=== PATIENT | male | born 1970 | race Hispanic/Latino ===

== ENCOUNTER 2018-03-07 04:54 | Emergency (ER) | payer MEDICAID ==
[2018-03-07 08:11] VITALS: BMI 34.5
== END 2018-03-07 05:18 | disposition left against medical advice (07) ==
LOC: ED 04:54
DX: Z02.89 Encounter for other administrative examinations (principal); Z00.00 Encounter for general adult medical examination without abnormal findings

== ENCOUNTER 2018-03-07 07:56 | Emergency (ER) | payer MEDICAID ==
[2018-03-07 08:11] VITALS: BMI 34.5
[2018-03-07 08:19] VITALS: TEMP 98; O2SAT 98
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
[2018-03-07 08:32] LABS: BASO # 0.02 K/mm3 (0.0-2.0); BASO % 0.2 % (0.0-3.0); EOS # 0.2 (0.0-0.7); EOS % 2.2 % (1.5-5.0); GRAN # 4.65 (1.4-6.5); GRAN % 57.8 % (50.0-68.0); HEMOGLOBIN 13.1 g/dL (14.0-18.0); LYMPH # 2.6 (1.2-3.4); LYMPH % 31.9 % (22.0-35.0); MEAN CELL VOLUME 86.8 fl (80.0-105.0); MEAN CORPUSCULAR HEMOGLOBIN 29.7 pg (25.0-35.0); MEAN CORPUSCULAR HGB CONC 34.2 g/dl (31.0-37.0); MEAN PLATELET VOLUME 11.2 fl (7.0-11.0); MONO # 0.6 (0.1-0.6); MONO % 7.9 % (1.0-6.0); RBC 4.41 10^6/uL (3.5-6.1); RED CELL DISTRIBUTION WIDTH 12.7 % (11.5-14.5); WHITE BLOOD COUNT 8.1 10^3/ul (4.5-11.0)
[2018-03-07 08:42] LABS: ALB/GLOB RATIO 1.3 (1.1-1.8); ALBUMIN 3.9 g/dL (3.0-4.8); ALT/SGPT 59 U/L (7-56); AST/SGOT 52 U/L (17-59); BLOOD UREA NITROGEN 17 mg/dL (7-21); CALCIUM 8.9 mg/dL (8.4-10.5); GFR AFRICAN-AMERICAN > 60; GFR NON-AFRICAN AMERICAN > 60
[2018-03-07 08:50] LABS: B-TYPE NATRIURETIC PEPTIDE 23.9 pg/mL (0-450)
[2018-03-07 10:24] LABS: PH,URINE 6.5 (4.7-8.0); URINE BILIRUBIN NEGATIVE (NEGATIVE); URINE BLOOD NEGATIVE (NEGATIVE); URINE GLUCOSE (UA) NEGATIVE (NEGATIVE); URINE LEUKOCYTE ESTERASE NEGATIVE Leu/uL (NEGATIVE); URINE PROTEIN NEGATIVE mg/dL (<30 mg/dL)
[2018-03-07 10:30] LABS: URINE APPEARANCE CLEAR (CLEAR); URINE COLOR YELLOW (YELLOW)
--- NOTE | 2018-03-07 10:30 | RAD ---
HISTORY: general body swelling COMPARISON: Comparison chest 10/31/2018 TECHNIQUE: Chest PA and lateral FINDINGS: LUNGS: Minimal linear atelectasis and or scarring left lateral lower lung zone as well as the right lung base. PLEURA: No significant pleural effusion identified. No pneumothorax apparent. CARDIOVASCULAR: Normal. OSSEOUS STRUCTURES: No significant abnormalities. VISUALIZED UPPER ABDOMEN: Normal. OTHER FINDINGS: None. IMPRESSION: No acute consolidation. Minimal bibasilar atelectasis
[2018-03-07 10:40] VITALS: BP 132/73; PULSE 80; RESP 18
--- NOTE | 2018-03-07 12:50 | CARD ---
APPROVED REPORT EKG Measurement Heart [id number] CO [id number] <Conclusion> Normal sinus rhythm Normal ECG
--- NOTE | 2018-03-07 16:18 | US ---
HISTORY: Arm pain and swelling. Evaluate for deep venous thrombosis. PHYSICIAN(S): Bruce More MD. FINDINGS: The visualized internal jugular veins are sonographically normal and compressible. No evidence of obstruction or thrombus this is seen. The visualized segments of the subclavian veins are patent with normal waveforms. No sonographic evidence of obstruction or thrombosis is seen. The visualized deep venous systems of both upper extremities proximally are sonographically normal and compressible. IMPRESSION: 1. No sonographic evidence for deep venous thrombosis in the visualized segments of both upper strategies.
--- NOTE | 2018-03-07 16:19 | US ---
PROCEDURE: Left lower extremity venous US HISTORY: Leg pain and swelling. Evaluate for DVT. PHYSICIAN(S): Bruce More MD. TECHNIQUE: Duplex sonography and color-flow Doppler with graded compression were used to evaluate the deep venous system of the left lower extremity. FINDINGS: The visualized deep venous system of the left lower extremity is sonographically normal and compressible. Normal wave forms and augmentation are seen. There is no sonographic evidence for deep venous thrombosis in the visualized segments of the left lower extremity. IMPRESSION: 1. No sonographic evidence for deep venous thrombosis in the visualized segments of the left lower extremity.
== END 2018-03-07 10:39 | disposition home or self-care (01) ==
LOC: ED 07:56
DX: Z00.00 Encounter for general adult medical examination without abnormal findings (principal); R60.0 Localized edema; F17.210 Nicotine dependence, cigarettes, uncomplicated

== ENCOUNTER 2018-03-12 21:00 | Emergency (ER) | payer MEDICAID ==
[2018-03-12 21:00] VITALS: BMI 34.5
[2018-03-12] MEDS ORDERED: Lidocaine 1% Inj (20ml) ONE (21:48)
[2018-03-12] MEDS ORDERED: Amoxicillin-Clav 875-125 mg Tab PO STA (22:26)
[2018-03-12] MEDS ORDERED: TDAP Vaccine 0.5 mL Syr IM ONE (22:26)
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
== END 2018-03-13 01:20 | disposition home or self-care (01) ==
LOC: ED 21:00
DX: S61.216A Laceration without foreign body of right little finger without damage to nail, initial encounter (principal); W45.8XXA Other foreign body or object entering through skin, initial encounter; Y92.009 Unspecified place in unspecified non-institutional (private) residence as the place of occurrence of the external cause; F17.210 Nicotine dependence, cigarettes, uncomplicated; Z23 Encounter for immunization

== ENCOUNTER 2018-04-14 12:04 | Inpatient (IN) | payer MEDICAID, OTHER ==
[2018-04-14 12:04] VITALS: BMI 34.5
--- NOTE | 2018-04-14 12:30 | ED PDOC ---
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 Location Pain Location Body Site Generalized Description Description Acute Intensity of Pain at present 8 Pain Behavior Irritability Aggravating Factors ADL's Alleviating Factors/Management Medication Techniques Alleviating Factors Medication Tramadol HCl (Ultram) 50 mg PO BID [facility] Last Admin: 04/18/18 08:43 Dose: 50 mg MAR Pain Assessment Document 04/18/18 08:43 ABO (Rec: 04/18/18 08:43 ABO [id number]) Pain Reassessment Is this a pain reassessment? No Sleep Is patient sleeping during reassessment? No Presence of Pain Presence of Pain Yes Re-Assess: MAR Pain Assessment Document 04/18/18 09:43 ABO (Rec: 04/18/18 10:23 ABO [id number]) Pain Reassessment Is this a pain reassessment? Yes Sleep Is patient sleeping during reassessment? No Presence of Pain Presence of Pain No Tramadol HCl (Ultram) 50 mg PO TID [facility] Last Admin: 04/19/18 08:35 Dose: 50 mg MAR Pain Assessment Document 04/19/18 08:35 ABO (Rec: 04/19/18 08:35 ABO [id number]) Pain Reassessment Is this a pain reassessment? No Sleep Is patient sleeping during reassessment? No Re-Assess: [facility] Pain Assessment Document 04/19/18 09:35 ABO (Rec: 04/19/18 11:02 ABO [id number]) Pain Reassessment Is this a pain reassessment? Yes Sleep Is patient sleeping during reassessment? No Presence of Pain Presence of Pain No Pain Scale Used Pain Scale Used Numeric Tramadol HCl (Ultram) 50 mg PO TID PRN PRN Reason: pain>=7/10 Last Admin: 04/22/18 11:44 Dose: 50 mg [facility] Pain Assessment Document 04/22/18 11:44 CV (Rec: 04/22/18 11:45 CV [id number]) Pain Reassessment Is this a pain reassessment? No Sleep Is patient sleeping during reassessment? No Presence of Pain Presence of Pain Yes Pain Scale Used Pain Scale Used Numeric Location Left, Right or Bilateral Right Pain Location Body Site Leg Description Description Intermittent Intensity of Pain at present 6 Acceptable Level of Pain 2 Pain Behavior Moaning Aggravating Factors Standing Alleviating Factors/Management Medication Techniques Alleviating Factors Medication Re-Assess: [facility] Pain Assessment Document 04/22/18 12:44 CV (Rec: 04/22/18 13:34 CV [id number]) Pain Reassessment Is this a pain reassessment? Yes Sleep Is patient sleeping during reassessment? No Presence of Pain Presence of Pain Yes Pain Scale Used Pain Scale Used Numeric Location Left, Right or Bilateral Right Pain Location Body Site Leg Description Description Intermittent Intensity of Pain at present 2 Aggravating Factors Standing Alleviating Factors/Management Medication Techniques Alleviating Factors Medication Tramadol HCl (Ultram) 50 mg PO BID PRN PRN Reason: pain>=7/10 Last Admin: 04/24/18 09:32 Dose: 50 mg [facility] Pain Assessment Document 04/24/18 09:32 TW (Rec: 04/24/18 09:32 TW [id number]) Pain Reassessment Is this a pain reassessment? Yes Presence of Pain Presence of Pain Yes Pain Scale Used Pain Scale Used Numeric Location Pain Location Body Site Back Description Description Intermittent Intensity of Pain at present 7 Re-Assess: [facility] Pain Assessment Document 04/24/18 10:32 TW (Rec: 04/24/18 11:12 TW [id number]) Pain Reassessment Is this a pain reassessment? Yes Presence of Pain Presence of Pain Yes Pain Scale Used Pain Scale Used Numeric Location Pain Location Body Site Back Description Description Burning Intensity of Pain at present 3 Tramadol HCl (Ultram) 50 mg PO DAILY PRN PRN Reason: pain>=7/10 Last Admin: 04/25/18 09:08 Dose: 50 mg MAR Pain Assessment Document 04/25/18 09:08 [facility] (Rec: 04/25/18 09:08 [facility] [id number]) Pain Reassessment Is this a pain reassessment? Yes Zaleplon (Sonata) 10 mg PO HS PRN PRN Reason: Insomnia Last Admin: 04/22/18 22:33 Dose: 10 mg Zolpidem Tartrate (Ambien) 10 mg PO HS PRN; Protocol PRN Reason: Insomnia Last Admin: 04/24/18 21:15 Dose: 10 mg Behavioural Document 04/24/18 21:15 DC (Rec: 04/24/18 21:15 DC [id number]) Maintenance Maintenance Dose No Nonmedicinal Nonmedicinal Interventions Redirect Behavior Behavior for Medication: Insomnia Re-Assess: Reassess Psych Meds Document 04/24/18 22:15 DC (Rec: 04/25/18 00:29 DC [id number]) Reassess Psych Med Effective - PA / DIRECTOR TELEHEALTH / Resident Statement ARACELI has reviewed & agrees with the documentation as recorded. <Martín Adam - Last Filed: 04/14/18 14:09> - PA / DIRECTOR TELEHEALTH / Resident Statement ARACELI has reviewed & agrees with the documentation as recorded. <Jose Alatorre - Last Filed: 04/26/18 13:37> Disposition/Present on Arrival - Present on Arrival Any Indicators Present on Arrival: No History of DVT/PE: No History of Uncontrolled Diabetes: No Urinary Catheter: No History of Decub. Ulcer: No History Surgical Site Infection Following: Orthopedic Procedures - Disposition Have Diagnosis and Disposition been Completed?: Yes Disposition Time: 12:30 Patient Plan: Admission <Martín Adam - Last Filed: 04/14/18 14:09> <Jose Alatorre - Last Filed: 04/26/18 13:37> - Disposition Diagnosis: Drug abuse, Bipolar disease, manic Disposition: HOSPITALIZED Condition: STABLE
--- NOTE | 2018-04-14 13:06 | RAD ---
HISTORY: Medical clearance COMPARISON: Comparison chest 03/07/2018 FINDINGS: LUNGS: Poor inspiration with low lung volumes, crowded bronchovascular markings and minor bibasilar atelectasis PLEURA: No significant pleural effusion identified, no pneumothorax apparent. CARDIOVASCULAR: Normal. OSSEOUS STRUCTURES: No significant abnormalities. VISUALIZED UPPER ABDOMEN: Normal. OTHER FINDINGS: None. IMPRESSION: Poor inspiration with low lung volumes, crowded bronchovascular markings and minor bibasilar atelectasis
[2018-04-14 13:14] LABS: ACETAMINOPHEN < 10.0 ug/ml (10.0-20.0); ALB/GLOB RATIO 1.5 (1.1-1.8); ALBUMIN 4.7 g/dL (3.0-4.8); ALT/SGPT 63 U/L (7-56); AST/SGOT 39 U/L (17-59); BASO # 0.02 K/mm3 (0.0-2.0); BASO % 0.2 % (0.0-3.0); BLOOD UREA NITROGEN 8 mg/dL (7-21); CALCIUM 9.3 mg/dL (8.4-10.5); EOS # 0.2 (0.0-0.7); EOS % 1.5 % (1.5-5.0); GFR AFRICAN-AMERICAN > 60; GFR NON-AFRICAN AMERICAN > 60; GRAN # 7.69 (1.4-6.5); GRAN % 72.8 % (50.0-68.0); HEMOGLOBIN 16.1 g/dL (14.0-18.0); LYMPH # 2.2 (1.2-3.4); LYMPH % 21.2 % (22.0-35.0); MEAN CELL VOLUME 86.4 fl (80.0-105.0); MEAN CORPUSCULAR HEMOGLOBIN 30.8 pg (25.0-35.0); MEAN CORPUSCULAR HGB CONC 35.7 g/dl (31.0-37.0); MEAN PLATELET VOLUME 11.4 fl (7.0-11.0); MONO # 0.5 (0.1-0.6); MONO % 4.3 % (1.0-6.0); RBC 5.22 10^6/uL (3.5-6.1); RED CELL DISTRIBUTION WIDTH 13.2 % (11.5-14.5); SALICYLATE < 1 mg/dL (2.0-20.0); WHITE BLOOD COUNT 10.6 10^3/ul (4.5-11.0)
[2018-04-14 13:44] LABS: PH,URINE 5.5 (4.7-8.0); URINE BILIRUBIN NEGATIVE (NEGATIVE); URINE BLOOD NEGATIVE (NEGATIVE); URINE GLUCOSE (UA) NEGATIVE (NEGATIVE); URINE LEUKOCYTE ESTERASE NEGATIVE Leu/uL (NEGATIVE); URINE PROTEIN NEGATIVE mg/dL (<30 mg/dL); URINE UROBILINOGEN 0.2 E.U./dL (<1 E.U./dL)
[2018-04-14 13:45] LABS: BARBITURATES, UR NEGATIVE (NEGATIVE)
[2018-04-14 13:48] LABS: BENZODIAZEPINES, UR POSITIVE (NEGATIVE); OPIATES, UR POSITIVE (NEGATIVE); PHENCYCLIDINE, UR NEGATIVE (NEGATIVE)
[2018-04-14 14:07] LABS: URINE APPEARANCE CLEAR (CLEAR); URINE COLOR YELLOW (YELLOW)
[2018-04-14] MEDS ORDERED: Alum-Mag Hydrox-Simethicone Susp (30 mL) PO PRN (14:53)
[2018-04-14] MEDS ORDERED: Magnesium Hydroxide Susp 30 ml UD PO PRN (14:53)
[2018-04-14 14:57] VITALS: O2SAT 100
--- NOTE | 2018-04-14 15:35 | CARD ---
APPROVED REPORT EKG Measurement Heart [id number] <Conclusion> Normal sinus rhythm with sinus arrhythmia Normal ECG
[2018-04-14 15:44] LABS: FREE T4 0.96 ng/dL (0.78-2.19)
--- NOTE | 2018-04-14 16:52 | PCM.BM ---
<Ilene Gillette - Last Filed: 04/15/18 09:15> - Diagnosis (1) Schizoaffective disorder Status: Acute Interventions: 04/15/18 09:15 Psychoeducation/psychotherapy Psychopharmacology/adjustment of medications as needed/ monitoring possible side effects Evaluate pt on daily basis Compliance with medications and follow up appointments Long acting medication if pt is noncompliant with pill form Suicide and homicide risk assessment and prevention, coping strategies, safety plan Relapse prevention Reduction of symptoms Improve functional status Possible assertive community treatment Cognitive behavioral therapy Family involvement Possible social skill training as outpatient (2) Polysubstance abuse Status: Acute Interventions: 04/15/18 09:16 Monitoring withdrawal symptoms Medical detoxification Pharmacotherapy for alcohol/benzos/opioid dependence Maintaining sobriety Relapse prevention Possible rehabilitation Motivational interviewing 12-step programs: AA meetings <Silvano Cedillo - Last Filed: 04/15/18 10:03> Treatment Plan Problems - Problems identified on initial assessmt Agitated Behavior Date Initiated: 04/14/18 Time Initiated: 16:51 Assessment reference: NA Status: Active Priority: 1 Altered Thought Process Date Initiated: 04/14/18 Time Initiated: 16:51 Assessment reference: NA Status: Active Priority: 2 Auditory Hallucinations Date Initiated: 04/14/18 Time Initiated: 16:51 Assessment reference: NA Status: Active Priority: 3 Delusions Date Initiated: 04/14/18 Time Initiated: 16:51 Assessment reference: NA Status: Active Priority: 4 Hopelessness Date Initiated: 04/14/18 Time Initiated: 16:51 Assessment reference: NA Status: Active Priority: 5 Altered Sleep Patterns Date Initiated: 04/14/18 Time Initiated: 16:52 Assessment reference: NA Status: Active Priority: 6 Treatment assets and liabiliti Patient Assests: cooperative, insightful, motivated, self-reliant, ADL independent, physically healthy, good support system, negotiates basic needs, cognitively intact Patient Liabilities: substance abuse - Milieu Protocol Maintain good personal hygiene: every shift Encourage regular showers, every shift Remind patient to perform daily oral care, every shift Assist patient to perform ADL's Conduct patient checks and document Observation sheet: Q15 minutes Maintain personal safety: daily Educate patient to report safety concerns to staff, daily Monitor environment for contraband/sharps Medication safety: Monitor for expected outcome, potential side effects: daily, Assess barriers to learning: daily, Assess readiness for medication education: daily Family Contact Family involvement: Family/SO is involved Family contact: Patient agrees to contact Discharge/Continuing Care - Education Needs Education Needs: Patient Medication, Patient Diagnosis/Disease Process, Patient Coping Skills, Patient Anger Management skills, Patient Aftercare Safety Plan - Discharge Discharge Criteria: Tolerates medication w/o severe side effects, Free of paranoid thoughts, Free of agitation, Normal sleep pattern, Ability to care for self, No longer exhibiting s/s of withdrawal, Reduction of target symptoms Discharge to:: Home <Keturah Moraes - Last Filed: 04/15/18 11:41>
[2018-04-15 08:14] LABS: GLUCOSE,FASTING 108 mg/dL (65-110); HDL CHOLESTEROL 31 mg/dL (29-60)
[2018-04-15 08:25] LABS: LDL CHOLESTEROL 76 mg/dL (0-129)
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
[2018-04-16] MEDS ORDERED: OLANZapine 5 mg Disintegrating Tab PO PRN (09:16)
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
--- NOTE | 2018-04-18 16:25 | PCM.PYCHPN ---
Psychiatric Progress Note - Psychiatric Progress Note Patient seen today, length of contact: 30min Patient Chief Complaint: "this is a BS...." Problems Identified/Issues Discussed: attempted to discuss: Suicide/ homicide prevention, past psychiatric h/o, current psychiatric symptoms , medical problems, risk/benefits and alternatives of medications, medications compliance, coping strategies, substance abuse h/o, relapse prevention, importance of follow up with psychiatrist and therapist, discharge plan. Medical Problems: medical team was called for atelectasis in the CXR Diagnostic Results: 04/14/18 11:34 04/14/18 11:34 Lab Results 04/15/18 07:00: RPR Nonreactive 04/15/18 07:00: Fasting Glucose 108, Triglycerides 335 H, Cholesterol 152, LDL Cholesterol Direct 76, HDL Cholesterol 31 04/14/18 14:53: Free T4 0.96, TSH 3rd Generation 0.33 L 04/14/18 13:15: Urine Opiates Screen Positive H, Urine Methadone Screen Negative , Ur Barbiturates Screen Negative, Ur Phencyclidine Scrn Negative, Ur Amphetamines Screen Negative, U Benzodiazepines Scrn Positive H, U Oth Cocaine Metabols Positive H, U Cannabinoids Screen Negative 04/14/18 13:15: Urine Color Yellow, Urine Appearance Clear, Urine pH 5.5, Ur Specific [place] >= 1.030, Urine Protein Negative, Urine Glucose (UA) Negative, Urine Ketones Negative, Urine Blood Negative, Urine Nitrate Negative, Urine Bilirubin Negative, Urine Urobilinogen 0.2, Ur Leukocyte Esterase Negative 04/14/18 11:34: Alcohol, Quantitative < 10 04/14/18 11:34: WBC 10.6 D, RBC 5.22, Hgb 16.1 D, Hct 45.1, MCV 86.4, MCH 30.8 , MCHC 35.7, RDW 13.2, Plt Count 205, MPV 11.4 H, Gran % 72.8 H, Lymph % (Auto) 21.2 L, [place] % (Auto) 4.3, Eos % (Auto) 1.5, Baso % (Auto) 0.2, Gran # 7.69 H, Lymph # (Auto) 2.2, [place] # (Auto) 0.5, Eos # (Auto) 0.2, Baso # (Auto) 0.02 04/14/18 11:34: Salicylates < 1 L, Acetaminophen < 10.0 L 04/14/18 11:34: Sodium 145, Potassium 4.2, Chloride 109 H, Carbon Dioxide 23, Anion Gap 18, BUN 8, Creatinine 0.8, Est GFR ( Amer) > 60, Est GFR (Non- Af Amer) > 60, Random Glucose 99, Calcium 9.3, Total Bilirubin 0.4, AST 39, ALT 63 H, Alkaline Phosphatase 103, Total Protein 8.0, Albumin 4.7, Globulin 3.2, Albumin/Globulin Ratio 1.5 Vital Signs Temp Pulse Resp BP Pulse Ox 04/16/18 06:37 97.6 F 102 H 19 117/87 04/16/18 03:35 91 H 125/74 04/15/18 16:00 91 H 125/74 04/15/18 07:34 97.8 F 90 20 126/94 H 04/14/18 17:50 96 H 148/91 H 04/14/18 16:09 16 04/14/18 14:56 98.1 F 96 H 16 148/91 H 100 04/14/18 14:30 98.2 F 80 18 127/76 99 04/14/18 12:38 98.4 F 87 18 152/85 H 98 Temp Pulse Resp BP Pulse Ox 97.2 F L 93 H 20 108/84 100 04/17/18 07:13 04/17/18 07:13 04/17/18 07:13 04/17/18 07:13 04/14/18 14:56 DSM 5 Symptoms Update: shortly pt is 47yo male with h/o mental illness, most likely bipolar vs shizoaffective disorder, h/o noncompliance with the medications and follow up appointments, history of polysubstance abuse and dependence, history of involuntary commitment to [facility], patient was brought to the hospital by his friend for disorganized thoughts, patient also using some drugs, possible suicidal ideation, possible s/p suicidal attempt pt tried to hang himself in the bathroom in the hotel. patient is very familiar to this keno writer/runner from the previous admission to the psychiatric inpatient unit, patient requires further hospitalization and stabilization to cause impulses are unpredictable, patient also verbalized thoughts of harming himself and others in the community. Patient was seen and examined today in his room, pt c/o anxiety at the same time pt said that he feels overmedicated, patient's hygiene is improving, pt reported that he hears his ex- voice through the pillow. pt is guarded and paranoid, there is no recollection of his actions prior this admission, pt said "it is a BS, I did not try to kill myself..." (see previous note, as per family pt tried to hang self in the hotel). pt tolerates meds well, no side effects observed or reported, AIMS 0, no EPS, pt asked to d/c klonopin and give him ativan, will do so. as per staff pt was able to tolerate food, ate breakfast and lunch. Impression: r/o schizoaffective disorder r/o substance induced psychosis polysubstance abuse and dependence Medication Change: Yes (seroquel 300mg po daily and 300mg po hs) Medical Record Reviewed: Yes (pharmacy, consults) Consults ordered or reviewed: medical team recommended spirometer for atelectasis Mental Status Examination - Cognitive Function Orientation: Person, Place Memory: Impaired Attention: Poor Concentration: Poor Association: Loose Fund of Knowledge: Poor - Mood Mood: Depressed, Anxious - Affect Affect: Flat - Formal Thought Process Formal Thought Process: Hallucinations, Delusions, Paranoia, Loosening of associations, Circumstantial - Suicidal Ideation Suicidal Ideation: No - Homicidal Ideation Homicidal Ideation: No Goal/Treatment Plan - Goal/Treatment Plan Need for Continued Stay: Remain at risks for inpatient hospitalization, Severe depression anxiety, Discharge may exacerbated symptoms, Severe functional impairment Progress Toward Problem(s) and Goals/Treatment Plan: Milieu/structure/supportive therapy Medical consult called, pt has atelectasis, HTN, chronic pain seroquel 300mg po daily 300mg po hs for psychosis and mood stabilization PRN meds klonopin d/c ativan 3mg po qid for alcohol withdrawals Sonata 10mg po hs prn for insomnia prozac 10mg po daily for depression and anxiety neurontin 600mg po qid for anxiety and mood stabilization SW consultation for discharge plan and social issues Family involvement, pt gave written consent for collaterals from mother Follow up on labs Will monitor closely Pt was educated about risk/benefits and alternatives of medications, coping strategies (safety plan, suicide prevention), relapse prevention, importance of follow up with psychiatrist and therapist, stay away from drugs/alcohol/smoking Estimated Date of D/C: 04/23/18 (will monitor closely)
[2018-04-19] MEDS ORDERED: DiphenhydrAMINE 50 mg/ml Inj IM PRN (15:00)
--- NOTE | 2018-04-19 15:46 | PCM.PYCHPN ---
Psychiatric Progress Note - Psychiatric Progress Note Patient seen today, length of contact: 30min Patient Chief Complaint: "I am overmedicated and I am anxious" Problems Identified/Issues Discussed: attempted to discuss: Suicide/ homicide prevention, past psychiatric h/o, current psychiatric symptoms , medical problems, risk/benefits and alternatives of medications, medications compliance, coping strategies, substance abuse h/o, relapse prevention, importance of follow up with psychiatrist and therapist, discharge plan. Medical Problems: medical team was called for atelectasis in the CXR Diagnostic Results: 04/14/18 11:34 04/14/18 11:34 Lab Results 04/15/18 07:00: RPR Nonreactive 04/15/18 07:00: Fasting Glucose 108, Triglycerides 335 H, Cholesterol 152, LDL Cholesterol Direct 76, HDL Cholesterol 31 04/14/18 14:53: Free T4 0.96, TSH 3rd Generation 0.33 L 04/14/18 13:15: Urine Opiates Screen Positive H, Urine Methadone Screen Negative , Ur Barbiturates Screen Negative, Ur Phencyclidine Scrn Negative, Ur Amphetamines Screen Negative, U Benzodiazepines Scrn Positive H, U Oth Cocaine Metabols Positive H, U Cannabinoids Screen Negative 04/14/18 13:15: Urine Color Yellow, Urine Appearance Clear, Urine pH 5.5, Ur Specific [place] >= 1.030, Urine Protein Negative, Urine Glucose (UA) Negative, Urine Ketones Negative, Urine Blood Negative, Urine Nitrate Negative, Urine Bilirubin Negative, Urine Urobilinogen 0.2, Ur Leukocyte Esterase Negative 04/14/18 11:34: Alcohol, Quantitative < 10 04/14/18 11:34: WBC 10.6 D, RBC 5.22, Hgb 16.1 D, Hct 45.1, MCV 86.4, MCH 30.8 , MCHC 35.7, RDW 13.2, Plt Count 205, MPV 11.4 H, Gran % 72.8 H, Lymph % (Auto) 21.2 L, [place] % (Auto) 4.3, Eos % (Auto) 1.5, Baso % (Auto) 0.2, Gran # 7.69 H, Lymph # (Auto) 2.2, [place] # (Auto) 0.5, Eos # (Auto) 0.2, Baso # (Auto) 0.02 04/14/18 11:34: Salicylates < 1 L, Acetaminophen < 10.0 L 04/14/18 11:34: Sodium 145, Potassium 4.2, Chloride 109 H, Carbon Dioxide 23, Anion Gap 18, BUN 8, Creatinine 0.8, Est GFR ( Amer) > 60, Est GFR (Non- Af Amer) > 60, Random Glucose 99, Calcium 9.3, Total Bilirubin 0.4, AST 39, ALT 63 H, Alkaline Phosphatase 103, Total Protein 8.0, Albumin 4.7, Globulin 3.2, Albumin/Globulin Ratio 1.5 Vital Signs Temp Pulse Resp BP Pulse Ox 04/16/18 06:37 97.6 F 102 H 19 117/87 04/16/18 03:35 91 H 125/74 04/15/18 16:00 91 H 125/74 04/15/18 07:34 97.8 F 90 20 126/94 H 04/14/18 17:50 96 H 148/91 H 04/14/18 16:09 16 04/14/18 14:56 98.1 F 96 H 16 148/91 H 100 04/14/18 14:30 98.2 F 80 18 127/76 99 04/14/18 12:38 98.4 F 87 18 152/85 H 98 Temp Pulse Resp BP Pulse Ox 97.2 F L 93 H 20 108/84 100 04/17/18 07:13 04/17/18 07:13 04/17/18 07:13 04/17/18 07:13 04/14/18 14:56 DSM 5 Symptoms Update: shortly pt is 47yo male with h/o mental illness, most likely bipolar vs shizoaffective disorder, h/o noncompliance with the medications and follow up appointments, history of polysubstance abuse and dependence, history of involuntary commitment to [facility], patient was brought to the hospital by his friend for disorganized thoughts, patient also using some drugs, possible suicidal ideation, possible s/p suicidal attempt pt tried to hang himself in the bathroom in the hotel. patient is very familiar to this field underwriter from the previous admission to the psychiatric inpatient unit, patient requires further hospitalization and stabilization to cause impulses are unpredictable, patient also verbalized thoughts of harming himself and others in the community. Patient was seen and examined today at the treatment team room, pt is medication seeking, said that "I feel drowsy on medications you prescribed", at the same time pt was asking for medication for anxiety, it is not possible to feel drowsy and anxious at the same time. pt was keep asking ro PRN medications constantly, treatment plan was d/w pt and pt agreed for the following meds: thorazine PO/IM prn ativan will be d/c, xanax the equivalent dose with the plan to wean it off vistaril as needed NO pain killers, pt is on tramadol pt is on seroquel, prozac, neurontin, sonata patient's hygiene is improving, pt reported that he hears his ex- voice through the pillow. pt is guarded and paranoid, there is no recollection of his actions prior this admission, pt said "it is a BS, I did not try to kill myself..." (see previous note, as per family pt tried to hang self in the hotel) . pt tolerates meds well, no side effects observed or reported, AIMS 0, no EPS. as per staff pt was able to tolerate food, ate breakfast and lunch, pt is intrusive. Impression: r/o schizoaffective disorder r/o substance induced psychosis polysubstance abuse and dependence Medication Change: Yes (neurontin increased, cogentin, thorazine xanax) Medical Record Reviewed: Yes (pharmacy, consults) Consults ordered or reviewed: medical team recommended spirometer for atelectasis, respiratory was called Mental Status Examination - Cognitive Function Orientation: Person, Place Memory: Impaired Attention: Poor Concentration: Poor Association: Loose Fund of Knowledge: Poor - Mood Mood: Depressed, Anxious - Affect Affect: Flat - Formal Thought Process Formal Thought Process: Hallucinations, Delusions, Paranoia, Loosening of associations, Circumstantial - Suicidal Ideation Suicidal Ideation: No - Homicidal Ideation Homicidal Ideation: No Goal/Treatment Plan - Goal/Treatment Plan Need for Continued Stay: Remain at risks for inpatient hospitalization, Severe depression anxiety, Discharge may exacerbated symptoms, Severe functional impairment Progress Toward Problem(s) and Goals/Treatment Plan: Milieu/structure/supportive therapy Medical consult called, pt has atelectasis, HTN, chronic pain seroquel 300mg po daily 300mg po hs for psychosis and mood stabilization PRN meds (thorazine, benadryl, tramadol, clonidine) xanax 1mg po qid, with the plan to taper it down, klonopin d/c ativan d/c Sonata 10mg po hs prn for insomnia prozac 20mg po daily for depression and anxiety neurontin 600mg po qid for anxiety and mood stabilization SW consultation for discharge plan and social issues Family involvement, pt gave written consent for collaterals from mother Follow up on labs Will monitor closely Pt was educated about risk/benefits and alternatives of medications, coping strategies (safety plan, suicide prevention), relapse prevention, importance of follow up with psychiatrist and therapist, stay away from drugs/alcohol/smoking Estimated Date of D/C: 04/23/18 (will monitor closely)
--- NOTE | 2018-04-20 11:03 | PCM.PYCHPN ---
Psychiatric Progress Note - Psychiatric Progress Note Patient seen today, length of contact: 25 min Problems Identified/Issues Discussed: I reviewed assessment. Patient is a 47yo male with h/o mental illness, most likely bipolar vs shizoaffective disorder, h/o noncompliance with the medications and follow up appointments, history of polysubstance abuse and dependence, history of involuntary commitment to [facility] who was admitted to the psychiatric unit for disorganization, possible suicidal ideation, possible s/p suicidal attempt by trying to hang himself in the bathroom in the hotel. Patient also verbalized thoughts of harming himself and others in the community. I reviewed recent notes. Patient has been labile, restless and medication seeking. Ativan was changed to Xanax yesterday per patient request however patient required Ativan last night due to anxiety again. Vitals have also been elevated. I meet with him at bedside and in the hallway again. He is fairly groomed and coherent. Indicates that he is very anxious and that he isnt sleeping well. Doesnt feel like anything helps with his insomnia. Denies any hallucinations and doesnt appear to be responding to internal stimuli. He does appear anxious and restless, staff have noted him to be intrusive sometimes. Patient is tolerating his current medications and denies any new side effects or new pain. Still complains of aches all over. He doesn't appear to be in any physical discomfort during my interviews this morning. I discuss patients current symptoms of anxiety, his unstable vitals and switching BACK to Ativan from Xanax and patient is in agreement. Diagnostic Results: r/o schizoaffective disorder r/o substance induced psychosis polysubstance abuse and dependence Medication Change: Yes (d/c xanax, restart ativan) Medical Record Reviewed: Yes (pharmacy, consults) Mental Status Examination - Cognitive Function Orientation: Person, Place Memory: Impaired Attention: Poor Concentration: Poor Association: Loose Fund of Knowledge: Poor - Mood Mood: Depressed, Anxious - Affect Affect: Flat - Formal Thought Process Formal Thought Process: Hallucinations, Delusions, Paranoia, Loosening of associations, Circumstantial - Suicidal Ideation Suicidal Ideation: No - Homicidal Ideation Homicidal Ideation: No Goal/Treatment Plan - Goal/Treatment Plan Need for Continued Stay: Remain at risks for inpatient hospitalization, Severe depression anxiety, Discharge may exacerbated symptoms, Severe functional impairment Progress Toward Problem(s) and Goals/Treatment Plan: * c/w current tx and plan * xanax 1mg po qid switched to ativan 2 mg q6 with plan to taper as tolerated * Seroquel increased from 300/300 to 300/350 to help with lability and impulse control * No new weekend labs thus far * Vitals reviewed and noted below: Selected Entries 04/20/18 06:35 Temperature 97.4 F L Pulse Rate 103 H Respiratory 20 Rate Blood Pressure 113/70 04/19/18 04/19/18 04/19/18 07:04 15:46 22:21 Temperature 97.6 F Pulse Rate 116 H 112 H 120 H Respiratory 20 Rate Blood Pressure 120/73 132/83 137/92 H Estimated Date of D/C: 04/23/18 (will monitor closely)
--- NOTE | 2018-04-21 15:13 | PCM.PYCHPN ---
Psychiatric Progress Note - Psychiatric Progress Note Patient seen today, length of contact: 25 min Problems Identified/Issues Discussed: I have reviewed assessment. Patient is a 47yo male with h/o mental illness, most likely bipolar vs shizoaffective disorder, h/o noncompliance with the medications and follow up appointments, history of polysubstance abuse and dependence, history of involuntary commitment to [facility] who was admitted to the psychiatric unit for disorganization, possible suicidal ideation, possible s/p suicidal attempt by trying to hang himself in the bathroom in the hotel. Patient also verbalized thoughts of harming himself and others in the community. I reviewed recent notes. Patient has been labile, restless and medication seeking. Ativan was changed to Xanax on Sunday per patient request however patient required stat Ativan 2 mg Sunday night due to recurrent anxiety. Multiple sets of vitals were elevated right after the switch to Xanax so Xanax was switched back to Ativan on Sunday (with patient knowledge and consent) Patient remains medication seeking and has been given multiple medications for various symptoms over the weekend. Patient has complained about anxiety, auditory hallucinations, insomnia agitation/restless legs and pain. He has been given Ativan & vistaril po, Thorazine 50 mg po, Sonata, Benadryl po and Ultram prn respectively for these complaints in addition to his standing medications. Not surprisingly, patient has been confused and at times delusional over the weekend. This is likely due to withdrawal and possibly secondary to the changes in benzo regimen, not to mention the accumulative effects of longer acting Ativan. He was finally able to sleep last night but this was at 2:30 am. He remains unpredictable and requires continued close observation. I appreciate staff updates in this regard. . Diagnostic Results: r/o schizoaffective disorder r/o substance induced psychosis polysubstance abuse and dependence Medication Change: Yes (ativan 2 mg q6 decreased to 2 mg q8) Medical Record Reviewed: Yes (pharmacy, consults) Mental Status Examination - Cognitive Function Orientation: Person, Place Memory: Impaired Attention: Poor Concentration: Poor Association: Loose Fund of Knowledge: Poor - Mood Mood: Depressed, Anxious - Affect Affect: Flat - Formal Thought Process Formal Thought Process: Hallucinations, Delusions, Paranoia, Loosening of associations, Circumstantial - Suicidal Ideation Suicidal Ideation: No - Homicidal Ideation Homicidal Ideation: No Goal/Treatment Plan - Goal/Treatment Plan Need for Continued Stay: Remain at risks for inpatient hospitalization, Severe depression anxiety, Discharge may exacerbated symptoms, Severe functional impairment Progress Toward Problem(s) and Goals/Treatment Plan: * c/w current tx and plan * xanax 1mg po qid switched to ativan 2 mg q6 on 04/20/18. Ativan 2 mg q6 decreased to 2 mg q8 on 04/21/18 with plan to taper as tolerated * Seroquel increased from 300/300 to 300/350 on 04/20/18 to help with lability and impulse control * No new weekend labs * Vitals reviewed and noted below: Vital Signs (72 hours) 04/18/18 04/19/18 04/19/18 19:37 07:04 15:46 Temperature 97.6 F Pulse Rate 75 116 H 112 H Respiratory 20 Rate Blood Pressure 134/91 H 120/73 132/83 04/19/18 04/20/18 04/20/18 22:21 06:35 16:00 Temperature 97.4 F L Pulse Rate 120 H 103 H 102 H Respiratory 20 Rate Blood Pressure 137/92 H 113/70 132/87 04/20/18 19:29 Temperature Pulse Rate 120 H Respiratory Rate Blood Pressure 133/90 Estimated Date of D/C: 04/23/18 (will monitor closely)
--- NOTE | 2018-04-21 19:55 | CP.PCM.PN ---
<Johnny Holland - Last Filed: 04/21/18 19:58> Subjective - Date & Time of Evaluation Date of Evaluation: 04/21/18 Time of Evaluation: 19:52 - Subjective Subjective: Patient seen and examined at bedside. Per nursing the patient's heart rate was elevated at 130 and Medicine was consulted. Patient denies any chest pain, shortness of breath, fevers, chills, nausea, vomiting, changes in vision, or any other complaints. Objective - Vital Signs/Intake and Output Vital Signs (last 24 hours): Temp Pulse Resp BP Pulse Ox 97.4 F L 128 H 20 135/83 100 04/20/18 06:35 04/21/18 16:45 04/20/18 06:35 04/21/18 16:45 04/14/18 14:56 - Medications Medications: Current Medications Acetaminophen (Tylenol 325mg Tab) 650 mg PO Q4 PRN PRN Reason: Pain, Mild (1-3) Al Hydrox/Mg Hydrox/Simethicone (Maalox Plus 30 Ml) 30 ml PO DAILY PRN PRN Reason: Upset Stomach Benztropine Mesylate (Cogentin) 2 mg PO [facility] Last Admin: 04/21/18 09:00 Dose: 2 mg Chlorpromazine (Thorazine) 50 mg PO QID PRN; Protocol PRN Reason: agitation/psychosis Last Admin: 04/20/18 20:24 Dose: 50 mg Chlorpromazine (Thorazine) 50 mg IM QID PRN; Protocol PRN Reason: Agitation Clonidine HCl (Catapres) 0.1 mg PO Q12H PRN PRN Reason: Other Last Admin: 04/20/18 19:29 Dose: 0.1 mg Diphenhydramine HCl (Benadryl) 50 mg IM Q6H PRN PRN Reason: Agitation Last Admin: 04/20/18 23:27 Dose: 50 mg Fluoxetine HCl (Prozac) 20 mg PO DAILY [facility] Last Admin: 04/21/18 08:15 Dose: 20 mg Gabapentin (Neurontin) 600 mg PO QID MATI PRN Reason: Protocol Last Admin: 04/21/18 17:27 Dose: 600 mg Hydroxyzine Pamoate (Vistaril) 50 mg PO Q8 PRN; Protocol PRN Reason: Anxiety Last Admin: 04/20/18 16:00 Dose: 50 mg Lorazepam (Ativan) 2 mg PO Q8 MATI PRN Reason: Protocol Magnesium Hydroxide (Milk Of Magnesia) 30 ml PO DAILY PRN PRN Reason: Constipation Quetiapine Fumarate (Seroquel) 300 mg PO DAILY MATI PRN Reason: Protocol Last Admin: 04/21/18 08:14 Dose: 300 mg Quetiapine Fumarate (Seroquel) 350 mg PO HS MATI PRN Reason: Protocol Last Admin: 04/20/18 21:03 Dose: 350 mg Tamsulosin HCl (Flomax) 0.4 mg PO DAILY [facility]I Last Admin: 04/21/18 08:15 Dose: 0.4 mg Tramadol HCl (Ultram) 50 mg PO TID PRN PRN Reason: pain>=7/10 Last Admin: 04/20/18 07:52 Dose: 50 mg Zaleplon (Sonata) 10 mg PO HS PRN PRN Reason: Insomnia Last Admin: 04/20/18 21:36 Dose: 10 mg - Head Exam Head Exam: ATRAUMATIC, NORMAL INSPECTION, NORMOCEPHALIC - Eye Exam Eye Exam: EOMI, Normal appearance, PERRL Pupil Exam: NORMAL ACCOMODATION - ENT Exam ENT Exam: Mucous Membranes Moist - Respiratory Exam Respiratory Exam: Clear to Ausculation Bilateral, NORMAL BREATHING PATTERN. absent: Prolonged Expiratory Phase, Respiratory Distress - Cardiovascular Exam Cardiovascular Exam: Tachycardia, +S1, +S2 - GI/Abdominal Exam GI & Abdominal Exam: Soft, Normal Bowel Sounds - Extremities Exam Extremities Exam: Full ROM, Normal Inspection. absent: Pedal Edema - Back Exam Back Exam: NORMAL INSPECTION. absent: CVA tenderness (L), CVA tenderness (R), paraspinal tenderness - Neurological Exam Neurological Exam: Alert, Awake, CN II-XII Intact, Normal Gait, Oriented x3 - Psychiatric Exam Psychiatric exam: Normal Affect, Normal Mood - Skin Skin Exam: Dry, Intact, Normal Color Assessment and Plan - Assessment and Plan (Free Text) Assessment: 47 year old male with PMH bipolar disorder, schizoaffective d/o, prior suicide attempts, presents for paranoid thoughts, depression. Currently being treated in the [facility] for above issues. Patient Tachycardic on vitals. Plan: 1. Tachycardia -Patient has history of cocaine use. -Repeat EKG was sinus tachycardia at 115 bpm. -Patient asymptomatic at the time of examination. -D-dimer ordered .Will f/u with results. -Will monitor closely. Drug abuse: - Monitor for withdrawal - Ativan prn - Psych on board. Psych conditions: - as per psych management Will continue to follow. Plan discussed with Dr. Carter. Johnny Holland, PGY-1 <Abimbola Carter - Last Filed: 04/22/18 15:31> Objective - Vital Signs/Intake and Output Vital Signs (last 24 hours): Temp Pulse Resp BP Pulse Ox 97.8 F 80 17 127/86 100 04/22/18 09:00 04/22/18 09:00 04/22/18 09:00 04/22/18 09:00 04/14/18 14:56 - Medications Medications: Current Medications Acetaminophen (Tylenol 325mg Tab) 650 mg PO Q4 PRN PRN Reason: Pain, Mild (1-3) Al Hydrox/Mg Hydrox/Simethicone (Maalox Plus 30 Ml) 30 ml PO DAILY PRN PRN Reason: Upset Stomach Benztropine Mesylate (Cogentin) 2 mg PO [facility] Last Admin: 04/22/18 10:55 Dose: 2 mg Chlorpromazine (Thorazine) 50 mg PO QID PRN; Protocol PRN Reason: agitation/psychosis Last Admin: 04/22/18 10:11 Dose: 50 mg Chlorpromazine (Thorazine) 50 mg IM QID PRN; Protocol PRN Reason: Agitation Clonidine HCl (Catapres) 0.1 mg PO Q12H PRN PRN Reason: Other Last Admin: 04/22/18 00:37 Dose: 0.1 mg Diphenhydramine HCl (Benadryl) 50 mg IM Q6H PRN PRN Reason: Agitation Last Admin: 04/20/18 23:27 Dose: 50 mg Fluoxetine HCl (Prozac) 20 mg PO DAILY [facility] Last Admin: 04/22/18 10:56 Dose: 20 mg Gabapentin (Neurontin) 600 mg PO QID MATI PRN Reason: Protocol Last Admin: 04/22/18 10:55 Dose: 600 mg Hydroxyzine Pamoate (Vistaril) 50 mg PO Q8 PRN; Protocol PRN Reason: Anxiety Last Admin: 04/20/18 16:00 Dose: 50 mg Lorazepam (Ativan) 2 mg PO Q8 MATI PRN Reason: Protocol Last Admin: 04/22/18 11:01 Dose: Not Given Magnesium Hydroxide (Milk Of Magnesia) 30 ml PO DAILY PRN PRN Reason: Constipation Quetiapine Fumarate (Seroquel) 300 mg PO DAILY [facility]I PRN Reason: Protocol Last Admin: 04/22/18 11:46 Dose: 300 mg Quetiapine Fumarate (Seroquel) 350 mg PO HS MATI PRN Reason: Protocol Last Admin: 04/21/18 21:42 Dose: 350 mg Tamsulosin HCl (Flomax) 0.4 mg PO DAILY [facility] Last Admin: 04/22/18 10:56 Dose: 0.4 mg Tramadol HCl (Ultram) 50 mg PO TID PRN PRN Reason: pain>=7/10 Last Admin: 04/22/18 11:44 Dose: 50 mg Zaleplon (Sonata) 10 mg PO HS PRN PRN Reason: Insomnia Last Admin: 04/20/18 21:36 Dose: 10 mg - Labs Labs: 04/22/18 09:15 04/22/18 09:15 Attending/Attestation - Attestation I have personally seen and examined this patient.: Yes I have fully participated in the care of the patient.: Yes I have reviewed all pertinent clinical information, including history, physical exam and plan: Yes Notes (Text): 04/22/18 15:31 Medical record note made by the resident after discussion with my direction and input after the patient was personally seen and examined by me. I have reviewed the chart and agree that the record accurately reflects by personal performance of the history, physical exam, data review, and medical decision-making, in the course for the patient. I have also personally directed the plan of care.
[2018-04-22 09:19] LABS: BASO # 0.01 K/mm3 (0.0-2.0); BASO % 0.1 % (0.0-3.0); EOS # 0.2 (0.0-0.7); EOS % 1.9 % (1.5-5.0); GRAN # 6.38 (1.4-6.5); GRAN % 66.5 % (50.0-68.0); HEMOGLOBIN 14.2 g/dL (14.0-18.0); LYMPH # 2.3 (1.2-3.4); LYMPH % 23.6 % (22.0-35.0); MEAN CORPUSCULAR HEMOGLOBIN 30.4 pg (25.0-35.0); MEAN CORPUSCULAR HGB CONC 34.5 g/dl (31.0-37.0); MONO # 0.8 (0.1-0.6); MONO % 7.9 % (1.0-6.0); RBC 4.67 10^6/uL (3.5-6.1); RED CELL DISTRIBUTION WIDTH 13.4 % (11.5-14.5); WHITE BLOOD COUNT 9.6 10^3/ul (4.5-11.0)
[2018-04-22 10:05] LABS: ALB/GLOB RATIO 1.5 (1.1-1.8); ALBUMIN 4.3 g/dL (3.0-4.8); ALT/SGPT 52 U/L (7-56); AST/SGOT 28 U/L (17-59); BLOOD UREA NITROGEN 12 mg/dL (7-21); CALCIUM 9.3 mg/dL (8.4-10.5); GFR AFRICAN-AMERICAN > 60; GFR NON-AFRICAN AMERICAN > 60
--- NOTE | 2018-04-22 11:24 | CARD ---
APPROVED REPORT EKG Measurement Heart [id number] <Conclusion> Normal sinus rhythm Normal ECG
--- NOTE | 2018-04-22 16:05 | CP.PCM.PN ---
<Flavia oSto - Last Filed: 04/22/18 16:00> Subjective - Date & Time of Evaluation Date of Evaluation: 04/22/18 Time of Evaluation: 16:00 - Subjective Subjective: Flavia Soto, PGY1, Progress Note for Dr Lott: Patient seen and examined at bedside. No acute events overnight. Reports mild palpitations. Denies cp, sob, leg swelling, diaphoresis, cough, headache, nausea , vomiting, abdominal pain. Objective - Vital Signs/Intake and Output Vital Signs (last 24 hours): Temp Pulse Resp BP Pulse Ox 97.8 F 80 17 127/86 100 04/22/18 09:00 04/22/18 09:00 04/22/18 09:00 04/22/18 09:00 04/14/18 14:56 - Medications Medications: Current Medications Acetaminophen (Tylenol 325mg Tab) 650 mg PO Q4 PRN PRN Reason: Pain, Mild (1-3) Al Hydrox/Mg Hydrox/Simethicone (Maalox Plus 30 Ml) 30 ml PO DAILY PRN PRN Reason: Upset Stomach Benztropine Mesylate (Cogentin) 2 mg PO [facility] Last Admin: 04/22/18 10:55 Dose: 2 mg Chlorpromazine (Thorazine) 50 mg PO QID PRN; Protocol PRN Reason: agitation/psychosis Last Admin: 04/22/18 10:11 Dose: 50 mg Chlorpromazine (Thorazine) 50 mg IM QID PRN; Protocol PRN Reason: Agitation Clonidine HCl (Catapres) 0.1 mg PO Q12H PRN PRN Reason: Other Last Admin: 04/22/18 00:37 Dose: 0.1 mg Diphenhydramine HCl (Benadryl) 50 mg IM Q6H PRN PRN Reason: Agitation Last Admin: 04/20/18 23:27 Dose: 50 mg Fluoxetine HCl (Prozac) 20 mg PO DAILY [facility] Last Admin: 04/22/18 10:56 Dose: 20 mg Gabapentin (Neurontin) 600 mg PO QID [facility] PRN Reason: Protocol Last Admin: 04/22/18 13:25 Dose: 600 mg Hydroxyzine Pamoate (Vistaril) 50 mg PO Q8 PRN; Protocol PRN Reason: Anxiety Last Admin: 04/20/18 16:00 Dose: 50 mg Lorazepam (Ativan) 2 mg PO Q8 [facility] PRN Reason: Protocol Last Admin: 04/22/18 15:46 Dose: 2 mg Magnesium Hydroxide (Milk Of Magnesia) 30 ml PO DAILY PRN PRN Reason: Constipation Propranolol HCl (Inderal) 10 mg PO BID [facility] Quetiapine Fumarate (Seroquel) 300 mg PO DAILY [facility] PRN Reason: Protocol Last Admin: 04/22/18 11:46 Dose: 300 mg Quetiapine Fumarate (Seroquel) 350 mg PO HS [facility] PRN Reason: Protocol Last Admin: 04/21/18 21:42 Dose: 350 mg Tamsulosin HCl (Flomax) 0.4 mg PO DAILY [facility] Last Admin: 04/22/18 10:56 Dose: 0.4 mg Tramadol HCl (Ultram) 50 mg PO TID PRN PRN Reason: pain>=7/10 Last Admin: 04/22/18 11:44 Dose: 50 mg Zaleplon (Sonata) 10 mg PO HS PRN PRN Reason: Insomnia Last Admin: 04/20/18 21:36 Dose: 10 mg - Labs Labs: 04/22/18 09:15 04/22/18 09:15 - Constitutional Appears: Non-toxic, No Acute Distress - Head Exam Head Exam: ATRAUMATIC, NORMOCEPHALIC - Eye Exam Eye Exam: EOMI, PERRL. absent: Conjunctival injection, Nystagmus, Scleral icterus Pupil Exam: NORMAL ACCOMODATION, PERRL. absent: Irregular, Miosis, Unequal - ENT Exam ENT Exam: Mucous Membranes Moist - Neck Exam Neck Exam: Full ROM - Respiratory Exam Respiratory Exam: Clear to Ausculation Bilateral, NORMAL BREATHING PATTERN. absent: Accessory Muscle Use, Rales, Rhonchi, Wheezes, Respiratory Distress, Stridor - Cardiovascular Exam Cardiovascular Exam: Tachycardia, +S1, +S2. absent: Murmur - GI/Abdominal Exam GI & Abdominal Exam: Soft, Normal Bowel Sounds. absent: Distended, Firm, Guarding, Rigid, Tenderness, Mass, Pulsatile Mass, Rebound - Extremities Exam Extremities Exam: Normal Inspection. absent: Calf Tenderness, Pedal Edema - Back Exam Back Exam: NORMAL INSPECTION - Neurological Exam Neurological Exam: Alert, Awake, Oriented x3 - Psychiatric Exam Psychiatric exam: Depressed, Normal Affect - Skin Skin Exam: Dry, Normal Color, Warm Assessment and Plan - Assessment and Plan (Free Text) Assessment: 47 year old male with PMH bipolar disorder, schizoaffective d/o, prior suicide attempts, presents for paranoid thoughts, depression. Currently being treated in the [facility] for the above issues. Recently, pt found to be in sinus tachycardia likely 2/2 drug withdrawal: Sinus Tachycardia: - Patient has history of cocaine use. - Repeat EKG was sinus tachycardia at 115 bpm. - Patient asymptomatic: denies cp, sob, diaphoresis, n/v/abdominal pain, pleuritic cp. - D-dimer negative. - Propranolol 10 mg bid mayela, please DO NOT discharge patient on this medication as he has a history of cocaine abuse. Discussed with patient the harmful effects of the medication with cocaine, agrees to be abstinent. Drug abuse: - Monitor for withdrawal - Ativan prn - Psych on board. Psych conditions: - as per psych management Case seen and discussed with Dr Lott. Will sign off. Please reconsult as necessary. Flavia Soto, PGY1 <Aravind Lott - Last Filed: 04/22/18 18:49> Objective - Vital Signs/Intake and Output Vital Signs (last 24 hours): Temp Pulse Resp BP Pulse Ox 97.8 F 116 H 17 126/87 100 04/22/18 09:00 04/22/18 17:32 04/22/18 09:00 04/22/18 17:32 04/14/18 14:56 - Medications Medications: Current Medications Acetaminophen (Tylenol 325mg Tab) 650 mg PO Q4 PRN PRN Reason: Pain, Mild (1-3) Al Hydrox/Mg Hydrox/Simethicone (Maalox Plus 30 Ml) 30 ml PO DAILY PRN PRN Reason: Upset Stomach Benztropine Mesylate (Cogentin) 2 mg PO [facility] Last Admin: 04/22/18 10:55 Dose: 2 mg Chlorpromazine (Thorazine) 50 mg PO QID PRN; Protocol PRN Reason: agitation/psychosis Last Admin: 04/22/18 10:11 Dose: 50 mg Chlorpromazine (Thorazine) 50 mg IM QID PRN; Protocol PRN Reason: Agitation Clonidine HCl (Catapres) 0.1 mg PO Q12H PRN PRN Reason: Other Last Admin: 04/22/18 00:37 Dose: 0.1 mg Fluoxetine HCl (Prozac) 20 mg PO DAILY [facility] Last Admin: 04/22/18 10:56 Dose: 20 mg Gabapentin (Neurontin) 600 mg PO QID [facility] PRN Reason: Protocol Last Admin: 04/22/18 13:25 Dose: 600 mg Lorazepam (Ativan) 1 mg PO QID [facility] PRN Reason: Protocol Magnesium Hydroxide (Milk Of Magnesia) 30 ml PO DAILY PRN PRN Reason: Constipation Propranolol HCl (Inderal) 10 mg PO BID [facility] Last Admin: 04/22/18 17:32 Dose: 10 mg Quetiapine Fumarate (Seroquel) 300 mg PO DAILY [facility] PRN Reason: Protocol Last Admin: 04/22/18 11:46 Dose: 300 mg Quetiapine Fumarate (Seroquel) 350 mg PO HS [facility] PRN Reason: Protocol Last Admin: 04/21/18 21:42 Dose: 350 mg Tamsulosin HCl (Flomax) 0.4 mg PO DAILY [facility] Last Admin: 04/22/18 10:56 Dose: 0.4 mg Tramadol HCl (Ultram) 50 mg PO BID PRN PRN Reason: pain>=7/10 Zaleplon (Sonata) 10 mg PO HS PRN PRN Reason: Insomnia Last Admin: 04/20/18 21:36 Dose: 10 mg - Labs Labs: 04/22/18 09:15 04/22/18 09:15 Attending/Attestation - Attestation I have personally seen and examined this patient.: Yes I have fully participated in the care of the patient.: Yes I have reviewed all pertinent clinical information, including history, physical exam and plan: Yes Notes (Text): 04/22/18 18:46 Attending note; Patient seen and examined with resident in psychiatric floor. Patient is a 47-year-old male with a history of alcohol abuse,opiate abuse, benzodiazepine abuse, cocaine abuse is admitted to psychiatric floor for treatment. Patient with anxiety symptoms. Continue Ativan. Episodes of tachycardia. WBC count is normal. D-dimer is normal. No signs of infectious process. Mostly secondary to drug withdrawal. T3-T4 normal. EKG showed normal sinus rhythm/sinus tachycardia at times. Patient is currently asymptomatic. Started on propranolol. Needs drug and alcohol cessation. Case discussed with patient in detail. Monitor closely. Follow-up with PMD upon discharge.
--- NOTE | 2018-04-22 17:14 | PCM.BM ---
<TroySherine Y - Last Filed: 04/22/18 17:14> Treatment Plan Problems - Problems identified on initial assessmt Agitated Behavior Date Initiated: 04/14/18 Time Initiated: 16:51 Assessment reference: NA Status: Active Priority: 1 Altered Thought Process Date Initiated: 04/14/18 Time Initiated: 16:51 Assessment reference: NA Status: Active Priority: 2 Auditory Hallucinations Date Initiated: 04/14/18 Time Initiated: 16:51 Assessment reference: NA Status: Active Priority: 3 Delusions Date Initiated: 04/14/18 Time Initiated: 16:51 Assessment reference: NA Status: Active Priority: 4 Hopelessness Date Initiated: 04/14/18 Time Initiated: 16:51 Assessment reference: NA Status: Active Priority: 5 Altered Sleep Patterns Date Initiated: 04/14/18 Time Initiated: 16:52 Assessment reference: NA Status: Active Priority: 6 Treatment assets and liabiliti Patient Assests: cooperative, insightful, motivated, self-reliant, ADL independent, physically healthy, good support system, negotiates basic needs, cognitively intact Patient Liabilities: substance abuse - Milieu Protocol Maintain good personal hygiene: every shift Encourage regular showers, every shift Remind patient to perform daily oral care, every shift Assist patient to perform ADL's Conduct patient checks and document Observation sheet: Q15 minutes Maintain personal safety: daily Educate patient to report safety concerns to staff, daily Monitor environment for contraband/sharps Medication safety: Monitor for expected outcome, potential side effects: daily, Assess barriers to learning: daily, Assess readiness for medication education: daily Milieu Narrative: * c/w current tx and plan * xanax 1mg po qid switched to ativan 2 mg q6 on 04/20/18. Ativan 2 mg q6 decreased to 2 mg q8 on 04/21/18 with plan to taper as tolerated * Seroquel increased from 300/300 to 300/350 on 04/20/18 to help with lability and impulse control * No new weekend labs * Vitals reviewed and noted below: Vital Signs (72 hours) 04/18/18 04/19/18 04/19/18 19:37 07:04 15:46 Temperature 97.6 F Pulse Rate 75 116 H 112 H Respiratory 20 Rate Blood Pressure 134/91 H 120/73 132/83 04/19/18 04/20/18 04/20/18 22:21 06:35 16:00 Temperature 97.4 F L Pulse Rate 120 H 103 H 102 H Respiratory 20 Rate Blood Pressure 137/92 H 113/70 132/87 04/20/18 19:29 Temperature Pulse Rate 120 H Respiratory Rate Blood Pressure 133/90 Family Contact Family involvement: Family/SO is involved Family contact: Patient agrees to contact Family contact name: Tiesha(sister) Family contacted how many times per week?: 2 Discharge/Continuing Care - Education Needs Education Needs: Patient Medication, Patient Diagnosis/Disease Process, Patient Coping Skills, Patient Anger Management skills, Patient Aftercare Safety Plan - Discharge Discharge Criteria: Tolerates medication w/o severe side effects, Free of paranoid thoughts, Free of agitation, Normal sleep pattern, Ability to care for self, No longer exhibiting s/s of withdrawal, Reduction of target symptoms Discharge to:: Home - Treatment Team Participation Patient/Family/SO Statement: * c/w current tx and plan * xanax 1mg po qid switched to ativan 2 mg q6 on 04/20/18. Ativan 2 mg q6 decreased to 2 mg q8 on 04/21/18 with plan to taper as tolerated * Seroquel increased from 300/300 to 300/350 on 04/20/18 to help with lability and impulse control * No new weekend labs * Vitals reviewed and noted below: Vital Signs (72 hours) 04/18/18 04/19/18 04/19/18 19:37 07:04 15:46 Temperature 97.6 F Pulse Rate 75 116 H 112 H Respiratory 20 Rate Blood Pressure 134/91 H 120/73 132/83 04/19/18 04/20/18 04/20/18 22:21 06:35 16:00 Temperature 97.4 F L Pulse Rate 120 H 103 H 102 H Respiratory 20 Rate Blood Pressure 137/92 H 113/70 132/87 04/20/18 19:29 Temperature Pulse Rate 120 H Respiratory Rate Blood Pressure 133/90 Treatment Plan Review - Problem Agitated Behavior Time Initiated: 16:51 Altered Thought Process Time Initiated: 16:51 Auditory Hallucinations Time Initiated: 16:51 Delusions Time Initiated: 16:51 Hopelessness Time Initiated: 16:51 Altered Sleep Patterns Time Initiated: 16:52 <Silvano Cedillo - Last Filed: 04/22/18 17:17> Treatment Plan Problems - Problems identified on initial assessmt Agitated Behavior Date resolved: 04/22/18 <Ilene Gillette - Last Filed: 04/22/18 17:45> - Diagnosis (1) Schizoaffective disorder Status: Acute Interventions: 04/22/18 17:45 patient is with minimal improvement with his psychotic symptoms, today was agitated, threw paper towards this machine sign writer, was cursing, needed to have IM of Thorazine and at Patient still psychotic, disrespectful (2) Polysubstance abuse Status: Acute Interventions: 04/22/18 17:45 patient has poor insight into addiction problems Does not want to go to inpatient rehabilitation
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
[2018-04-22 21:36] LABS: URINE BILIRUBIN NEGATIVE (NEGATIVE); URINE BLOOD NEGATIVE (NEGATIVE); URINE GLUCOSE (UA) NEGATIVE (NEGATIVE); URINE LEUKOCYTE ESTERASE NEGATIVE Leu/uL (NEGATIVE); URINE PROTEIN NEGATIVE mg/dL (<30 mg/dL); URINE UROBILINOGEN 0.2 E.U./dL (<1 E.U./dL)
[2018-04-22 21:55] LABS: URINE APPEARANCE CLEAR (CLEAR); URINE COLOR YELLOW (YELLOW)
[2018-04-23 06:57] VITALS: RESP 20
--- NOTE | 2018-04-23 15:40 | PCM.PYCHPN ---
Psychiatric Progress Note - Psychiatric Progress Note Patient seen today, length of contact: 25 min Patient Chief Complaint: "you have connection and power that is why you want to keep me here" Problems Identified/Issues Discussed: attempted to discuss: Suicide/ homicide prevention, past psychiatric h/o, current psychiatric symptoms , medical problems, risk/benefits and alternatives of medications, medications compliance, coping strategies, substance abuse h/o, relapse prevention, importance of follow up with psychiatrist and therapist, discharge plan. Medical Problems: medical team was called for atelectasis in the CXR Diagnostic Results: 04/14/18 11:34 04/14/18 11:34 Lab Results 04/15/18 07:00: RPR Nonreactive 04/15/18 07:00: Fasting Glucose 108, Triglycerides 335 H, Cholesterol 152, LDL Cholesterol Direct 76, HDL Cholesterol 31 04/14/18 14:53: Free T4 0.96, TSH 3rd Generation 0.33 L 04/14/18 13:15: Urine Opiates Screen Positive H, Urine Methadone Screen Negative , Ur Barbiturates Screen Negative, Ur Phencyclidine Scrn Negative, Ur Amphetamines Screen Negative, U Benzodiazepines Scrn Positive H, U Oth Cocaine Metabols Positive H, U Cannabinoids Screen Negative 04/14/18 13:15: Urine Color Yellow, Urine Appearance Clear, Urine pH 5.5, Ur Specific [place] >= 1.030, Urine Protein Negative, Urine Glucose (UA) Negative, Urine Ketones Negative, Urine Blood Negative, Urine Nitrate Negative, Urine Bilirubin Negative, Urine Urobilinogen 0.2, Ur Leukocyte Esterase Negative 04/14/18 11:34: Alcohol, Quantitative < 10 04/14/18 11:34: WBC 10.6 D, RBC 5.22, Hgb 16.1 D, Hct 45.1, MCV 86.4, MCH 30.8 , MCHC 35.7, RDW 13.2, Plt Count 205, MPV 11.4 H, Gran % 72.8 H, Lymph % (Auto) 21.2 L, [place] % (Auto) 4.3, Eos % (Auto) 1.5, Baso % (Auto) 0.2, Gran # 7.69 H, Lymph # (Auto) 2.2, [place] # (Auto) 0.5, Eos # (Auto) 0.2, Baso # (Auto) 0.02 04/14/18 11:34: Salicylates < 1 L, Acetaminophen < 10.0 L 04/14/18 11:34: Sodium 145, Potassium 4.2, Chloride 109 H, Carbon Dioxide 23, Anion Gap 18, BUN 8, Creatinine 0.8, Est GFR ( Amer) > 60, Est GFR (Non- Af Amer) > 60, Random Glucose 99, Calcium 9.3, Total Bilirubin 0.4, AST 39, ALT 63 H, Alkaline Phosphatase 103, Total Protein 8.0, Albumin 4.7, Globulin 3.2, Albumin/Globulin Ratio 1.5 Vital Signs Temp Pulse Resp BP Pulse Ox 04/16/18 06:37 97.6 F 102 H 19 117/87 04/16/18 03:35 91 H 125/74 04/15/18 16:00 91 H 125/74 04/15/18 07:34 97.8 F 90 20 126/94 H 04/14/18 17:50 96 H 148/91 H 04/14/18 16:09 16 04/14/18 14:56 98.1 F 96 H 16 148/91 H 100 04/14/18 14:30 98.2 F 80 18 127/76 99 04/14/18 12:38 98.4 F 87 18 152/85 H 98 Temp Pulse Resp BP Pulse Ox 97.2 F L 93 H 20 108/84 100 04/17/18 07:13 04/17/18 07:13 04/17/18 07:13 04/17/18 07:13 04/14/18 14:56 Temp Pulse Resp BP Pulse Ox 97.9 F 73 20 117/78 100 04/23/18 06:57 04/23/18 11:12 04/23/18 06:57 04/23/18 11:12 04/14/18 14:56 DSM 5 Symptoms Update: shortly pt is 47yo male with h/o mental illness, most likely bipolar vs shizoaffective disorder, h/o noncompliance with the medications and follow up appointments, history of polysubstance abuse and dependence, history of involuntary commitment to [facility], patient was brought to the hospital by his friend for disorganized thoughts, patient also using some drugs, possible suicidal ideation, possible s/p suicidal attempt pt tried to hang himself in the bathroom in the hotel. patient is very familiar to this health underwriter from the previous admission to the psychiatric inpatient unit, patient requires further hospitalization and stabilization to cause impulses are unpredictable, patient also verbalized thoughts of harming himself and others in the community. Patient was seen and examined today at the treatment team room, pt is was trying his best to hold himself and not to be agitated, it was successful. pt still paranoid, was feeling that this health underwriter has some connection and her goal to hold pt to the hospital forever, at times pt was sarcastic, but no disrespectful or agitated behavior, last time pt was agitated was yesterday. as per report pt still confused, psychotic, paranoid, was feeling that there are some cameras and wires implanted in computer to monitor him, impulses unpredictable. pt tolerates meds well, no side effects observed or reported, AIMS 0, no EPS. as per staff pt was able to tolerate food, ate breakfast and lunch, pt is intrusive. pt asked about mm relaxant, medical team notified. Impression: r/o schizoaffective disorder r/o substance induced psychosis polysubstance abuse and dependence Medication Change: Yes (ativan decreased 1mg qid, tramadol decreased) Medical Record Reviewed: Yes (pharmacy, consults) Mental Status Examination - Cognitive Function Orientation: Person, Place Memory: Impaired Attention: Poor Concentration: Poor Association: Loose Fund of Knowledge: Poor - Mood Mood: Depressed, Anxious - Affect Affect: Flat - Formal Thought Process Formal Thought Process: Hallucinations, Delusions, Paranoia, Loosening of associations, Circumstantial - Suicidal Ideation Suicidal Ideation: No - Homicidal Ideation Homicidal Ideation: No Goal/Treatment Plan - Goal/Treatment Plan Need for Continued Stay: Remain at risks for inpatient hospitalization, Severe depression anxiety, Discharge may exacerbated symptoms, Severe functional impairment Progress Toward Problem(s) and Goals/Treatment Plan: Milieu/structure/supportive therapy Medical consult called, pt has atelectasis, HTN, chronic pain seroquel 400mg po daily 400mg po hs for psychosis and mood stabilization PRN meds (thorazine, benadryl, tramadol, clonidine) ativan was decreased to 1mg po tid for anxiety propranolol was started by medical team shazia d/weston ativan d/c Sonata d/c ambien 10mg hs prozac 30mg po daily for depression and anxiety neurontin 600mg po qid for anxiety and mood stabilization SW consultation for discharge plan and social issues Family involvement, pt gave written consent for collaterals from mother Follow up on labs Will monitor closely Pt was educated about risk/benefits and alternatives of medications, coping strategies (safety plan, suicide prevention), relapse prevention, importance of follow up with psychiatrist and therapist, stay away from drugs/alcohol/smoking Estimated Date of D/C: 04/29/18 (will monitor closely)
[2018-04-23] MEDS: Divalproex 250 mg DR (BID formulation) PO SCH (21:06)
[2018-04-24] MEDS: Divalproex 250 mg DR (BID formulation) PO SCH (09:10)
[2018-04-24] MEDS: Meloxicam 7.5 MG TAB PO SCH (13:25)
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
[2018-04-24] MEDS: Divalproex 500 mg DR(BID formulation) PO SCH (21:15)
[2018-04-25 07:12] VITALS: BP 117/78; PULSE 78; TEMP 97.3
[2018-04-25] MEDS: Meloxicam 7.5 MG TAB PO SCH (08:08)
[2018-04-25] MEDS: Divalproex 500 mg DR(BID formulation) PO SCH (09:03)
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
== END 2018-04-25 14:15 | disposition left against medical advice (07) | DRG 430 ==
LOC: ED 12:04 → ERH 14:20 → PSYC 14:52
PROVIDERS: ADMIT Psychiatry & Neurology Psychiatry; ATTEND Psychiatry & Neurology Psychiatry
DX: F25.9 Schizoaffective disorder, unspecified (principal); F10.239 Alcohol dependence with withdrawal, unspecified; F11.20 Opioid dependence, uncomplicated; J98.11 Atelectasis; F14.10 Cocaine abuse, uncomplicated; F17.210 Nicotine dependence, cigarettes, uncomplicated; F41.9 Anxiety disorder, unspecified; F31.9 Bipolar disorder, unspecified; G25.81 Restless legs syndrome; G47.00 Insomnia, unspecified; I10 Essential (primary) hypertension; G89.29 Other chronic pain; N40.1 Benign prostatic hyperplasia with lower urinary tract symptoms; R39.11 Hesitancy of micturition; Z59.0 Homelessness; Z79.82 Long term (current) use of aspirin; Z91.14 Patient's other noncompliance with medication regimen

== ENCOUNTER 2018-04-27 15:54 | Inpatient (IN) | payer MEDICAID ==
[2018-04-27 16:04] VITALS: BMI 30.7
[2018-04-27] MEDS ORDERED: Sodium Chloride 0.9% 1,000 ML IV STA ×2 (16:33→19:10)
--- NOTE | 2018-04-27 16:54 | ED PDOC ---
Arrival/HPI - General Historian: Patient, Family - History of Present Illness Time/Duration: Other (1 day) Symptom Onset: Sudden Symptom Course: Worsening Severity Level: 3 (only on palpation) <Saurav Elmore - Last Filed: 04/27/18 17:36> <Jose Alatorre - Last Filed: 04/28/18 13:00> - General Chief Complaint: Lower Extremity Problem/Injury Time Seen by Provider: 04/27/18 15:56 - History of Present Illness Narrative History of Present Illness (Text): 04/27/18 17:17 This is a 47 yo M with PMH bipolar disorder, schizoaffective disorder, polysubstance abuse, and hx right leg compartment syndrome s/p fasciotomy who presents with complaint of right 5th toe swelling and pain. Was discharged against medical advice from Psych unit on 04/25/18. As per family and patient at bedside, patient was acutely twitching and shaking yesterday, but this AM, noted pain in the right 5th toe. Family examined and noted it to be swollen and erythematous, concerning for infection. Patient reports pain at site only, unable to use foot after fasciotomy (walks with use of brace on R leg), otherwise no sensation in foot. Denies any hx of injection drug use, states last used 2 weeks ago. Denies any hx of cellulitis in legs, denies any hx diabetes or immunocompromised conditions (i.e. HIV). Denies recent trauma to site. Denies systemic sx, including fevers, chills, nausea, generalized weakness/malaise, or fatigue. Of note, on exam in ED, site acutely swollen with erythema extending into distal 1/3rd of foot, 2 other discrete areas of erythema and warmth appreciated on other aspects of the leg, and patient tachycardic to 130's. All other ROS in 12-system review negative. Patient reports compliance with all home medications. PMH: as above PSH: denies FH: denies SH: Smokes cigarettes 1 PPD for >20 years. Denies any alcohol or illicits since discharge 04/25/18, last used cocaine (snort) 2 weeks prior, previously reported drinking 8 beers daily as per prior charting PMD: Dr. Ruiz (Saurav Elmore) Past Medical History - Provider Review Nursing Documentation Reviewed: Yes - Past History Past History: No Previous - Infectious Disease Hx of Infectious Diseases: None - Tetanus Immunization Tetanus Immunization: Unknown - Past Medical History Past Medical History: No Previous - Cardiac Hx Hypertension: No - Pulmonary Hx Respiratory Disorders: No Hx Tuberculosis: No - Neurological Hx Seizures: No - HEENT Hx HEENT Disorder: No - Renal Hx Renal Disorder: No - Endocrine/Metabolic Hx Endocrine Disorders: No - Hematological/Oncological Hx Blood Disorders: No - Integumentary Hx Dermatological Disorder: No (INCISION AND DRAINAGE TO BACK OF NECK AREA. CELLULITIS-) - Musculoskeletal/Rheumatological Hx Falls: No Other/Comment: Brace to right leg, Hx. fasciectomy. - Gastrointestinal Hx Gastrointestinal Disorders: No - Genitourinary/Gynecological Hx Sexually Transmitted Diseases: No - Psychiatric Hx Bipolar Disorder: Yes Hx Depression: Yes Hx Substance Use: Yes - Past Surgical History Past Surgical History: Non-Contributing - Surgical History Hx Orthopedic Surgery: Yes (Fasciotomy (R Leg)) - Anesthesia Hx Anesthesia: Yes Hx Anesthesia Reactions: No Hx Malignant Hyperthermia: No - Suicidal Assessment Feels Threatened In Home Enviroment: No <Saurav Elmore - Last Filed: 04/27/18 17:36> Family/Social History - Physician Review Nursing Documentation Reviewed: Yes Family/Social History: No Known Family HX Smoking Status: Heavy Smoker > 10 Cigarettes Daily Hx Alcohol Use: Yes Hx Substance Use: Yes Substance used: HEROIN, COCAINE, OXY Hx Substance Use Treatment: No <Saurav Elmore - Last Filed: 04/27/18 17:36> Allergies/Home Meds <Saurav Elmore - Last Filed: 04/27/18 17:36> <Jose Alatorre - Last Filed: 04/28/18 13:00> Allergies/Adverse Reactions: Allergies ct dye Allergy (Uncoded 04/15/18 10:22) ITCHING PER PATIENT Review of Systems - Physician Review All systems were reviewed & negative as marked: Yes (as per HPI) - Review of Systems Constitutional: Normal. absent: Fatigue Eyes: Normal. absent: Vision Changes ENT: Normal. absent: Sore Throat, Rhinorrhea Respiratory: Normal. absent: SOB, Cough Cardiovascular: Normal. absent: Chest Pain, DAVIDSON, Syncope Gastrointestinal: Normal. absent: Abdominal Pain, Nausea, Vomiting Genitourinary Male: Normal. absent: Dysuria <Saurav Elmore - Last Filed: 04/27/18 17:36> Physical Exam Vital Signs Reviewed: Yes Temperature: Afebrile Blood Pressure: Normal Pulse: Tachycardic Respiratory Rate: Normal Appearance: Positive for: Non-Toxic, Comfortable, Unkept Pain Distress: Mild Mental Status: Positive for: Alert and Oriented X 3 - Systems Exam Head: Present: Atraumatic, Normocephalic Pupils: Present: Other (Mildly dilated pupils but equally reactive to light bilaterally). No: Sluggish, Non-Reactive, Pinpoint Extroacular Muscles: Present: EOMI. No: Gaze Palsy, Entrapment Conjunctiva: Present: Normal. No: Injected, Icteric Mouth: Present: Moist Mucous Membranes, Normal Lips, Normal Tounge, Normal Teeth. No: Dry, Drooling Nose (External): Present: Atraumatic. No: Abrasion, Laceration Nose (Internal): Present: No Active Bleeding. No: Epistaxis Neck: Present: Normal Range of Motion, Trachea Midline. No: MIDLINE TENDERNESS , JVD Respiratory/Chest: Present: Clear to Auscultation, Good Air Exchange. No: Respiratory Distress, Accessory Muscle Use, Wheezes, Rales Cardiovascular: Present: Normal S1, S2, Peripheal Pulses Present (+2 radials and dorsalis pedis bilaterally), Tachycardic. No: Regular Rate and Rhythm, Murmurs, Irregular Rhythm Abdomen: Present: Normal Bowel Sounds. No: Tenderness, Distention, Mass/ Organomegaly Upper Extremity: Present: Normal Inspection, Normal ROM, NORMAL PULSES. No: Cyanosis, Edema, Tenderness, Swelling, Erythema, Deformity Lower Extremity: Present: NORMAL PULSES, Tenderness (tenderness at all 3 erythematous spots), Erythema (3 discrete spots of tender erythema, at and around R 5th digit, 2x5cm erythema along lower lateral aspect of RLE, 2x3cm erythema along upper medial aspect of RLE below knee, only 5th digit area swollen), Deformity (wasting of RLE as compared to LLE below the knee). No: CALF TENDERNESS, Cyanosis, Normal ROM (unable to move RLE below knee), Swelling Neurological: Present: GCS=15, Speech Normal, Normal Sensory Function. No: Motor Func Grossly Intact (loss of RLE below knee motor, otherwise grossly intact) Skin: Present: Warm, Dry, Normal Color (except as documented in Lower Extremity exam). No: Rashes Psychiatric: Present: Alert, Oriented x 3, Normal Mood, Other (intermittently hearing voices (reports this as baseline)). No: Normal Insight, Normal Concentration <Saurav Elmore - Last Filed: 04/27/18 17:36> <Jose Alatorre - Last Filed: 04/28/18 13:00> Vital Signs Temp Pulse Resp BP Pulse Ox 04/27/18 21:07 96 H 18 148/79 98 04/27/18 20:22 108 H 18 146/77 100 04/27/18 16:09 98.6 F 127 H 18 130/83 95 Medical Decision Making Reassessment Condition: Re-examined, Unchanged <Saurav Elmore - Last Filed: 04/27/18 17:36> <Jose Alatorre - Last Filed: 04/28/18 13:00> ED Course and Treatment: 04/27/18 17:51 Ddx: LE cellulitis, r/o sepsis; tachycardia 2/2 medications vs sepsis EKG ordered due to tachycardic to 130's on intake, notable for Sinus Tachy at 122, intervals normal CBC, CMP, Mg, Phos, VBG with lactate ordered to assess for infectious process, metabolic derangements 1L NS bolus ordered for tachycardia X-ray R foot to assess for subcutaneous gas, possible early osteomyolitis Toradol 60mg IM x1 for pain control F/u and reassess for dispo 04/27/18 19:59 X-ray obtained, no apparent bony involvement or subcutaneous gas but still pending official read Starting Vancomycin for MRSA cellulitis involvement given recent prior hospitalization Labs not notable for sepsis picture, WBCs 10.8, Lactate 1.8, remains afebrile Tachycardia not resolved with 1L NS, ordering another 1L bolus and giving Librium 25mg x1 for possible withdrawal Case discussed with Hospitalist on car supervisor, Dr. Lott, for admission. Agrees with admission, will endorse to oncoming night team. To be admitted to Remote- telemetry due to ongoing tachycardia. Patient seen, reviewed, and discussed with attending, Dr. Alatorre (Saurav Elmore) 04/27/18 20:37 Art Pina is a 47 year old male, who presents to the emergency department for a complaint of pain and swelling to the right, lowe exremity 5th digit. In agreement with resident note, which includes further HPI details. Patient was seen and evaluated with resident, came up with plan and treatment together. (Jose Alatorre) - Lab Interpretations Lab Results: 04/27/18 16:30 04/27/18 16:30 Lab Results 04/27/18 18:00: ESR 35 H 04/27/18 18:00: C-React Prot High Sens > 15.00 H, Alcohol, Quantitative < 10 04/27/18 17:05: Urine Opiates Screen Negative, Urine Methadone Screen Negative, Ur Barbiturates Screen Negative, Ur Phencyclidine Scrn Negative, Ur Amphetamines Screen Negative, U Benzodiazepines Scrn Negative, U Oth Cocaine Metabols Negative, U Cannabinoids Screen Negative 04/27/18 17:05: Urine Color Yellow, Urine Appearance Clear, Urine pH 7.0, Ur Specific [place] <= 1.005, Urine Protein Negative, Urine Glucose (UA) Negative, Urine Ketones Negative, Urine Blood Negative, Urine Nitrate Negative, Urine Bilirubin Negative, Urine Urobilinogen 0.2, Ur Leukocyte Esterase Negative 04/27/18 16:30: Sodium 142, Chloride 106, Potassium 3.6, Carbon Dioxide 24, Anion Gap 15, BUN 6 L, Creatinine 0.6 L, Est GFR ( Amer) > 60, Est GFR ( Non-Af Amer) > 60, Random Glucose 138 H, Calcium 8.7, Phosphorus 2.4 L, Magnesium 1.9, Total Bilirubin 0.2, AST 23, ALT 33, Alkaline Phosphatase 86, Total Protein 6.8, Albumin 3.9, Globulin 2.9, Albumin/Globulin Ratio 1.3 04/27/18 16:30: WBC 10.8, RBC 4.43, Hgb 13.3 L, Hct 38.3 L, MCV 86.5, MCH 30.0, MCHC 34.7, RDW 13.2, Plt Count 154, MPV 11.0, Gran % 79.8 H, Lymph % (Auto) 14.1 L, [place] % (Auto) 5.2, Eos % (Auto) 0.7 L, Baso % (Auto) 0.2, Gran # 8.63 H , Lymph # (Auto) 1.5, [place] # (Auto) 0.6, Eos # (Auto) 0.1, Baso # (Auto) 0.02 04/27/18 16:30: pO2 168 H, VBG pH 7.47 H, VBG pCO2 35.0 L, VBG HCO3 25.5, VBG Total CO2 26.6, VBG O2 Sat (Calc) 100.0 H, VBG Base Excess 2.1 H, VBG Potassium 3.6, Sodium 140.0, Chloride 109.0 H, Glucose 141 H, Lactate 1.8, FiO2 21.0, Venous Blood Potassium 3.6 - RAD Interpretation Radiology Orders: 04/27/18 16:32 FOOT RIGHT 3 VIEWS ROUTINE [RAD] Stat - Medication Orders Current Medication Orders: Acetaminophen (Tylenol 325mg Tab) 650 mg PO Q6H PRN PRN Reason: Pain, moderate (4-7) Benztropine Mesylate (Cogentin) 2 mg PO [facility] Last Admin: 04/28/18 09:45 Dose: 2 mg Clotrimazole (Lotrimin 1%) 0 gm TOP BID [facility] Last Admin: 04/28/18 09:50 Dose: 1 appl Divalproex Sodium (Depakote Dr(*Bid*)) 500 mg PO [facility] Last Admin: 04/28/18 09:48 Dose: 500 mg Behavioural Document 04/28/18 09:48 PHANT (Rec: 04/28/18 09:48 PHANT [id number]) Maintenance Maintenance Dose Yes Nonmedicinal Nonmedicinal Interventions Redirect Therapeutic Communication Activity Give food/fluids Behavior Behavior for Medication: Anxiety Docusate Sodium (Colace) 100 mg PO TID [facility] Last Admin: 04/28/18 09:45 Dose: 100 mg Last Bowel Movement Document 04/28/18 09:45 PHANT (Rec: 04/28/18 09:46 PHANT [id number]) Last Bowel Movement Last Bowel Movement 04/27/18 Fluoxetine HCl (Prozac) 40 mg PO DAILY [facility] Last Admin: 04/28/18 09:45 Dose: 40 mg Gabapentin (Neurontin) 600 mg PO QID [facility] PRN Reason: Protocol Last Admin: 04/28/18 09:46 Dose: 600 mg Behavioural Document 04/28/18 09:46 PHANT (Rec: 04/28/18 09:46 PHANT [id number]) Maintenance Maintenance Dose Yes Nonmedicinal Nonmedicinal Interventions Therapeutic Communication Activity Give food/fluids Behavior Behavior for Medication: Anxiety Heparin Sodium (Porcine) (Heparin) 5,000 units SC Q12 MATI PRN Reason: Protocol Last Admin: 04/28/18 09:45 Dose: 5,000 units Subcutaneous Administrations Document 04/28/18 09:45 PHANT (Rec: 04/28/18 09:45 PHANT [id number]) Injection Site MAR Injection Site Right Arm Charges for Administration # of Subcutaneous Administrations 1 Vancomycin HCl (Vancomycin 1gm) 1 gm in 250 mls @ 167 mls/hr IVPB DAILY MATI PRN Reason: Protocol Last Admin: 04/28/18 09:49 Dose: 167 mls/hr eMAR Start Stop Document 04/28/18 09:49 PHANT (Rec: 04/28/18 09:49 PHANT [id number]) Intravenous Solution Start Date 04/28/18 Start Time 09:49 End Date 04/28/18 End time 11:19 Total Infusion Time 90 Ketorolac Tromethamine (Toradol) 15 mg IVP Q6 PRN PRN Reason: Pain, severe (8-10) Meloxicam (Mobic) 7.5 mg PO DAILY [facility] Last Admin: 04/28/18 09:47 Dose: 7.5 mg ALEJANDRO Pain Assessment Document 04/28/18 09:47 PHANT (Rec: 04/28/18 09:47 PHANT [facility] [id number]) Pain Reassessment Is this a pain reassessment? Yes Sleep Is patient sleeping during reassessment? No Presence of Pain Presence of Pain Yes Pain Scale Used Pain Scale Used Numeric Location Left, Right or Bilateral Right Pain Location Body Site Foot Description Description Sharp Intensity of Pain at present 8 Acceptable Level of Pain 3 Radiation Location no Site Observation swelling Pain Behavior Facial Grimacing Alleviating Factors/Management Position Change Techniques Alleviating Factors Medication Morphine Sulfate (Morphine) 2 mg IVP Q6 PRN PRN Reason: Pain, moderate (4-7) Last Admin: 04/28/18 08:29 Dose: 2 mg MAR Pain Assessment Document 04/28/18 08:29 PHANT (Rec: 04/28/18 08:33 PHANT [id number]) Pain Reassessment Is this a pain reassessment? No Sleep Is patient sleeping during reassessment? No Presence of Pain Presence of Pain Yes Pain Scale Used Pain Scale Used Numeric Location Left, Right or Bilateral Right Pain Location Body Site Foot Description Description Acute Intensity of Pain at present 10 Acceptable Level of Pain 3 Radiation Location no Site Observation swelling Pain Behavior Restlessness Facial Grimacing Aggravating Factors Changing Position Standing Walking Alleviating Factors/Management Medication Techniques Alleviating Factors Medication Effects of Pain cooperate with care IVP Administration Document 04/28/18 08:29 PHANT (Rec: 04/28/18 08:33 PHANT [id number]) Charges for Administration # of IVP Administrations 1 Pantoprazole Sodium (Protonix Inj) 40 mg IVP DAILY [facility] Last Admin: 04/28/18 09:48 Dose: 40 mg IVP Administration Document 04/28/18 09:48 PHANT (Rec: 04/28/18 09:48 PHANT [id number]) Charges for Administration # of IVP Administrations 1 Polyethylene Glycol (Miralax) 17 gm PO DAILY [facility] Last Admin: 04/28/18 09:45 Dose: 17 gm Quetiapine Fumarate (Seroquel Xr) 400 mg PO [facility] MATI PRN Reason: Protocol Last Admin: 04/28/18 09:46 Dose: 400 mg Behavioural Document 04/28/18 09:46 PHANT (Rec: 04/28/18 09:46 PHANT [id number]) Maintenance Maintenance Dose Yes Nonmedicinal Nonmedicinal Interventions Therapeutic Communication Activity Give food/fluids Behavior Behavior for Medication: Anxiety Tamsulosin HCl (Flomax) 0.4 mg PO DAILY [facility] Last Admin: 04/28/18 09:48 Dose: 0.4 mg Zolpidem Tartrate (Ambien) 5 mg PO HS PRN; Protocol PRN Reason: Insomnia Last Admin: 04/27/18 23:48 Dose: 5 mg Behavioural Document 04/27/18 23:48 CDL (Rec: 04/27/18 23:48 CDL [id number]) Maintenance Maintenance Dose Yes Behavior Behavior for Medication: Insomnia Re-Assess: Reassess Psych Meds Document 04/28/18 00:48 CDL (Rec: 04/28/18 04:40 CDL [id number]) Reassess Psych Med Effective Discontinued Medications Chlordiazepoxide (Librium) 25 mg PO STAT STA PRN Reason: Protocol Stop: 04/27/18 19:11 Last Admin: 04/27/18 19:41 Dose: 25 mg Gabapentin (Neurontin) 300 mg PO ONCE ONE PRN Reason: Protocol Stop: 04/28/18 01:22 Last Admin: 04/28/18 01:42 Dose: 300 mg Behavioural Document 04/28/18 01:42 CDL (Rec: 04/28/18 01:42 CDL [id number]) Maintenance Maintenance Dose Yes Behavior Behavior for Medication: Anxiety Hydromorphone HCl (Dilaudid) 0.5 mg IVP STAT STA Stop: 04/27/18 18:31 Last Admin: 04/27/18 19:09 Dose: 0.5 mg MAR Pain Assessment Document 04/27/18 19:09 GMD (Rec: 04/27/18 19:09 D [id number]) Pain Reassessment Is this a pain reassessment? No IVP Administration Document 04/27/18 19:09 GMD (Rec: 04/27/18 19:09 D [id number]) Charges for Administration # of IVP Administrations 1 Hydromorphone HCl (Dilaudid) 0.5 mg IVP STAT STA Stop: 04/27/18 23:43 Last Admin: 04/27/18 23:48 Dose: 0.5 mg MAR Pain Assessment Document 04/27/18 23:48 CDL (Rec: 04/27/18 23:49 CDL [id number]) Pain Reassessment Is this a pain reassessment? No Sleep Is patient sleeping during reassessment? No Presence of Pain Presence of Pain Yes Pain Scale Used Pain Scale Used Numeric Location Left, Right or Bilateral Right Pain Location Body Site Leg Ankle Foot Description Description Constant Intensity of Pain at present 9 Pain Behavior Restlessness Alleviating Factors/Management Medication Techniques Alleviating Factors Medication IVP Administration Document 04/27/18 23:48 CDL (Rec: 04/27/18 23:49 CDL [id number]) Charges for Administration # of IVP Administrations 1 Re-Assess: MAR Pain Assessment Document 04/28/18 00:48 CDL (Rec: 04/28/18 06:48 CDL [id number]) Pain Reassessment Is this a pain reassessment? Yes Sleep Is patient sleeping during reassessment? Yes Sodium Chloride (Sodium Chloride 0.9%) 1,000 mls @ 999 mls/hr IV .Q1H1M STA Stop: 04/27/18 17:33 Last Admin: 04/27/18 17:03 Dose: 999 mls/hr eMAR Start Stop Document 04/27/18 17:03 GMD (Rec: 04/27/18 17:03 GMD [id number]) Intravenous Solution Start Date 04/27/18 Start Time 17:03 End Date 04/27/18 End time 18:04 Total Infusion Time 61 Vancomycin HCl 2 gm/ Sodium (Chloride) 500 mls @ 170 mls/hr IVPB ONCE ONE PRN Reason: Protocol Stop: 04/27/18 21:01 Last Admin: 04/27/18 19:06 Dose: 170 mls/hr eMAR Start Stop Document 04/27/18 19:06 GMD (Rec: 04/27/18 19:06 D [id number]) Intravenous Solution Start Date 04/27/18 Start Time 19:06 End Date 04/27/18 End time 22:03 Total Infusion Time 177 Sodium Chloride (Sodium Chloride 0.9%) 1,000 mls @ 999 mls/hr IV .Q1H1M STA Stop: 04/27/18 20:10 Last Admin: 04/27/18 19:41 Dose: 999 mls/hr eMAR Start Stop Document 04/27/18 19:41 GMD (Rec: 04/27/18 19:42 GMD [id number]) Intravenous Solution Start Date 04/27/18 Start Time 19:41 End Date 04/27/18 End time 20:42 Total Infusion Time 61 Ketorolac Tromethamine (Toradol) 60 mg IM STAT STA Stop: 04/27/18 16:43 Last Admin: 04/27/18 17:02 Dose: 60 mg MAR Pain Assessment Document 04/27/18 17:02 GMD (Rec: 04/27/18 17:03 D [id number]) Pain Reassessment Is this a pain reassessment? No IM Administration Charges Document 04/27/18 17:02 GMD (Rec: 04/27/18 17:03 GMD [id number]) Charges for Administration # of IM Administrations 1 Ketorolac Tromethamine (Toradol) 30 mg IVP ONCE ONE Stop: 04/28/18 03:45 Last Admin: 04/28/18 04:57 Dose: 30 mg MAR Pain Assessment Document 04/28/18 04:57 CDL (Rec: 04/28/18 04:57 CD [id number]) Pain Reassessment Is this a pain reassessment? No Sleep Is patient sleeping during reassessment? No Presence of Pain Presence of Pain Yes Pain Scale Used Pain Scale Used Numeric Location Left, Right or Bilateral Right Pain Location Body Site Leg Description Intensity of Pain at present 7 Pain Behavior Restlessness Alleviating Factors/Management Medication Techniques Alleviating Factors Inactivity IVP Administration Document 04/28/18 04:57 CDL (Rec: 04/28/18 04:57 CD [id number]) Charges for Administration # of IVP Administrations 1 - PA / [employer] / Resident Statement / has reviewed & agrees with the documentation as recorded. <Jose Alatorre - Last Filed: 04/28/18 13:00> Disposition/Present on Arrival - Present on Arrival Any Indicators Present on Arrival: No History of DVT/PE: No History of Uncontrolled Diabetes: No Urinary Catheter: No History of Decub. Ulcer: No History Surgical Site Infection Following: Orthopedic Procedures - Disposition Have Diagnosis and Disposition been Completed?: Yes Disposition Time: 19:09 Patient Plan: Admission <Saurav Elmore - Last Filed: 04/27/18 17:36> <Jose Alatorre - Last Filed: 04/28/18 13:00> - Disposition Diagnosis: Cellulitis of right foot, Schizoaffective disorder, Withdrawal symptoms, drug or narcotic Disposition: HOSPITALIZED Patient Problems: Current Active Problems Problem Status Onset Cellulitis of right foot Acute Withdrawal symptoms, drug or narcotic Acute Schizoaffective disorder Chronic Condition: FAIR
[2018-04-27 17:09] LABS: VENOUS BLOOD GAS BASE EXCESS 2.1 mmol/L (0.0-2.0); VENOUS BLOOD GAS PO2 168 mm/Hg (30-55); VENOUS BLOOD PH 7.47 (7.32-7.43)
[2018-04-27 17:14] LABS: BASO # 0.02 K/mm3 (0.0-2.0); BASO % 0.2 % (0.0-3.0); EOS # 0.1 (0.0-0.7); EOS % 0.7 % (1.5-5.0); GRAN # 8.63 (1.4-6.5); GRAN % 79.8 % (50.0-68.0); HEMOGLOBIN 13.3 g/dL (14.0-18.0); LYMPH # 1.5 (1.2-3.4); LYMPH % 14.1 % (22.0-35.0); MEAN CELL VOLUME 86.5 fl (80.0-105.0); MEAN CORPUSCULAR HGB CONC 34.7 g/dl (31.0-37.0); MONO # 0.6 (0.1-0.6); MONO % 5.2 % (1.0-6.0); RBC 4.43 10^6/uL (3.5-6.1); RED CELL DISTRIBUTION WIDTH 13.2 % (11.5-14.5); WHITE BLOOD COUNT 10.8 10^3/ul (4.5-11.0)
[2018-04-27 17:15] LABS: URINE BILIRUBIN NEGATIVE (NEGATIVE); URINE BLOOD NEGATIVE (NEGATIVE); URINE GLUCOSE (UA) NEGATIVE (NEGATIVE); URINE LEUKOCYTE ESTERASE NEGATIVE Leu/uL (NEGATIVE); URINE PROTEIN NEGATIVE mg/dL (<30 mg/dL); URINE UROBILINOGEN 0.2 E.U./dL (<1 E.U./dL)
[2018-04-27 17:21] LABS: URINE APPEARANCE CLEAR (CLEAR); URINE COLOR YELLOW (YELLOW)
[2018-04-27 17:38] LABS: ALB/GLOB RATIO 1.3 (1.1-1.8); ALBUMIN 3.9 g/dL (3.0-4.8); ALT/SGPT 33 U/L (7-56); AST/SGOT 23 U/L (17-59); BLOOD UREA NITROGEN 6 mg/dL (7-21); CALCIUM 8.7 mg/dL (8.4-10.5); GFR NON-AFRICAN AMERICAN > 60
[2018-04-27 17:42] LABS: BARBITURATES, UR NEGATIVE (NEGATIVE); BENZODIAZEPINES, UR NEGATIVE (NEGATIVE); OPIATES, UR NEGATIVE (NEGATIVE); PHENCYCLIDINE, UR NEGATIVE (NEGATIVE)
[2018-04-27] MEDS ORDERED: Vancomycin 2 GM in Sodium Chloride 0.9% 500 ML IVPB ONE (18:05)
[2018-04-27] MEDS ORDERED: HYDROmorphone 0.5 mg/0.5 ml ISec IVP STA ×2 (18:30→23:42)
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
--- NOTE | 2018-04-28 07:19 | RAD ---
PROCEDURE: Right Foot Radiographs. HISTORY: right foot poss cellulitis 5th digit COMPARISON: None. FINDINGS: BONES: Normal. No fracture. JOINTS: Normal. SOFT TISSUES: Soft tissue swelling 5th digit without evidence of foreign body, air within the soft tissues. OTHER FINDINGS: None. IMPRESSION: Soft tissue swelling without acute articular or osseous abnormality. Specifically no evidence of osteomyelitis radiographically.
[2018-04-28 07:48] LABS: BASO # 0.02 K/mm3 (0.0-2.0); BASO % 0.2 % (0.0-3.0); EOS # 0.2 (0.0-0.7); EOS % 1.9 % (1.5-5.0); GRAN # 6.95 (1.4-6.5); GRAN % 70.4 % (50.0-68.0); HEMOGLOBIN 12.9 g/dL (14.0-18.0); MEAN CELL VOLUME 87.4 fl (80.0-105.0); MEAN CORPUSCULAR HEMOGLOBIN 29.5 pg (25.0-35.0); MEAN CORPUSCULAR HGB CONC 33.7 g/dl (31.0-37.0); MEAN PLATELET VOLUME 11.1 fl (7.0-11.0); MONO # 0.7 (0.1-0.6); MONO % 7.5 % (1.0-6.0); RBC 4.38 10^6/uL (3.5-6.1); RED CELL DISTRIBUTION WIDTH 13.1 % (11.5-14.5); WHITE BLOOD COUNT 9.9 10^3/ul (4.5-11.0)
[2018-04-28 08:05] LABS: BLOOD UREA NITROGEN 9 mg/dL (7-21); GFR NON-AFRICAN AMERICAN > 60
[2018-04-28] MEDS: Morphine 2 mg/ml ISec IVP PRN ×3 (08:29→23:17)
[2018-04-28] MEDS: POLYETHYLENE GLYCOL 3350 17 GM/Dose PACKET PO SCH (09:45)
[2018-04-28] MEDS: QUEtiapine 200 mg XR Tab PO SCH ×2 (09:46→22:42)
[2018-04-28] MEDS: Meloxicam 7.5 MG TAB PO SCH (09:47)
[2018-04-28] MEDS: Divalproex 500 mg DR(BID formulation) PO SCH ×2 (09:48→22:43)
[2018-04-28] MEDS: Vancomycin 1gm in NS 250ml 1 GM/250 ML BAG IVPB SCH (09:49)
[2018-04-28] MEDS: Clotrimazole 1% Cream(30 gm) TOP SCH ×2 (09:50→17:45)
--- NOTE | 2018-04-28 12:21 | CP.PCM.PN ---
<Flavia Soto - Last Filed: 04/28/18 12:18> Subjective - Date & Time of Evaluation Date of Evaluation: 04/28/18 Time of Evaluation: 12:18 - Subjective Subjective: Flavia Soto, PGY1, Medicine Progress Note for Dr Lott: Patient seen and examined at bedside. No acute events overnight. Pt reports pain in right leg at cellulitis site, requesting dilaudid. Denies worsening of erythema, drainage, fever, chills, nausea, vomiting, cp, sob, abdominal pain. Objective - Vital Signs/Intake and Output Vital Signs (last 24 hours): Temp Pulse Resp BP Pulse Ox 98.1 F 100 H 18 137/85 98 04/28/18 06:00 04/28/18 10:00 04/28/18 06:00 04/28/18 06:00 04/28/18 06:00 Intake and Output: 04/28/18 04/28/18 06:59 18:59 Intake Total 480 Output Total 475 Balance 5 - Medications Medications: Current Medications Acetaminophen (Tylenol 325mg Tab) 650 mg PO Q6H PRN PRN Reason: Pain, moderate (4-7) Benztropine Mesylate (Cogentin) 2 mg PO [facility] Last Admin: 04/28/18 09:45 Dose: 2 mg Clotrimazole (Lotrimin 1%) 0 gm TOP BID [facility] Last Admin: 04/28/18 09:50 Dose: 1 appl Divalproex Sodium (Depakote Dr(*Bid*)) 500 mg PO [facility]HS [facility] Last Admin: 04/28/18 09:48 Dose: 500 mg Docusate Sodium (Colace) 100 mg PO TID [facility] Last Admin: 04/28/18 09:45 Dose: 100 mg Fluoxetine HCl (Prozac) 40 mg PO DAILY [facility] Last Admin: 04/28/18 09:45 Dose: 40 mg Gabapentin (Neurontin) 600 mg PO QID [facility] PRN Reason: Protocol Last Admin: 04/28/18 09:46 Dose: 600 mg Heparin Sodium (Porcine) (Heparin) 5,000 units SC Q12 [facility] PRN Reason: Protocol Last Admin: 04/28/18 09:45 Dose: 5,000 units Vancomycin HCl (Vancomycin 1gm) 1 gm in 250 mls @ 167 mls/hr IVPB DAILY [facility] PRN Reason: Protocol Last Admin: 04/28/18 09:49 Dose: 167 mls/hr Ketorolac Tromethamine (Toradol) 15 mg IVP Q6 PRN PRN Reason: Pain, severe (8-10) Meloxicam (Mobic) 7.5 mg PO DAILY [facility] Last Admin: 04/28/18 09:47 Dose: 7.5 mg Morphine Sulfate (Morphine) 2 mg IVP Q6 PRN PRN Reason: Pain, moderate (4-7) Last Admin: 04/28/18 08:29 Dose: 2 mg Pantoprazole Sodium (Protonix Inj) 40 mg IVP DAILY [facility] Last Admin: 04/28/18 09:48 Dose: 40 mg Polyethylene Glycol (Miralax) 17 gm PO DAILY [facility] Last Admin: 04/28/18 09:45 Dose: 17 gm Quetiapine Fumarate (Seroquel Xr) 400 mg PO [facility] PRN Reason: Protocol Last Admin: 04/28/18 09:46 Dose: 400 mg Tamsulosin HCl (Flomax) 0.4 mg PO DAILY [facility] Last Admin: 04/28/18 09:48 Dose: 0.4 mg Zolpidem Tartrate (Ambien) 5 mg PO HS PRN; Protocol PRN Reason: Insomnia Last Admin: 04/27/18 23:48 Dose: 5 mg - Labs Labs: 04/28/18 07:00 04/28/18 07:00 APTT 30.5 Seconds (25.1-36.5) 04/28/18 07:00 - Constitutional Appears: Non-toxic, No Acute Distress - Head Exam Head Exam: ATRAUMATIC, NORMOCEPHALIC - Eye Exam Eye Exam: EOMI, PERRL. absent: Conjunctival injection, Nystagmus, Scleral icterus Pupil Exam: NORMAL ACCOMODATION, PERRL. absent: Fixed, Irregular, Miosis, Unequal - ENT Exam ENT Exam: Mucous Membranes Moist - Neck Exam Neck Exam: Full ROM - Respiratory Exam Respiratory Exam: Clear to Ausculation Bilateral, NORMAL BREATHING PATTERN. absent: Accessory Muscle Use, Rales, Rhonchi, Wheezes, Stridor - Cardiovascular Exam Cardiovascular Exam: RRR, +S1, +S2. absent: Murmur - GI/Abdominal Exam GI & Abdominal Exam: Soft, Normal Bowel Sounds. absent: Distended, Firm, Guarding, Rigid, Tenderness, Mass, Organomegaly, Rebound - Extremities Exam Extremities Exam: Pedal Edema (right lower leg). absent: Calf Tenderness Additional comments: right lower leg has decreased muscle tone s/p fasciotomy, right lower leg mild erythematous streaking, mildly improved since yesterday - Back Exam Back Exam: NORMAL INSPECTION - Neurological Exam Neurological Exam: Alert, Awake, Oriented x3 - Psychiatric Exam Psychiatric exam: Normal Affect, Normal Mood - Skin Skin Exam: Dry, Normal Color, Warm Assessment and Plan - Assessment and Plan (Free Text) Assessment: 47 yo M with PMH bipolar disorder, schizoaffective disorder, polysubstance abuse , and right leg compartment syndrome s/p fasciotomy, presents for right leg cellulitis 2/2 trauma, also found to have tachycardia: Right leg cellulitis: 2/2 trauma - afebrile, no leukocytosis - CRP elevated - X ray foot: soft tissue swelling. No osteomyelitis - Vancomycin - morphine 2 mg IV q6 prn Hx of BPH: - home flomax Hx of Mood disorder: - home Seroquel and fluoxetine hx of neuropathy: - Continue with neurontin Insomnia -Ambien PRN DVT/GI prophylaxis: Heparin/Protonix Case seen and discussed with Dr Lott. Flavia Soto, PGY1 <Aravind Lott - Last Filed: 04/28/18 13:12> Objective - Vital Signs/Intake and Output Vital Signs (last 24 hours): Temp Pulse Resp BP Pulse Ox 97.1 F L 81 21 129/73 98 04/28/18 12:00 04/28/18 12:00 04/28/18 12:00 04/28/18 12:00 04/28/18 06:00 Intake and Output: 04/28/18 04/28/18 06:59 18:59 Intake Total 480 Output Total 475 Balance 5 - Medications Medications: Current Medications Acetaminophen (Tylenol 325mg Tab) 650 mg PO Q6H PRN PRN Reason: Pain, moderate (4-7) Benztropine Mesylate (Cogentin) 2 mg PO [facility] Last Admin: 04/28/18 09:45 Dose: 2 mg Clotrimazole (Lotrimin 1%) 0 gm TOP BID [facility] Last Admin: 04/28/18 09:50 Dose: 1 appl Divalproex Sodium (Depakote Dr(*Bid*)) 500 mg PO [facility] Last Admin: 04/28/18 09:48 Dose: 500 mg Docusate Sodium (Colace) 100 mg PO TID [facility] Last Admin: 04/28/18 09:45 Dose: 100 mg Fluoxetine HCl (Prozac) 40 mg PO DAILY [facility] Last Admin: 04/28/18 09:45 Dose: 40 mg Gabapentin (Neurontin) 600 mg PO QID [facility] PRN Reason: Protocol Last Admin: 04/28/18 09:46 Dose: 600 mg Heparin Sodium (Porcine) (Heparin) 5,000 units SC Q12 [facility] PRN Reason: Protocol Last Admin: 04/28/18 09:45 Dose: 5,000 units Vancomycin HCl (Vancomycin 1gm) 1 gm in 250 mls @ 167 mls/hr IVPB DAILY [facility] PRN Reason: Protocol Last Admin: 04/28/18 09:49 Dose: 167 mls/hr Ketorolac Tromethamine (Toradol) 15 mg IVP Q6 PRN PRN Reason: Pain, severe (8-10) Meloxicam (Mobic) 7.5 mg PO DAILY [facility] Last Admin: 04/28/18 09:47 Dose: 7.5 mg Morphine Sulfate (Morphine) 2 mg IVP Q6 PRN PRN Reason: Pain, moderate (4-7) Last Admin: 04/28/18 08:29 Dose: 2 mg Pantoprazole Sodium (Protonix Inj) 40 mg IVP DAILY [facility] Last Admin: 04/28/18 09:48 Dose: 40 mg Polyethylene Glycol (Miralax) 17 gm PO DAILY [facility] Last Admin: 04/28/18 09:45 Dose: 17 gm Quetiapine Fumarate (Seroquel Xr) 400 mg PO [facility]HS [facility] PRN Reason: Protocol Last Admin: 04/28/18 09:46 Dose: 400 mg Tamsulosin HCl (Flomax) 0.4 mg PO DAILY [facility] Last Admin: 04/28/18 09:48 Dose: 0.4 mg Zolpidem Tartrate (Ambien) 5 mg PO HS PRN; Protocol PRN Reason: Insomnia Last Admin: 04/27/18 23:48 Dose: 5 mg - Labs Labs: 04/28/18 07:00 04/28/18 07:00 APTT 30.5 Seconds (25.1-36.5) 04/28/18 07:00 Attending/Attestation - Attestation I have personally seen and examined this patient.: Yes I have fully participated in the care of the patient.: Yes I have reviewed all pertinent clinical information, including history, physical exam and plan: Yes Notes (Text): 04/28/18 13:04 Attending note; Patient seen and examined with resident. Patient is admitted for right lower extremity cellulitis. Patient is also signing of anxiety. Constantly requesting pain medication. Patient is a 47-year-old male with a history of alcohol abuse,opiate abuse, benzodiazepine abuse, cocaine abuse is with right lower extremity cellulitis. Continue IV vancomycin and Zosyn. ID evaluation requested. Patient was recently discharged from psychiatric floor. Psychiatric evaluation requested. Continue home meds. Adjust medications per psychiatrist. Currently patient is afebrile and nontoxic. Tachycardia resolved. Patient is agitated at times. Requesting provider medication. Started on IV morphine. Urine drug screen is negative. Complete drug and alcohol cessation is strongly advised. Follow-up with PMD upon discharge. 04/28/18 13:12
--- NOTE | 2018-04-28 13:07 | CARD ---
APPROVED REPORT EKG Measurement Heart [id number] [place] [id number] <Conclusion> Sinus tachycardia Otherwise normal ECG
[2018-04-28] MEDS: Piperacillin/Tazobact 3.375 gm 100 ML IVPB SCH ×2 (17:30→23:16)
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
[2018-04-29] MEDS: Morphine 2 mg/ml ISec IVP PRN ×3 (05:23→20:45)
[2018-04-29] MEDS: Pantoprazole 40 mg EC Tab PO SCH (05:23)
[2018-04-29 06:21] LABS: BASO # 0.02 K/mm3 (0.0-2.0); BASO % 0.2 % (0.0-3.0); EOS # 0.2 (0.0-0.7); EOS % 1.9 % (1.5-5.0); GRAN # 6.78 (1.4-6.5); GRAN % 67.6 % (50.0-68.0); HEMOGLOBIN 13.5 g/dL (14.0-18.0); LYMPH # 2.4 (1.2-3.4); MEAN CELL VOLUME 87.6 fl (80.0-105.0); MEAN CORPUSCULAR HEMOGLOBIN 29.9 pg (25.0-35.0); MEAN CORPUSCULAR HGB CONC 34.2 g/dl (31.0-37.0); MEAN PLATELET VOLUME 10.9 fl (7.0-11.0); MONO # 0.6 (0.1-0.6); MONO % 6.3 % (1.0-6.0); RBC 4.51 10^6/uL (3.5-6.1); RED CELL DISTRIBUTION WIDTH 13.3 % (11.5-14.5)
[2018-04-29 07:10] LABS: BLOOD UREA NITROGEN 11 mg/dL (7-21); GFR NON-AFRICAN AMERICAN > 60
[2018-04-29] MEDS ORDERED: Morphine 2 mg/ml ISec IVP ONE (09:31)
[2018-04-29] MEDS: Vancomycin 1gm in NS 250ml 1 GM/250 ML BAG IVPB SCH ×2 (10:49→22:00)
[2018-04-29] MEDS: QUEtiapine 200 mg XR Tab PO SCH ×2 (10:53→21:58)
[2018-04-29] MEDS: Divalproex 500 mg DR(BID formulation) PO SCH ×2 (10:54→21:59)
[2018-04-29] MEDS: Meloxicam 7.5 MG TAB PO SCH (10:54)
[2018-04-29] MEDS: Clotrimazole 1% Cream(30 gm) TOP SCH ×2 (10:55→18:10)
[2018-04-29] MEDS: POLYETHYLENE GLYCOL 3350 17 GM/Dose PACKET PO SCH (10:55)
--- NOTE | 2018-04-29 11:19 | CP.PCM.PN ---
<Laura Mitchell - Last Filed: 04/29/18 14:37> Subjective - Date & Time of Evaluation Date of Evaluation: 04/29/18 Time of Evaluation: 11:18 - Subjective Subjective: Internal Medicine Progress Note - Hospitalist Service Patient seen and examined at bedside. Per nursing no acute events overnight. Patient is requesting Dilaudid. States that he is having 9/10 foot pain. Denies fevers/chills, N/V, headaches, dizziness, cp, palpitations, sob, abdominal pain , urinary symptoms. Objective - Vital Signs/Intake and Output Vital Signs (last 24 hours): Temp Pulse Resp BP Pulse Ox 98.4 F 61 20 119/78 98 04/29/18 06:00 04/29/18 06:00 04/29/18 06:00 04/29/18 06:00 04/29/18 06:00 - Medications Medications: Current Medications Acetaminophen (Tylenol 325mg Tab) 650 mg PO Q6H PRN PRN Reason: Pain, moderate (4-7) Benztropine Mesylate (Cogentin) 2 mg PO AMHS [facility] Last Admin: 04/28/18 22:43 Dose: 2 mg Clotrimazole (Lotrimin 1%) 0 gm TOP BID [facility] Last Admin: 04/28/18 17:45 Dose: 1 appl Divalproex Sodium (Depakote Dr(*Bid*)) 500 mg PO AMHS [facility] Last Admin: 04/29/18 10:54 Dose: 500 mg Docusate Sodium (Colace) 100 mg PO TID [facility] Last Admin: 04/29/18 10:54 Dose: 100 mg Fluoxetine HCl (Prozac) 40 mg PO DAILY [facility] Last Admin: 04/29/18 10:52 Dose: 40 mg Gabapentin (Neurontin) 600 mg PO QID [facility] PRN Reason: Protocol Last Admin: 04/29/18 10:54 Dose: 600 mg Heparin Sodium (Porcine) (Heparin) 5,000 units SC Q12 [facility] PRN Reason: Protocol Last Admin: 04/29/18 10:53 Dose: 5,000 units Vancomycin HCl (Vancomycin 1gm) 1 gm in 250 mls @ 167 mls/hr IVPB DAILY [facility] PRN Reason: Protocol Last Admin: 04/29/18 10:49 Dose: 167 mls/hr Ketorolac Tromethamine (Toradol) 15 mg IVP Q6 PRN PRN Reason: Pain, severe (8-10) Last Admin: 04/28/18 22:44 Dose: 15 mg Meloxicam (Mobic) 7.5 mg PO DAILY [facility] Last Admin: 04/29/18 10:54 Dose: 7.5 mg Morphine Sulfate (Morphine) 2 mg IVP Q6 PRN PRN Reason: Pain, moderate (4-7) Last Admin: 04/29/18 05:23 Dose: 2 mg Pantoprazole Sodium (Protonix Ec Tab) 40 mg PO 0600 [facility] Last Admin: 04/29/18 05:23 Dose: 40 mg Polyethylene Glycol (Miralax) 17 gm PO DAILY [facility] Last Admin: 04/29/18 10:55 Dose: 17 gm Quetiapine Fumarate (Seroquel Xr) 400 mg PO AMHS [facility] PRN Reason: Protocol Last Admin: 04/29/18 10:53 Dose: 400 mg Tamsulosin HCl (Flomax) 0.4 mg PO DAILY [facility] Last Admin: 04/29/18 10:54 Dose: 0.4 mg Zolpidem Tartrate (Ambien) 5 mg PO HS PRN; Protocol PRN Reason: Insomnia Last Admin: 04/28/18 22:44 Dose: 5 mg - Labs Labs: 04/29/18 05:30 04/29/18 05:30 APTT 30.5 Seconds (25.1-36.5) 04/28/18 07:00 - Constitutional Appears: No Acute Distress - Head Exam Head Exam: ATRAUMATIC, NORMAL INSPECTION, NORMOCEPHALIC - Eye Exam Eye Exam: EOMI, Normal appearance Pupil Exam: NORMAL ACCOMODATION - ENT Exam ENT Exam: Mucous Membranes Moist - Neck Exam Neck Exam: Full ROM - Respiratory Exam Respiratory Exam: Clear to Ausculation Bilateral, NORMAL BREATHING PATTERN. absent: Rales, Rhonchi, Wheezes - Cardiovascular Exam Cardiovascular Exam: REGULAR RHYTHM, +S1, +S2 - GI/Abdominal Exam GI & Abdominal Exam: Soft, Normal Bowel Sounds. absent: Guarding, Rigid, Tenderness - Extremities Exam Additional comments: Right lower extremity: No palpable pulses, Erythema and swelling extending from 5th digit to dorsal aspect of right foot, area marked with pen, small area of cellulitic skin changes on lower leg - Back Exam Back Exam: NORMAL INSPECTION - Neurological Exam Neurological Exam: Alert, Awake, Oriented x3 - Psychiatric Exam Psychiatric exam: Normal Affect, Normal Mood - Skin Skin Exam: Dry, Normal Color, Warm Assessment and Plan - Assessment and Plan (Free Text) Assessment: A/P: Patient is a 47 yo M with PMH bipolar disorder, schizoaffective disorder, polysubstance abuse, and right leg compartment syndrome s/p fasciotomy, presents for right leg cellulitis 2/2 trauma, also found to have tachycardia: Right Lower Extremity Cellulitis -Stable, afebrile, no leukocytosis -CRP elevated, ESR elevated -X ray foot: soft tissue swelling without acute articular or osseous abnormality. No osteomyelitis -Right foot MRI ordered to rule out osteomyelitis -CT orbit pending; patient concerned he might have metal fragments in his eye from previous occupation -Antibiotics: Vancomycin 1gm Q12H -F/U wound culture -F/U lower extremity US to evaluate for PAD -Pain control: Morphine 2 mg IV q6 prn, Toradol 15mg Q6H prn -ID on consult, help appreciated -Podiatry on consult, help appreciated -Physical Therapy ordered -Patient is requesting dilaudid for pain control, exhibiting pain seeking behavior; Patient with history of UDS +cocaine, benzo, opioids; instructed patient we will continue to Morphine at this time Tachycardia -Currently asymptomatic -HR 60s-80s now -Echocardiogram ordered -Will discontinue telemetry Hx of BPH: -Continue flomax Hx of Mood disorder, schizoaffective disorder -Continue Seroquel and fluoxetine -Continue Depakote and Cogentin -Depakote level ordered -Psych on consult, help appreciated Hx of Neuropathy: -Continue with Neurontin 600mg QID Insomnia -Ambien PRN DVT/GI prophylaxis: -Heparin 5000 Q12 SC -Protonix 40mg PO daily Plan discussed with Dr Bridgett Mitchell DO PGY-1 <Elisabet Urias - Last Filed: 04/29/18 14:55> Objective - Vital Signs/Intake and Output Vital Signs (last 24 hours): Temp Pulse Resp BP Pulse Ox 98.1 F 78 20 134/93 H 98 04/29/18 12:00 04/29/18 12:00 04/29/18 12:00 04/29/18 12:00 04/29/18 06:00 - Medications Medications: Current Medications Acetaminophen (Tylenol 325mg Tab) 650 mg PO Q6H PRN PRN Reason: Pain, moderate (4-7) Benztropine Mesylate (Cogentin) 2 mg PO AMHS [facility] Last Admin: 04/29/18 11:18 Dose: 2 mg Clotrimazole (Lotrimin 1%) 0 gm TOP BID [facility] Last Admin: 04/29/18 10:55 Dose: 1 appl Divalproex Sodium (Depakote Dr(*Bid*)) 500 mg PO [facility] Last Admin: 04/29/18 10:54 Dose: 500 mg Docusate Sodium (Colace) 100 mg PO TID [facility] Last Admin: 04/29/18 14:33 Dose: 100 mg Fluoxetine HCl (Prozac) 40 mg PO DAILY [facility] Last Admin: 04/29/18 10:52 Dose: 40 mg Gabapentin (Neurontin) 600 mg PO QID [facility] PRN Reason: Protocol Last Admin: 04/29/18 14:33 Dose: 600 mg Heparin Sodium (Porcine) (Heparin) 5,000 units SC Q12 [facility] PRN Reason: Protocol Last Admin: 04/29/18 10:53 Dose: 5,000 units Vancomycin HCl (Vancomycin 1gm) 1 gm in 250 mls @ 167 mls/hr IVPB Q12 [facility] PRN Reason: Protocol Ketorolac Tromethamine (Toradol) 15 mg IVP Q6 PRN PRN Reason: Pain, severe (8-10) Last Admin: 04/28/18 22:44 Dose: 15 mg Meloxicam (Mobic) 7.5 mg PO DAILY [facility] Last Admin: 04/29/18 10:54 Dose: 7.5 mg Morphine Sulfate (Morphine) 2 mg IVP Q6 PRN PRN Reason: Pain, moderate (4-7) Last Admin: 04/29/18 14:34 Dose: 2 mg Pantoprazole Sodium (Protonix Ec Tab) 40 mg PO 0600 [facility] Last Admin: 04/29/18 05:23 Dose: 40 mg Polyethylene Glycol (Miralax) 17 gm PO DAILY [facility] Last Admin: 04/29/18 10:55 Dose: 17 gm Quetiapine Fumarate (Seroquel Xr) 400 mg PO [facility] PRN Reason: Protocol Last Admin: 04/29/18 10:53 Dose: 400 mg Tamsulosin HCl (Flomax) 0.4 mg PO DAILY [facility] Last Admin: 04/29/18 10:54 Dose: 0.4 mg Zolpidem Tartrate (Ambien) 5 mg PO HS PRN; Protocol PRN Reason: Insomnia Last Admin: 04/28/18 22:44 Dose: 5 mg - Labs Labs: 04/29/18 05:30 04/29/18 05:30 APTT 30.5 Seconds (25.1-36.5) 04/28/18 07:00 Attending/Attestation - Attestation I have personally seen and examined this patient.: Yes I have fully participated in the care of the patient.: Yes I have reviewed all pertinent clinical information, including history, physical exam and plan: Yes Notes (Text): 04/29/18 14:46 47 year old male with past medical history of bipolar, schizoaffective disorder , polysubstance abuse, and right leg compartment syndrome s/p fasciotomy presented with right leg cellulitis. Continue with iv antibiotics as per ID. MRI is pending to rule out osteomyelitis. Lower extremity ultrasound read is pending as well. He is asking of dilaudid but is already on morphine prn, toradol prn and gabapentin for pain. He was counselled on risks of continued substance abuse. Elisabet Urias MD Hospitalist.
--- NOTE | 2018-04-29 14:58 | CT ---
PROCEDURE: CT ORBITS WITHOUT CONTRAST. 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 TECHNIQUE: Axial CT images of the orbits were obtained. Coronal and sagittal reformats were generated. Radiation dose: Total exam DLP = 745 mGy-cm. This CT exam was performed using one or more of the following dose reduction techniques: Automated exposure control, adjustment of the mA and/or kV according to patient size, and/or use of iterative reconstruction technique. FINDINGS: RIGHT ORBIT: RIGHT BONY ORBIT: There is a chronic appearing orbital floor fracture on the right side with some herniation of orbital fat. There is no evidence of hemorrhage or fluid in the right maxillary sinus. There is no history of recent trauma. RIGHT INTRAORBITAL STRUCTURES: Globe: Normal. Extraocular muscles: Normal. Post septal space: Normal. Optic Nerve: Normal. Lacrimal Apparatus: Normal. RIGHT PRESEPTAL SOFT TISSUES: Normal. LEFT ORBIT: LEFT BONY ORBIT: There are some orthopedic fixation devices and wires in the left maxilla and left orbit. There are no metallic fragments within the orbit itself. This should be safe for MRI scanning. LEFT INTRAORBITAL STRUCTURES: Globe: Normal. Extraocular muscles: Normal. Post septal space: Normal Optic Nerve: Normal. . Lacrimal Apparatus: Normal. LEFT PRESEPTAL SOFT TISSUES: Normal. OTHER: None. IMPRESSION: There are some orthopedic fixation devices and wires in the left maxilla and left orbit. There are no metallic fragments within the orbit itself. This should be safe for MRI scanning.
--- NOTE | 2018-04-29 15:35 | US ---
PROCEDURE: Lower extremity ELPIDIO exam HISTORY: Peripheral vascular disease with pain and ulceration. Smoker. PHYSICIAN(S): Bruce More MD. FINDINGS: The resting ELPIDIO's are normal: right, 1.33and left, 1.23. The brachial systolic pressures are symmetric. The high thigh pressures and waveforms are relatively normal. The calf PVR waveforms augment normally. No significant gradients are noted across the thighs. The ankle and metatarsal waveforms are relatively normal and symmetric. No significant pressure gradients are noted across the lower legs. IMPRESSION: 1. Normal ELPIDIO and PVR examination at rest.
--- NOTE | 2018-04-29 15:36 | CP.PCM.PN ---
Subjective - Date & Time of Evaluation Date of Evaluation: 04/29/18 Time of Evaluation: 13:25 - Subjective Subjective: Still having right foot pain, no fevers. Objective - Vital Signs/Intake and Output Vital Signs (last 24 hours): Temp Pulse Resp BP Pulse Ox 98.4 F 61 20 119/78 98 04/29/18 06:00 04/29/18 06:00 04/29/18 06:00 04/29/18 06:00 04/29/18 06:00 - Medications Medications: Current Medications Acetaminophen (Tylenol 325mg Tab) 650 mg PO Q6H PRN PRN Reason: Pain, moderate (4-7) Benztropine Mesylate (Cogentin) 2 mg PO AMHS [facility] Last Admin: 04/28/18 22:43 Dose: 2 mg Clotrimazole (Lotrimin 1%) 0 gm TOP BID [facility] Last Admin: 04/28/18 17:45 Dose: 1 appl Divalproex Sodium (Depakote Dr(*Bid*)) 500 mg PO [facility] Last Admin: 04/28/18 22:43 Dose: 500 mg Docusate Sodium (Colace) 100 mg PO TID [facility] Last Admin: 04/28/18 17:28 Dose: 100 mg Fluoxetine HCl (Prozac) 40 mg PO DAILY [facility] Last Admin: 04/28/18 09:45 Dose: 40 mg Gabapentin (Neurontin) 600 mg PO QID [facility] PRN Reason: Protocol Last Admin: 04/28/18 22:43 Dose: 600 mg Heparin Sodium (Porcine) (Heparin) 5,000 units SC Q12 [facility] PRN Reason: Protocol Last Admin: 04/28/18 22:46 Dose: 5,000 units Vancomycin HCl (Vancomycin 1gm) 1 gm in 250 mls @ 167 mls/hr IVPB DAILY [facility] PRN Reason: Protocol Last Admin: 04/28/18 09:49 Dose: 167 mls/hr Ketorolac Tromethamine (Toradol) 15 mg IVP Q6 PRN PRN Reason: Pain, severe (8-10) Last Admin: 04/28/18 22:44 Dose: 15 mg Meloxicam (Mobic) 7.5 mg PO DAILY [facility] Last Admin: 04/28/18 09:47 Dose: 7.5 mg Morphine Sulfate (Morphine) 2 mg IVP Q6 PRN PRN Reason: Pain, moderate (4-7) Last Admin: 04/29/18 05:23 Dose: 2 mg Pantoprazole Sodium (Protonix Ec Tab) 40 mg PO 0600 [facility] Last Admin: 04/29/18 05:23 Dose: 40 mg Polyethylene Glycol (Miralax) 17 gm PO DAILY [facility] Last Admin: 04/28/18 09:45 Dose: 17 gm Quetiapine Fumarate (Seroquel Xr) 400 mg PO AMHS [facility] PRN Reason: Protocol Last Admin: 04/28/18 22:42 Dose: 400 mg Tamsulosin HCl (Flomax) 0.4 mg PO DAILY [facility] Last Admin: 04/28/18 09:48 Dose: 0.4 mg Zolpidem Tartrate (Ambien) 5 mg PO HS PRN; Protocol PRN Reason: Insomnia Last Admin: 04/28/18 22:44 Dose: 5 mg - Labs Labs: 04/29/18 05:30 04/29/18 05:30 APTT 30.5 Seconds (25.1-36.5) 04/28/18 07:00 - Constitutional Appears: Chronically Ill - Extremities Exam Additional comments: right foot with dressings in place Assessment and Plan - Assessment and Plan (Free Text) Plan: Assessment Right foot cellulitis with cyanosis of the right 5th toe, R/O peripheral arterial disease, R/O osteomyelitis schizoaffective disorder bipolar disorder anxiety and depression history of right leg fasciotomy Plan Continue Vancomycin pending final culture results, MRI of the right foot and ELPIDIO 's follow up Podiatry evaluation will monitor clinically
--- NOTE | 2018-04-29 16:41 | CP.PCM.CON ---
<Mary Bennett - Last Filed: 04/29/18 17:00> History of Present Illness - History of Present Illness History of Present Illness: Podiatry Consult note: Dr. Hill 47 year old male patient with PMHx of bipolar disorder, schizoaffective disorder , polysubstance abuse, and hx right leg compartment syndrome s/p fasciotomy was seen and evaluated for right 5th digit wound. Patient reports that he has a callus there and he tends to pick at it. Reports that he may have picked at it too much which may have led to this infection. Patient denies of any trauma or injury to the foot. Denies of having any prior treatment until coming to the hospital. Reports that this started about 3-4 days ago. Denies of having any recent F/N/V/C/SOB/CP/D. Reports that he feels little pain every now and then but does not bother him if no one touches it. Denies of any other pedal complains at this time. PMHx: bipolar disorder, schizoaffective disorder, polysubstance abuse, and hx right leg compartment syndrome PSHx: Fasciotomy Allergies: Contrast dye SHx: smokes 1 ppd for >20 years, reports of cocaine use approx a week ago, agrees to EtOH consumption Review of Systems - Constitutional Constitutional: As Per HPI Past Patient History - Infectious Disease Hx of Infectious Diseases: None - Tetanus Immunizations Tetanus Immunization: Unknown - Past Medical History & Family History Past Medical History?: Yes - Past Social History Smoking Status: Heavy Smoker > 10 Cigarettes Daily - CARDIAC Hx Cardiac Disorders: Yes Hx Angina: Yes Hx Peripheral Edema: Yes - PULMONARY Hx Respiratory Disorders: No - NEUROLOGICAL Hx Neurological Disorder: No - HEENT Hx HEENT Problems: No - RENAL Hx Chronic Kidney Disease: No - ENDOCRINE/METABOLIC Hx Endocrine Disorders: No - HEMATOLOGICAL/ONCOLOGICAL Hx Blood Disorders: No - INTEGUMENTARY Hx Dermatological Problems: Yes (right leg swelling/ cellulitis) - MUSCULOSKELETAL/RHEUMATOLOGICAL Hx Musculoskeletal Disorders: Yes Hx Falls: Yes Hx Fractures: Yes Other/Comment: Brace to right leg, Hx. fasciectomy. - GASTROINTESTINAL Hx Gastrointestinal Disorders: No - GENITOURINARY/GYNECOLOGICAL Hx Genitourinary Disorders: No - PSYCHIATRIC Hx Psychophysiologic Disorder: Yes Hx Anxiety: Yes Hx Bipolar Disorder: Yes Hx Depression: Yes Hx Substance Use: Yes (extasis used 04/19/18) Other/Comment: alcohol user, substance abuse user (quit 2wks ago) - SURGICAL HISTORY Hx Surgeries: Yes Hx Orthopedic Surgery: Yes (Fasciotomy (R Leg)) - ANESTHESIA Hx Anesthesia: Yes Hx Anesthesia Reactions: No Hx Malignant Hyperthermia: No Meds Allergies/Adverse Reactions: Allergies Allergy/AdvReac Type Severity Reaction Status Date / Time ct dye Allergy ITCHING Uncoded 04/15/18 10:22 - Medications Medications: Current Medications Acetaminophen (Tylenol 325mg Tab) 650 mg PO Q6H PRN PRN Reason: Pain, moderate (4-7) Benztropine Mesylate (Cogentin) 2 mg PO [facility] Last Admin: 04/29/18 11:18 Dose: 2 mg Clotrimazole (Lotrimin 1%) 0 gm TOP BID [facility] Last Admin: 04/29/18 10:55 Dose: 1 appl Divalproex Sodium (Depakote Dr(*Bid*)) 500 mg PO [facility] Last Admin: 04/29/18 10:54 Dose: 500 mg Docusate Sodium (Colace) 100 mg PO TID [facility] Last Admin: 04/29/18 14:33 Dose: 100 mg Fluoxetine HCl (Prozac) 40 mg PO DAILY [facility] Last Admin: 04/29/18 10:52 Dose: 40 mg Gabapentin (Neurontin) 600 mg PO QID [facility] PRN Reason: Protocol Last Admin: 04/29/18 14:33 Dose: 600 mg Heparin Sodium (Porcine) (Heparin) 5,000 units SC Q12 [facility] PRN Reason: Protocol Last Admin: 04/29/18 10:53 Dose: 5,000 units Vancomycin HCl (Vancomycin 1gm) 1 gm in 250 mls @ 167 mls/hr IVPB Q12 [facility] PRN Reason: Protocol Ketorolac Tromethamine (Toradol) 15 mg IVP Q6 PRN PRN Reason: Pain, severe (8-10) Last Admin: 04/28/18 22:44 Dose: 15 mg Meloxicam (Mobic) 7.5 mg PO DAILY [facility] Last Admin: 04/29/18 10:54 Dose: 7.5 mg Morphine Sulfate (Morphine) 2 mg IVP Q6 PRN PRN Reason: Pain, moderate (4-7) Last Admin: 04/29/18 14:34 Dose: 2 mg Pantoprazole Sodium (Protonix Ec Tab) 40 mg PO 0600 [facility] Last Admin: 04/29/18 05:23 Dose: 40 mg Polyethylene Glycol (Miralax) 17 gm PO DAILY [facility] Last Admin: 04/29/18 10:55 Dose: 17 gm Quetiapine Fumarate (Seroquel Xr) 400 mg PO [facility] PRN Reason: Protocol Last Admin: 04/29/18 10:53 Dose: 400 mg Tamsulosin HCl (Flomax) 0.4 mg PO DAILY [facility] Last Admin: 04/29/18 10:54 Dose: 0.4 mg Zolpidem Tartrate (Ambien) 5 mg PO HS PRN; Protocol PRN Reason: Insomnia Last Admin: 04/28/18 22:44 Dose: 5 mg Physical Exam - Constitutional Appears: Well, Non-toxic, No Acute Distress - Extremities Exam Additional comments: Bilateral LE focused exam: VASC: DP/PT pulses are palpable 2.4, Cap refill time: < 3 sec to all digits, Temp gradient: warm to cool from proximal to distal on the left and warm to warm on the right, non-pitting edema noted on the dorsum of the foot on the right DERM: superficial epidermal layer lysis with dermal layer exposed on the dorsal aspect of the right 5th digit, elmer wound maceration with 4th interspace maceration, erythema extending from the 5th digit proximally towards the ankle joint, mild mal odor, no active drainage, no purulence, no probe to bone NEURO: Protective sensation grossly intact ORTHO: pain on palpation of the wound on the right 5th digit, Prett test negative - Neurological Exam Neurological exam: Alert, Oriented x3 - Psychiatric Exam Psychiatric exam: Normal Affect, Normal Mood Results - Vital Signs Recent Vital Signs: Last Vital Signs Temp 98.1 F 04/29/18 12:00 Pulse 78 04/29/18 12:00 Resp 20 04/29/18 12:00 BP 134/93 H 04/29/18 12:00 Pulse Ox 98 04/29/18 06:00 - Labs Result Diagrams: 04/29/18 05:30 04/29/18 05:30 Labs: Laboratory Results - last 24 hr 04/29/18 04/29/18 05:30 05:30 WBC 10.0 RBC 4.51 Hgb 13.5 L Hct 39.5 L MCV 87.6 MCH 29.9 MCHC 34.2 RDW 13.3 Plt Count 157 MPV 10.9 Gran % 67.6 Lymph % (Auto) 24.0 [place] % (Auto) 6.3 H Eos % (Auto) 1.9 Baso % (Auto) 0.2 Gran # 6.78 H Lymph # (Auto) 2.4 [place] # (Auto) 0.6 Eos # (Auto) 0.2 Baso # (Auto) 0.02 Sodium 143 Potassium 4.3 Chloride 106 Carbon Dioxide 25 Anion Gap 17 BUN 11 Creatinine 0.8 Est GFR ( Amer) > 60 Est GFR (Non-Af Amer) > 60 Random Glucose 81 Calcium 9.0 Assessment & Plan - Assessment and Plan (Free Text) Assessment: 47 year old male with extensive PMHx was evaluated for 1). right 5th digit ulcer 2). cellulitis Plan: Patient seen and evaluated Plan discussed with attending Dr. Hill Labs, vials and charts reviewed Afebrile, WBC @ 10.0 Wound cleaned with saline and dressing applied using betadine, DSD Bactroban ordered MRI of the right foot - pending Wound cultures: Staph aureus Continue IV abx as per ID - Vancomycin Local wound care Will continue to monitor patient while in-house Thank you for the podiatry consult and allowing to take part in patient care - Date & Time Date: 04/29/18 Time: 16:50 <Brenda Hill - Last Filed: 05/01/18 07:54> Meds - Medications Medications: Current Medications Acetaminophen (Tylenol 325mg Tab) 650 mg PO Q6H PRN PRN Reason: Pain, moderate (4-7) Benztropine Mesylate (Cogentin) 1 mg PO [facility] Last Admin: 04/30/18 21:13 Dose: 1 mg Clotrimazole (Lotrimin 1%) 0 gm TOP BID [facility] Last Admin: 04/30/18 18:25 Dose: Not Given Divalproex Sodium (Depakote Dr(*Bid*)) 500 mg PO [facility] Last Admin: 04/30/18 21:14 Dose: 500 mg Docusate Sodium (Colace) 100 mg PO TID [facility] Last Admin: 04/30/18 18:45 Dose: 100 mg Fluoxetine HCl (Prozac) 40 mg PO DAILY [facility] Last Admin: 04/30/18 10:05 Dose: 40 mg Gabapentin (Neurontin) 600 mg PO QID [facility] PRN Reason: Protocol Last Admin: 04/30/18 21:14 Dose: 600 mg Heparin Sodium (Porcine) (Heparin) 5,000 units SC Q12 [facility] PRN Reason: Protocol Last Admin: 04/30/18 21:15 Dose: 5,000 units Vancomycin HCl (Vancomycin 1gm) 1 gm in 250 mls @ 167 mls/hr IVPB Q12 [facility] PRN Reason: Protocol Last Admin: 04/30/18 21:17 Dose: 167 mls/hr Ketorolac Tromethamine (Toradol) 15 mg IVP Q6H PRN PRN Reason: Pain, moderate (4-7) Last Admin: 05/01/18 00:35 Dose: 15 mg Meloxicam (Mobic) 15 mg PO DAILY [facility] Last Admin: 04/30/18 10:06 Dose: 15 mg Morphine Sulfate (Morphine) 2 mg IVP Q6H PRN PRN Reason: Pain, severe (8-10) Last Admin: 05/01/18 05:39 Dose: 2 mg Pantoprazole Sodium (Protonix Ec Tab) 40 mg PO 0600 [facility] Last Admin: 05/01/18 05:39 Dose: 40 mg Polyethylene Glycol (Miralax) 17 gm PO DAILY [facility] Last Admin: 04/30/18 10:06 Dose: 17 gm Quetiapine Fumarate (Seroquel Xr) 800 mg PO HS [facility] PRN Reason: Protocol Last Admin: 04/30/18 21:14 Dose: 800 mg Tamsulosin HCl (Flomax) 0.4 mg PO DAILY [facility] Last Admin: 04/30/18 10:05 Dose: 0.4 mg Zolpidem Tartrate (Ambien) 5 mg PO HS PRN; Protocol PRN Reason: Insomnia Last Admin: 04/30/18 22:45 Dose: 5 mg Results - Vital Signs Recent Vital Signs: Last Vital Signs Temp 97.6 F 04/30/18 18:00 Pulse 90 04/30/18 18:00 Resp 19 04/30/18 18:00 BP 120/73 04/30/18 18:00 Pulse Ox 98 04/30/18 18:00 - Labs Result Diagrams: 05/01/18 06:00 05/01/18 06:00 Labs: Laboratory Results - last 24 hr 05/01/18 05/01/18 06:00 06:00 WBC 7.7 RBC 4.40 Hgb 13.1 L Hct 38.2 L MCV 86.8 MCH 29.8 MCHC 34.3 RDW 12.9 Plt Count 161 MPV 11.3 H Gran % 57.8 Lymph % (Auto) 33.2 [place] % (Auto) 5.6 Eos % (Auto) 3.1 Baso % (Auto) 0.3 Gran # 4.45 Lymph # (Auto) 2.6 [place] # (Auto) 0.4 Eos # (Auto) 0.2 Baso # (Auto) 0.02 Sodium 143 Potassium 4.0 Chloride 105 Carbon Dioxide 27 Anion Gap 15 BUN 13 Creatinine 0.7 L Est GFR ( Amer) > 60 Est GFR (Non-Af Amer) > 60 Random Glucose 99 Calcium 8.8 Attending/Attestation - Attestation I have personally seen and examined this patient.: No I have fully participated in the care of the patient.: No I have reviewed all pertinent clinical information: No
--- NOTE | 2018-04-29 19:04 | MRI ---
EXAM: MR Right Lower Extremity Without Intravenous Contrast, Foot EXAM DATE/TIME: 04/29/2018 7:47 AM CLINICAL HISTORY: The patient age is 47 years old and is male; Signs and symptoms; Cellulitis; Foot and toes; Right; Additional info: R/O 4-5th toes osteomyolitis. Incomplete exam, claustrophobic patient, refused to continue Facility exam id and description: Mri footwoconr foot w/o contrast right TECHNIQUE: Multiplanar magnetic resonance images of the right foot without intravenous contrast. COMPARISON: DX - FOOT RIGHT 3 VIEWS ROUTINE 2018-04-27 17:43 FINDINGS: LIGAMENTS: Evaluation of the ligaments is suboptimal due the absence of coronal sequences. TENDONS: Flexor: No visualized acute tear. Extensor: No visualized acute tear. Muscles: Mild muscle edema is visualized, suggestive of muscle strain, myositis, or denervation edema. Muscle atrophy is visualized. Fluid: No joint effusion. Bones/joints: STIR hyperintense edema is identified within the fused mid and distal fifth phalanges, suspicious for osteomyelitis. There is no dislocation involving the forefoot. Soft tissues: There is soft tissue swelling of the dorsum of the foot and fifth digit, suggestive of cellulitis. There is mild soft tissue swelling of the first and second digits, with edema within the distal phalanges, also suspicious for osteomyelitis. Minimal equivocal edema is seen within the distal third and fourth phalanges. Other findings: The study demonstrates on the forefoot. This study is incomplete. Sagittal STIR, sagittal T1, and axial T2 sequences were available for review. IMPRESSION: 1. There is soft tissue swelling of the dorsum of the foot and fifth digit, suggestive of cellulitis. 2. Edema is identified within the fused mid and distal fifth phalanges, suspicious for osteomyelitis. 3. There is mild soft tissue swelling of the first and second digits, with edema within the distal phalanges, also suspicious for osteomyelitis. Minimal equivocal edema is seen within the distal third and fourth phalanges. 4. Mild muscle edema is visualized, suggestive of muscle strain, myositis, or denervation edema. 5. Additional findings described above. 6. Clinical correlation of the above-mentioned findings and completion of the study are recommended.
[2018-04-30] MEDS: Morphine 2 mg/ml ISec IVP PRN ×3 (06:14→21:18)
[2018-04-30] MEDS: Pantoprazole 40 mg EC Tab PO SCH (06:20)
[2018-04-30 06:35] LABS: BASO # 0.02 K/mm3 (0.0-2.0); BASO % 0.3 % (0.0-3.0); EOS # 0.2 (0.0-0.7); EOS % 2.7 % (1.5-5.0); GRAN # 4.52 (1.4-6.5); HEMOGLOBIN 13.1 g/dL (14.0-18.0); LYMPH # 2.7 (1.2-3.4); LYMPH % 33.8 % (22.0-35.0); MEAN CELL VOLUME 87.7 fl (80.0-105.0); MEAN CORPUSCULAR HEMOGLOBIN 29.8 pg (25.0-35.0); MEAN CORPUSCULAR HGB CONC 33.9 g/dl (31.0-37.0); MEAN PLATELET VOLUME 10.7 fl (7.0-11.0); MONO # 0.5 (0.1-0.6); MONO % 6.2 % (1.0-6.0); RBC 4.4 10^6/uL (3.5-6.1); WHITE BLOOD COUNT 7.9 10^3/ul (4.5-11.0)
[2018-04-30 07:01] LABS: BLOOD UREA NITROGEN 12 mg/dL (7-21); CALCIUM 8.7 mg/dL (8.4-10.5); GFR NON-AFRICAN AMERICAN > 60
--- NOTE | 2018-04-30 09:44 | CARD ---
APPROVED REPORT EXAM: Two-dimensional and M-mode echocardiogram with Doppler and color Doppler. INDICATION LVFX,TACHYCARDIA 2D DIMENSIONS Left Atrium (2D)4.1 (1.6-4.0cm)IVSd1.2 (0.7-1.1cm) LVDd4.9 (3.9-5.9cm)PWd1.3 (0.7-1.1cm) LVDs3.6 (2.5-4.0cm)FS (%) 26.1 % LVEF (%)45.0 (>50%) M-Mode DIMENSIONS Aortic Root3.60 (2.2-3.7cm)Aortic Cusp Exc.2.00 (1.5-2.0cm) Aortic Valve AoV Peak Qtqiesoy748.0cm/Paramjit Peak GR.7mmHg Mitral Valve MV E Urslzvfu31.7cm/sMV A Sjszfnde17.3cm/sE/A ratio1.1 TDI Lateral E' Peak V12.60cm/sMedial E' Peak V9.65cm/sE/Lateral E'5.5 E/Medial E'7.2 Pulmonary Valve PV Peak Kxftrtki03.5cm/sPV Peak Grad.3mmHg Tricuspid Valve TR Peak Ylzyqgbw836hm/sRAP AVRUAYZW91exFkHZ Peak Gr.9mmHg [id number] LEFT VENTRICLE The left ventricle is normal size. There is mild concentric left ventricular hypertrophy. Left ventricle systolic function is low normal.EF-50% There is normal LV segmental wall motion. Transmitral Doppler flow pattern is Grade II-pseudonormal filling dynamics. No left ventricle thrombus noted on this study. There is no ventricular septal defect visualized. There is no left ventricular aneurysm. There is no mass noted in the left ventricle. RIGHT VENTRICLE The right ventricle is normal size. There is normal right ventricular wall thickness. The right ventricular systolic function is normal. ATRIA The left atrium is mildly dilated. The right atrium size is normal. The interatrial septum is intact with no evidence for an atrial septal defect. AORTIC VALVE The aortic valve is thickened but opens well. No aortic regurgitation is present. There is no aortic valvular stenosis. There is no aortic valvular vegetation. MITRAL VALVE The mitral valve is thickened but opens well. Mitral regurgitation is trace. There is no mitral valve stenosis. There is no evidence of mitral valve prolapse. TRICUSPID VALVE The tricuspid valve leaflets are thickened , but open well. There is trace tricuspid regurgitation.RVSP-19 mmof Hg. There is no tricuspid valve stenosis. There is no tricuspid valve prolapse or vegetation. PULMONIC VALVE The pulmonary valve is normal in structure. There is no pulmonic valvular regurgitation. There is no pulmonic valvular stenosis. GREAT VESSELS The aortic root is normal in size. The ascending aorta is normal in size. The pulmonary artery is normal. The IVC is normal in size and collapses >50% with inspiration. PERICARDIAL EFFUSION There is no pleural effusion. There is no pericardial effusion. <Conclusion> The left ventricle is normal size. There is mild concentric left ventricular hypertrophy. Left ventricle systolic function is low normal.EF-50% Mitral regurgitation is trace. There is trace tricuspid regurgitation.RVSP-19 mmof Hg. The IVC is normal in size and collapses >50% with inspiration. There is no pericardial effusion. No Vegetation or thrombus noted.
[2018-04-30] MEDS: Divalproex 500 mg DR(BID formulation) PO SCH ×2 (10:04→21:14)
[2018-04-30] MEDS: POLYETHYLENE GLYCOL 3350 17 GM/Dose PACKET PO SCH (10:06)
[2018-04-30] MEDS ORDERED: oxyCODONE 5 mg Immediate Release Tab PO PRN (11:46)
[2018-04-30] MEDS ORDERED: oxyCODONE 10 mg ER Tab (oxyCONTIN) PO PRN (11:46)
[2018-04-30] MEDS: Vancomycin 1gm in NS 250ml 1 GM/250 ML BAG IVPB SCH ×2 (11:53→21:17)
--- NOTE | 2018-04-30 11:53 | CP.PCM.PN ---
<Laura Mitchell - Last Filed: 04/30/18 12:49> Subjective - Date & Time of Evaluation Date of Evaluation: 04/30/18 Time of Evaluation: 11:50 - Subjective Subjective: Internal Medicine Progress Note - Hospitalist Service Patient seen and examined at bedside. Per nursing no acute events overnight. Patient still requesting dilaudid, states that dilaudid works for him and morphine only gives him relief for 30 minutes. Denies headaches, dizziness, cp, palpitations, sob, abdominal pain, urinary symptoms. Objective - Vital Signs/Intake and Output Vital Signs (last 24 hours): Temp Pulse Resp BP Pulse Ox 98.5 F 91 H 20 138/84 98 04/30/18 06:00 04/30/18 06:00 04/30/18 06:00 04/30/18 06:00 04/30/18 06:00 - Medications Medications: Current Medications Acetaminophen (Tylenol 325mg Tab) 650 mg PO Q6H PRN PRN Reason: Pain, moderate (4-7) Benztropine Mesylate (Cogentin) 1 mg PO [facility] Last Admin: 04/30/18 10:06 Dose: 1 mg Clotrimazole (Lotrimin 1%) 0 gm TOP BID [facility] Last Admin: 04/29/18 18:10 Dose: Not Given Divalproex Sodium (Depakote Dr(*Bid*)) 500 mg PO [facility] Last Admin: 04/30/18 10:04 Dose: 500 mg Docusate Sodium (Colace) 100 mg PO TID [facility] Last Admin: 04/30/18 10:06 Dose: 100 mg Fluoxetine HCl (Prozac) 40 mg PO DAILY [facility] Last Admin: 04/30/18 10:05 Dose: 40 mg Gabapentin (Neurontin) 600 mg PO QID [facility] PRN Reason: Protocol Last Admin: 04/30/18 10:05 Dose: 600 mg Heparin Sodium (Porcine) (Heparin) 5,000 units SC Q12 [facility] PRN Reason: Protocol Last Admin: 04/30/18 10:05 Dose: 5,000 units Vancomycin HCl (Vancomycin 1gm) 1 gm in 250 mls @ 167 mls/hr IVPB Q12 [facility] PRN Reason: Protocol Last Admin: 04/29/18 22:00 Dose: 167 mls/hr Meloxicam (Mobic) 15 mg PO DAILY [facility] Last Admin: 04/30/18 10:06 Dose: 15 mg Oxycodone HCl (Oxycontin Extended Release Tab) 10 mg PO Q12 PRN PRN Reason: Pain, moderate (4-7) Stop: 05/03/18 12:01 Oxycodone HCl (Oxycodone Immediate Release Tab) 15 mg PO Q4H PRN PRN Reason: Pain, severe (8-10) Pantoprazole Sodium (Protonix Ec Tab) 40 mg PO 0600 [facility] Last Admin: 04/30/18 06:20 Dose: 40 mg Polyethylene Glycol (Miralax) 17 gm PO DAILY [facility] Last Admin: 04/30/18 10:06 Dose: 17 gm Quetiapine Fumarate (Seroquel Xr) 800 mg PO HS [facility] PRN Reason: Protocol Tamsulosin HCl (Flomax) 0.4 mg PO DAILY [facility] Last Admin: 04/30/18 10:05 Dose: 0.4 mg Zolpidem Tartrate (Ambien) 5 mg PO HS PRN; Protocol PRN Reason: Insomnia Last Admin: 04/29/18 18:02 Dose: 5 mg - Labs Labs: 04/30/18 05:45 04/30/18 05:45 APTT 30.5 Seconds (25.1-36.5) 04/28/18 07:00 - Additional Findings Additional findings: - Constitutional Appears: No Acute Distress - Head Exam Head Exam: ATRAUMATIC, NORMAL INSPECTION, NORMOCEPHALIC - Eye Exam Eye Exam: EOMI, Normal appearance Pupil Exam: NORMAL ACCOMODATION - ENT Exam ENT Exam: Mucous Membranes Moist - Neck Exam Neck Exam: Full ROM - Respiratory Exam Respiratory Exam: Clear to Ausculation Bilateral, NORMAL BREATHING PATTERN. absent: Rales, Rhonchi, Wheezes - Cardiovascular Exam Cardiovascular Exam: REGULAR RHYTHM, +S1, +S2 - GI/Abdominal Exam GI & Abdominal Exam: Soft, Normal Bowel Sounds. absent: Guarding, Rigid, Tenderness - Extremities Exam Additional comments: Right lower extremity: dressing intact - Back Exam Back Exam: NORMAL INSPECTION - Neurological Exam Neurological Exam: Alert, Awake, Oriented x3 - Psychiatric Exam Psychiatric exam: Normal Affect, Normal Mood - Skin Skin Exam: Dry, Normal Color, Warm Assessment and Plan - Assessment and Plan (Free Text) Assessment: A/P: Patient is a 47 yo M with PMH bipolar disorder, schizoaffective disorder, polysubstance abuse, and right leg compartment syndrome s/p fasciotomy, presents for right leg cellulitis 2/2 trauma, also found to have tachycardia: Right 5th phalangeal Osteomyelitis/Right Lower extremity Cellulitis -Stable, afebrile, no leukocytosis -CRP elevated, ESR elevated -X ray foot: soft tissue swelling without acute articular or osseous abnormality. No osteomyelitis -MRI foot: soft tissue swelling of dorsum and 5th digit, edema is identified within the fused mid and distal 5th phalanges suspcious of osteomyelitis, mild soft tissue swelling of the 1st and 2nd digits also suspicious of osteomyelitis -Antibiotics: Vancomycin 1gm Q12H -F/U wound culture -Lower extremity US: normal ELPIDIO/PVR -Pain control: Oxycontin ER 10mg PO Q12H prn, Oxycodone 15mg Q4H prn ( [facility] patient is being prescribed this medication by Dr Ruiz) -Colace 100mg PO TID and Miralax 17gm daily for constipation -ID on consult, help appreciated -Podiatry on consult, help appreciated -Physical Therapy ordered Tachycardia -Currently asymptomatic -HR 70-90s now -Echocardiogram showed mild concentric left ventricular hypertrophy, EF 50%, trace MR and TR Hx of BPH: -Continue flomax Hx of Mood disorder, schizoaffective disorder -Continue Seroquel and fluoxetine -Continue Depakote and Cogentin -Depakote level 50 -Psych on consult, help appreciated Hx of Neuropathy: -Continue with Neurontin 600mg QID -Continue Mobic 15mg PO daily Insomnia -Ambien PRN DVT/GI prophylaxis: -Heparin 5000 Q12 [facility] -Protonix 40mg PO daily Plan discussed with Dr Bridgett Mitchell DO PGY-1 <Elisabet Urias - Last Filed: 04/30/18 13:43> Objective - Vital Signs/Intake and Output Vital Signs (last 24 hours): Temp Pulse Resp BP Pulse Ox 98.5 F 91 H 20 138/84 98 04/30/18 06:00 04/30/18 06:00 04/30/18 06:00 04/30/18 06:00 04/30/18 06:00 - Medications Medications: Current Medications Acetaminophen (Tylenol 325mg Tab) 650 mg PO Q6H PRN PRN Reason: Pain, moderate (4-7) Benztropine Mesylate (Cogentin) 1 mg PO [facility] Last Admin: 04/30/18 10:06 Dose: 1 mg Clotrimazole (Lotrimin 1%) 0 gm TOP BID [facility] Last Admin: 04/29/18 18:10 Dose: Not Given Divalproex Sodium (Depakote Dr(*Bid*)) 500 mg PO [facility] Last Admin: 04/30/18 10:04 Dose: 500 mg Docusate Sodium (Colace) 100 mg PO TID [facility] Last Admin: 04/30/18 10:06 Dose: 100 mg Fluoxetine HCl (Prozac) 40 mg PO DAILY [facility] Last Admin: 04/30/18 10:05 Dose: 40 mg Gabapentin (Neurontin) 600 mg PO QID [facility] PRN Reason: Protocol Last Admin: 04/30/18 10:05 Dose: 600 mg Heparin Sodium (Porcine) (Heparin) 5,000 units SC Q12 [facility] PRN Reason: Protocol Last Admin: 04/30/18 10:05 Dose: 5,000 units Vancomycin HCl (Vancomycin 1gm) 1 gm in 250 mls @ 167 mls/hr IVPB Q12 [facility] PRN Reason: Protocol Last Admin: 04/30/18 11:53 Dose: 167 mls/hr Meloxicam (Mobic) 15 mg PO DAILY [facility] Last Admin: 04/30/18 10:06 Dose: 15 mg Oxycodone HCl (Oxycontin Extended Release Tab) 10 mg PO Q12 PRN PRN Reason: Pain, moderate (4-7) Stop: 05/03/18 12:01 Oxycodone HCl (Oxycodone Immediate Release Tab) 15 mg PO Q4H PRN PRN Reason: Pain, severe (8-10) Last Admin: 04/30/18 11:58 Dose: 15 mg Pantoprazole Sodium (Protonix Ec Tab) 40 mg PO 0600 [facility] Last Admin: 04/30/18 06:20 Dose: 40 mg Polyethylene Glycol (Miralax) 17 gm PO DAILY [facility] Last Admin: 04/30/18 10:06 Dose: 17 gm Quetiapine Fumarate (Seroquel Xr) 800 mg PO HS [facility] PRN Reason: Protocol Tamsulosin HCl (Flomax) 0.4 mg PO DAILY [facility] Last Admin: 04/30/18 10:05 Dose: 0.4 mg Zolpidem Tartrate (Ambien) 5 mg PO HS PRN; Protocol PRN Reason: Insomnia Last Admin: 04/29/18 18:02 Dose: 5 mg - Labs Labs: 04/30/18 05:45 04/30/18 05:45 APTT 30.5 Seconds (25.1-36.5) 04/28/18 07:00 Attending/Attestation - Attestation I have personally seen and examined this patient.: Yes I have fully participated in the care of the patient.: Yes I have reviewed all pertinent clinical information, including history, physical exam and plan: Yes Notes (Text): 04/30/18 13:39 47 year old male with past medical history of bipolar, schizoaffective disorder , polysubstance abuse, and right leg compartment syndrome s/p fasciotomy presented with right leg cellulitis. MRI was reviewed as above suggestive of osteomyelitis. Continue with iv antibiotics as per ID. Will follow up with ID and podiatry recommendations. He is on morphine prn, mobic and gabapentin for pain and wants to try oxycodone/oxycontin as he was prescribed by his pmd. He was counselled on risks of continued substance abuse. Elisabet Urias MD Hospitalist.
--- NOTE | 2018-04-30 13:42 | CP.PCM.PN ---
<Mary Bennett - Last Filed: 04/30/18 13:37> Subjective - Date & Time of Evaluation Date of Evaluation: 04/30/18 Time of Evaluation: 13:37 - Subjective Subjective: Podiatry Consult note: Dr. Hill/Dr. Schuler 47 year old male patient was seen and evaluated for right 5th digit wound. Patient is AAOx3 and appears in NAD. Denies of any acute overnight events. No recent F/N/V/C/SOB/CP/headache. No other pedal complains. Objective - Vital Signs/Intake and Output Vital Signs (last 24 hours): Temp Pulse Resp BP Pulse Ox 98.5 F 91 H 20 138/84 98 04/30/18 06:00 04/30/18 06:00 04/30/18 06:00 04/30/18 06:00 04/30/18 06:00 - Medications Medications: Current Medications Acetaminophen (Tylenol 325mg Tab) 650 mg PO Q6H PRN PRN Reason: Pain, moderate (4-7) Benztropine Mesylate (Cogentin) 1 mg PO [facility] Last Admin: 04/30/18 10:06 Dose: 1 mg Clotrimazole (Lotrimin 1%) 0 gm TOP BID [facility] Last Admin: 04/29/18 18:10 Dose: Not Given Divalproex Sodium (Depakote Dr(*Bid*)) 500 mg PO [facility] Last Admin: 04/30/18 10:04 Dose: 500 mg Docusate Sodium (Colace) 100 mg PO TID [facility] Last Admin: 04/30/18 10:06 Dose: 100 mg Fluoxetine HCl (Prozac) 40 mg PO DAILY [facility] Last Admin: 04/30/18 10:05 Dose: 40 mg Gabapentin (Neurontin) 600 mg PO QID [facility] PRN Reason: Protocol Last Admin: 04/30/18 10:05 Dose: 600 mg Heparin Sodium (Porcine) (Heparin) 5,000 units SC Q12 [facility] PRN Reason: Protocol Last Admin: 04/30/18 10:05 Dose: 5,000 units Vancomycin HCl (Vancomycin 1gm) 1 gm in 250 mls @ 167 mls/hr IVPB Q12 [facility] PRN Reason: Protocol Last Admin: 04/30/18 11:53 Dose: 167 mls/hr Meloxicam (Mobic) 15 mg PO DAILY [facility] Last Admin: 04/30/18 10:06 Dose: 15 mg Oxycodone HCl (Oxycontin Extended Release Tab) 10 mg PO Q12 PRN PRN Reason: Pain, moderate (4-7) Stop: 05/03/18 12:01 Oxycodone HCl (Oxycodone Immediate Release Tab) 15 mg PO Q4H PRN PRN Reason: Pain, severe (8-10) Last Admin: 04/30/18 11:58 Dose: 15 mg Pantoprazole Sodium (Protonix Ec Tab) 40 mg PO 0600 [facility] Last Admin: 04/30/18 06:20 Dose: 40 mg Polyethylene Glycol (Miralax) 17 gm PO DAILY [facility] Last Admin: 04/30/18 10:06 Dose: 17 gm Quetiapine Fumarate (Seroquel Xr) 800 mg PO HS [facility] PRN Reason: Protocol Tamsulosin HCl (Flomax) 0.4 mg PO DAILY [facility] Last Admin: 04/30/18 10:05 Dose: 0.4 mg Zolpidem Tartrate (Ambien) 5 mg PO HS PRN; Protocol PRN Reason: Insomnia Last Admin: 04/29/18 18:02 Dose: 5 mg - Labs Labs: 04/30/18 05:45 04/30/18 05:45 APTT 30.5 Seconds (25.1-36.5) 04/28/18 07:00 - Constitutional Appears: Well, Non-toxic, No Acute Distress - Extremities Exam Additional comments: Bilateral LE focused exam: VASC: DP/PT pulses are palpable 2.4, Cap refill time: < 3 sec to all digits, Temp gradient: warm to cool from proximal to distal on the left and warm to warm on the right, non-pitting edema noted on the dorsum of the foot on the right DERM: superficial epidermal layer lysis with dermal layer exposed on the dorsal aspect of the right 5th digit, elmer wound maceration with 4th interspace maceration, erythema extending from the 5th digit proximally towards the ankle joint, mild mal odor, no active drainage, no purulence, no probe to bone NEURO: Protective sensation grossly intact ORTHO: pain on palpation of the wound on the right 5th digit, Prett test negative - Neurological Exam Neurological Exam: Alert, Awake, Oriented x3 - Psychiatric Exam Psychiatric exam: Normal Affect, Normal Mood Assessment and Plan - Assessment and Plan (Free Text) Assessment: 47 year old male with extensive PMHx was evaluated for 1). right 5th digit ulcer 2). cellulitis Plan: Patient seen and evaluated with attending Dr. Schuler Labs, vials and charts reviewed Afebrile, WBC @ 7.9 Wound cleaned with saline and dressing applied using betadine, DSD Bactroban ordered MRI of the right foot - suspicious for OM, clinically less likely Wound cultures: Staph aureus Continue IV abx as per ID - Vancomycin Local wound care Will continue to monitor patient while in-house <Jonathan Schuler - Last Filed: 05/01/18 07:35> Objective - Vital Signs/Intake and Output Vital Signs (last 24 hours): Temp Pulse Resp BP Pulse Ox 97.6 F 90 19 120/73 98 04/30/18 18:00 04/30/18 18:00 04/30/18 18:00 04/30/18 18:00 04/30/18 18:00 Intake and Output: 05/01/18 05/01/18 06:59 18:59 Intake Total 1580 Balance 1580 - Medications Medications: Current Medications Acetaminophen (Tylenol 325mg Tab) 650 mg PO Q6H PRN PRN Reason: Pain, moderate (4-7) Benztropine Mesylate (Cogentin) 1 mg PO [facility] Last Admin: 04/30/18 21:13 Dose: 1 mg Clotrimazole (Lotrimin 1%) 0 gm TOP BID [facility] Last Admin: 04/30/18 18:25 Dose: Not Given Divalproex Sodium (Depakoreji Dr(*Bid*)) 500 mg PO [facility] Last Admin: 04/30/18 21:14 Dose: 500 mg Docusate Sodium (Colace) 100 mg PO TID [facility] Last Admin: 04/30/18 18:45 Dose: 100 mg Fluoxetine HCl (Prozac) 40 mg PO DAILY [facility] Last Admin: 04/30/18 10:05 Dose: 40 mg Gabapentin (Neurontin) 600 mg PO QID [facility] PRN Reason: Protocol Last Admin: 04/30/18 21:14 Dose: 600 mg Heparin Sodium (Porcine) (Heparin) 5,000 units SC Q12 [facility] PRN Reason: Protocol Last Admin: 04/30/18 21:15 Dose: 5,000 units Vancomycin HCl (Vancomycin 1gm) 1 gm in 250 mls @ 167 mls/hr IVPB Q12 [facility] PRN Reason: Protocol Last Admin: 04/30/18 21:17 Dose: 167 mls/hr Ketorolac Tromethamine (Toradol) 15 mg IVP Q6H PRN PRN Reason: Pain, moderate (4-7) Last Admin: 05/01/18 00:35 Dose: 15 mg Meloxicam (Mobic) 15 mg PO DAILY [facility] Last Admin: 04/30/18 10:06 Dose: 15 mg Morphine Sulfate (Morphine) 2 mg IVP Q6H PRN PRN Reason: Pain, severe (8-10) Last Admin: 05/01/18 05:39 Dose: 2 mg Pantoprazole Sodium (Protonix Ec Tab) 40 mg PO 0600 [facility] Last Admin: 05/01/18 05:39 Dose: 40 mg Polyethylene Glycol (Miralax) 17 gm PO DAILY [facility] Last Admin: 04/30/18 10:06 Dose: 17 gm Quetiapine Fumarate (Seroquel Xr) 800 mg PO HS [facility] PRN Reason: Protocol Last Admin: 04/30/18 21:14 Dose: 800 mg Tamsulosin HCl (Flomax) 0.4 mg PO DAILY [facility] Last Admin: 04/30/18 10:05 Dose: 0.4 mg Zolpidem Tartrate (Ambien) 5 mg PO HS PRN; Protocol PRN Reason: Insomnia Last Admin: 04/30/18 22:45 Dose: 5 mg - Labs Labs: 05/01/18 06:00 05/01/18 06:00 APTT 30.5 Seconds (25.1-36.5) 04/28/18 07:00 Attending/Attestation - Attestation I have personally seen and examined this patient.: Yes I have fully participated in the care of the patient.: Yes I have reviewed all pertinent clinical information, including history, physical exam and plan: Yes
[2018-04-30] MEDS: Clotrimazole 1% Cream(30 gm) TOP SCH ×2 (14:50→18:25)
--- NOTE | 2018-04-30 20:27 | CON ---
HISTORY OF PRESENT ILLNESS: In short, the patient is 47-year-old male with long debilitating history of polysubstance abuse and dependence, most likely patient has schizoaffective disorder bipolar type. Patient has multiple psychiatric admissions. Patient was discharged against medical advice on 04/25/2018, from [facility]. Patient was admitted on the medical side on 04/27/2018, for possible osteomyelitis and infection on his right foot. Psych consult was called for medication management. Patient has long history of mental illness as well as polysubstance abuse and dependence. Patient was seen and examined today. Patient presented to be alert and oriented, presented very well to compare with the previous admission. Patient said that he did not relapse on any drugs and he feels great. Patient reported that he feels good on the medication what this health underwriter prescribed to this patient. Patient reported that the only problem right now is his slurred speech. This health underwriter suggested to change Seroquel extended release to the nighttime and also Cogentin was decreased in doses. Patient also complained of the right foot pain and patient was asking what not addictive medication could be given to him. This health underwriter will increase the dose of Mobic. Patient was discharged from the psychiatric inpatient unit on 7.5 mg daily, right now it will be 15 mg. Patient denied being depressed. Patient has future-oriented plans. Patient wants to get better before his kids, the patient has 3 kids. Patient reported that family is supportive right now. Patient's mother and patient's sister involved into the patient care. Please see previous admission to the psychiatric inpatient unit note for more detailed information. OBJECTIVE: VITAL SIGNS: Seem to be stable. Patient's temperature 98.5, pulse is 91, blood pressure 138/84, respirations 26, oxygen saturation is 98%. MEDICATIONS: Reviewed. The patient is on Cogentin 1 mg twice a day at the morning time and at the nighttime, Lotrimin, Depakote 500 mg twice a day at the morning time and at the nighttime, Colace, Prozac 40 mg daily, Neurontin 600 mg 4 times a day, heparin. Patient is on Toradol. Mobic was increased to 15 mg daily. Patient is on morphine 10 mg IV push every 6 hours as needed. Protonix, MiraLax, Seroquel 800 mg at the nighttime scheduled, vancomycin, and Ambien as needed for insomnia. LABORATORY DATA: Reviewed. Hemoglobin and hematocrit 13.1 and 38.6. Coagulation reviewed. Blood gas reviewed. Chemistry reviewed. Urinalysis reviewed. Toxicology was negative for any substances. This health underwriter would like to emphasize the fact that patient is off benzodiazepines and pain killers, morphine only if needed for the patient because patient has long history of addiction to pain killers as well as opioids as well as cocaine as well as marijuana as well as benzodiazepines. MENTAL STATUS EXAMINATION: Patient presented to be calm, cooperative, good personal hygiene. Affect is brighter. Patient is more coherent and thought process was goal-directed. Good eye contact. Mood described "I feel better. Thank you very much for your help." Thought content: The patient denied visual, auditory, and tactile hallucinations. Denied paranoid ideation. Patient presented more coherent and not psychotic to compare with the previous admission when patient would be very disorganized as well as feeling that his is cheating on him and stalking him on the Internet and Facebook. There are no such symptoms observed today. Insight and judgment seem to be improving. Impulses are well controlled. As per collateral information, patient is compliant with the medication. No disrespectful or agitated behavior. Patient is polite and cooperative. IMPRESSION: As per history, most likely patient has schizoaffective disorder versus bipolar disorder with psychosis versus substance-induced mood disorder, history of polysubstance abuse and dependence. PLAN: Continue current medication. Continue current management. Patient adamantly denied thoughts of harming himself or others. Denied intents or plan. The patient will be continued on Seroquel 800 mg extended release at the nighttime. The patient also will be continued on Ambien at the nighttime. Mobic was increased to 15 mg daily, Prozac should be continued. Please try to avoid benzodiazepines as well as pain killers. Should you have any questions, give me a call back. Patient presented very well. No imminent danger to self or others, but this health underwriter will follow up on this patient tomorrow to make sure that the patient tolerates medications well and adjustment of the meds. Ilene Gillette MD
[2018-04-30] MEDS: QUEtiapine 200 mg XR Tab PO SCH (21:14)
--- NOTE | 2018-05-01 03:13 | PN ---
DATE: 04/30/2018 SUBJECTIVE: Patient was seen earlier today, in no acute distress, nontoxic. No fevers. PHYSICAL EXAMINATION: VITAL SIGNS: Temperature is 98, blood pressure is 120/70, respiratory rate of 16. HEENT: Unremarkable. NECK: Supple. LUNGS: Decreased breath sounds. HEART: Normal S1, S2. ABDOMEN: Soft, nontender. LABORATORY DATA: Reveals the patient to have white count of 7.9, hemoglobin of 13 and sed rate is 35. Chemistry reveals a BUN of 12, creatinine of 0.8, C-reactive protein is greater than 15. Urinalysis is noted. Microbiology reveals MRSA is not detected. Patient ____ CAT scan. Review of orders reveals patient is on vancomycin. Review of medications noted. Microbiology is reviewed. ASSESSMENT AND PLAN: This is a 47-year-old male who has right foot cellulitis, cyanosis of the right fifth toe, with history of schizoaffective disorder, bipolar, anxiety, on vancomycin. Patient had an MRI of the foot with edema within the fused mid and distal fifth phalanges suspicious for osteomyelitis and an elevated sedimentation rate of 35 and elevated C-reactive protein of greater than 15. We will continue with present course of vancomycin . Maynor Lopez MD
[2018-05-01] MEDS: Morphine 2 mg/ml ISec IVP PRN ×4 (05:39→23:34)
[2018-05-01] MEDS: Pantoprazole 40 mg EC Tab PO SCH (05:39)
[2018-05-01 06:51] LABS: BASO # 0.02 K/mm3 (0.0-2.0); BASO % 0.3 % (0.0-3.0); EOS # 0.2 (0.0-0.7); EOS % 3.1 % (1.5-5.0); GRAN # 4.45 (1.4-6.5); GRAN % 57.8 % (50.0-68.0); HEMOGLOBIN 13.1 g/dL (14.0-18.0); LYMPH # 2.6 (1.2-3.4); LYMPH % 33.2 % (22.0-35.0); MEAN CELL VOLUME 86.8 fl (80.0-105.0); MEAN CORPUSCULAR HEMOGLOBIN 29.8 pg (25.0-35.0); MEAN CORPUSCULAR HGB CONC 34.3 g/dl (31.0-37.0); MEAN PLATELET VOLUME 11.3 fl (7.0-11.0); MONO # 0.4 (0.1-0.6); MONO % 5.6 % (1.0-6.0); RBC 4.4 10^6/uL (3.5-6.1); RED CELL DISTRIBUTION WIDTH 12.9 % (11.5-14.5); WHITE BLOOD COUNT 7.7 10^3/ul (4.5-11.0)
[2018-05-01 06:52] LABS: BLOOD UREA NITROGEN 13 mg/dL (7-21); CALCIUM 8.8 mg/dL (8.4-10.5); GFR NON-AFRICAN AMERICAN > 60
[2018-05-01] MEDS: Vancomycin 1gm in NS 250ml 1 GM/250 ML BAG IVPB SCH ×2 (09:41→22:22)
[2018-05-01] MEDS: Divalproex 500 mg DR(BID formulation) PO SCH ×2 (09:43→22:19)
[2018-05-01] MEDS: POLYETHYLENE GLYCOL 3350 17 GM/Dose PACKET PO SCH (09:46)
--- NOTE | 2018-05-01 11:26 | CP.PCM.PN ---
<Laura Mitchell - Last Filed: 05/01/18 15:29> Subjective - Date & Time of Evaluation Date of Evaluation: 05/01/18 Time of Evaluation: 11:24 - Subjective Subjective: Internal Medicine Progress Note - Hospitalist Service Patient seen and examined at bedside. Per nursing no acute events overnight. Patient is doing well, offering no acute complaints at this time. Patient recieving IV Vancomycin for cellulitis/osteomyelitis. Denies headaches, dizziness, cp, palpitations, sob, abdominal pain, urinary symptoms, changes in bowel habits. Objective - Vital Signs/Intake and Output Vital Signs (last 24 hours): Temp Pulse Resp BP Pulse Ox 97.7 F 80 18 142/81 96 05/01/18 08:57 05/01/18 08:57 05/01/18 08:57 05/01/18 08:57 05/01/18 08:57 Intake and Output: 05/01/18 05/01/18 06:59 18:59 Intake Total 1580 Balance 1580 - Medications Medications: Current Medications Acetaminophen (Tylenol 325mg Tab) 650 mg PO Q6H PRN PRN Reason: Pain, moderate (4-7) Benztropine Mesylate (Cogentin) 1 mg PO [facility] Last Admin: 05/01/18 09:43 Dose: 1 mg Clotrimazole (Lotrimin 1%) 0 gm TOP BID [facility] Last Admin: 04/30/18 18:25 Dose: Not Given Divalproex Sodium (Depakote Dr(*Bid*)) 500 mg PO [facility] Last Admin: 05/01/18 09:43 Dose: 500 mg Docusate Sodium (Colace) 100 mg PO TID [facility] Last Admin: 05/01/18 09:45 Dose: 100 mg Fluoxetine HCl (Prozac) 40 mg PO DAILY [facility] Last Admin: 05/01/18 09:43 Dose: 40 mg Gabapentin (Neurontin) 600 mg PO QID [facility] PRN Reason: Protocol Last Admin: 05/01/18 09:45 Dose: 600 mg Heparin Sodium (Porcine) (Heparin) 5,000 units SC Q12 [facility] PRN Reason: Protocol Last Admin: 05/01/18 09:45 Dose: 5,000 units Vancomycin HCl (Vancomycin 1gm) 1 gm in 250 mls @ 167 mls/hr IVPB Q12 [facility] PRN Reason: Protocol Last Admin: 05/01/18 09:41 Dose: 167 mls/hr Ketorolac Tromethamine (Toradol) 15 mg IVP Q6H PRN PRN Reason: Pain, moderate (4-7) Last Admin: 05/01/18 09:43 Dose: 15 mg Meloxicam (Mobic) 15 mg PO DAILY [facility] Last Admin: 05/01/18 09:43 Dose: 15 mg Morphine Sulfate (Morphine) 2 mg IVP Q6H PRN PRN Reason: Pain, severe (8-10) Last Admin: 05/01/18 05:39 Dose: 2 mg Pantoprazole Sodium (Protonix Ec Tab) 40 mg PO 0600 [facility] Last Admin: 05/01/18 05:39 Dose: 40 mg Polyethylene Glycol (Miralax) 17 gm PO DAILY [facility] Last Admin: 05/01/18 09:46 Dose: Not Given Quetiapine Fumarate (Seroquel Xr) 800 mg PO HS [facility] PRN Reason: Protocol Last Admin: 04/30/18 21:14 Dose: 800 mg Tamsulosin HCl (Flomax) 0.4 mg PO DAILY [facility] Last Admin: 05/01/18 09:45 Dose: 0.4 mg Zolpidem Tartrate (Ambien) 5 mg PO HS PRN; Protocol PRN Reason: Insomnia Last Admin: 04/30/18 22:45 Dose: 5 mg - Labs Labs: 05/01/18 06:00 05/01/18 06:00 APTT 30.5 Seconds (25.1-36.5) 04/28/18 07:00 - Additional Findings Additional findings: - Constitutional Appears: No Acute Distress - Head Exam Head Exam: ATRAUMATIC, NORMAL INSPECTION, NORMOCEPHALIC - Eye Exam Eye Exam: EOMI, Normal appearance Pupil Exam: NORMAL ACCOMODATION - ENT Exam ENT Exam: Mucous Membranes Moist - Neck Exam Neck Exam: Full ROM - Respiratory Exam Respiratory Exam: Clear to Ausculation Bilateral, NORMAL BREATHING PATTERN. absent: Rales, Rhonchi, Wheezes - Cardiovascular Exam Cardiovascular Exam: REGULAR RHYTHM, +S1, +S2 - GI/Abdominal Exam GI & Abdominal Exam: Soft, Normal Bowel Sounds. absent: Guarding, Rigid, Tenderness - Extremities Exam Additional comments: Right lower extremity: dressing intact - Back Exam Back Exam: NORMAL INSPECTION - Neurological Exam Neurological Exam: Alert, Awake, Oriented x3 - Psychiatric Exam Psychiatric exam: Normal Affect, Normal Mood - Skin Skin Exam: Dry, Normal Color, Warm Assessment and Plan - Assessment and Plan (Free Text) Assessment: A/P: Patient is a 47 yo M with PMH bipolar disorder, schizoaffective disorder, polysubstance abuse, and right leg compartment syndrome s/p fasciotomy, presents for right leg cellulitis 2/2 trauma, also found to have tachycardia: Right 5th phalangeal Osteomyelitis/Right Lower extremity Cellulitis -Stable, afebrile, no leukocytosis -CRP elevated, ESR elevated -X ray foot: soft tissue swelling without acute articular or osseous abnormality. No osteomyelitis -MRI foot: soft tissue swelling of dorsum and 5th digit, edema is identified within the fused mid and distal 5th phalanges suspcious of osteomyelitis, mild soft tissue swelling of the 1st and 2nd digits also suspicious of osteomyelitis -Antibiotics: Vancomycin 1gm Q12H, Rocephin 1gm daily (when clear for discharge , can D/C with IV Daptomycin) -F/U Vanco trough -F/U wound culture -Lower extremity US: normal ELPIDIO/PVR -Pain control: Morphine 2mg Q6H prn pain -Colace 100mg PO TID and Miralax 17gm daily for constipation -ID on consult, help appreciated -Podiatry on consult, help appreciated -Physical Therapy ordered Tachycardia -Currently asymptomatic -HR 70-90s now -Echocardiogram showed mild concentric left ventricular hypertrophy, EF 50%, trace MR and TR Hx of BPH: -Continue flomax Hx of Mood disorder, schizoaffective disorder -Continue Seroquel and fluoxetine -Continue Depakote and Cogentin -Depakote level 50 -Psych on consult, help appreciated Hx of Neuropathy: -Continue with Neurontin 600mg QID -Continue Mobic 15mg PO daily Insomnia -Ambien PRN DVT/GI prophylaxis: -Heparin 5000 Q12 SC -Protonix 40mg PO daily DISPO: Patient will follow up with PMD, Dr Ruiz upon discharge. Discussed case with Podiatry, surgery unlikely at this time. Patient requires intermediate IV antibiotics. Per case management, patient does not have JAM benefits w/[employer]. Per sister, Medicaid has been reinstated and she will contact admitting department. We will follow up. Plan discussed with Dr Bridgett Mitchell DO PGY-1 <Elisabet Urias - Last Filed: 05/01/18 16:16> Objective - Vital Signs/Intake and Output Vital Signs (last 24 hours): Temp Pulse Resp BP Pulse Ox 97.7 F 80 18 142/81 96 05/01/18 08:57 05/01/18 08:57 05/01/18 08:57 05/01/18 08:57 05/01/18 08:57 Intake and Output: 05/01/18 05/01/18 06:59 18:59 Intake Total 1580 720 Balance 1580 720 - Medications Medications: Current Medications Acetaminophen (Tylenol 325mg Tab) 650 mg PO Q6H PRN PRN Reason: Pain, moderate (4-7) Benztropine Mesylate (Cogentin) 1 mg PO [facility] Last Admin: 05/01/18 09:43 Dose: 1 mg Clotrimazole (Lotrimin 1%) 0 gm TOP BID [facility] Last Admin: 05/01/18 12:00 Dose: 1 appl Divalproex Sodium (Depakote Dr(*Bid*)) 500 mg PO [facility] Last Admin: 05/01/18 09:43 Dose: 500 mg Docusate Sodium (Colace) 100 mg PO TID [facility] Last Admin: 05/01/18 14:59 Dose: 100 mg Fluoxetine HCl (Prozac) 40 mg PO DAILY [facility] Last Admin: 05/01/18 09:43 Dose: 40 mg Gabapentin (Neurontin) 600 mg PO QID [facility] PRN Reason: Protocol Last Admin: 05/01/18 15:03 Dose: 600 mg Heparin Sodium (Porcine) (Heparin) 5,000 units SC Q12 [facility] PRN Reason: Protocol Last Admin: 05/01/18 09:45 Dose: 5,000 units Vancomycin HCl (Vancomycin 1gm) 1 gm in 250 mls @ 167 mls/hr IVPB Q12 [facility] PRN Reason: Protocol Last Admin: 05/01/18 09:41 Dose: 167 mls/hr Ceftriaxone Sodium (Rocephin 2 Gm Ivpb) 2 gm in 100 mls @ 100 mls/hr IVPB DAILY [facility] PRN Reason: Protocol Stop: 05/29/18 14:57 Last Admin: 05/01/18 15:08 Dose: 100 mls/hr Meloxicam (Mobic) 15 mg PO DAILY [facility] Last Admin: 05/01/18 09:43 Dose: 15 mg Morphine Sulfate (Morphine) 2 mg IVP Q6H PRN PRN Reason: Pain, severe (8-10) Last Admin: 05/01/18 11:46 Dose: 2 mg Pantoprazole Sodium (Protonix Ec Tab) 40 mg PO 0600 [facility] Last Admin: 05/01/18 05:39 Dose: 40 mg Polyethylene Glycol (Miralax) 17 gm PO DAILY [facility] Last Admin: 05/01/18 09:46 Dose: Not Given Quetiapine Fumarate (Seroquel Xr) 800 mg PO HS [facility] PRN Reason: Protocol Last Admin: 04/30/18 21:14 Dose: 800 mg Tamsulosin HCl (Flomax) 0.4 mg PO DAILY [facility] Last Admin: 05/01/18 09:45 Dose: 0.4 mg Zolpidem Tartrate (Ambien) 5 mg PO HS PRN; Protocol PRN Reason: Insomnia Last Admin: 04/30/18 22:45 Dose: 5 mg - Labs Labs: 05/01/18 06:00 05/01/18 06:00 APTT 30.5 Seconds (25.1-36.5) 04/28/18 07:00 Attending/Attestation - Attestation I have personally seen and examined this patient.: Yes I have fully participated in the care of the patient.: Yes I have reviewed all pertinent clinical information, including history, physical exam and plan: Yes Notes (Text): 05/01/18 16:15 47 year old male with past medical history of bipolar, schizoaffective disorder , polysubstance abuse, and right leg compartment syndrome s/p fasciotomy presented with right leg cellulitis. MRI was reviewed as above suggestive of osteomyelitis. Continue with iv antibiotics as per ID. May need 4-6 weeks of antibiotics; will discuss with ID and podiatry. He is on morphine prn, mobic and gabapentin for pain. He was counselled on risks of continued substance abuse. Elisabet Urias MD Hospitalist.
[2018-05-01] MEDS: Clotrimazole 1% Cream(30 gm) TOP SCH ×2 (12:00→18:28)
--- NOTE | 2018-05-01 14:08 | CP.PCM.PN ---
<DonaldLiladonnie - Last Filed: 05/01/18 14:09> Subjective - Date & Time of Evaluation Date of Evaluation: 05/01/18 Time of Evaluation: 14:05 - Subjective Subjective: Podiatry Consult note: Dr. Hill/Dr. Schuler 47 year old male patient was seen and evaluated for right 5th digit wound. Patient is AAOx3 and appears in NAD. Denies of any acute overnight events. No recent F/N/V/C/SOB/CP/headache. No other pedal complains. Objective - Vital Signs/Intake and Output Vital Signs (last 24 hours): Temp Pulse Resp BP Pulse Ox 97.7 F 80 18 142/81 96 05/01/18 08:57 05/01/18 08:57 05/01/18 08:57 05/01/18 08:57 05/01/18 08:57 Intake and Output: 05/01/18 05/01/18 06:59 18:59 Intake Total 1580 Balance 1580 - Medications Medications: Current Medications Acetaminophen (Tylenol 325mg Tab) 650 mg PO Q6H PRN PRN Reason: Pain, moderate (4-7) Benztropine Mesylate (Cogentin) 1 mg PO [facility] Last Admin: 05/01/18 09:43 Dose: 1 mg Clotrimazole (Lotrimin 1%) 0 gm TOP BID [facility] Last Admin: 04/30/18 18:25 Dose: Not Given Divalproex Sodium (Depakote Dr(*Bid*)) 500 mg PO AMHS [facility] Last Admin: 05/01/18 09:43 Dose: 500 mg Docusate Sodium (Colace) 100 mg PO TID [facility] Last Admin: 05/01/18 09:45 Dose: 100 mg Fluoxetine HCl (Prozac) 40 mg PO DAILY [facility] Last Admin: 05/01/18 09:43 Dose: 40 mg Gabapentin (Neurontin) 600 mg PO QID [facility] PRN Reason: Protocol Last Admin: 05/01/18 09:45 Dose: 600 mg Heparin Sodium (Porcine) (Heparin) 5,000 units SC Q12 [facility] PRN Reason: Protocol Last Admin: 05/01/18 09:45 Dose: 5,000 units Vancomycin HCl (Vancomycin 1gm) 1 gm in 250 mls @ 167 mls/hr IVPB Q12 [facility] PRN Reason: Protocol Last Admin: 05/01/18 09:41 Dose: 167 mls/hr Meloxicam (Mobic) 15 mg PO DAILY [facility] Last Admin: 05/01/18 09:43 Dose: 15 mg Morphine Sulfate (Morphine) 2 mg IVP Q6H PRN PRN Reason: Pain, severe (8-10) Last Admin: 05/01/18 11:46 Dose: 2 mg Pantoprazole Sodium (Protonix Ec Tab) 40 mg PO 0600 [facility] Last Admin: 05/01/18 05:39 Dose: 40 mg Polyethylene Glycol (Miralax) 17 gm PO DAILY [facility] Last Admin: 05/01/18 09:46 Dose: Not Given Quetiapine Fumarate (Seroquel Xr) 800 mg PO HS [facility] PRN Reason: Protocol Last Admin: 04/30/18 21:14 Dose: 800 mg Tamsulosin HCl (Flomax) 0.4 mg PO DAILY [facility] Last Admin: 05/01/18 09:45 Dose: 0.4 mg Zolpidem Tartrate (Ambien) 5 mg PO HS PRN; Protocol PRN Reason: Insomnia Last Admin: 04/30/18 22:45 Dose: 5 mg - Labs Labs: 05/01/18 06:00 05/01/18 06:00 APTT 30.5 Seconds (25.1-36.5) 04/28/18 07:00 - Constitutional Appears: Well, Non-toxic, No Acute Distress - Extremities Exam Additional comments: Bilateral LE focused exam: VASC: DP/PT pulses are palpable 2/4, Cap refill time: < 3 sec to all digits, Temp gradient: warm to cool from proximal to distal on the left and warm to warm on the right, non-pitting edema noted on the dorsum of the foot on the right DERM: superficial epidermal layer lysis with dermal layer exposed on the dorsal aspect of the right 5th digit, elmer wound maceration with 4th interspace maceration, erythema extending from the 5th digit proximally towards the ankle joint - improving, mild mal odor, no active drainage, no purulence, no probe to bone NEURO: Protective sensation grossly intact ORTHO: pain on palpation of the wound on the right 5th digit, Prett test negative - Neurological Exam Neurological Exam: Alert, Awake, Oriented x3 - Psychiatric Exam Psychiatric exam: Normal Affect, Normal Mood Assessment and Plan - Assessment and Plan (Free Text) Assessment: 47 year old male with extensive PMHx was evaluated for 1). right 5th digit ulcer 2). cellulitis Plan: Patient seen and evaluated with attending Dr. Hill Labs, vitals and charts reviewed Afebrile, WBC @ 7.7 Wound cleaned with saline and dressing applied using maxorb and DSD Bactroban ordered MRI of the right foot - suspicious for OM, clinically less likely Continue IV abx as per ID - Vancomycin Patient may require halfway antibiotics Local wound care Will continue to monitor patient while in-house Upon discharge[facility] <Brenda Hill - Last Filed: 05/12/18 13:24> Objective - Vital Signs/Intake and Output Vital Signs (last 24 hours): Temp Pulse Resp BP Pulse Ox 98.0 F 90 20 139/98 H 97 05/08/18 06:00 05/08/18 06:00 05/08/18 06:00 05/08/18 06:00 05/08/18 06:00 - Labs Labs: 05/07/18 06:20 05/07/18 06:20 APTT 30.5 Seconds (25.1-36.5) 04/28/18 07:00 Attending/Attestation - Attestation I have personally seen and examined this patient.: Yes I have fully participated in the care of the patient.: Yes I have reviewed all pertinent clinical information, including history, physical exam and plan: Yes Notes (Text): 05/12/18 13:23 Spoke at length with patients sister who is POA - sister stated she feels it best for pt to go to a subacute rehab for IV antibiotics because of the drug problem and issues -
[2018-05-01] MEDS: cefTRIAXone 2 GM IN NS 2 GM/100 ML BAG IVPB SCH (15:08)
--- NOTE | 2018-05-01 19:55 | PN ---
DATE: 05/01/2018 SUBJECTIVE: Patient is in bed, in no acute distress, nontoxic. No fevers, no chills. PHYSICAL EXAMINATAION: VITAL SIGNS: Temperature is 98, blood pressure is 120/70, respiratory rate of 16. HEENT: Unremarkable. NECK: Supple. LUNGS: Have decreased breath sounds. HEART: Normal S1, S2. ABDOMEN: Soft, nontender. LABORATORY EXAMINATION: Reveals the patient's white count is 7.7, sed rate is 35, BUN of 13, creatinine of 0.7, and C-reactive protein is greater than 15. Microbiology reveals the nasal MRSA is negative. The wound cultures are not collected. A vanco trough is pending. Patient is currently on vancomycin and ceftriaxone and Dr. Bennett's progress note is reviewed from today. ASSESSMENT AND PLAN: This is a 47-year-old male who has right foot cellulitis and osteomyelitis by MRI in a patient with schizoaffective disorder, bipolar and anxiety, with MRI consistent with osteomyelitis and elevated sed rate and a C-reactive protein at greater than 15. We will continue on vancomycin and ceftriaxone. The ceftriaxone is 2 g IV every 24 hours. Recommend CBC, SMA-18, sed rate, C-reactive protein. Recommend 4 to 6 weeks of antibiotics with vancomycin trough level once weekly in addition to the inflammatory, CBC, and chemistry markers to be followed. Case discussed with resident. Maynor Lopez MD
--- NOTE | 2018-05-01 21:42 | PN ---
DATE: 05/01/2018 SUBJECTIVE: The patient was followed up today. The patient has a long history of either bipolar disorder or schizoaffective disorder. The patient was recently discharged against medical advice from [facility]. The patient was admitted on the medical site for right leg possible osteomyelitis. Patient is currently on IV antibiotics. The patient was followed up by this aligner typewriter yesterday, adjusted his medication, Mobic was increased for pain, also Seroquel was given as extended-release and only once a day dose. The patient is tolerating that change well. The patient presented to be less confused, more organized, pleasant, smiling back to this aligner typewriter, very appreciative. The patient reported that his mood is improving. He sleeps fine. His speech is improving as well. So as per nursing report, patient is compliant with the medication, does not have any aggressive or angry outburst. Patient is compliant with the treatment, but at times asking for pain medication and fixated on pain killers. PHYSICAL EXAMINATION: VITAL SIGNS: Seems to be stable. Temperature 97.7, pulse is 80, respirations 18, blood pressure 142/81, oxygen saturation is 96. MEDICATIONS: Reviewed. The patient is on Tylenol, Cogentin 1 mg twice a day, Rocephin IV, Lotrimin, Depakote 500 mg twice a day, Colace, Prozac 40 mg daily, Neurontin 600 mg four times a day, heparin, Mobic 15 mg daily and is maximum dose, morphine 2 mg IV push every 6 hours as needed. Also MiraLax, Seroquel 800 mg at the nighttime extended-release, Flomax, vancomycin as well as Ambien 5 mg at the nighttime as needed for insomnia. LABORATORY DATA: Labs were reviewed from today. Hemoglobin is 13, hematocrit 38.2. Coagulation reviewed. Chemistry reviewed. Toxicology reviewed. MENTAL STATUS EXAMINATION: The patient presented to be alert and oriented, pleasant, cooperative. Good eye contact. Speech was normal rate, tone, quality and quantity. Mood described "I feel much better." Affect was constricted but reactive. Mood congruent. Thought process was coherent and goal directed. Thought content, the patient is less paranoid, less psychotic. Thought processes were organized. Insight and judgment improving. Impulses are well controlled. IMPRESSION: As per history, bipolar disorder versus schizoaffective disorder, history of polysubstance abuse and dependence, rule out substance-induced psychosis. At present moment, the patient is diagnosed with osteomyelitis required to be on antibiotics. PLAN: Continue current management. Continue current medications. This aligner typewriter will follow up on this patient. The patient allowed this aligner typewriter to give a call to his sister. From the psychiatric standpoint, the patient is doing very much better, does not have aggression, psychosis is much better, and the patient is pleasant and cooperative, participated in treatment plan. We will follow up every other day. Should you have any questions, give me a call back. Thank you very much. Ilene Gillette MD
[2018-05-01] MEDS: QUEtiapine 200 mg XR Tab PO SCH (22:21)
[2018-05-02] MEDS: Pantoprazole 40 mg EC Tab PO SCH (06:09)
[2018-05-02 06:28] LABS: BASO # 0.03 K/mm3 (0.0-2.0); BASO % 0.3 % (0.0-3.0); EOS # 0.2 (0.0-0.7); EOS % 2.3 % (1.5-5.0); GRAN # 5.51 (1.4-6.5); GRAN % 63.1 % (50.0-68.0); LYMPH # 2.5 (1.2-3.4); MEAN CELL VOLUME 87.4 fl (80.0-105.0); MEAN CORPUSCULAR HEMOGLOBIN 29.7 pg (25.0-35.0); MEAN CORPUSCULAR HGB CONC 33.9 g/dl (31.0-37.0); MONO # 0.6 (0.1-0.6); MONO % 6.3 % (1.0-6.0); RBC 4.38 10^6/uL (3.5-6.1); WHITE BLOOD COUNT 8.7 10^3/ul (4.5-11.0)
[2018-05-02 07:02] LABS: BLOOD UREA NITROGEN 12 mg/dL (7-21); CALCIUM 8.9 mg/dL (8.4-10.5); GFR NON-AFRICAN AMERICAN > 60
[2018-05-02] MEDS: Divalproex 500 mg DR(BID formulation) PO SCH ×2 (09:37→22:40)
[2018-05-02] MEDS: POLYETHYLENE GLYCOL 3350 17 GM/Dose PACKET PO SCH (09:38)
[2018-05-02] MEDS: Clotrimazole 1% Cream(30 gm) TOP SCH ×2 (09:39→17:55)
[2018-05-02] MEDS: cefTRIAXone 2 GM IN NS 2 GM/100 ML BAG IVPB SCH (09:39)
[2018-05-02] MEDS: Morphine 2 mg/ml ISec IVP PRN ×3 (09:40→22:40)
--- NOTE | 2018-05-02 10:02 | CP.PCM.PN ---
<Mary Bennett - Last Filed: 05/02/18 09:57> Subjective - Date & Time of Evaluation Date of Evaluation: 05/02/18 Time of Evaluation: 09:57 - Subjective Subjective: Podiatry Consult note: Dr. Hill/Dr. Schuler 47 year old male patient was seen and evaluated for right 5th digit wound. Patient is AAOx3 and appears in NAD. Denies of any acute overnight events. No recent F/N/V/C/SOB/CP/headache. No other pedal complains. Objective - Vital Signs/Intake and Output Vital Signs (last 24 hours): Temp Pulse Resp BP Pulse Ox 97.2 F L 72 18 123/70 96 05/02/18 08:30 05/02/18 08:30 05/02/18 08:30 05/02/18 08:30 05/02/18 08:30 Intake and Output: 05/02/18 05/02/18 06:59 18:59 Intake Total 1640 360 Output Total 350 Balance 1640 10 - Medications Medications: Current Medications Acetaminophen (Tylenol 325mg Tab) 650 mg PO Q6H PRN PRN Reason: Pain, moderate (4-7) Benztropine Mesylate (Cogentin) 1 mg PO [facility] Last Admin: 05/02/18 09:37 Dose: 1 mg Clotrimazole (Lotrimin 1%) 0 gm TOP BID [facility] Last Admin: 05/02/18 09:39 Dose: 1 appl Divalproex Sodium (Depakote Dr(*Bid*)) 500 mg PO [facility] Last Admin: 05/02/18 09:37 Dose: 500 mg Docusate Sodium (Colace) 100 mg PO TID [facility] Last Admin: 05/02/18 09:37 Dose: 100 mg Fluoxetine HCl (Prozac) 40 mg PO DAILY [facility] Last Admin: 05/02/18 09:37 Dose: 40 mg Gabapentin (Neurontin) 600 mg PO QID [facility] PRN Reason: Protocol Last Admin: 05/02/18 09:38 Dose: 600 mg Heparin Sodium (Porcine) (Heparin) 5,000 units SC Q12 [facility] PRN Reason: Protocol Last Admin: 05/02/18 09:38 Dose: 5,000 units Vancomycin HCl (Vancomycin 1gm) 1 gm in 250 mls @ 167 mls/hr IVPB Q12 [facility] PRN Reason: Protocol Last Admin: 05/01/18 22:22 Dose: 167 mls/hr Ceftriaxone Sodium (Rocephin 2 Gm Ivpb) 2 gm in 100 mls @ 100 mls/hr IVPB DAILY [facility] PRN Reason: Protocol Stop: 05/29/18 14:57 Last Admin: 05/02/18 09:39 Dose: 100 mls/hr Meloxicam (Mobic) 15 mg PO DAILY [facility] Last Admin: 05/02/18 09:37 Dose: 15 mg Morphine Sulfate (Morphine) 2 mg IVP Q6H PRN PRN Reason: Pain, severe (8-10) Last Admin: 05/02/18 09:40 Dose: 2 mg Pantoprazole Sodium (Protonix Ec Tab) 40 mg PO 0600 [facility] Last Admin: 05/02/18 06:09 Dose: 40 mg Polyethylene Glycol (Miralax) 17 gm PO DAILY [facility] Last Admin: 05/02/18 09:38 Dose: 17 gm Quetiapine Fumarate (Seroquel Xr) 800 mg PO HS [facility] PRN Reason: Protocol Last Admin: 05/01/18 22:21 Dose: 800 mg Tamsulosin HCl (Flomax) 0.4 mg PO DAILY [facility] Last Admin: 05/02/18 09:38 Dose: 0.4 mg Zolpidem Tartrate (Ambien) 5 mg PO HS PRN; Protocol PRN Reason: Insomnia Last Admin: 05/02/18 02:13 Dose: 5 mg - Labs Labs: 05/02/18 06:00 05/02/18 06:00 APTT 30.5 Seconds (25.1-36.5) 04/28/18 07:00 - Constitutional Appears: Well, Non-toxic, No Acute Distress - Extremities Exam Additional comments: Bilateral LE focused exam: VASC: DP/PT pulses are palpable 2/4, Cap refill time: < 3 sec to all digits, Temp gradient: warm to cool from proximal to distal on the left and warm to warm on the right, non-pitting edema noted on the dorsum of the foot on the right DERM: superficial epidermal layer lysis with dermal layer exposed on the dorsal aspect of the right 5th digit, erythema extending from the 5th digit proximally towards the ankle joint - improving, no mal odor, no active drainage, no purulence, no probe to bone NEURO: Protective sensation grossly intact ORTHO: pain on palpation of the wound on the right 5th digit, Prett test negative - Neurological Exam Neurological Exam: Alert, Awake, Oriented x3 - Psychiatric Exam Psychiatric exam: Normal Affect, Normal Mood Assessment and Plan - Assessment and Plan (Free Text) Assessment: 47 year old male with extensive PMHx was evaluated for 1). right 5th digit ulcer 2). cellulitis Plan: Patient seen and evaluated with attending Dr. Hill Labs, vitals and charts reviewed Afebrile, WBC @ 8.7 Wound cleaned with saline and dressing applied using DSD Bactroban ordered MRI of the right foot - suspicious for OM, clinically less likely Cultures taken - pending Continue IV abx as per ID - Vancomycin Local wound care Will continue to monitor patient while in-house Upon discharge[facility] <Brenda Hill - Last Filed: 05/12/18 13:25> Objective - Vital Signs/Intake and Output Vital Signs (last 24 hours): Temp Pulse Resp BP Pulse Ox 98.0 F 90 20 139/98 H 97 05/08/18 06:00 05/08/18 06:00 05/08/18 06:00 05/08/18 06:00 05/08/18 06:00 - Labs Labs: 05/07/18 06:20 05/07/18 06:20 APTT 30.5 Seconds (25.1-36.5) 04/28/18 07:00 Attending/Attestation - Attestation I have personally seen and examined this patient.: Yes I have fully participated in the care of the patient.: Yes I have reviewed all pertinent clinical information, including history, physical exam and plan: Yes
[2018-05-02] MEDS: Vancomycin 1gm in NS 250ml 1 GM/250 ML BAG IVPB SCH (11:19)
--- NOTE | 2018-05-02 12:26 | CP.PCM.PN ---
<Lauar Mitchell - Last Filed: 05/02/18 16:40> Subjective - Date & Time of Evaluation Date of Evaluation: 05/02/18 Time of Evaluation: 12:26 - Subjective Subjective: Internal Medicine Progress Note - Hospitalist Service Patient seen and examined at bedside. Per nursing no acute events overnight. Patient is doing well, requesting medication for breakthrough pain. Podiatry is following. Patient is on IV vancomycin and IV rocephin. Denies headaches, dizziness, chest pain, palpitations, sob, abdominal pain, urinary symptoms, changes in bowel habits. Objective - Vital Signs/Intake and Output Vital Signs (last 24 hours): Temp Pulse Resp BP Pulse Ox 97.2 F L 72 18 123/70 96 05/02/18 08:30 05/02/18 08:30 05/02/18 08:30 05/02/18 08:30 05/02/18 08:30 Intake and Output: 05/02/18 05/02/18 06:59 18:59 Intake Total 1640 360 Output Total 350 Balance 1640 10 - Medications Medications: Current Medications Acetaminophen (Tylenol 325mg Tab) 650 mg PO Q6H PRN PRN Reason: Pain, moderate (4-7) Benztropine Mesylate (Cogentin) 1 mg PO [facility] Last Admin: 05/02/18 09:37 Dose: 1 mg Clotrimazole (Lotrimin 1%) 0 gm TOP BID [facility] Last Admin: 05/02/18 09:39 Dose: 1 appl Divalproex Sodium (Depakote Dr(*Bid*)) 500 mg PO AMHS [facility] Last Admin: 05/02/18 09:37 Dose: 500 mg Docusate Sodium (Colace) 100 mg PO TID [facility] Last Admin: 05/02/18 09:37 Dose: 100 mg Fluoxetine HCl (Prozac) 40 mg PO DAILY [facility] Last Admin: 05/02/18 09:37 Dose: 40 mg Gabapentin (Neurontin) 600 mg PO QID [facility] PRN Reason: Protocol Last Admin: 05/02/18 09:38 Dose: 600 mg Heparin Sodium (Porcine) (Heparin) 5,000 units SC Q12 [facility] PRN Reason: Protocol Last Admin: 05/02/18 09:38 Dose: 5,000 units Vancomycin HCl (Vancomycin 1gm) 1 gm in 250 mls @ 167 mls/hr IVPB Q12 [facility] PRN Reason: Protocol Last Admin: 05/02/18 11:19 Dose: 167 mls/hr Ceftriaxone Sodium (Rocephin 2 Gm Ivpb) 2 gm in 100 mls @ 100 mls/hr IVPB DAILY [facility] PRN Reason: Protocol Stop: 05/29/18 14:57 Last Admin: 05/02/18 09:39 Dose: 100 mls/hr Morphine Sulfate (Morphine) 2 mg IVP Q6H PRN PRN Reason: Pain, severe (8-10) Last Admin: 05/02/18 09:40 Dose: 2 mg Mupirocin (Bactroban Ointment) 10 gm TOP DAILY [facility] Naproxen (Anaprox Ds) 550 mg PO BID [facility] Pantoprazole Sodium (Protonix Ec Tab) 40 mg PO 0600 [facility] Last Admin: 05/02/18 06:09 Dose: 40 mg Polyethylene Glycol (Miralax) 17 gm PO DAILY [facility] Last Admin: 05/02/18 09:38 Dose: 17 gm Quetiapine Fumarate (Seroquel Xr) 800 mg PO HS [facility] PRN Reason: Protocol Last Admin: 05/01/18 22:21 Dose: 800 mg Tamsulosin HCl (Flomax) 0.4 mg PO DAILY [facility] Last Admin: 05/02/18 09:38 Dose: 0.4 mg Zolpidem Tartrate (Ambien) 5 mg PO HS PRN; Protocol PRN Reason: Insomnia Last Admin: 05/02/18 02:13 Dose: 5 mg - Labs Labs: 05/02/18 06:00 05/02/18 06:00 APTT 30.5 Seconds (25.1-36.5) 04/28/18 07:00 - Additional Findings Additional findings: - Constitutional Appears: No Acute Distress - Head Exam Head Exam: ATRAUMATIC, NORMAL INSPECTION, NORMOCEPHALIC - Eye Exam Eye Exam: EOMI, Normal appearance Pupil Exam: NORMAL ACCOMODATION - ENT Exam ENT Exam: Mucous Membranes Moist; erythematous, flaky, non-pustular rash surrounding nasal bridge, cheeks, and chin - Neck Exam Neck Exam: Full ROM - Respiratory Exam Respiratory Exam: Clear to Ausculation Bilateral, NORMAL BREATHING PATTERN. absent: Rales, Rhonchi, Wheezes - Cardiovascular Exam Cardiovascular Exam: REGULAR RHYTHM, +S1, +S2 - GI/Abdominal Exam GI & Abdominal Exam: Soft, Normal Bowel Sounds. absent: Guarding, Rigid, Tenderness - Extremities Exam Additional comments: Right lower extremity: dressing intact - Back Exam Back Exam: NORMAL INSPECTION - Neurological Exam Neurological Exam: Alert, Awake, Oriented x3 - Psychiatric Exam Psychiatric exam: Normal Affect, Normal Mood - Skin Skin Exam: Dry, Normal Color, Warm Assessment and Plan - Assessment and Plan (Free Text) Assessment: A/P: Patient is a 47 yo M with PMH bipolar disorder, schizoaffective disorder, polysubstance abuse, and right leg compartment syndrome s/p fasciotomy, presents for right leg cellulitis 2/2 trauma, also found to have tachycardia: Right 5th phalangeal Osteomyelitis/Right Lower extremity Cellulitis -Stable, afebrile, no leukocytosis -CRP elevated, ESR elevated -X ray foot: soft tissue swelling without acute articular or osseous abnormality. No osteomyelitis -MRI foot: soft tissue swelling of dorsum and 5th digit, edema is identified within the fused mid and distal 5th phalanges suspcious of osteomyelitis, mild soft tissue swelling of the 1st and 2nd digits also suspicious of osteomyelitis -Antibiotics: Vancomycin 1.5gm Q12H, Rocephin 2gm daily (when clear for discharge, can D/C with IV Daptomycin) -Vanco trough 7.5 -F/U wound culture -Lower extremity US: normal ELPIDIO/PVR -Pain control: Morphine 2mg Q6H prn pain (patient also receiving Mobic 15mg daily which is max dose; will switch to Naproxen 550mg BID tomorrow) -Colace 100mg PO TID and Miralax 17gm daily for constipation -ID on consult, help appreciated -Podiatry on consult, help appreciated -Physical Therapy ordered -PICC line ordered for filler leaf cutter long IV antibiotics use Tachycardia -Currently asymptomatic -HR 70-90s now -Echocardiogram showed mild concentric left ventricular hypertrophy, EF 50%, trace MR and TR Hx of BPH: -Continue flomax Hx of Mood disorder, schizoaffective disorder -Continue Seroquel and Fluoxetine -Continue Depakote and Cogentin -Depakote level 50 -Psych on consult, help appreciated -Patient complaining about slurred speech, no focal/neurological deficits; will see if psych meds can be adjusted Hx of Neuropathy: -Continue with Neurontin 600mg QID -Continue Mobic 15mg PO daily Insomnia -Ambien PRN History of substance abuse -UTOX on admission negative -Cessation advised DVT/GI prophylaxis: -Heparin 5000 Q12 SC -Protonix 40mg PO daily DISPO: Patient will follow up with PMD, Dr Ruiz upon discharge. Discussed case with Podiatry, surgery unlikely at this time. Patient requires filler leaf cutter long IV antibiotics. Case management following. Plan discussed with Dr Bridgett Mitchell DO PGY-1 <Elisabet Urias - Last Filed: 05/02/18 17:40> Objective - Vital Signs/Intake and Output Vital Signs (last 24 hours): Temp Pulse Resp BP Pulse Ox 97.2 F L 72 18 123/70 96 05/02/18 08:30 05/02/18 08:30 05/02/18 08:30 05/02/18 08:30 05/02/18 08:30 Intake and Output: 05/02/18 05/02/18 06:59 18:59 Intake Total 1640 360 Output Total 350 Balance 1640 10 - Medications Medications: Current Medications Acetaminophen (Tylenol 325mg Tab) 650 mg PO Q6H PRN PRN Reason: Pain, moderate (4-7) Benztropine Mesylate (Cogentin) 1 mg PO [facility] Last Admin: 05/02/18 09:37 Dose: 1 mg Clotrimazole (Lotrimin 1%) 0 gm TOP BID [facility] Last Admin: 05/02/18 09:39 Dose: 1 appl Divalproex Sodium (Depakote Dr(*Bid*)) 500 mg PO [facility] Last Admin: 05/02/18 09:37 Dose: 500 mg Docusate Sodium (Colace) 100 mg PO TID [facility] Last Admin: 05/02/18 16:00 Dose: 100 mg Fluoxetine HCl (Prozac) 40 mg PO DAILY [facility] Last Admin: 05/02/18 09:37 Dose: 40 mg Gabapentin (Neurontin) 600 mg PO QID [facility] PRN Reason: Protocol Last Admin: 05/02/18 16:00 Dose: 600 mg Heparin Sodium (Porcine) (Heparin) 5,000 units SC Q12 [facility] PRN Reason: Protocol Last Admin: 05/02/18 09:38 Dose: 5,000 units Ceftriaxone Sodium (Rocephin 2 Gm Ivpb) 2 gm in 100 mls @ 100 mls/hr IVPB DAILY [facility] PRN Reason: Protocol Stop: 05/29/18 14:57 Last Admin: 05/02/18 09:39 Dose: 100 mls/hr Vancomycin HCl 1.5 gm/ Sodium (Chloride) 500 mls @ 167 mls/hr IVPB Q12H [facility] PRN Reason: Protocol Morphine Sulfate (Morphine) 2 mg IVP Q6H PRN PRN Reason: Pain, severe (8-10) Last Admin: 05/02/18 16:00 Dose: 2 mg Mupirocin (Bactroban Ointment) 10 gm TOP DAILY [facility] Naproxen (Anaprox Ds) 550 mg PO BID [facility] Pantoprazole Sodium (Protonix Ec Tab) 40 mg PO 0600 [facility] Last Admin: 05/02/18 06:09 Dose: 40 mg Polyethylene Glycol (Miralax) 17 gm PO DAILY [facility] Last Admin: 05/02/18 09:38 Dose: 17 gm Quetiapine Fumarate (Seroquel Xr) 800 mg PO HS [facility] PRN Reason: Protocol Last Admin: 05/01/18 22:21 Dose: 800 mg Tamsulosin HCl (Flomax) 0.4 mg PO DAILY [facility] Last Admin: 05/02/18 09:38 Dose: 0.4 mg Zolpidem Tartrate (Ambien) 5 mg PO HS PRN; Protocol PRN Reason: Insomnia Last Admin: 05/02/18 02:13 Dose: 5 mg - Labs Labs: 05/02/18 06:00 05/02/18 06:00 APTT 30.5 Seconds (25.1-36.5) 04/28/18 07:00 Attending/Attestation - Attestation I have personally seen and examined this patient.: Yes I have fully participated in the care of the patient.: Yes I have reviewed all pertinent clinical information, including history, physical exam and plan: Yes Notes (Text): 05/02/18 17:39 47 year old male with past medical history of bipolar, schizoaffective disorder , polysubstance abuse, and right leg compartment syndrome s/p fasciotomy presented with right leg cellulitis. MRI was reviewed as above suggestive of osteomyelitis. Continue with iv antibiotics as per ID. May need 4-6 weeks of iv antibiotics. He is on morphine prn, mobic and gabapentin for pain. He was counselled on risks of continued substance abuse. Elisabet Urias MD Hospitalist.
[2018-05-02] MEDS: Vancomycin 1.5 GM in Sodium Chloride 0.9% 500 ML IVPB SCH (22:38)
[2018-05-02] MEDS: QUEtiapine 200 mg XR Tab PO SCH (22:41)
--- NOTE | 2018-05-03 03:23 | PN ---
DATE: 05/02/2018 SUBJECTIVE: Patient is in no acute distress. PHYSICAL EXAMINATION: VITAL SIGNS: Temperature is 97, blood pressure is 120/70, respiratory rate 18, heart rate 72. HEENT: Unremarkable. NECK: Supple. LUNGS: Decreased breath sounds. HEART: Normal S1 and S2. ABDOMEN: Soft. LABORATORY EXAMINATION: Reveals a white count of 8.7, hemoglobin of 13, platelets of 158. BUN of 12, creatinine of 0.7. Urinalysis is noted. Microbiology reveals the stool cultures are pending and nasal MRSA is negative. ASSESSMENT AND PLAN: This is a 47-year-old male, who was seen earlier today in [facility], bed 1, who has a right foot cellulitis and osteomyelitis by MRI in a patient with schizoaffective disorder, bipolar, anxiety. MRI consistent with osteomyelitis and elevated sedimentation rate and C-reactive protein, currently on vancomycin and ceftriaxone. He will need 4 to 6 weeks of antibiotics with weekly CBC, SMA-18, sedimentation rate, C-reactive protein. Patient's vancomycin trough level was 7.4 today and vancomycin is increased 1.5 g. Should repeat the vancomycin trough level in 24 to 48 hours. We will follow with you. Maynor Lopez MD
[2018-05-03] MEDS: Pantoprazole 40 mg EC Tab PO SCH (06:10)
[2018-05-03] MEDS: Morphine 2 mg/ml ISec IVP PRN ×2 (06:17→12:10)
[2018-05-03 06:54] LABS: BASO # 0.03 K/mm3 (0.0-2.0); BASO % 0.4 % (0.0-3.0); EOS # 0.3 (0.0-0.7); EOS % 3.3 % (1.5-5.0); GRAN # 5.13 (1.4-6.5); GRAN % 64.4 % (50.0-68.0); HEMOGLOBIN 13.8 g/dL (14.0-18.0); LYMPH # 2.1 (1.2-3.4); LYMPH % 26.6 % (22.0-35.0); MEAN CELL VOLUME 87.7 fl (80.0-105.0); MEAN CORPUSCULAR HEMOGLOBIN 30.3 pg (25.0-35.0); MEAN CORPUSCULAR HGB CONC 34.6 g/dl (31.0-37.0); MEAN PLATELET VOLUME 10.9 fl (7.0-11.0); MONO # 0.4 (0.1-0.6); MONO % 5.3 % (1.0-6.0); RBC 4.55 10^6/uL (3.5-6.1); RED CELL DISTRIBUTION WIDTH 13.1 % (11.5-14.5)
[2018-05-03 07:28] LABS: BLOOD UREA NITROGEN 9 mg/dL (7-21); GFR NON-AFRICAN AMERICAN > 60
[2018-05-03] MEDS: Naproxen 550 mg Tab PO SCH ×2 (10:41→18:06)
[2018-05-03] MEDS: Divalproex 500 mg DR(BID formulation) PO SCH ×2 (10:42→22:10)
[2018-05-03] MEDS: POLYETHYLENE GLYCOL 3350 17 GM/Dose PACKET PO SCH ×2 (10:44→11:07)
[2018-05-03] MEDS: cefTRIAXone 2 GM IN NS 2 GM/100 ML BAG IVPB SCH (10:49)
[2018-05-03] MEDS: Mupirocin 2% Ointment 15 GM TUBE TOP SCH (11:04)
[2018-05-03] MEDS: Clotrimazole 1% Cream(30 gm) TOP SCH ×2 (11:05→18:16)
--- NOTE | 2018-05-03 11:50 | CP.PCM.PN ---
<Mary Bennett - Last Filed: 05/03/18 11:47> Subjective - Date & Time of Evaluation Date of Evaluation: 05/03/18 Time of Evaluation: 11:47 - Subjective Subjective: Podiatry Consult note: Dr. Hill/Dr. Schuler 47 year old male patient was seen and evaluated for right 5th digit wound. Patient is AAOx3 and appears in NAD. Denies of any acute overnight events. No recent F/N/V/C/SOB/CP/headache. No other pedal complains. Objective - Vital Signs/Intake and Output Vital Signs (last 24 hours): Temp Pulse Resp BP Pulse Ox 97.8 F 108 H 20 123/90 98 05/02/18 18:00 05/02/18 18:00 05/02/18 18:00 05/02/18 18:00 05/02/18 18:00 Intake and Output: 05/03/18 05/03/18 06:59 18:59 Intake Total 1620 Output Total 800 Balance 820 - Medications Medications: Current Medications Acetaminophen (Tylenol 325mg Tab) 650 mg PO Q6H PRN PRN Reason: Pain, moderate (4-7) Benztropine Mesylate (Cogentin) 1 mg PO [facility] Last Admin: 05/03/18 10:42 Dose: 1 mg Clotrimazole (Lotrimin 1%) 0 gm TOP BID [facility] Last Admin: 05/03/18 11:05 Dose: 1 appl Divalproex Sodium (Depakote Dr(*Bid*)) 500 mg PO [facility] Last Admin: 05/03/18 10:42 Dose: 500 mg Docusate Sodium (Colace) 100 mg PO TID [facility] Last Admin: 05/03/18 10:42 Dose: 100 mg Fluoxetine HCl (Prozac) 40 mg PO DAILY [facility] Last Admin: 05/03/18 10:41 Dose: 40 mg Gabapentin (Neurontin) 600 mg PO QID [facility] PRN Reason: Protocol Last Admin: 05/03/18 10:41 Dose: 600 mg Heparin Sodium (Porcine) (Heparin) 5,000 units SC Q12 [facility] PRN Reason: Protocol Last Admin: 05/03/18 10:43 Dose: 5,000 units Ceftriaxone Sodium (Rocephin 2 Gm Ivpb) 2 gm in 100 mls @ 100 mls/hr IVPB DAILY [facility] PRN Reason: Protocol Stop: 05/29/18 14:57 Last Admin: 05/03/18 10:49 Dose: 100 mls/hr Vancomycin HCl 1.5 gm/ Sodium (Chloride) 500 mls @ 167 mls/hr IVPB Q12H [facility] PRN Reason: Protocol Last Admin: 05/02/18 22:38 Dose: 167 mls/hr Morphine Sulfate (Morphine) 2 mg IVP Q6H PRN PRN Reason: Pain, severe (8-10) Last Admin: 05/03/18 06:17 Dose: 2 mg Mupirocin (Bactroban Ointment) 10 gm TOP DAILY [facility] Last Admin: 05/03/18 11:04 Dose: 10 gm Naproxen (Anaprox Ds) 550 mg PO BID [facility] Last Admin: 05/03/18 10:41 Dose: 550 mg Pantoprazole Sodium (Protonix Ec Tab) 40 mg PO 0600 [facility] Last Admin: 05/03/18 06:10 Dose: 40 mg Polyethylene Glycol (Miralax) 17 gm PO DAILY [facility] Last Admin: 05/03/18 11:07 Dose: Not Given Quetiapine Fumarate 600 mg/ (Quetiapine Fumarate 100 mg) 700 mg PO 1700 [facility] Tamsulosin HCl (Flomax) 0.4 mg PO DAILY [facility] Last Admin: 05/03/18 10:41 Dose: 0.4 mg - Labs Labs: 05/03/18 06:30 05/03/18 06:30 APTT 30.5 Seconds (25.1-36.5) 04/28/18 07:00 - Constitutional Appears: Well, Non-toxic, No Acute Distress - Extremities Exam Additional comments: Bilateral LE focused exam: VASC: DP/PT pulses are palpable 2/4, Cap refill time: < 3 sec to all digits, Temp gradient: warm to cool from proximal to distal on the left and warm to warm on the right, non-pitting edema noted on the dorsum of the foot on the right DERM: superficial epidermal layer lysis with dermal layer exposed on the dorsal aspect of the right 5th digit, erythema extending from the 5th digit proximally towards the ankle joint - improving since yesterday, no mal odor, no active drainage, no purulence, no probe to bone NEURO: Protective sensation grossly intact ORTHO: pain on palpation of the wound on the right 5th digit, Prett test negative - Neurological Exam Neurological Exam: Alert, Awake, Oriented x3 - Psychiatric Exam Psychiatric exam: Normal Affect, Normal Mood Assessment and Plan - Assessment and Plan (Free Text) Assessment: 47 year old male with extensive PMHx was evaluated for 1). right 5th digit ulcer 2). cellulitis Plan: Patient seen and evaluated Discussed plan with attending Dr. Schuler Labs, vitals and charts reviewed Afebrile, WBC @ 8.0 Wound cleaned with saline and dressing applied using bactroban, DSD MRI of the right foot - suspicious for OM, clinically less likely Cultures taken - Coag negative staph Continue IV abx as per ID - Vancomycin Local wound care Will continue to monitor patient while in-house Upon discharge, follow up with Dr. Hill at wound care center <Jonathan Schuler - Last Filed: 05/03/18 17:57> Objective - Vital Signs/Intake and Output Vital Signs (last 24 hours): Temp Pulse Resp BP Pulse Ox 97.8 F 108 H 20 123/90 98 05/02/18 18:00 05/02/18 18:00 05/02/18 18:00 05/02/18 18:00 05/02/18 18:00 Intake and Output: 05/03/18 05/03/18 06:59 18:59 Intake Total 1620 Output Total 800 Balance 820 - Medications Medications: Current Medications Acetaminophen (Tylenol 325mg Tab) 650 mg PO Q6H PRN PRN Reason: Pain, Mild (1-3) Benztropine Mesylate (Cogentin) 1 mg PO [facility] Last Admin: 05/03/18 10:42 Dose: 1 mg Clotrimazole (Lotrimin 1%) 0 gm TOP BID [facility] Last Admin: 05/03/18 11:05 Dose: 1 appl Divalproex Sodium (Depakote Dr(*Bid*)) 500 mg PO [facility] Last Admin: 05/03/18 10:42 Dose: 500 mg Docusate Sodium (Colace) 100 mg PO TID [facility] Last Admin: 05/03/18 14:30 Dose: 100 mg Fluoxetine HCl (Prozac) 40 mg PO DAILY [facility] Last Admin: 05/03/18 10:41 Dose: 40 mg Gabapentin (Neurontin) 600 mg PO QID [facility] PRN Reason: Protocol Last Admin: 05/03/18 14:30 Dose: 600 mg Heparin Sodium (Porcine) (Heparin) 5,000 units SC Q12 [facility] PRN Reason: Protocol Last Admin: 05/03/18 10:43 Dose: 5,000 units Ceftriaxone Sodium (Rocephin 2 Gm Ivpb) 2 gm in 100 mls @ 100 mls/hr IVPB DAILY [facility] PRN Reason: Protocol Stop: 05/29/18 14:57 Last Admin: 05/03/18 10:49 Dose: 100 mls/hr Vancomycin HCl 1.5 gm/ Sodium (Chloride) 500 mls @ 167 mls/hr IVPB Q12H [facility] PRN Reason: Protocol Last Admin: 05/03/18 12:09 Dose: 167 mls/hr Mupirocin (Bactroban Ointment) 10 gm TOP DAILY [facility] Last Admin: 05/03/18 11:04 Dose: 10 gm Naproxen (Anaprox Ds) 550 mg PO BID [facility] Last Admin: 05/03/18 10:41 Dose: 550 mg Pantoprazole Sodium (Protonix Ec Tab) 40 mg PO 0600 [facility] Last Admin: 05/03/18 06:10 Dose: 40 mg Polyethylene Glycol (Miralax) 17 gm PO DAILY [facility] Last Admin: 05/03/18 11:07 Dose: Not Given Quetiapine Fumarate 600 mg/ (Quetiapine Fumarate 100 mg) 700 mg PO 1700 [facility] Tamsulosin HCl (Flomax) 0.4 mg PO DAILY [facility] Last Admin: 05/03/18 10:41 Dose: 0.4 mg Tramadol HCl (Ultram) 50 mg PO Q8 PRN PRN Reason: Pain, moderate (4-7) Last Admin: 05/03/18 16:08 Dose: 50 mg - Labs Labs: 05/03/18 06:30 05/03/18 06:30 APTT 30.5 Seconds (25.1-36.5) 04/28/18 07:00 Attending/Attestation - Attestation I have personally seen and examined this patient.: Yes I have fully participated in the care of the patient.: Yes I have reviewed all pertinent clinical information, including history, physical exam and plan: Yes
[2018-05-03] MEDS: Vancomycin 1.5 GM in Sodium Chloride 0.9% 500 ML IVPB SCH ×2 (12:09→22:11)
--- NOTE | 2018-05-03 15:35 | CP.PCM.PN ---
<Flavia Soto - Last Filed: 05/03/18 15:31> Subjective - Date & Time of Evaluation Date of Evaluation: 05/03/18 Time of Evaluation: 15:31 - Subjective Subjective: Flavia Soto, PGY1, Medicine Progress Note for Dr Urias: Patient seen and examined at bedside. No acute events overnight. States that his pain is better controlled. Denies fever, chills, nausea, vomiting, cp, sob, abdominal pain. Objective - Vital Signs/Intake and Output Vital Signs (last 24 hours): Temp Pulse Resp BP Pulse Ox 97.8 F 108 H 20 123/90 98 05/02/18 18:00 05/02/18 18:00 05/02/18 18:00 05/02/18 18:00 05/02/18 18:00 Intake and Output: 05/03/18 05/03/18 06:59 18:59 Intake Total 1620 Output Total 800 Balance 820 - Medications Medications: Current Medications Acetaminophen (Tylenol 325mg Tab) 650 mg PO Q6H PRN PRN Reason: Pain, moderate (4-7) Benztropine Mesylate (Cogentin) 1 mg PO [facility] Last Admin: 05/03/18 10:42 Dose: 1 mg Clotrimazole (Lotrimin 1%) 0 gm TOP BID [facility] Last Admin: 05/03/18 11:05 Dose: 1 appl Divalproex Sodium (Depakote Dr(*Bid*)) 500 mg PO [facility] Last Admin: 05/03/18 10:42 Dose: 500 mg Docusate Sodium (Colace) 100 mg PO TID [facility] Last Admin: 05/03/18 14:30 Dose: 100 mg Fluoxetine HCl (Prozac) 40 mg PO DAILY [facility] Last Admin: 05/03/18 10:41 Dose: 40 mg Gabapentin (Neurontin) 600 mg PO QID [facility] PRN Reason: Protocol Last Admin: 05/03/18 14:30 Dose: 600 mg Heparin Sodium (Porcine) (Heparin) 5,000 units SC Q12 [facility] PRN Reason: Protocol Last Admin: 05/03/18 10:43 Dose: 5,000 units Ceftriaxone Sodium (Rocephin 2 Gm Ivpb) 2 gm in 100 mls @ 100 mls/hr IVPB DAILY [facility] PRN Reason: Protocol Stop: 05/29/18 14:57 Last Admin: 05/03/18 10:49 Dose: 100 mls/hr Vancomycin HCl 1.5 gm/ Sodium (Chloride) 500 mls @ 167 mls/hr IVPB Q12H [facility] PRN Reason: Protocol Last Admin: 05/03/18 12:09 Dose: 167 mls/hr Morphine Sulfate (Morphine) 2 mg IVP Q6H PRN PRN Reason: Pain, severe (8-10) Last Admin: 05/03/18 12:10 Dose: 2 mg Mupirocin (Bactroban Ointment) 10 gm TOP DAILY [facility] Last Admin: 05/03/18 11:04 Dose: 10 gm Naproxen (Anaprox Ds) 550 mg PO BID [facility] Last Admin: 05/03/18 10:41 Dose: 550 mg Pantoprazole Sodium (Protonix Ec Tab) 40 mg PO 0600 [facility] Last Admin: 05/03/18 06:10 Dose: 40 mg Polyethylene Glycol (Miralax) 17 gm PO DAILY [facility] Last Admin: 05/03/18 11:07 Dose: Not Given Quetiapine Fumarate 600 mg/ (Quetiapine Fumarate 100 mg) 700 mg PO 1700 [facility] Tamsulosin HCl (Flomax) 0.4 mg PO DAILY [facility] Last Admin: 05/03/18 10:41 Dose: 0.4 mg - Labs Labs: 05/03/18 06:30 05/03/18 06:30 APTT 30.5 Seconds (25.1-36.5) 04/28/18 07:00 - Additional Findings Additional findings: - Constitutional Appears: No Acute Distress - Head Exam Head Exam: ATRAUMATIC, NORMAL INSPECTION, NORMOCEPHALIC - Eye Exam Eye Exam: EOMI, Normal appearance Pupil Exam: NORMAL ACCOMODATION - ENT Exam ENT Exam: Mucous Membranes Moist; erythematous, flaky, non-pustular rash surrounding nasal bridge, cheeks, and chin - Neck Exam Neck Exam: Full ROM - Respiratory Exam Respiratory Exam: Clear to Ausculation Bilateral, NORMAL BREATHING PATTERN. absent: Rales, Rhonchi, Wheezes - Cardiovascular Exam Cardiovascular Exam: REGULAR RHYTHM, +S1, +S2 - GI/Abdominal Exam GI & Abdominal Exam: Soft, Normal Bowel Sounds. absent: Guarding, Rigid, Tenderness - Extremities Exam Additional comments: Right lower extremity: dressing intact - Back Exam Back Exam: NORMAL INSPECTION - Neurological Exam Neurological Exam: Alert, Awake, Oriented x3 - Psychiatric Exam Psychiatric exam: Normal Affect, Normal Mood - Skin Skin Exam: Dry, Normal Color, Warm Assessment and Plan - Assessment and Plan (Free Text) Assessment: 47 yo M with PMH bipolar disorder, schizoaffective disorder, polysubstance abuse , and right leg compartment syndrome s/p fasciotomy, presents for right leg cellulitis 2/2 trauma, also found to have tachycardia: Right 5th phalangeal Osteomyelitis/Right Lower extremity Cellulitis: -Stable, afebrile, no leukocytosis -CRP elevated, ESR elevated -X ray foot: soft tissue swelling without acute articular or osseous abnormality. No osteomyelitis -MRI foot: soft tissue swelling of dorsum and 5th digit, edema is identified within the fused mid and distal 5th phalanges suspcious of osteomyelitis, mild soft tissue swelling of the 1st and 2nd digits also suspicious of osteomyelitis -Antibiotics: Vancomycin 1.5gm Q12H, Rocephin 2gm daily (when clear for discharge, can D/C with IV Daptomycin) -Vanco trough 7.5, readjusted Vanco as per ID -wound culture shows light growth of coag neg staph -Lower extremity US: normal ELPIDIO/PVR -Pain control: tramadol, naproxen -Colace 100mg PO TID and Miralax 17gm daily for constipation -ID on consult, help appreciated -Podiatry on consult, help appreciated -Physical Therapy: recommends home -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 IV antibiotics use Tachycardia -Currently asymptomatic -HR 70s-108 now -Echocardiogram showed mild concentric left ventricular hypertrophy, EF 45%, trace MR and TR Hx of BPH: -Continue flomax Hx of Mood disorder, schizoaffective disorder -Continue Seroquel and Fluoxetine -Continue Depakote and Cogentin -Depakote level 50 -Psych on consult, help appreciated -Patient complaining about slurred speech, no focal/neurological deficits; will see if psych meds can be adjusted Hx of Neuropathy: -Continue with Neurontin 600mg QID -Continue Mobic 15mg PO daily Insomnia -Ambien PRN History of substance abuse -UTOX on admission negative -Cessation advised DVT/GI prophylaxis: -Heparin 5000 Q12 [facility] -Protonix 40mg PO daily DISPO: Patient will follow up with PMD, Dr Ruiz upon discharge. Discussed case with Podiatry, surgery unlikely at this time. Patient requires nursing home IV antibiotics. Case management following, awaiting to hear back from [facility]. Plan discussed with Dr Urias. Flavia Soto, PGY1 <Elisabet Urias - Last Filed: 05/03/18 17:30> Objective - Vital Signs/Intake and Output Vital Signs (last 24 hours): Temp Pulse Resp BP Pulse Ox 97.8 F 108 H 20 123/90 98 05/02/18 18:00 05/02/18 18:00 05/02/18 18:00 05/02/18 18:00 05/02/18 18:00 Intake and Output: 05/03/18 05/03/18 06:59 18:59 Intake Total 1620 Output Total 800 Balance 820 - Medications Medications: Current Medications Acetaminophen (Tylenol 325mg Tab) 650 mg PO Q6H PRN PRN Reason: Pain, Mild (1-3) Benztropine Mesylate (Cogentin) 1 mg PO [facility] Last Admin: 05/03/18 10:42 Dose: 1 mg Clotrimazole (Lotrimin 1%) 0 gm TOP BID [facility] Last Admin: 05/03/18 11:05 Dose: 1 appl Divalproex Sodium (Depakote Dr(*Bid*)) 500 mg PO [facility] Last Admin: 05/03/18 10:42 Dose: 500 mg Docusate Sodium (Colace) 100 mg PO TID [facility] Last Admin: 05/03/18 14:30 Dose: 100 mg Fluoxetine HCl (Prozac) 40 mg PO DAILY [facility] Last Admin: 05/03/18 10:41 Dose: 40 mg Gabapentin (Neurontin) 600 mg PO QID [facility] PRN Reason: Protocol Last Admin: 05/03/18 14:30 Dose: 600 mg Heparin Sodium (Porcine) (Heparin) 5,000 units SC Q12 [facility] PRN Reason: Protocol Last Admin: 05/03/18 10:43 Dose: 5,000 units Ceftriaxone Sodium (Rocephin 2 Gm Ivpb) 2 gm in 100 mls @ 100 mls/hr IVPB DAILY [facility] PRN Reason: Protocol Stop: 05/29/18 14:57 Last Admin: 05/03/18 10:49 Dose: 100 mls/hr Vancomycin HCl 1.5 gm/ Sodium (Chloride) 500 mls @ 167 mls/hr IVPB Q12H [facility] PRN Reason: Protocol Last Admin: 05/03/18 12:09 Dose: 167 mls/hr Mupirocin (Bactroban Ointment) 10 gm TOP DAILY [facility] Last Admin: 05/03/18 11:04 Dose: 10 gm Naproxen (Anaprox Ds) 550 mg PO BID [facility] Last Admin: 05/03/18 10:41 Dose: 550 mg Pantoprazole Sodium (Protonix Ec Tab) 40 mg PO 0600 [facility] Last Admin: 05/03/18 06:10 Dose: 40 mg Polyethylene Glycol (Miralax) 17 gm PO DAILY [facility] Last Admin: 05/03/18 11:07 Dose: Not Given Quetiapine Fumarate 600 mg/ (Quetiapine Fumarate 100 mg) 700 mg PO 1700 [facility] Tamsulosin HCl (Flomax) 0.4 mg PO DAILY [facility] Last Admin: 05/03/18 10:41 Dose: 0.4 mg Tramadol HCl (Ultram) 50 mg PO Q8 PRN PRN Reason: Pain, moderate (4-7) Last Admin: 05/03/18 16:08 Dose: 50 mg - Labs Labs: 05/03/18 06:30 05/03/18 06:30 APTT 30.5 Seconds (25.1-36.5) 04/28/18 07:00 Attending/Attestation - Attestation I have personally seen and examined this patient.: Yes I have fully participated in the care of the patient.: Yes I have reviewed all pertinent clinical information, including history, physical exam and plan: Yes Notes (Text): 05/03/18 17:29 47 year old male with past medical history of bipolar, schizoaffective disorder , polysubstance abuse, and right leg compartment syndrome s/p fasciotomy presented with right leg cellulitis. MRI was reviewed as above suggestive of osteomyelitis. Continue with iv antibiotics as per ID. May need 4-6 weeks of iv antibiotics. He is s/p picc line. He is on tramadol prn, naproxen and gabapentin for pain. He was counselled on risks of continued substance abuse. Psychiatry follow up was appreciated for medication adjustment. Elisabet Urias MD Hospitalist.
--- NOTE | 2018-05-03 15:37 | CON ---
DATE: 05/03/2018 HISTORY OF PRESENT ILLNESS: Patient is a 47-year-old male with long and debilitating history of polysubstance abuse and dependence, reported diagnosis of schizoaffective disorder, bipolar type and multiple psychiatric admissions. He is actually being followed by Psychiatry on the medical floor, to adjust his medications as he is being treated with IV antibiotics. Patient generally has been in good control and has been organized, pleasant, cooperative, and coherent throughout the course, though with complaints of some slurring, which was possibly secondary to psychiatric medication. I reviewed Dr. Gillette's notes and apparently, she changed the Seroquel to extended release to address the patient's slurring; however, patient still complains of the side effect when I meet him at bedside. In general, she does report that he is doing well, mood is pretty hopeful and he denies having any hallucinations and he does not appear to be responding to internal stimuli. Responses are goal directed, relevant, and consistent. Slurring is notable and the patient indicates that he feels sedated and . Generally, feels that his mood is stable and his anxiety is under control and non-distressful. He denies any new discomfort or pain at this time and does not appear to be in any acute distress. Insight and judgment are fair. Vital signs are reviewed and lab work results are reviewed by this provider. RELEVANT PSYCHIATRIC MEDICATIONS: Include Cogentin 1 mg a.m. and at bedtime, Depakote 500 mg a.m. and at bedtime, Prozac 40 mg daily, Seroquel XR 800 mg p.o. at bedtime, Ambien 5 mg p.o. at bedtime p.r.n. IMPRESSION: As per history, bipolar disorder with schizoaffective bipolar disorder, history of polysubstance abuse and dependence, rule out substance-induced psychosis, appeared to be contributory to the patient's presentation at this time. Directly, it is contributing only to the patient's presentation at this time. Patient remains relatively stable. RECOMMENDATIONS: I discussed the patient's medication with him at bedside and their purpose, and indicated that Seroquel will be changed to 700 mg at 05:00 p.m. and Ambien will also be discontinued. Psychiatry will follow up with him in the a.m. to assess his tolerance to medications and to transfer if there are indications for further medication adjustment. Specifically, Dr. Theodore will follow up with the patient on 05/04/2018. Jyotsna Theodore MD [facility] # [id number]
[2018-05-03] MEDS ORDERED: QUEtiapine 200 mg XR Tab PO SCH (17:00)
[2018-05-03] MEDS ORDERED: Oxycodone/Acetaminophen 5/325 mg Tab PO STA ×2 (17:46→20:22)
[2018-05-03] MEDS ORDERED: QUEtiapine 50 mg XR Tab PO ONE (18:05)
[2018-05-03] MEDS: QUETIAPINE PO SCH (18:06)
--- NOTE | 2018-05-03 19:40 | CP.PCM.PN ---
Subjective - Date & Time of Evaluation Date of Evaluation: 05/03/18 Time of Evaluation: 10:05 - Subjective Subjective: No fevers, not in distress. Objective - Vital Signs/Intake and Output Vital Signs (last 24 hours): Temp Pulse Resp BP Pulse Ox 97.8 F 108 H 20 123/90 98 05/02/18 18:00 05/02/18 18:00 05/02/18 18:00 05/02/18 18:00 05/02/18 18:00 Intake and Output: 05/03/18 05/03/18 06:59 18:59 Intake Total 1620 Output Total 800 Balance 820 - Medications Medications: Current Medications Acetaminophen (Tylenol 325mg Tab) 650 mg PO Q6H PRN PRN Reason: Pain, moderate (4-7) Benztropine Mesylate (Cogentin) 1 mg PO [facility] Last Admin: 05/02/18 22:42 Dose: 1 mg Clotrimazole (Lotrimin 1%) 0 gm TOP BID [facility] Last Admin: 05/02/18 17:55 Dose: 1 appl Divalproex Sodium (Depakote Dr(*Bid*)) 500 mg PO [facility] Last Admin: 05/02/18 22:40 Dose: 500 mg Docusate Sodium (Colace) 100 mg PO TID [facility] Last Admin: 05/02/18 17:54 Dose: 100 mg Fluoxetine HCl (Prozac) 40 mg PO DAILY [facility] Last Admin: 05/02/18 09:37 Dose: 40 mg Gabapentin (Neurontin) 600 mg PO QID [facility] PRN Reason: Protocol Last Admin: 05/02/18 22:40 Dose: 600 mg Heparin Sodium (Porcine) (Heparin) 5,000 units SC Q12 [facility] PRN Reason: Protocol Last Admin: 05/02/18 22:43 Dose: 5,000 units Ceftriaxone Sodium (Rocephin 2 Gm Ivpb) 2 gm in 100 mls @ 100 mls/hr IVPB DAILY [facility] PRN Reason: Protocol Stop: 05/29/18 14:57 Last Admin: 05/02/18 09:39 Dose: 100 mls/hr Vancomycin HCl 1.5 gm/ Sodium (Chloride) 500 mls @ 167 mls/hr IVPB Q12H [facility] PRN Reason: Protocol Last Admin: 05/02/18 22:38 Dose: 167 mls/hr Morphine Sulfate (Morphine) 2 mg IVP Q6H PRN PRN Reason: Pain, severe (8-10) Last Admin: 05/03/18 06:17 Dose: 2 mg Mupirocin (Bactroban Ointment) 10 gm TOP DAILY [facility] Naproxen (Anaprox Ds) 550 mg PO BID [facility] Pantoprazole Sodium (Protonix Ec Tab) 40 mg PO 0600 [facility] Last Admin: 05/03/18 06:10 Dose: 40 mg Polyethylene Glycol (Miralax) 17 gm PO DAILY [facility] Last Admin: 05/02/18 09:38 Dose: 17 gm Quetiapine Fumarate 600 mg/ (Quetiapine Fumarate 100 mg) 700 mg PO 1700 [facility] Tamsulosin HCl (Flomax) 0.4 mg PO DAILY [facility] Last Admin: 05/02/18 09:38 Dose: 0.4 mg - Labs Labs: 05/03/18 06:30 05/03/18 06:30 APTT 30.5 Seconds (25.1-36.5) 04/28/18 07:00 - Constitutional Appears: Chronically Ill - Head Exam Head Exam: NORMAL INSPECTION - Neck Exam Neck Exam: absent: Meningismus - Respiratory Exam Respiratory Exam: Decreased Breath Sounds - Cardiovascular Exam Cardiovascular Exam: +S1, +S2 - GI/Abdominal Exam GI & Abdominal Exam: Soft. absent: Tenderness Assessment and Plan - Assessment and Plan (Free Text) Plan: Assessment Right foot cellulitis with right 5th toe osteomyelitis schizoaffective disorder bipolar disorder anxiety and depression history of right leg fasciotomy Plan Continue Vancomycin and Rocephin to complete 4-6 weeks of antibiotics with weekly Vanco trough level, CBC, CMP, ESR, CRP
[2018-05-04] MEDS: Pantoprazole 40 mg EC Tab PO SCH (05:33)
--- NOTE | 2018-05-04 07:55 | CP.PCM.PN ---
<Diane Montanez - Last Filed: 05/04/18 07:52> Subjective - Date & Time of Evaluation Date of Evaluation: 05/04/18 Time of Evaluation: 07:52 - Subjective Subjective: Podiatry Consult note: Dr. Hill/Dr. Schuler 47 year old male patient was seen and evaluated for right 5th digit wound. Patient is AAOx3 and appears in NAD. Patient resting in bed. No recent F/N/V/C/ SOB/CP/headache. No other pedal complains. Objective - Vital Signs/Intake and Output Vital Signs (last 24 hours): Temp Pulse Resp BP Pulse Ox 97.2 F L 101 H 20 143/82 96 05/03/18 18:00 05/03/18 18:00 05/03/18 18:00 05/03/18 18:00 05/03/18 18:00 Intake and Output: 05/04/18 05/04/18 06:59 18:59 Intake Total 790 240 Balance 790 240 - Medications Medications: Current Medications Acetaminophen (Tylenol 325mg Tab) 650 mg PO Q6H PRN PRN Reason: Pain, Mild (1-3) Benztropine Mesylate (Cogentin) 1 mg PO [facility] Last Admin: 05/03/18 22:10 Dose: 1 mg Clotrimazole (Lotrimin 1%) 0 gm TOP BID [facility] Last Admin: 05/03/18 18:16 Dose: 1 appl Divalproex Sodium (Depakote Dr(*Bid*)) 500 mg PO [facility] Last Admin: 05/03/18 22:10 Dose: 500 mg Docusate Sodium (Colace) 100 mg PO TID [facility] Last Admin: 05/03/18 17:58 Dose: 100 mg Fluoxetine HCl (Prozac) 40 mg PO DAILY [facility] Last Admin: 05/03/18 10:41 Dose: 40 mg Gabapentin (Neurontin) 600 mg PO QID [facility] PRN Reason: Protocol Last Admin: 05/03/18 22:10 Dose: 600 mg Heparin Sodium (Porcine) (Heparin) 5,000 units SC Q12 [facility] PRN Reason: Protocol Last Admin: 05/03/18 22:10 Dose: 5,000 units Ceftriaxone Sodium (Rocephin 2 Gm Ivpb) 2 gm in 100 mls @ 100 mls/hr IVPB DAILY [facility] PRN Reason: Protocol Stop: 05/29/18 14:57 Last Admin: 05/03/18 10:49 Dose: 100 mls/hr Vancomycin HCl 1.5 gm/ Sodium (Chloride) 500 mls @ 167 mls/hr IVPB Q12H [facility] PRN Reason: Protocol Last Admin: 05/03/18 22:11 Dose: 167 mls/hr Mupirocin (Bactroban Ointment) 10 gm TOP DAILY [facility] Last Admin: 05/03/18 11:04 Dose: 10 gm Naproxen (Anaprox Ds) 550 mg PO BID [facility] Last Admin: 05/03/18 18:06 Dose: 550 mg Pantoprazole Sodium (Protonix Ec Tab) 40 mg PO 0600 [facility] Last Admin: 05/04/18 05:33 Dose: 40 mg Polyethylene Glycol (Miralax) 17 gm PO DAILY [facility] Last Admin: 05/03/18 11:07 Dose: Not Given Quetiapine Fumarate 600 mg/ (Quetiapine Fumarate 100 mg) 700 mg PO 1700 [facility] Last Admin: 05/03/18 18:06 Dose: 700 mg Tamsulosin HCl (Flomax) 0.4 mg PO DAILY [facility] Last Admin: 05/03/18 10:41 Dose: 0.4 mg Tramadol HCl (Ultram) 50 mg PO Q8 PRN PRN Reason: Pain, moderate (4-7) Last Admin: 05/03/18 16:08 Dose: 50 mg - Labs Labs: 05/03/18 06:30 05/03/18 06:30 APTT 30.5 Seconds (25.1-36.5) 04/28/18 07:00 - Constitutional Appears: Well, No Acute Distress - Extremities Exam Additional comments: Bilateral LE focused exam: Cellulitis to dorum of right foot appears to be resolving with decrease in size. VASC: DP/PT pulses are palpable 2/4, Cap refill time: < 3 sec to all digits, Temp gradient: warm to cool from proximal to distal on the left and warm to warm on the right, non-pitting edema noted on the dorsum of the foot on the right DERM: superficial epidermal layer lysis with dermal layer exposed on the dorsal aspect of the right 5th digit, erythema extending from the 5th digit proximally towards the ankle joint, no mal odor, no active drainage, no purulence, no probe to bone NEURO: Protective sensation grossly intact ORTHO: pain on palpation of the wound on the right 5th digit, Prett test negative - Neurological Exam Neurological Exam: Alert, Awake - Psychiatric Exam Psychiatric exam: Normal Affect, Normal Mood Assessment and Plan - Assessment and Plan (Free Text) Assessment: 47 year old male with extensive PMHx was evaluated for 1). right 5th digit ulcer 2). cellulitis Plan: Patient seen and evaluated Discussed plan with attending Dr. Schuler Labs, vitals and charts reviewed Afebrile, WBC @ 8.0 Wound cleaned with saline and dressing applied using bactroban, DSD MRI of the right foot - suspicious for OM, clinically less likely Cultures taken - Coag negative staph Continue IV abx as per ID - Vancomycin Local wound care Will continue to monitor patient while in-house Upon discharge, follow up with Dr. Hill at wound care center <Jonathan Schuler - Last Filed: 05/04/18 08:18> Objective - Vital Signs/Intake and Output Vital Signs (last 24 hours): Temp Pulse Resp BP Pulse Ox 97.4 F L 85 19 139/88 97 05/04/18 06:00 05/04/18 06:00 05/04/18 06:00 05/04/18 06:00 05/04/18 06:00 Intake and Output: 05/04/18 05/04/18 06:59 18:59 Intake Total 790 240 Balance 790 240 - Medications Medications: Current Medications Acetaminophen (Tylenol 325mg Tab) 650 mg PO Q6H PRN PRN Reason: Pain, Mild (1-3) Benztropine Mesylate (Cogentin) 1 mg PO [facility] Last Admin: 05/03/18 22:10 Dose: 1 mg Clotrimazole (Lotrimin 1%) 0 gm TOP BID [facility] Last Admin: 05/03/18 18:16 Dose: 1 appl Divalproex Sodium (Depakote Dr(*Bid*)) 500 mg PO [facility] Last Admin: 05/03/18 22:10 Dose: 500 mg Docusate Sodium (Colace) 100 mg PO TID [facility] Last Admin: 05/03/18 17:58 Dose: 100 mg Fluoxetine HCl (Prozac) 40 mg PO DAILY [facility] Last Admin: 05/03/18 10:41 Dose: 40 mg Gabapentin (Neurontin) 600 mg PO QID [facility] PRN Reason: Protocol Last Admin: 05/03/18 22:10 Dose: 600 mg Heparin Sodium (Porcine) (Heparin) 5,000 units SC Q12 [facility] PRN Reason: Protocol Last Admin: 05/03/18 22:10 Dose: 5,000 units Ceftriaxone Sodium (Rocephin 2 Gm Ivpb) 2 gm in 100 mls @ 100 mls/hr IVPB DAILY [facility] PRN Reason: Protocol Stop: 05/29/18 14:57 Last Admin: 05/03/18 10:49 Dose: 100 mls/hr Vancomycin HCl 1.5 gm/ Sodium (Chloride) 500 mls @ 167 mls/hr IVPB Q12H [facility] PRN Reason: Protocol Last Admin: 05/03/18 22:11 Dose: 167 mls/hr Mupirocin (Bactroban Ointment) 10 gm TOP DAILY [facility] Last Admin: 05/03/18 11:04 Dose: 10 gm Naproxen (Anaprox Ds) 550 mg PO BID [facility] Last Admin: 05/03/18 18:06 Dose: 550 mg Pantoprazole Sodium (Protonix Ec Tab) 40 mg PO 0600 [facility] Last Admin: 05/04/18 05:33 Dose: 40 mg Polyethylene Glycol (Miralax) 17 gm PO DAILY [facility] Last Admin: 05/03/18 11:07 Dose: Not Given Quetiapine Fumarate 600 mg/ (Quetiapine Fumarate 100 mg) 700 mg PO 1700 [facility] Last Admin: 05/03/18 18:06 Dose: 700 mg Tamsulosin HCl (Flomax) 0.4 mg PO DAILY [facility] Last Admin: 05/03/18 10:41 Dose: 0.4 mg Tramadol HCl (Ultram) 50 mg PO Q8 PRN PRN Reason: Pain, moderate (4-7) Last Admin: 05/03/18 16:08 Dose: 50 mg - Labs Labs: 05/04/18 07:30 05/04/18 07:30 APTT 30.5 Seconds (25.1-36.5) 04/28/18 07:00 Attending/Attestation - Attestation I have personally seen and examined this patient.: Yes I have fully participated in the care of the patient.: Yes I have reviewed all pertinent clinical information, including history, physical exam and plan: Yes
[2018-05-04 07:59] LABS: BASO # 0.04 K/mm3 (0.0-2.0); BASO % 0.4 % (0.0-3.0); EOS # 0.2 (0.0-0.7); EOS % 2.4 % (1.5-5.0); GRAN # 6.25 (1.4-6.5); GRAN % 64.6 % (50.0-68.0); HEMOGLOBIN 12.6 g/dL (14.0-18.0); LYMPH # 2.5 (1.2-3.4); LYMPH % 26.2 % (22.0-35.0); MEAN CORPUSCULAR HGB CONC 33.3 g/dl (31.0-37.0); MEAN PLATELET VOLUME 11.9 fl (7.0-11.0); MONO # 0.6 (0.1-0.6); MONO % 6.4 % (1.0-6.0); RBC 4.2 10^6/uL (3.5-6.1); RED CELL DISTRIBUTION WIDTH 13.4 % (11.5-14.5); WHITE BLOOD COUNT 9.7 10^3/ul (4.5-11.0)
[2018-05-04 08:13] LABS: BLOOD UREA NITROGEN 10 mg/dL (7-21); CALCIUM 8.2 mg/dL (8.4-10.5); GFR NON-AFRICAN AMERICAN > 60
[2018-05-04] MEDS: Naproxen 550 mg Tab PO SCH ×2 (09:14→17:44)
[2018-05-04] MEDS: Mupirocin 2% Ointment 15 GM TUBE TOP SCH (09:14)
[2018-05-04] MEDS: Divalproex 500 mg DR(BID formulation) PO SCH ×2 (09:15→21:06)
[2018-05-04] MEDS: cefTRIAXone 2 GM IN NS 2 GM/100 ML BAG IVPB SCH (09:15)
--- NOTE | 2018-05-04 09:16 | CP.PCM.PN ---
<Candice Isaac - Last Filed: 05/04/18 19:48> Subjective - Date & Time of Evaluation Date of Evaluation: 05/04/18 Time of Evaluation: 09:16 - Subjective Subjective: Candice Isaac DO PGY-1: Hospitalist Service Patient complained of foot pain. analgesic regiment switched. Upgraded to Percocet. Patient denies any other complaints. Objective - Vital Signs/Intake and Output Vital Signs (last 24 hours): Temp Pulse Resp BP Pulse Ox 97.4 F L 85 19 139/88 97 05/04/18 06:00 05/04/18 06:00 05/04/18 06:00 05/04/18 06:00 05/04/18 06:00 Intake and Output: 05/04/18 05/04/18 06:59 18:59 Intake Total 790 240 Balance 790 240 - Medications Medications: Current Medications Acetaminophen (Tylenol 325mg Tab) 650 mg PO Q6H PRN PRN Reason: Pain, Mild (1-3) Benztropine Mesylate (Cogentin) 1 mg PO [facility] Last Admin: 05/03/18 22:10 Dose: 1 mg Clotrimazole (Lotrimin 1%) 0 gm TOP BID [facility] Last Admin: 05/03/18 18:16 Dose: 1 appl Divalproex Sodium (Depakote Dr(*Bid*)) 500 mg PO [facility] Last Admin: 05/03/18 22:10 Dose: 500 mg Docusate Sodium (Colace) 100 mg PO TID [facility] Last Admin: 05/03/18 17:58 Dose: 100 mg Fluoxetine HCl (Prozac) 40 mg PO DAILY [facility] Last Admin: 05/03/18 10:41 Dose: 40 mg Gabapentin (Neurontin) 600 mg PO QID [facility] PRN Reason: Protocol Last Admin: 05/03/18 22:10 Dose: 600 mg Heparin Sodium (Porcine) (Heparin) 5,000 units SC Q12 [facility] PRN Reason: Protocol Last Admin: 05/03/18 22:10 Dose: 5,000 units Ceftriaxone Sodium (Rocephin 2 Gm Ivpb) 2 gm in 100 mls @ 100 mls/hr IVPB DAILY [facility] PRN Reason: Protocol Stop: 05/29/18 14:57 Last Admin: 06/22/18 10:49 Dose: 100 mls/hr Vancomycin HCl 1.5 gm/ Sodium (Chloride) 500 mls @ 167 mls/hr IVPB Q12H [facility] PRN Reason: Protocol Last Admin: 05/03/18 22:11 Dose: 167 mls/hr Mupirocin (Bactroban Ointment) 10 gm TOP DAILY [facility] Last Admin: 05/03/18 11:04 Dose: 10 gm Naproxen (Anaprox Ds) 550 mg PO BID [facility] Last Admin: 05/03/18 18:06 Dose: 550 mg Oxycodone/Acetaminophen (Percocet 5/325 Mg Tab) 1 tab PO Q6H PRN PRN Reason: pain Stop: 05/07/18 09:16 Pantoprazole Sodium (Protonix Ec Tab) 40 mg PO 0600 [facility] Last Admin: 05/04/18 05:33 Dose: 40 mg Polyethylene Glycol (Miralax) 17 gm PO DAILY [facility] Last Admin: 05/03/18 11:07 Dose: Not Given Quetiapine Fumarate 600 mg/ (Quetiapine Fumarate 100 mg) 700 mg PO 1700 [facility] Last Admin: 05/03/18 18:06 Dose: 700 mg Tamsulosin HCl (Flomax) 0.4 mg PO DAILY [facility] Last Admin: 05/03/18 10:41 Dose: 0.4 mg - Labs Labs: 05/04/18 07:30 05/04/18 07:30 APTT 30.5 Seconds (25.1-36.5) 04/28/18 07:00 Assessment and Plan - Assessment and Plan (Free Text) Assessment: 47 yo M with PMH bipolar disorder, schizoaffective disorder, polysubstance abuse , and right leg compartment syndrome s/p fasciotomy, presents for right leg cellulitis 2/2 trauma, also found to have tachycardia: Right 5th phalangeal Osteomyelitis/Right Lower extremity Cellulitis: -Stable, afebrile, no leukocytosis -CRP elevated, ESR elevated -X ray foot: soft tissue swelling without acute articular or osseous abnormality. No osteomyelitis -MRI foot: soft tissue swelling of dorsum and 5th digit, edema is identified within the fused mid and distal 5th phalanges suspcious of osteomyelitis, mild soft tissue swelling of the 1st and 2nd digits also suspicious of osteomyelitis -Antibiotics: Vancomycin 1.5gm Q12H, Rocephin 2gm daily (when clear for discharge, can D/C with IV Daptomycin) -Vanco trough 7.5, readjusted Vanco as per ID -wound culture shows light growth of coag neg staph -Lower extremity US: normal ELPIDIO/PVR -Pain control: Percocet 5 mg q6h PRN -Colace 100mg PO TID and Miralax 17gm daily for constipation -ID on consult, help appreciated -Podiatry on consult, help appreciated -Physical Therapy: recommends home -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 antibiotics use Tachycardia -Currently asymptomatic -HR 70s-108 now -Echocardiogram showed mild concentric left ventricular hypertrophy, EF 45%, trace MR and TR Hx of BPH: -Continue flomax Hx of Mood disorder, schizoaffective disorder -Continue Seroquel and Fluoxetine -Continue Depakote and Cogentin -Depakote level 50 -Psych on consult, help appreciated -Patient complaining about slurred speech, no focal/neurological deficits; will see if psych meds can be adjusted Hx of Neuropathy: -Continue with Neurontin 600mg QID -Continue Mobic 15mg PO daily Insomnia -Ambien PRN History of substance abuse -UTOX on admission negative -Cessation advised DVT/GI prophylaxis: -Heparin 5000 Q12 SC -Protonix 40mg PO daily DISPO: Patient will follow up with PMD, Dr Ruiz upon discharge. Discussed case with Podiatry, surgery unlikely at this time. Patient requires half-way IV antibiotics. Case management following, awaiting [facility] hear [facility]. Plan discussed with Dr Urias. <Elisabet Urias - Last Filed: 05/05/18 07:35> Objective - Vital Signs/Intake and Output Vital Signs (last 24 hours): Temp Pulse Resp BP Pulse Ox 97.9 F 81 18 158/92 H 96 05/04/18 17:24 05/04/18 17:24 05/04/18 17:24 05/04/18 17:24 05/04/18 17:24 Intake and Output: 05/05/18 05/05/18 06:59 18:59 Intake Total 600 Output Total 0 Balance 600 - Medications Medications: Current Medications Acetaminophen (Tylenol 325mg Tab) 650 mg PO Q6H PRN PRN Reason: Pain, Mild (1-3) Benztropine Mesylate (Cogentin) 1 mg PO [facility] Last Admin: 05/04/18 21:05 Dose: 1 mg Clotrimazole (Lotrimin 1%) 0 gm TOP BID [facility] Last Admin: 05/04/18 17:45 Dose: 1 appl Divalproex Sodium (Depakote Dr(*Bid*)) 500 mg PO [facility] Last Admin: 05/04/18 21:06 Dose: 500 mg Docusate Sodium (Colace) 100 mg PO TID [facility] Last Admin: 05/04/18 17:44 Dose: 100 mg Fluoxetine HCl (Prozac) 40 mg PO DAILY [facility] Last Admin: 05/04/18 09:15 Dose: 40 mg Gabapentin (Neurontin) 600 mg PO QID [facility] PRN Reason: Protocol Last Admin: 05/04/18 21:06 Dose: 600 mg Heparin Sodium (Porcine) (Heparin) 5,000 units SC Q12 [facility] PRN Reason: Protocol Last Admin: 05/04/18 21:06 Dose: 5,000 units Ceftriaxone Sodium (Rocephin 2 Gm Ivpb) 2 gm in 100 mls @ 100 mls/hr IVPB DAILY [facility] PRN Reason: Protocol Stop: 05/29/18 14:57 Last Admin: 05/04/18 09:15 Dose: 100 mls/hr Vancomycin HCl 1.5 gm/ Sodium (Chloride) 500 mls @ 167 mls/hr IVPB Q12H [facility] PRN Reason: Protocol Last Admin: 05/04/18 21:03 Dose: 167 mls/hr Mupirocin (Bactroban Ointment) 10 gm TOP DAILY [facility] Last Admin: 05/04/18 09:14 Dose: 1 gm Naproxen (Anaprox Ds) 550 mg PO BID [facility] Last Admin: 05/04/18 17:44 Dose: 550 mg Oxycodone/Acetaminophen (Percocet 5/325 Mg Tab) 1 tab PO Q6H PRN PRN Reason: pain Stop: 05/07/18 09:16 Last Admin: 05/05/18 05:27 Dose: 1 tab Pantoprazole Sodium (Protonix Ec Tab) 40 mg PO 0600 [facility] Last Admin: 05/05/18 05:27 Dose: 40 mg Polyethylene Glycol (Miralax) 17 gm PO DAILY [facility] Last Admin: 05/04/18 09:19 Dose: 17 gm Quetiapine Fumarate 600 mg/ (Quetiapine Fumarate 100 mg) 700 mg PO 1700 [facility] Last Admin: 05/04/18 17:46 Dose: 700 mg Tamsulosin HCl (Flomax) 0.4 mg PO DAILY [facility] Last Admin: 05/04/18 09:19 Dose: 0.4 mg - Labs Labs: 05/05/18 06:00 05/05/18 06:00 APTT 30.5 Seconds (25.1-36.5) 04/28/18 07:00 Attending/Attestation - Attestation I have personally seen and examined this patient.: Yes I have fully participated in the care of the patient.: Yes I have reviewed all pertinent clinical information, including history, physical exam and plan: Yes Notes (Text): 05/04/18 47 year old male with past medical history of bipolar, schizoaffective disorder , polysubstance abuse, and right leg compartment syndrome s/p fasciotomy presented with right leg cellulitis. MRI was reviewed as above suggestive of osteomyelitis. Continue with iv antibiotics as per ID. May need 4-6 weeks of iv antibiotics. He is s/p picc line. He is on tramadol prn, naproxen and gabapentin for pain. He is requested to switch tramadol to percocet prn. He was counselled on risks of continued substance abuse. Psychiatry follow up was appreciated for medication adjustment. Elisabet Urias MD Hospitalist.
[2018-05-04] MEDS: POLYETHYLENE GLYCOL 3350 17 GM/Dose PACKET PO SCH (09:19)
[2018-05-04] MEDS: Oxycodone/Acetaminophen 5/325 mg Tab PO PRN ×3 (10:06→21:06)
[2018-05-04] MEDS: Vancomycin 1.5 GM in Sodium Chloride 0.9% 500 ML IVPB SCH ×2 (10:08→21:03)
[2018-05-04] MEDS: Clotrimazole 1% Cream(30 gm) TOP SCH ×2 (10:09→17:45)
--- NOTE | 2018-05-04 11:55 | CP.PCM.PN ---
Subjective - Date & Time of Evaluation Date of Evaluation: 05/04/18 Time of Evaluation: 10:25 - Subjective Subjective: Comfortable in bed, no fevers, no lower extremity pain currently. Objective - Vital Signs/Intake and Output Vital Signs (last 24 hours): Temp Pulse Resp BP Pulse Ox 97.4 F L 85 19 139/88 97 05/04/18 06:00 05/04/18 06:00 05/04/18 06:00 05/04/18 06:00 05/04/18 06:00 Intake and Output: 05/04/18 05/04/18 06:59 18:59 Intake Total 790 240 Balance 790 240 - Medications Medications: Current Medications Acetaminophen (Tylenol 325mg Tab) 650 mg PO Q6H PRN PRN Reason: Pain, Mild (1-3) Benztropine Mesylate (Cogentin) 1 mg PO [facility] Last Admin: 05/04/18 09:14 Dose: 1 mg Clotrimazole (Lotrimin 1%) 0 gm TOP BID [facility] Last Admin: 05/03/18 18:16 Dose: 1 appl Divalproex Sodium (Depakote Dr(*Bid*)) 500 mg PO [facility] Last Admin: 05/04/18 09:15 Dose: 500 mg Docusate Sodium (Colace) 100 mg PO TID [facility] Last Admin: 05/04/18 09:14 Dose: 100 mg Fluoxetine HCl (Prozac) 40 mg PO DAILY [facility] Last Admin: 05/04/18 09:15 Dose: 40 mg Gabapentin (Neurontin) 600 mg PO QID [facility] PRN Reason: Protocol Last Admin: 05/04/18 09:17 Dose: 600 mg Heparin Sodium (Porcine) (Heparin) 5,000 units SC Q12 [facility] PRN Reason: Protocol Last Admin: 05/04/18 09:20 Dose: 5,000 units Ceftriaxone Sodium (Rocephin 2 Gm Ivpb) 2 gm in 100 mls @ 100 mls/hr IVPB DAILY [facility] PRN Reason: Protocol Stop: 05/29/18 14:57 Last Admin: 05/04/18 09:15 Dose: 100 mls/hr Vancomycin HCl 1.5 gm/ Sodium (Chloride) 500 mls @ 167 mls/hr IVPB Q12H [facility] PRN Reason: Protocol Last Admin: 05/03/18 22:11 Dose: 167 mls/hr Mupirocin (Bactroban Ointment) 10 gm TOP DAILY [facility] Last Admin: 05/04/18 09:14 Dose: 1 gm Naproxen (Anaprox Ds) 550 mg PO BID [facility] Last Admin: 05/04/18 09:14 Dose: 550 mg Oxycodone/Acetaminophen (Percocet 5/325 Mg Tab) 1 tab PO Q6H [facility] PRN Reason: pain Stop: 05/07/18 09:16 Pantoprazole Sodium (Protonix Ec Tab) 40 mg PO 0600 [facility] Last Admin: 05/04/18 05:33 Dose: 40 mg Polyethylene Glycol (Miralax) 17 gm PO DAILY [facility] Last Admin: 05/04/18 09:19 Dose: 17 gm Quetiapine Fumarate 600 mg/ (Quetiapine Fumarate 100 mg) 700 mg PO 1700 [facility] Last Admin: 05/03/18 18:06 Dose: 700 mg Tamsulosin HCl (Flomax) 0.4 mg PO DAILY [facility] Last Admin: 05/04/18 09:19 Dose: 0.4 mg - Labs Labs: 05/04/18 07:30 05/04/18 07:30 APTT 30.5 Seconds (25.1-36.5) 04/28/18 07:00 - Constitutional Appears: Non-toxic, Chronically Ill - Head Exam Head Exam: NORMAL INSPECTION - ENT Exam ENT Exam: Mucous Membranes Moist - Neck Exam Neck Exam: absent: Meningismus - Respiratory Exam Respiratory Exam: Decreased Breath Sounds - Cardiovascular Exam Cardiovascular Exam: +S1, +S2 - GI/Abdominal Exam GI & Abdominal Exam: Soft. absent: Tenderness Assessment and Plan - Assessment and Plan (Free Text) Plan: Assessment Right foot cellulitis with right 5th toe osteomyelitis schizoaffective disorder bipolar disorder anxiety and depression history of right leg fasciotomy Plan Continue Vancomycin and Rocephin to complete 4-6 weeks of antibiotics with weekly Vanco trough level, CBC, CMP, ESR, CRP (day 7 today); Vanco trough today is still below target - will repeat Vanco trough tomorrow evening
[2018-05-04] MEDS ORDERED: QUEtiapine 50 mg XR Tab PO ONE (17:34)
[2018-05-04] MEDS: QUETIAPINE PO SCH (17:46)
[2018-05-05] MEDS: Oxycodone/Acetaminophen 5/325 mg Tab PO PRN ×4 (05:27→22:13)
[2018-05-05] MEDS: Pantoprazole 40 mg EC Tab PO SCH (05:27)
--- NOTE | 2018-05-05 06:05 | CON ---
HISTORY OF PRESENT ILLNESS: The patient is a 47-year-old male with a long and debilitating history of polysubstance abuse and dependence, reported diagnoses of schizoaffective disorder, bipolar type and multiple psychiatric admissions. He is being followed by Psychiatry on the medical floor to adjust his psychiatric medications as he is being treated with IV antibiotics. I have met with the patient on multiple occasions in this admission and I have reviewed Dr. Gillette's notes. The patient has generally been in good control, organized, pleasant, cooperative, and coherent throughout the course, though with some complaints of slurring, which is possibly secondary to psychiatric medications. I adjusted his medications, so that Seroquel extended release would be given in the evening instead at night so the sedating effects would occur earlier than later as it can take 5 hours for sedation to go. I also decreased the dose to 700 mg. I met with the patient at bedside and patient indicates that he is feeling much more alert today. Sleep stallworth, wholly unaffected with the changes to his medication regimen, specifically, I also discontinued Ambien and the patient does not demonstrate any sign or warning during the course of my interview. He is coherent and his responses are goal directed and relevant to questioning and they are consistent. He tells that his mood is stable and his anxiety is under control and the patient does not appear to be in any distress and he is comfortable. Denies perceptual disturbance and he does not appears to be responding to internal stimuli. His insight and judgment continued to be fair. Vital signs are reviewed and lab work results are also reviewed by this provider. RELEVANT PSYCHIATRIC MEDICATIONS: Include Cogentin 1 mg a.m. and at bedtime, Depakote mg a.m. and at bedtime, Prozac 40 mg daily, and Seroquel XR 700 mg p.o. in the evening. IMPRESSION: As per history, bipolar disorder versus schizoaffective bipolar disorder, history of polysubstance abuse and dependence, rule out substance-induced psychosis. These appeared to be noncontributory to the patient's presentation at this time and he is stable. RECOMMENDATIONS: At this time, the patient appears to be improved, constantly stable during multiple psychiatric followups on medical floor. There was no indication to change his medications at this time. This provider will sign off, please reconsult if there are any acute changes in the patient's psychiatric presentation. Jyotsna Theodore MD
[2018-05-05 06:30] LABS: BASO # 0.04 K/mm3 (0.0-2.0); BASO % 0.5 % (0.0-3.0); EOS # 0.2 (0.0-0.7); EOS % 2.4 % (1.5-5.0); GRAN # 4.61 (1.4-6.5); GRAN % 59.4 % (50.0-68.0); LYMPH # 2.5 (1.2-3.4); LYMPH % 31.9 % (22.0-35.0); MEAN CELL VOLUME 88.7 fl (80.0-105.0); MEAN CORPUSCULAR HEMOGLOBIN 29.9 pg (25.0-35.0); MEAN CORPUSCULAR HGB CONC 33.7 g/dl (31.0-37.0); MEAN PLATELET VOLUME 11.6 fl (7.0-11.0); MONO # 0.5 (0.1-0.6); MONO % 5.8 % (1.0-6.0); RBC 4.35 10^6/uL (3.5-6.1); RED CELL DISTRIBUTION WIDTH 13.2 % (11.5-14.5); WHITE BLOOD COUNT 7.8 10^3/ul (4.5-11.0)
[2018-05-05 06:34] LABS: BLOOD UREA NITROGEN 9 mg/dL (7-21); CALCIUM 8.6 mg/dL (8.4-10.5); GFR NON-AFRICAN AMERICAN > 60
[2018-05-05] MEDS: Divalproex 500 mg DR(BID formulation) PO SCH ×2 (10:06→22:11)
[2018-05-05] MEDS: POLYETHYLENE GLYCOL 3350 17 GM/Dose PACKET PO SCH (10:06)
[2018-05-05] MEDS: Naproxen 550 mg Tab PO SCH ×2 (10:06→17:09)
[2018-05-05] MEDS: Mupirocin 2% Ointment 15 GM TUBE TOP SCH (10:06)
[2018-05-05] MEDS: cefTRIAXone 2 GM IN NS 2 GM/100 ML BAG IVPB SCH (10:07)
[2018-05-05] MEDS: Clotrimazole 1% Cream(30 gm) TOP SCH (10:08)
--- NOTE | 2018-05-05 10:15 | CP.PCM.PN ---
<Diane Montanez - Last Filed: 05/05/18 10:08> Subjective - Date & Time of Evaluation Date of Evaluation: 05/05/18 Time of Evaluation: 10:08 - Subjective Subjective: Podiatry progress note for Dr Schuler, 47 YO male patient was nelson dne valuated for right fifth digit ulcer. Patient is seen resting comfortably in bed. AAO x3. Patient denies any pain at this time. Patient denies any overnight acute events. Patient denies N/V/F/C/SOB. Patient has no other pedal complains at this time Objective - Vital Signs/Intake and Output Vital Signs (last 24 hours): Temp Pulse Resp BP Pulse Ox 96.7 F L 77 20 131/76 97 05/05/18 06:00 05/05/18 06:00 05/05/18 06:00 05/05/18 06:00 05/05/18 06:00 Intake and Output: 05/05/18 05/05/18 06:59 18:59 Intake Total 600 Output Total 0 Balance 600 - Medications Medications: Current Medications Acetaminophen (Tylenol 325mg Tab) 650 mg PO Q6H PRN PRN Reason: Pain, Mild (1-3) Benztropine Mesylate (Cogentin) 1 mg PO [facility] Last Admin: 05/04/18 21:05 Dose: 1 mg Clotrimazole (Lotrimin 1%) 0 gm TOP BID [facility] Last Admin: 05/04/18 17:45 Dose: 1 appl Divalproex Sodium (Depakote Dr(*Bid*)) 500 mg PO [facility] Last Admin: 05/04/18 21:06 Dose: 500 mg Docusate Sodium (Colace) 100 mg PO TID [facility] Last Admin: 05/04/18 17:44 Dose: 100 mg Fluoxetine HCl (Prozac) 40 mg PO DAILY [facility] Last Admin: 05/04/18 09:15 Dose: 40 mg Gabapentin (Neurontin) 600 mg PO QID [facility] PRN Reason: Protocol Last Admin: 05/04/18 21:06 Dose: 600 mg Heparin Sodium (Porcine) (Heparin) 5,000 units SC Q12 [facility] PRN Reason: Protocol Last Admin: 05/04/18 21:06 Dose: 5,000 units Ceftriaxone Sodium (Rocephin 2 Gm Ivpb) 2 gm in 100 mls @ 100 mls/hr IVPB DAILY [facility] PRN Reason: Protocol Stop: 05/29/18 14:57 Last Admin: 05/04/18 09:15 Dose: 100 mls/hr Vancomycin HCl 1.5 gm/ Sodium (Chloride) 500 mls @ 167 mls/hr IVPB Q12H [facility] PRN Reason: Protocol Last Admin: 05/04/18 21:03 Dose: 167 mls/hr Mupirocin (Bactroban Ointment) 10 gm TOP DAILY [facility] Last Admin: 05/04/18 09:14 Dose: 1 gm Naproxen (Anaprox Ds) 550 mg PO BID [facility] Last Admin: 05/04/18 17:44 Dose: 550 mg Oxycodone/Acetaminophen (Percocet 5/325 Mg Tab) 1 tab PO Q6H PRN PRN Reason: pain Stop: 05/07/18 09:16 Last Admin: 05/05/18 05:27 Dose: 1 tab Pantoprazole Sodium (Protonix Ec Tab) 40 mg PO 0600 [facility] Last Admin: 05/05/18 05:27 Dose: 40 mg Polyethylene Glycol (Miralax) 17 gm PO DAILY [facility] Last Admin: 05/04/18 09:19 Dose: 17 gm Quetiapine Fumarate 600 mg/ (Quetiapine Fumarate 100 mg) 700 mg PO 1700 [facility] Last Admin: 05/04/18 17:46 Dose: 700 mg Tamsulosin HCl (Flomax) 0.4 mg PO DAILY [facility] Last Admin: 05/04/18 09:19 Dose: 0.4 mg - Labs Labs: 05/05/18 06:00 05/05/18 06:00 APTT 30.5 Seconds (25.1-36.5) 04/28/18 07:00 - Constitutional Appears: Well, Non-toxic - Head Exam Head Exam: ATRAUMATIC, NORMOCEPHALIC - Extremities Exam Additional comments: Right foot focused lower extremity exam Derm: Superficial Ulcer noted on the dorsal aspect of the right 5th digit, 100% granular base, erythema on the dorsal aspect of the foot is noted from dorsal fifth digit to the distal aspect of the metatarsals (decreased from yesterday; entire dorsal aspect of the foot extending proximally to the ankle joint), no malodor, no active drainage, no purulence noted, no probe to bone Vascular: DP/PT pulses are palpable 2/4, CFT <3 secs x5, TG warm to cool proximal to distal, non pitting edema noted on the dorsum of the foot on the right Neuro: Protective sensation grossly intact Ortho:minimal pain on palpation noted to the right fifth digit - Neurological Exam Neurological Exam: Alert, Awake, Oriented x3 Assessment and Plan - Assessment and Plan (Free Text) Assessment: 47 year old male with right 5th digit ulcer and cellulitis Plan: Patient seen and evaluated Discussed plan in detail with attending Dr. Schuler Labs, vitals and charts reviewed; Afebrile, WBC @ 7.8 Dressing applied using bactroban, DSD MRI of the right foot - suspicious for OM, clinically less likely Cultures taken - Coag negative staph Continue IV abx as per ID - Vancomycin Will continue to monitor patient while in-house; continue local wound care <Jonathan Schuler - Last Filed: 05/06/18 08:39> Objective - Vital Signs/Intake and Output Vital Signs (last 24 hours): Temp Pulse Resp BP Pulse Ox 98 F 79 20 137/87 98 05/06/18 08:38 05/06/18 08:38 05/06/18 08:38 05/06/18 08:38 05/06/18 08:38 Intake and Output: 05/06/18 05/06/18 06:59 18:59 Intake Total 1120 Balance 1120 - Medications Medications: Current Medications Acetaminophen (Tylenol 325mg Tab) 650 mg PO Q6H PRN PRN Reason: Pain, Mild (1-3) Benztropine Mesylate (Cogentin) 1 mg PO [facility] Last Admin: 05/05/18 22:12 Dose: 1 mg Clotrimazole (Lotrimin 1%) 0 gm TOP BID [facility] Last Admin: 05/05/18 10:08 Dose: 1 appl Divalproex Sodium (Depakote Dr(*Bid*)) 500 mg PO [facility] Last Admin: 05/05/18 22:11 Dose: 500 mg Docusate Sodium (Colace) 100 mg PO TID [facility] Last Admin: 05/05/18 17:09 Dose: 100 mg Fluoxetine HCl (Prozac) 40 mg PO DAILY [facility] Last Admin: 05/05/18 10:06 Dose: 40 mg Gabapentin (Neurontin) 600 mg PO QID [facility] PRN Reason: Protocol Last Admin: 05/05/18 22:10 Dose: 600 mg Heparin Sodium (Porcine) (Heparin) 5,000 units SC Q12 [facility] PRN Reason: Protocol Last Admin: 05/05/18 22:08 Dose: 5,000 units Ceftriaxone Sodium (Rocephin 2 Gm Ivpb) 2 gm in 100 mls @ 100 mls/hr IVPB DAILY [facility] PRN Reason: Protocol Stop: 05/29/18 14:57 Last Admin: 05/05/18 10:07 Dose: 100 mls/hr Vancomycin HCl 1.5 gm/ Sodium (Chloride) 500 mls @ 167 mls/hr IVPB Q12H [facility] PRN Reason: Protocol Last Admin: 05/05/18 22:12 Dose: 167 mls/hr Mupirocin (Bactroban Ointment) 10 gm TOP DAILY [facility] Last Admin: 05/05/18 10:06 Dose: 1 gm Naproxen (Anaprox Ds) 550 mg PO BID [facility] Last Admin: 05/05/18 17:09 Dose: 550 mg Oxycodone/Acetaminophen (Percocet 5/325 Mg Tab) 1 tab PO Q6H PRN PRN Reason: pain Stop: 05/07/18 09:16 Last Admin: 05/06/18 05:55 Dose: 1 tab Pantoprazole Sodium (Protonix Ec Tab) 40 mg PO 0600 [facility] Last Admin: 05/06/18 05:46 Dose: 40 mg Polyethylene Glycol (Miralax) 17 gm PO DAILY [facility] Last Admin: 05/05/18 10:06 Dose: 17 gm Quetiapine Fumarate 600 mg/ (Quetiapine Fumarate 100 mg) 700 mg PO 1700 [facility] Last Admin: 05/05/18 17:08 Dose: 700 mg Tamsulosin HCl (Flomax) 0.4 mg PO DAILY [facility] Last Admin: 05/05/18 10:06 Dose: 0.4 mg - Labs Labs: 05/05/18 06:00 05/06/18 06:45 APTT 30.5 Seconds (25.1-36.5) 04/28/18 07:00 Attending/Attestation - Attestation I have personally seen and examined this patient.: Yes I have fully participated in the care of the patient.: Yes I have reviewed all pertinent clinical information, including history, physical exam and plan: Yes
[2018-05-05] MEDS: Vancomycin 1.5 GM in Sodium Chloride 0.9% 500 ML IVPB SCH ×2 (11:02→22:12)
--- NOTE | 2018-05-05 16:23 | CP.PCM.PN ---
Subjective - Date & Time of Evaluation Date of Evaluation: 05/05/18 Time of Evaluation: 10:40 - Subjective Subjective: Comfortable, no fevers, not in distress. Objective - Vital Signs/Intake and Output Vital Signs (last 24 hours): Temp Pulse Resp BP Pulse Ox 96.7 F L 77 20 131/76 97 05/05/18 06:00 05/05/18 06:00 05/05/18 06:00 05/05/18 06:00 05/05/18 06:00 Intake and Output: 05/05/18 05/05/18 06:59 18:59 Intake Total 600 Output Total 0 Balance 600 - Medications Medications: Current Medications Acetaminophen (Tylenol 325mg Tab) 650 mg PO Q6H PRN PRN Reason: Pain, Mild (1-3) Benztropine Mesylate (Cogentin) 1 mg PO [facility] Last Admin: 05/04/18 21:05 Dose: 1 mg Clotrimazole (Lotrimin 1%) 0 gm TOP BID [facility] Last Admin: 05/04/18 17:45 Dose: 1 appl Divalproex Sodium (Depakote Dr(*Bid*)) 500 mg PO [facility] Last Admin: 05/04/18 21:06 Dose: 500 mg Docusate Sodium (Colace) 100 mg PO TID [facility] Last Admin: 05/04/18 17:44 Dose: 100 mg Fluoxetine HCl (Prozac) 40 mg PO DAILY [facility] Last Admin: 05/04/18 09:15 Dose: 40 mg Gabapentin (Neurontin) 600 mg PO QID [facility] PRN Reason: Protocol Last Admin: 05/04/18 21:06 Dose: 600 mg Heparin Sodium (Porcine) (Heparin) 5,000 units SC Q12 [facility] PRN Reason: Protocol Last Admin: 05/04/18 21:06 Dose: 5,000 units Ceftriaxone Sodium (Rocephin 2 Gm Ivpb) 2 gm in 100 mls @ 100 mls/hr IVPB DAILY [facility] PRN Reason: Protocol Stop: 05/29/18 14:57 Last Admin: 05/04/18 09:15 Dose: 100 mls/hr Vancomycin HCl 1.5 gm/ Sodium (Chloride) 500 mls @ 167 mls/hr IVPB Q12H [facility] PRN Reason: Protocol Last Admin: 05/04/18 21:03 Dose: 167 mls/hr Mupirocin (Bactroban Ointment) 10 gm TOP DAILY [facility] Last Admin: 05/04/18 09:14 Dose: 1 gm Naproxen (Anaprox Ds) 550 mg PO BID [facility] Last Admin: 05/04/18 17:44 Dose: 550 mg Oxycodone/Acetaminophen (Percocet 5/325 Mg Tab) 1 tab PO Q6H PRN PRN Reason: pain Stop: 05/07/18 09:16 Last Admin: 05/05/18 05:27 Dose: 1 tab Pantoprazole Sodium (Protonix Ec Tab) 40 mg PO 0600 [facility] Last Admin: 05/05/18 05:27 Dose: 40 mg Polyethylene Glycol (Miralax) 17 gm PO DAILY [facility] Last Admin: 05/04/18 09:19 Dose: 17 gm Quetiapine Fumarate 600 mg/ (Quetiapine Fumarate 100 mg) 700 mg PO 1700 [facility] Last Admin: 05/04/18 17:46 Dose: 700 mg Tamsulosin HCl (Flomax) 0.4 mg PO DAILY [facility] Last Admin: 05/04/18 09:19 Dose: 0.4 mg - Labs Labs: 05/05/18 06:00 05/05/18 06:00 APTT 30.5 Seconds (25.1-36.5) 04/28/18 07:00 - Constitutional Appears: Non-toxic, Chronically Ill - Head Exam Head Exam: NORMAL INSPECTION - ENT Exam ENT Exam: Mucous Membranes Moist - Neck Exam Neck Exam: absent: Meningismus - Respiratory Exam Respiratory Exam: Decreased Breath Sounds - Cardiovascular Exam Cardiovascular Exam: +S1, +S2 - GI/Abdominal Exam GI & Abdominal Exam: Soft. absent: Tenderness Assessment and Plan - Assessment and Plan (Free Text) Plan: Assessment Right foot cellulitis with right 5th toe osteomyelitis schizoaffective disorder bipolar disorder anxiety and depression history of right leg fasciotomy Plan Continue Vancomycin and Rocephin to complete 4-6 weeks of antibiotics with weekly Vanco trough level, CBC, CMP, ESR, CRP (day 8 today); Vanco trough is still below target - will repeat Vanco trough this evening
[2018-05-05] MEDS ORDERED: QUEtiapine 50 mg XR Tab PO ONE (17:05)
--- NOTE | 2018-05-05 17:07 | CP.PCM.PN ---
<Candice Isaac - Last Filed: 05/05/18 17:07> Subjective - Date & Time of Evaluation Date of Evaluation: 05/05/18 Time of Evaluation: 08:00 - Subjective Subjective: Patient reports good pain control with Percocet. NRNAEO. Afebrile, in no acute distress. He reports less twitching of the mouth. Psychiatry came and saw the patient as well. Objective - Vital Signs/Intake and Output Vital Signs (last 24 hours): Temp Pulse Resp BP Pulse Ox 97.9 F 94 H 19 135/81 96 05/05/18 16:28 05/05/18 16:28 05/05/18 16:28 05/05/18 16:28 05/05/18 16:28 Intake and Output: 05/05/18 05/05/18 06:59 18:59 Intake Total 600 Output Total 0 Balance 600 - Medications Medications: Current Medications Acetaminophen (Tylenol 325mg Tab) 650 mg PO Q6H PRN PRN Reason: Pain, Mild (1-3) Benztropine Mesylate (Cogentin) 1 mg PO [facility] Last Admin: 05/05/18 10:06 Dose: 1 mg Clotrimazole (Lotrimin 1%) 0 gm TOP BID [facility] Last Admin: 05/05/18 10:08 Dose: 1 appl Divalproex Sodium (Depakote Dr(*Bid*)) 500 mg PO [facility] Last Admin: 05/05/18 10:06 Dose: 500 mg Docusate Sodium (Colace) 100 mg PO TID [facility] Last Admin: 05/05/18 13:21 Dose: 100 mg Fluoxetine HCl (Prozac) 40 mg PO DAILY [facility] Last Admin: 05/05/18 10:06 Dose: 40 mg Gabapentin (Neurontin) 600 mg PO QID [facility] PRN Reason: Protocol Last Admin: 05/05/18 13:21 Dose: 600 mg Heparin Sodium (Porcine) (Heparin) 5,000 units SC Q12 [facility] PRN Reason: Protocol Last Admin: 05/05/18 10:06 Dose: 5,000 units Ceftriaxone Sodium (Rocephin 2 Gm Ivpb) 2 gm in 100 mls @ 100 mls/hr IVPB DAILY [facility] PRN Reason: Protocol Stop: 05/29/18 14:57 Last Admin: 05/05/18 10:07 Dose: 100 mls/hr Vancomycin HCl 1.5 gm/ Sodium (Chloride) 500 mls @ 167 mls/hr IVPB Q12H [facility] PRN Reason: Protocol Last Admin: 05/05/18 11:02 Dose: 167 mls/hr Mupirocin (Bactroban Ointment) 10 gm TOP DAILY [facility] Last Admin: 05/05/18 10:06 Dose: 1 gm Naproxen (Anaprox Ds) 550 mg PO BID [facility] Last Admin: 05/05/18 10:06 Dose: 550 mg Oxycodone/Acetaminophen (Percocet 5/325 Mg Tab) 1 tab PO Q6H PRN PRN Reason: pain Stop: 05/07/18 09:16 Last Admin: 05/05/18 11:03 Dose: 1 tab Pantoprazole Sodium (Protonix Ec Tab) 40 mg PO 0600 [facility] Last Admin: 05/05/18 05:27 Dose: 40 mg Polyethylene Glycol (Miralax) 17 gm PO DAILY [facility] Last Admin: 05/05/18 10:06 Dose: 17 gm Quetiapine Fumarate 600 mg/ (Quetiapine Fumarate 100 mg) 700 mg PO 1700 [facility] Last Admin: 05/04/18 17:46 Dose: 700 mg Tamsulosin HCl (Flomax) 0.4 mg PO DAILY [facility] Last Admin: 05/05/18 10:06 Dose: 0.4 mg - Labs Labs: 05/05/18 06:00 05/05/18 06:00 APTT 30.5 Seconds (25.1-36.5) 04/28/18 07:00 - Constitutional Appears: Well, Non-toxic - Head Exam Head Exam: ATRAUMATIC, NORMOCEPHALIC - Eye Exam Eye Exam: EOMI, Normal appearance - ENT Exam ENT Exam: Mucous Membranes Moist - Neck Exam Neck Exam: Normal Inspection - Respiratory Exam Respiratory Exam: Clear to Ausculation Bilateral, NORMAL BREATHING PATTERN. absent: Accessory Muscle Use - Cardiovascular Exam Cardiovascular Exam: RRR, +S1, +S2 - GI/Abdominal Exam GI & Abdominal Exam: Soft, Normal Bowel Sounds - Extremities Exam Additional comments: right leg is thin and frail compared to left. right foot wrapped, dressing dry, clean, and intact. - Neurological Exam Neurological Exam: Alert, Awake, Oriented x3 - Psychiatric Exam Psychiatric exam: Normal Affect, Normal Mood - Skin Skin Exam: Dry, Intact, Normal Color, Warm Assessment and Plan - Assessment and Plan (Free Text) Assessment: 47 yo M with PMH bipolar disorder, schizoaffective disorder, polysubstance abuse , and right leg compartment syndrome s/p fasciotomy, presents for right leg cellulitis 2/2 trauma, also found to have tachycardia: Right 5th phalangeal Osteomyelitis/Right Lower extremity Cellulitis: -Stable, afebrile, no leukocytosis -CRP elevated, ESR elevated -X ray foot: soft tissue swelling without acute articular or osseous abnormality. No osteomyelitis -MRI foot: soft tissue swelling of dorsum and 5th digit, edema is identified within the fused mid and distal 5th phalanges suspcious of osteomyelitis, mild soft tissue swelling of the 1st and 2nd digits also suspicious of osteomyelitis -Antibiotics: Vancomycin 1.5gm Q12H, Rocephin 2gm daily (when clear for discharge, can D/C with IV Daptomycin) -Vanco trough 7.5, readjusted Vanco as per ID -wound culture shows light growth of coag neg staph -Lower extremity US: normal ELPIDIO/PVR -Pain control: Percocet 5 mg q6h PRN -Colace 100mg PO TID and Miralax 17gm daily for constipation -ID on consult, help appreciated -Podiatry on consult, help appreciated -Physical Therapy: recommends home -PICC line inserted in right arm for chcf IV antibiotics use Tachycardia -Currently asymptomatic -HR 70s-108 now -Echocardiogram showed mild concentric left ventricular hypertrophy, EF 45%, trace MR and TR Face rash - Clotrimazole to be applied daily Hx of BPH: -Continue flomax Hx of Mood disorder, schizoaffective disorder -Continue Seroquel and Fluoxetine -Continue Depakote and Cogentin -Depakote level 50 -Psych on consult, help appreciated -Patient complaining about slurred speech, no focal/neurological deficits; will see if psych meds can be adjusted Hx of Neuropathy: -Continue with Neurontin 600mg QID -Continue Mobic 15mg PO daily Insomnia -Ambien PRN History of substance abuse -UTOX on admission negative -Cessation advised DVT/GI prophylaxis: -Heparin 5000 Q12 [facility] -Protonix 40mg PO daily DISPO: Patient will follow up with PMD, Dr Ruiz upon discharge. Discussed case with Podiatry, surgery unlikely at this time. Patient requires band nailer IV antibiotics. Case management following, awaiting to hear back from [facility]. Plan discussed with Dr Urias <Elisabet Urias - Last Filed: 05/05/18 18:17> Objective - Vital Signs/Intake and Output Vital Signs (last 24 hours): Temp Pulse Resp BP Pulse Ox 97.9 F 94 H 19 135/81 96 05/05/18 16:28 05/05/18 16:28 05/05/18 16:28 05/05/18 16:28 05/05/18 16:28 Intake and Output: 05/05/18 05/05/18 06:59 18:59 Intake Total 600 Output Total 0 Balance 600 - Medications Medications: Current Medications Acetaminophen (Tylenol 325mg Tab) 650 mg PO Q6H PRN PRN Reason: Pain, Mild (1-3) Benztropine Mesylate (Cogentin) 1 mg PO [facility] Last Admin: 05/05/18 10:06 Dose: 1 mg Clotrimazole (Lotrimin 1%) 0 gm TOP BID [facility] Last Admin: 05/05/18 10:08 Dose: 1 appl Divalproex Sodium (Depakote Dr(*Bid*)) 500 mg PO [facility] Last Admin: 05/05/18 10:06 Dose: 500 mg Docusate Sodium (Colace) 100 mg PO TID [facility] Last Admin: 05/05/18 17:09 Dose: 100 mg Fluoxetine HCl (Prozac) 40 mg PO DAILY [facility] Last Admin: 05/05/18 10:06 Dose: 40 mg Gabapentin (Neurontin) 600 mg PO QID [facility] PRN Reason: Protocol Last Admin: 05/05/18 17:08 Dose: 600 mg Heparin Sodium (Porcine) (Heparin) 5,000 units SC Q12 [facility] PRN Reason: Protocol Last Admin: 05/05/18 10:06 Dose: 5,000 units Ceftriaxone Sodium (Rocephin 2 Gm Ivpb) 2 gm in 100 mls @ 100 mls/hr IVPB DAILY [facility] PRN Reason: Protocol Stop: 05/29/18 14:57 Last Admin: 05/05/18 10:07 Dose: 100 mls/hr Vancomycin HCl 1.5 gm/ Sodium (Chloride) 500 mls @ 167 mls/hr IVPB Q12H [facility] PRN Reason: Protocol Last Admin: 05/05/18 11:02 Dose: 167 mls/hr Mupirocin (Bactroban Ointment) 10 gm TOP DAILY [facility] Last Admin: 05/05/18 10:06 Dose: 1 gm Naproxen (Anaprox Ds) 550 mg PO BID [facility] Last Admin: 05/05/18 17:09 Dose: 550 mg Oxycodone/Acetaminophen (Percocet 5/325 Mg Tab) 1 tab PO Q6H [facility]N PRN Reason: pain Stop: 05/07/18 09:16 Last Admin: 05/05/18 17:09 Dose: 1 tab Pantoprazole Sodium (Protonix Ec Tab) 40 mg PO 0600 [facility] Last Admin: 05/05/18 05:27 Dose: 40 mg Polyethylene Glycol (Miralax) 17 gm PO DAILY [facility] Last Admin: 05/05/18 10:06 Dose: 17 gm Quetiapine Fumarate 600 mg/ (Quetiapine Fumarate 100 mg) 700 mg PO 1700 [facility] Last Admin: 05/05/18 17:08 Dose: 700 mg Tamsulosin HCl (Flomax) 0.4 mg PO DAILY [facility] Last Admin: 05/05/18 10:06 Dose: 0.4 mg - Labs Labs: 05/05/18 06:00 05/05/18 06:00 APTT 30.5 Seconds (25.1-36.5) 04/28/18 07:00 Attending/Attestation - Attestation I have personally seen and examined this patient.: Yes I have fully participated in the care of the patient.: Yes I have reviewed all pertinent clinical information, including history, physical exam and plan: Yes Notes (Text): 05/05/18 18:14 47 year old male with past medical history of bipolar, schizoaffective disorder , polysubstance abuse, and right leg compartment syndrome s/p fasciotomy presented with right leg cellulitis. MRI was suggestive of osteomyelitis. Continue with iv antibiotics as per ID. May need 4-6 weeks of iv antibiotics. He is s/p picc line. Will follow up with pillowcase sewer regarding outpatient iv antibiotic options. He is on percocet prn, naproxen and gabapentin for pain. He was counselled on risks of continued substance abuse. Continue with wound care as per podiatry. Psychiatry follow up was appreciated for medication adjustment. Elisabet Urias MD Hospitalist.
[2018-05-05] MEDS: QUETIAPINE PO SCH (17:08)
[2018-05-06] MEDS: Pantoprazole 40 mg EC Tab PO SCH (05:46)
[2018-05-06] MEDS: Oxycodone/Acetaminophen 5/325 mg Tab PO PRN ×3 (05:55→17:45)
[2018-05-06 07:44] LABS: BLOOD UREA NITROGEN 9 mg/dL (7-21); CALCIUM 8.5 mg/dL (8.4-10.5); GFR NON-AFRICAN AMERICAN > 60
[2018-05-06] MEDS: Naproxen 550 mg Tab PO SCH ×2 (10:01→17:44)
[2018-05-06] MEDS: Divalproex 500 mg DR(BID formulation) PO SCH ×2 (10:01→21:48)
[2018-05-06] MEDS: POLYETHYLENE GLYCOL 3350 17 GM/Dose PACKET PO SCH (10:01)
[2018-05-06] MEDS: cefTRIAXone 2 GM IN NS 2 GM/100 ML BAG IVPB SCH (10:02)
[2018-05-06] MEDS: Mupirocin 2% Ointment 15 GM TUBE TOP SCH (10:06)
[2018-05-06] MEDS: Clotrimazole 1% Cream(30 gm) TOP SCH ×2 (10:07→17:47)
--- NOTE | 2018-05-06 10:45 | CP.PCM.PN ---
<Lila Bennettkyungrick - Last Filed: 05/06/18 10:41> Subjective - Date & Time of Evaluation Date of Evaluation: 05/06/18 Time of Evaluation: 10:42 - Subjective Subjective: Podiatry progress note for Dr Schuler/Dr. Hill 47 YO male patient was seen and evaluated for right fifth digit ulcer. Patient is seen resting comfortably in bed. AAO x3. Patient denies any pain at this time. Patient denies any overnight acute events. Patient denies N/V/F/C/SOB. Patient has no other pedal complains at this time Objective - Vital Signs/Intake and Output Vital Signs (last 24 hours): Temp Pulse Resp BP Pulse Ox 98 F 79 20 137/87 98 05/06/18 08:38 05/06/18 08:38 05/06/18 08:38 05/06/18 08:38 05/06/18 08:38 Intake and Output: 05/06/18 05/06/18 06:59 18:59 Intake Total 1120 Balance 1120 - Medications Medications: Current Medications Acetaminophen (Tylenol 325mg Tab) 650 mg PO Q6H PRN PRN Reason: Pain, Mild (1-3) Benztropine Mesylate (Cogentin) 1 mg PO [facility] Last Admin: 05/06/18 10:01 Dose: 1 mg Clotrimazole (Lotrimin 1%) 0 gm TOP BID [facility] Last Admin: 05/06/18 10:07 Dose: 1 appl Divalproex Sodium (Depakote Dr(*Bid*)) 500 mg PO [facility] Last Admin: 05/06/18 10:01 Dose: 500 mg Docusate Sodium (Colace) 100 mg PO TID [facility] Last Admin: 05/06/18 10:01 Dose: 100 mg Fluoxetine HCl (Prozac) 40 mg PO DAILY [facility] Last Admin: 05/06/18 10:00 Dose: 40 mg Gabapentin (Neurontin) 600 mg PO QID [facility] PRN Reason: Protocol Last Admin: 05/06/18 10:00 Dose: 600 mg Heparin Sodium (Porcine) (Heparin) 5,000 units SC Q12 [facility] PRN Reason: Protocol Last Admin: 05/06/18 10:01 Dose: 5,000 units Ceftriaxone Sodium (Rocephin 2 Gm Ivpb) 2 gm in 100 mls @ 100 mls/hr IVPB DAILY [facility] PRN Reason: Protocol Stop: 05/29/18 14:57 Last Admin: 05/06/18 10:02 Dose: 100 mls/hr Vancomycin HCl 1.5 gm/ Sodium (Chloride) 500 mls @ 167 mls/hr IVPB Q12H [facility] PRN Reason: Protocol Last Admin: 05/05/18 22:12 Dose: 167 mls/hr Mupirocin (Bactroban Ointment) 10 gm TOP DAILY [facility] Last Admin: 05/06/18 10:06 Dose: 1 gm Naproxen (Anaprox Ds) 550 mg PO BID [facility] Last Admin: 05/06/18 10:01 Dose: 550 mg Oxycodone/Acetaminophen (Percocet 5/325 Mg Tab) 1 tab PO Q6H PRN PRN Reason: pain Stop: 05/07/18 09:16 Last Admin: 05/06/18 05:55 Dose: 1 tab Pantoprazole Sodium (Protonix Ec Tab) 40 mg PO 0600 [facility] Last Admin: 05/06/18 05:46 Dose: 40 mg Polyethylene Glycol (Miralax) 17 gm PO DAILY [facility] Last Admin: 05/06/18 10:01 Dose: 17 gm Quetiapine Fumarate 600 mg/ (Quetiapine Fumarate 100 mg) 700 mg PO 1700 [facility] Last Admin: 05/05/18 17:08 Dose: 700 mg Tamsulosin HCl (Flomax) 0.4 mg PO DAILY [facility] Last Admin: 05/06/18 10:00 Dose: 0.4 mg - Labs Labs: 05/05/18 06:00 05/06/18 06:45 APTT 30.5 Seconds (25.1-36.5) 04/28/18 07:00 - Constitutional Appears: Well, Non-toxic, No Acute Distress - Extremities Exam Additional comments: Right foot focused lower extremity exam Derm: Superficial Ulcer noted on the dorsal aspect of the right 5th digit, 100% granular base, erythema on the dorsal aspect of the foot is noted from dorsal fifth digit to the distal aspect of the metatarsals (decreased from yesterday; entire dorsal aspect of the foot extending proximally to the ankle joint), no malodor, no active drainage, no purulence noted, no probe to bone Vascular: DP/PT pulses are palpable 2/4, CFT <3 secs x5, TG warm to cool proximal to distal, non pitting edema noted on the dorsum of the foot on the right Neuro: Protective sensation grossly intact Ortho:minimal pain on palpation noted to the right fifth digit - Neurological Exam Neurological Exam: Alert, Awake, Oriented x3 - Psychiatric Exam Psychiatric exam: Normal Affect, Normal Mood Assessment and Plan - Assessment and Plan (Free Text) Assessment: 47 year old male with right 5th digit ulcer and cellulitis Plan: Patient seen and evaluated with attending Dr. Schuler Labs, vitals and charts reviewed; Afebrile, WBC @ 7.8 as of yesterday Dressing applied using bactroban, 4x4, tape MRI of the right foot - suspicious for OM, clinically less likely Cultures taken - Coag negative staph Continue IV abx as per ID - Ceftriaxone, Vancomycin Will continue to monitor patient while in-house; continue local wound care <Jonathan Schuler - Last Filed: 05/07/18 09:50> Objective - Vital Signs/Intake and Output Vital Signs (last 24 hours): Temp Pulse Resp BP Pulse Ox 98.2 F 86 16 138/71 97 05/07/18 08:16 05/07/18 08:16 05/07/18 08:16 05/07/18 08:16 05/07/18 08:16 Intake and Output: 05/07/18 05/07/18 06:59 18:59 Intake Total 300 Balance 300 - Medications Medications: Current Medications Acetaminophen (Tylenol 325mg Tab) 650 mg PO Q6H PRN PRN Reason: Pain, Mild (1-3) Benztropine Mesylate (Cogentin) 1 mg PO [facility] Last Admin: 05/06/18 21:48 Dose: 1 mg Clotrimazole (Lotrimin 1%) 0 gm TOP BID [facility] Last Admin: 05/06/18 17:47 Dose: Not Given Divalproex Sodium (Depakote Dr(*Bid*)) 500 mg PO [facility] Last Admin: 05/06/18 21:48 Dose: 500 mg Docusate Sodium (Colace) 100 mg PO TID [facility] Last Admin: 05/06/18 17:44 Dose: 100 mg Fluoxetine HCl (Prozac) 40 mg PO DAILY [facility] Last Admin: 05/06/18 10:00 Dose: 40 mg Gabapentin (Neurontin) 600 mg PO QID [facility] PRN Reason: Protocol Last Admin: 05/06/18 21:48 Dose: 600 mg Heparin Sodium (Porcine) (Heparin) 5,000 units SC Q12 [facility] PRN Reason: Protocol Last Admin: 05/06/18 21:48 Dose: 5,000 units Hydrocortisone (Cortizone 1% Cream) 0 gm TOP Q12 [facility] Last Admin: 05/06/18 21:18 Dose: 1 applic Ceftriaxone Sodium (Rocephin 2 Gm Ivpb) 2 gm in 100 mls @ 100 mls/hr IVPB DAILY [facility] PRN Reason: Protocol Stop: 05/29/18 14:57 Last Admin: 05/06/18 10:02 Dose: 100 mls/hr Vancomycin HCl 1.5 gm/ Sodium (Chloride) 500 mls @ 167 mls/hr IVPB Q12H [facility] PRN Reason: Protocol Last Admin: 05/06/18 21:49 Dose: 167 mls/hr Mupirocin (Bactroban Ointment) 10 gm TOP DAILY [facility] Last Admin: 05/06/18 10:06 Dose: 1 gm Naproxen (Anaprox Ds) 550 mg PO BID [facility] Last Admin: 05/06/18 17:44 Dose: 550 mg Pantoprazole Sodium (Protonix Ec Tab) 40 mg PO 0600 [facility] Last Admin: 05/07/18 05:17 Dose: 40 mg Polyethylene Glycol (Miralax) 17 gm PO DAILY [facility] Last Admin: 05/06/18 10:01 Dose: 17 gm Quetiapine Fumarate 600 mg/ (Quetiapine Fumarate 100 mg) 700 mg PO 1700 [facility] Last Admin: 05/06/18 17:55 Dose: 700 mg Tamsulosin HCl (Flomax) 0.4 mg PO DAILY [facility] Last Admin: 05/06/18 10:00 Dose: 0.4 mg - Labs Labs: 05/07/18 06:20 05/07/18 06:20 APTT 30.5 Seconds (25.1-36.5) 04/28/18 07:00 Attending/Attestation - Attestation I have personally seen and examined this patient.: Yes I have fully participated in the care of the patient.: Yes I have reviewed all pertinent clinical information, including history, physical exam and plan: Yes
[2018-05-06] MEDS: Vancomycin 1.5 GM in Sodium Chloride 0.9% 500 ML IVPB SCH ×2 (11:22→21:49)
--- NOTE | 2018-05-06 15:54 | CP.PCM.PN ---
<Laura Mitchell - Last Filed: 05/06/18 16:02> Subjective - Date & Time of Evaluation Date of Evaluation: 05/06/18 Time of Evaluation: 15:53 - Subjective Subjective: Internal Medicine Progress Note - Hospitalist Service Patient seen and examined at bedside. Per nursing no acute events overnight. Patient is doing well, offers no complaints at this time. Pain is controlled. Denies headaches, dizziness, cp, palpitations, sob, abdominal pain, urinary symptoms, changes in bowel habits. Objective - Vital Signs/Intake and Output Vital Signs (last 24 hours): Temp Pulse Resp BP Pulse Ox 98 F 79 20 137/87 98 05/06/18 08:38 05/06/18 08:38 05/06/18 08:38 05/06/18 08:38 05/06/18 08:38 Intake and Output: 05/06/18 05/06/18 06:59 18:59 Intake Total 1120 600 Balance 1120 600 - Medications Medications: Current Medications Acetaminophen (Tylenol 325mg Tab) 650 mg PO Q6H PRN PRN Reason: Pain, Mild (1-3) Benztropine Mesylate (Cogentin) 1 mg PO [facility] Last Admin: 05/06/18 10:01 Dose: 1 mg Clotrimazole (Lotrimin 1%) 0 gm TOP BID [facility] Last Admin: 05/06/18 10:07 Dose: 1 appl Divalproex Sodium (Depakote Dr(*Bid*)) 500 mg PO [facility] Last Admin: 05/06/18 10:01 Dose: 500 mg Docusate Sodium (Colace) 100 mg PO TID [facility] Last Admin: 05/06/18 15:05 Dose: 100 mg Fluoxetine HCl (Prozac) 40 mg PO DAILY [facility] Last Admin: 05/06/18 10:00 Dose: 40 mg Gabapentin (Neurontin) 600 mg PO QID [facility] PRN Reason: Protocol Last Admin: 05/06/18 15:05 Dose: 600 mg Heparin Sodium (Porcine) (Heparin) 5,000 units SC Q12 [facility] PRN Reason: Protocol Last Admin: 05/06/18 10:01 Dose: 5,000 units Ceftriaxone Sodium (Rocephin 2 Gm Ivpb) 2 gm in 100 mls @ 100 mls/hr IVPB DAILY [facility] PRN Reason: Protocol Stop: 05/29/18 14:57 Last Admin: 05/06/18 10:02 Dose: 100 mls/hr Vancomycin HCl 1.5 gm/ Sodium (Chloride) 500 mls @ 167 mls/hr IVPB Q12H [facility] PRN Reason: Protocol Last Admin: 05/06/18 11:22 Dose: 167 mls/hr Mupirocin (Bactroban Ointment) 10 gm TOP DAILY [facility] Last Admin: 05/06/18 10:06 Dose: 1 gm Naproxen (Anaprox Ds) 550 mg PO BID [facility] Last Admin: 05/06/18 10:01 Dose: 550 mg Oxycodone/Acetaminophen (Percocet 5/325 Mg Tab) 1 tab PO Q6H PRN PRN Reason: pain Stop: 05/07/18 09:16 Last Admin: 05/06/18 11:43 Dose: 1 tab Pantoprazole Sodium (Protonix Ec Tab) 40 mg PO 0600 [facility] Last Admin: 05/06/18 05:46 Dose: 40 mg Polyethylene Glycol (Miralax) 17 gm PO DAILY [facility] Last Admin: 05/06/18 10:01 Dose: 17 gm Quetiapine Fumarate 600 mg/ (Quetiapine Fumarate 100 mg) 700 mg PO 1700 [facility] Last Admin: 05/05/18 17:08 Dose: 700 mg Tamsulosin HCl (Flomax) 0.4 mg PO DAILY [facility] Last Admin: 05/06/18 10:00 Dose: 0.4 mg - Labs Labs: 05/05/18 06:00 05/06/18 06:45 APTT 30.5 Seconds (25.1-36.5) 04/28/18 07:00 - Additional Findings Additional findings: - Constitutional Appears: No Acute Distress - Head Exam Head Exam: ATRAUMATIC, NORMAL INSPECTION, NORMOCEPHALIC - Eye Exam Eye Exam: EOMI, Normal appearance Pupil Exam: NORMAL ACCOMODATION - ENT Exam ENT Exam: Mucous Membranes Moist; erythematous, flaky, non-pustular rash surrounding nasal bridge, cheeks, and chin - Neck Exam Neck Exam: Full ROM - Respiratory Exam Respiratory Exam: Clear to Ausculation Bilateral, NORMAL BREATHING PATTERN. absent: Rales, Rhonchi, Wheezes - Cardiovascular Exam Cardiovascular Exam: REGULAR RHYTHM, +S1, +S2 - GI/Abdominal Exam GI & Abdominal Exam: Soft, Normal Bowel Sounds. absent: Guarding, Rigid, Tenderness - Extremities Exam Additional comments: Right lower extremity: dressing intact - Back Exam Back Exam: NORMAL INSPECTION - Neurological Exam Neurological Exam: Alert, Awake, Oriented x3 - Psychiatric Exam Psychiatric exam: Normal Affect, Normal Mood - Skin Skin Exam: Dry, Normal Color, Warm Assessment and Plan - Assessment and Plan (Free Text) Assessment: A/P: Patient is a 47 yo M with PMH bipolar disorder, schizoaffective disorder, polysubstance abuse, and right leg compartment syndrome s/p fasciotomy, presents for right leg cellulitis 2/2 trauma, also found to have tachycardia: Right 5th phalangeal Osteomyelitis/Right Lower extremity Cellulitis: -Stable, afebrile, no leukocytosis -CRP elevated, ESR elevated -X ray foot: soft tissue swelling without acute articular or osseous abnormality. No osteomyelitis -MRI foot: soft tissue swelling of dorsum and 5th digit, edema is identified within the fused mid and distal 5th phalanges suspcious of osteomyelitis, mild soft tissue swelling of the 1st and 2nd digits also suspicious of osteomyelitis -Antibiotics: Vancomycin 1.5gm Q12H, Rocephin 2gm daily (when clear for discharge, can D/C with IV Daptomycin) -Vanco trough 9.4 on 05/04, repeat ordered -Wound culture 05/01 shows light growth of coag neg staph; repeat wound culture showing no growth -Lower extremity US: normal ELPIDIO/PVR -Pain control: Percocet 5 mg q6h PRN, Naproxen 550mg PO BID -Colace 100mg PO TID and Miralax 17gm daily for constipation -ID on consult, help appreciated -Podiatry on consult, help appreciated -Physical Therapy: recommends home -PICC line inserted in right arm for retirement IV antibiotics use Tachycardia (resolved) -Currently asymptomatic -Echocardiogram showed mild concentric left ventricular hypertrophy, EF 45%, trace MR and TR Face rash - Clotrimazole to be applied daily Hx of BPH: -Continue flomax Hx of Mood disorder, schizoaffective disorder -Continue Seroquel and Fluoxetine -Continue Depakote and Cogentin -Psych on consult, help appreciated -Patient complaining about slurred speech, no focal/neurological deficits; will see if psych meds can be adjusted Hx of Neuropathy: -Continue with Neurontin 600mg QID Insomnia -Ambien PRN History of substance abuse -UTOX on admission negative -Cessation advised DVT/GI prophylaxis: -Heparin 5000 Q12 [facility] -Protonix 40mg PO daily DISPO: Patient will follow up with PMD, Dr Ruiz upon discharge. Discussed case with Podiatry, surgery unlikely at this time. Patient requires retirement IV antibiotics. Case management following, awaiting to hear back from [facility]. Plan discussed with Dr Kaylie Mitchell DO PGY-1 <Aravind Lott - Last Filed: 05/08/18 14:04> Objective - Vital Signs/Intake and Output Vital Signs (last 24 hours): Temp Pulse Resp BP Pulse Ox 98.0 F 90 20 139/98 H 97 05/08/18 06:00 05/08/18 06:00 05/08/18 06:00 05/08/18 06:00 05/08/18 06:00 Intake and Output: 05/08/18 05/08/18 06:59 18:59 Intake Total 480 Balance 480 - Medications Medications: Current Medications Acetaminophen (Tylenol 325mg Tab) 650 mg PO Q6H PRN PRN Reason: Pain, Mild (1-3) Benztropine Mesylate (Cogentin) 1 mg PO [facility] Last Admin: 05/08/18 09:08 Dose: 1 mg Divalproex Sodium (Depakote Dr(*Bid*)) 500 mg PO [facility] Last Admin: 05/08/18 09:07 Dose: 500 mg Docusate Sodium (Colace) 100 mg PO TID [facility] Last Admin: 05/08/18 12:59 Dose: 100 mg Fluoxetine HCl (Prozac) 40 mg PO DAILY [facility] Last Admin: 05/08/18 09:07 Dose: 40 mg Gabapentin (Neurontin) 600 mg PO QID [facility] PRN Reason: Protocol Last Admin: 05/08/18 12:59 Dose: 600 mg Heparin Sodium (Porcine) (Heparin) 5,000 units SC Q12 [facility] PRN Reason: Protocol Last Admin: 05/08/18 09:08 Dose: 5,000 units Hydrocortisone (Cortizone 1% Cream) 0 gm TOP Q12 [facility] Last Admin: 05/08/18 09:10 Dose: 1 applic Ceftriaxone Sodium (Rocephin 2 Gm Ivpb) 2 gm in 100 mls @ 100 mls/hr IVPB DAILY [facility] PRN Reason: Protocol Stop: 05/29/18 14:57 Last Admin: 05/08/18 09:09 Dose: 100 mls/hr Vancomycin HCl 1.5 gm/ Sodium (Chloride) 500 mls @ 167 mls/hr IVPB Q12H [facility] PRN Reason: Protocol Last Admin: 05/08/18 10:49 Dose: 167 mls/hr Mupirocin (Bactroban Ointment) 10 gm TOP DAILY [facility] Last Admin: 05/08/18 09:10 Dose: 1 gm Naproxen (Anaprox Ds) 550 mg PO BID [facility] Last Admin: 05/08/18 09:08 Dose: 550 mg Oxycodone/Acetaminophen (Percocet 5/325 Mg Tab) 1 tab PO Q6H PRN PRN Reason: Pain, moderate (4-7) Stop: 05/10/18 11:21 Last Admin: 05/08/18 06:22 Dose: 1 tab Pantoprazole Sodium (Protonix Ec Tab) 40 mg PO 0600 [facility] Last Admin: 05/08/18 06:21 Dose: 40 mg Polyethylene Glycol (Miralax) 17 gm PO DAILY [facility] Last Admin: 05/08/18 09:08 Dose: 17 gm Quetiapine Fumarate 600 mg/ (Quetiapine Fumarate 100 mg) 700 mg PO 1700 [facility] Last Admin: 05/07/18 17:56 Dose: 700 mg Tamsulosin HCl (Flomax) 0.4 mg PO DAILY [facility] Last Admin: 05/08/18 09:07 Dose: 0.4 mg - Labs Labs: 05/07/18 06:20 05/07/18 06:20 APTT 30.5 Seconds (25.1-36.5) 04/28/18 07:00 Attending/Attestation - Attestation I have personally seen and examined this patient.: Yes I have fully participated in the care of the patient.: Yes I have reviewed all pertinent clinical information, including history, physical exam and plan: Yes Notes (Text): 05/08/18 13:56 Attending note; Patient seen and examined with resident. Patient is a 47 year old male with past medical history of bipolar, schizoaffective disorder, polysubstance abuse, and right leg compartment syndrome s/p fasciotomy presented with right leg cellulitis. MRI was suggestive of osteomyelitis. Right lower extremity cellulitis is resolved. No redness. Continue dressing per podiatry. Currently on IV vancomycin and Rocephin. needs 4-6 weeks of iv antibiotics. s/p picc line placement. Follow-up with forensic social worker for discharge planning. Upon discharge the patient will follow-up with PMD . 05/08/18 14:03
--- NOTE | 2018-05-06 17:25 | CP.PCM.PN ---
Subjective - Date & Time of Evaluation Date of Evaluation: 05/06/18 Time of Evaluation: 10:25 - Subjective Subjective: No fevers, not in distress, still with right foot pain but a little less, no nausea or diarrhea. Objective - Vital Signs/Intake and Output Vital Signs (last 24 hours): Temp Pulse Resp BP Pulse Ox 97.9 F 94 H 19 135/81 96 05/05/18 16:28 05/05/18 16:28 05/05/18 16:28 05/05/18 16:28 05/05/18 16:28 Intake and Output: 05/06/18 05/06/18 06:59 18:59 Intake Total 1120 Balance 1120 - Medications Medications: Current Medications Acetaminophen (Tylenol 325mg Tab) 650 mg PO Q6H PRN PRN Reason: Pain, Mild (1-3) Benztropine Mesylate (Cogentin) 1 mg PO [facility] Last Admin: 05/05/18 22:12 Dose: 1 mg Clotrimazole (Lotrimin 1%) 0 gm TOP BID [facility] Last Admin: 05/05/18 10:08 Dose: 1 appl Divalproex Sodium (Depakote Dr(*Bid*)) 500 mg PO [facility] Last Admin: 05/05/18 22:11 Dose: 500 mg Docusate Sodium (Colace) 100 mg PO TID [facility] Last Admin: 05/05/18 17:09 Dose: 100 mg Fluoxetine HCl (Prozac) 40 mg PO DAILY [facility] Last Admin: 05/05/18 10:06 Dose: 40 mg Gabapentin (Neurontin) 600 mg PO QID [facility] PRN Reason: Protocol Last Admin: 05/05/18 22:10 Dose: 600 mg Heparin Sodium (Porcine) (Heparin) 5,000 units SC Q12 [facility] PRN Reason: Protocol Last Admin: 05/05/18 22:08 Dose: 5,000 units Ceftriaxone Sodium (Rocephin 2 Gm Ivpb) 2 gm in 100 mls @ 100 mls/hr IVPB DAILY [facility] PRN Reason: Protocol Stop: 05/29/18 14:57 Last Admin: 05/05/18 10:07 Dose: 100 mls/hr Vancomycin HCl 1.5 gm/ Sodium (Chloride) 500 mls @ 167 mls/hr IVPB Q12H [facility] PRN Reason: Protocol Last Admin: 05/05/18 22:12 Dose: 167 mls/hr Mupirocin (Bactroban Ointment) 10 gm TOP DAILY [facility] Last Admin: 05/05/18 10:06 Dose: 1 gm Naproxen (Anaprox Ds) 550 mg PO BID [facility] Last Admin: 05/05/18 17:09 Dose: 550 mg Oxycodone/Acetaminophen (Percocet 5/325 Mg Tab) 1 tab PO Q6H [facility] PRN Reason: pain Stop: 05/07/18 09:16 Last Admin: 05/06/18 05:55 Dose: 1 tab Pantoprazole Sodium (Protonix Ec Tab) 40 mg PO 0600 [facility] Last Admin: 05/06/18 05:46 Dose: 40 mg Polyethylene Glycol (Miralax) 17 gm PO DAILY [facility] Last Admin: 05/05/18 10:06 Dose: 17 gm Quetiapine Fumarate 600 mg/ (Quetiapine Fumarate 100 mg) 700 mg PO 1700 [facility] Last Admin: 05/05/18 17:08 Dose: 700 mg Tamsulosin HCl (Flomax) 0.4 mg PO DAILY [facility] Last Admin: 05/05/18 10:06 Dose: 0.4 mg - Labs Labs: 05/05/18 06:00 05/05/18 06:00 APTT 30.5 Seconds (25.1-36.5) 04/28/18 07:00 - Constitutional Appears: Non-toxic, Chronically Ill - Head Exam Head Exam: NORMAL INSPECTION - ENT Exam ENT Exam: Mucous Membranes Moist - Neck Exam Neck Exam: absent: Meningismus - Respiratory Exam Respiratory Exam: Decreased Breath Sounds - Cardiovascular Exam Cardiovascular Exam: +S1, +S2 - GI/Abdominal Exam GI & Abdominal Exam: Soft. absent: Tenderness - Extremities Exam Additional comments: right arm PICC line, site clean and intact Assessment and Plan - Assessment and Plan (Free Text) Plan: Assessment Right foot cellulitis with right 5th toe osteomyelitis schizoaffective disorder bipolar disorder anxiety and depression history of right leg fasciotomy Plan Continue Vancomycin and Rocephin to complete 4-6 weeks of antibiotics with weekly Vanco trough level, CBC, CMP, ESR, CRP (day 9 today); Vanco trough is still below target - will repeat Vanco trough today
[2018-05-06] MEDS ORDERED: QUEtiapine 50 mg XR Tab PO ONE (17:53)
[2018-05-06] MEDS: QUETIAPINE PO SCH (17:55)
[2018-05-06] MEDS: Hydrocortisone 1% Cream (30 GM) TOP SCH (21:18)
[2018-05-07] MEDS: Oxycodone/Acetaminophen 5/325 mg Tab PO PRN ×3 (04:44→17:57)
[2018-05-07] MEDS: Pantoprazole 40 mg EC Tab PO SCH (05:17)
[2018-05-07 06:29] LABS: BASO # 0.05 K/mm3 (0.0-2.0); BASO % 0.6 % (0.0-3.0); EOS # 0.2 (0.0-0.7); EOS % 2.5 % (1.5-5.0); GRAN # 5.41 (1.4-6.5); HEMOGLOBIN 12.6 g/dL (14.0-18.0); LYMPH # 2.6 (1.2-3.4); LYMPH % 28.8 % (22.0-35.0); MEAN CELL VOLUME 89.5 fl (80.0-105.0); MEAN CORPUSCULAR HEMOGLOBIN 30.1 pg (25.0-35.0); MEAN CORPUSCULAR HGB CONC 33.6 g/dl (31.0-37.0); MEAN PLATELET VOLUME 12.1 fl (7.0-11.0); MONO # 0.6 (0.1-0.6); MONO % 7.1 % (1.0-6.0); RBC 4.19 10^6/uL (3.5-6.1); RED CELL DISTRIBUTION WIDTH 13.5 % (11.5-14.5); WHITE BLOOD COUNT 8.9 10^3/ul (4.5-11.0)
[2018-05-07 06:53] LABS: BLOOD UREA NITROGEN 12 mg/dL (7-21); CALCIUM 8.6 mg/dL (8.4-10.5); GFR NON-AFRICAN AMERICAN > 60
--- NOTE | 2018-05-07 09:50 | CP.PCM.PN ---
<Laura Mitchell - Last Filed: 05/07/18 14:52> Subjective - Date & Time of Evaluation Date of Evaluation: 05/07/18 Time of Evaluation: 09:49 - Subjective Subjective: Internal Medicine Progress Note - Hospitalist Service Patient seen and examined at bedside. Per nursing no acute events. Patient is doing well, offers no complaints at this time. Pain is controlled. Denies headaches, dizziness, cp, palpitations, sob, abdominal pain, urinary symptoms, changes in bowel habits. Objective - Vital Signs/Intake and Output Vital Signs (last 24 hours): Temp Pulse Resp BP Pulse Ox 98.2 F 86 16 138/71 97 05/07/18 08:16 05/07/18 08:16 05/07/18 08:16 05/07/18 08:16 05/07/18 08:16 Intake and Output: 05/07/18 05/07/18 06:59 18:59 Intake Total 300 Balance 300 - Medications Medications: Current Medications Acetaminophen (Tylenol 325mg Tab) 650 mg PO Q6H PRN PRN Reason: Pain, Mild (1-3) Benztropine Mesylate (Cogentin) 1 mg PO [facility] Last Admin: 05/06/18 21:48 Dose: 1 mg Clotrimazole (Lotrimin 1%) 0 gm TOP BID [facility] Last Admin: 05/06/18 17:47 Dose: Not Given Divalproex Sodium (Depakote Dr(*Bid*)) 500 mg PO [facility] Last Admin: 05/06/18 21:48 Dose: 500 mg Docusate Sodium (Colace) 100 mg PO TID [facility] Last Admin: 05/06/18 17:44 Dose: 100 mg Fluoxetine HCl (Prozac) 40 mg PO DAILY [facility] Last Admin: 05/06/18 10:00 Dose: 40 mg Gabapentin (Neurontin) 600 mg PO QID [facility] PRN Reason: Protocol Last Admin: 05/06/18 21:48 Dose: 600 mg Heparin Sodium (Porcine) (Heparin) 5,000 units SC Q12 [facility] PRN Reason: Protocol Last Admin: 05/06/18 21:48 Dose: 5,000 units Hydrocortisone (Cortizone 1% Cream) 0 gm TOP Q12 [facility] Last Admin: 05/06/18 21:18 Dose: 1 applic Ceftriaxone Sodium (Rocephin 2 Gm Ivpb) 2 gm in 100 mls @ 100 mls/hr IVPB DAILY [facility] PRN Reason: Protocol Stop: 05/29/18 14:57 Last Admin: 05/06/18 10:02 Dose: 100 mls/hr Vancomycin HCl 1.5 gm/ Sodium (Chloride) 500 mls @ 167 mls/hr IVPB Q12H [facility] PRN Reason: Protocol Last Admin: 05/06/18 21:49 Dose: 167 mls/hr Mupirocin (Bactroban Ointment) 10 gm TOP DAILY [facility] Last Admin: 05/06/18 10:06 Dose: 1 gm Naproxen (Anaprox Ds) 550 mg PO BID [facility] Last Admin: 05/06/18 17:44 Dose: 550 mg Pantoprazole Sodium (Protonix Ec Tab) 40 mg PO 0600 [facility] Last Admin: 05/07/18 05:17 Dose: 40 mg Polyethylene Glycol (Miralax) 17 gm PO DAILY [facility] Last Admin: 05/06/18 10:01 Dose: 17 gm Quetiapine Fumarate 600 mg/ (Quetiapine Fumarate 100 mg) 700 mg PO 1700 [facility] Last Admin: 05/06/18 17:55 Dose: 700 mg Tamsulosin HCl (Flomax) 0.4 mg PO DAILY [facility] Last Admin: 05/06/18 10:00 Dose: 0.4 mg - Labs Labs: 05/07/18 06:20 05/07/18 06:20 APTT 30.5 Seconds (25.1-36.5) 04/28/18 07:00 - Additional Findings Additional findings: - Constitutional Appears: No Acute Distress - Head Exam Head Exam: ATRAUMATIC, NORMAL INSPECTION, NORMOCEPHALIC - Eye Exam Eye Exam: EOMI, Normal appearance Pupil Exam: NORMAL ACCOMODATION - ENT Exam ENT Exam: Mucous Membranes Moist; erythematous, flaky, non-pustular rash surrounding nasal bridge, cheeks, and chin - Neck Exam Neck Exam: Full ROM - Respiratory Exam Respiratory Exam: Clear to Ausculation Bilateral, NORMAL BREATHING PATTERN. absent: Rales, Rhonchi, Wheezes - Cardiovascular Exam Cardiovascular Exam: REGULAR RHYTHM, +S1, +S2 - GI/Abdominal Exam GI & Abdominal Exam: Soft, Normal Bowel Sounds. absent: Guarding, Rigid, Tenderness - Extremities Exam Additional comments: Right lower leg cellulitis improved, right toe ulceration improving - Back Exam Back Exam: NORMAL INSPECTION - Neurological Exam Neurological Exam: Alert, Awake, Oriented x3 - Psychiatric Exam Psychiatric exam: Normal Affect, Normal Mood - Skin Skin Exam: Dry, Normal Color, Warm Assessment and Plan - Assessment and Plan (Free Text) Assessment: A/P: Patient is a 47 yo M with PMH bipolar disorder, schizoaffective disorder, polysubstance abuse, and right leg compartment syndrome s/p fasciotomy, presents for right leg cellulitis 2/2 trauma, also found to have tachycardia: Right 5th phalangeal Osteomyelitis/Right Lower extremity Cellulitis: -Stable, afebrile, no leukocytosis -CRP elevated, ESR elevated -X ray foot: soft tissue swelling without acute articular or osseous abnormality. No osteomyelitis -MRI foot: soft tissue swelling of dorsum and 5th digit, edema is identified within the fused mid and distal 5th phalanges suspcious of osteomyelitis, mild soft tissue swelling of the 1st and 2nd digits also suspicious of osteomyelitis -Antibiotics: Vancomycin 1.5gm Q12H, Rocephin 2gm daily (when clear for discharge, can D/C with IV Daptomycin) -Weekly Vanco trough, no need for daily labs at this time -Wound culture 05/01 shows light growth of coag neg staph; repeat wound culture showing no growth -Lower extremity US: normal ELPIDIO/PVR -Pain control: Percocet 5 mg q6h PRN, Naproxen 550mg PO BID -Colace 100mg PO TID and Miralax 17gm daily for constipation -ID on consult, help appreciated -Podiatry on consult, help appreciated -Physical Therapy: recommends home -PICC line inserted in right arm for residential IV antibiotics use Tachycardia (resolved) -Currently asymptomatic -Echocardiogram showed mild concentric left ventricular hypertrophy, EF 45%, trace MR and TR Face rash -Clotrimazole to be applied daily Hx of BPH: -Continue flomax Hx of Mood disorder, schizoaffective disorder -Continue Seroquel and Fluoxetine -Continue Depakote and Cogentin -Psych on consult, help appreciated Hx of Neuropathy: -Continue with Neurontin 600mg QID Insomnia -Ambien PRN History of substance abuse -UTOX on admission negative -Cessation advised DVT/GI prophylaxis: -Heparin 5000 Q12 [facility] -Protonix 40mg PO daily DISPO: Patient will follow up with PMD, Dr Ruiz upon discharge. Discussed case with Podiatry, surgery unlikely at this time. Patient requires extermination inspector IV antibiotics. Case management following, awaiting to hear back from [facility]. Plan discussed with Dr Kaylie Mitchell DO PGY-1 <Aravind Lott - Last Filed: 05/08/18 14:05> Objective - Vital Signs/Intake and Output Vital Signs (last 24 hours): Temp Pulse Resp BP Pulse Ox 98.0 F 90 20 139/98 H 97 05/08/18 06:00 05/08/18 06:00 05/08/18 06:00 05/08/18 06:00 05/08/18 06:00 Intake and Output: 05/08/18 05/08/18 06:59 18:59 Intake Total 480 Balance 480 - Medications Medications: Current Medications Acetaminophen (Tylenol 325mg Tab) 650 mg PO Q6H PRN PRN Reason: Pain, Mild (1-3) Benztropine Mesylate (Cogentin) 1 mg PO [facility] Last Admin: 05/08/18 09:08 Dose: 1 mg Divalproex Sodium (Depakote Dr(*Bid*)) 500 mg PO [facility] Last Admin: 05/08/18 09:07 Dose: 500 mg Docusate Sodium (Colace) 100 mg PO TID [facility] Last Admin: 05/08/18 12:59 Dose: 100 mg Fluoxetine HCl (Prozac) 40 mg PO DAILY [facility] Last Admin: 05/08/18 09:07 Dose: 40 mg Gabapentin (Neurontin) 600 mg PO QID [facility] PRN Reason: Protocol Last Admin: 05/08/18 12:59 Dose: 600 mg Heparin Sodium (Porcine) (Heparin) 5,000 units SC Q12 [facility] PRN Reason: Protocol Last Admin: 05/08/18 09:08 Dose: 5,000 units Hydrocortisone (Cortizone 1% Cream) 0 gm TOP Q12 [facility] Last Admin: 05/08/18 09:10 Dose: 1 applic Ceftriaxone Sodium (Rocephin 2 Gm Ivpb) 2 gm in 100 mls @ 100 mls/hr IVPB DAILY [facility] PRN Reason: Protocol Stop: 05/29/18 14:57 Last Admin: 05/08/18 09:09 Dose: 100 mls/hr Vancomycin HCl 1.5 gm/ Sodium (Chloride) 500 mls @ 167 mls/hr IVPB Q12H [facility] PRN Reason: Protocol Last Admin: 05/08/18 10:49 Dose: 167 mls/hr Mupirocin (Bactroban Ointment) 10 gm TOP DAILY [facility] Last Admin: 05/08/18 09:10 Dose: 1 gm Naproxen (Anaprox Ds) 550 mg PO BID [facility] Last Admin: 05/08/18 09:08 Dose: 550 mg Oxycodone/Acetaminophen (Percocet 5/325 Mg Tab) 1 tab PO Q6H PRN PRN Reason: Pain, moderate (4-7) Stop: 05/10/18 11:21 Last Admin: 05/08/18 06:22 Dose: 1 tab Pantoprazole Sodium (Protonix Ec Tab) 40 mg PO 0600 [facility] Last Admin: 05/08/18 06:21 Dose: 40 mg Polyethylene Glycol (Miralax) 17 gm PO DAILY [facility] Last Admin: 05/08/18 09:08 Dose: 17 gm Quetiapine Fumarate 600 mg/ (Quetiapine Fumarate 100 mg) 700 mg PO 1700 [facility] Last Admin: 05/07/18 17:56 Dose: 700 mg Tamsulosin HCl (Flomax) 0.4 mg PO DAILY [facility] Last Admin: 05/08/18 09:07 Dose: 0.4 mg - Labs Labs: 05/07/18 06:20 05/07/18 06:20 APTT 30.5 Seconds (25.1-36.5) 04/28/18 07:00 Attending/Attestation - Attestation I have personally seen and examined this patient.: Yes I have fully participated in the care of the patient.: Yes I have reviewed all pertinent clinical information, including history, physical exam and plan: Yes Notes (Text): 05/08/18 14:04 Attending note; Patient seen and examined with resident. Patient is a 47 year old male with past medical history of bipolar, schizoaffective disorder, polysubstance abuse, and right leg compartment syndrome s/p fasciotomy presented with right leg cellulitis. MRI was suggestive of osteomyelitis. Right lower extremity cellulitis is resolved. No redness. Continue dressing per podiatry. Currently on IV vancomycin and Rocephin. Needs to complete 4-6 weeks of antibiotics. s/p picc line placement. Follow-up with social work therapist for discharge planning. Upon discharge the patient will follow-up with PMD . 05/08/18 14:05
[2018-05-07] MEDS: cefTRIAXone 2 GM IN NS 2 GM/100 ML BAG IVPB SCH (10:35)
[2018-05-07] MEDS: Hydrocortisone 1% Cream (30 GM) TOP SCH ×2 (10:35→22:08)
[2018-05-07] MEDS: Divalproex 500 mg DR(BID formulation) PO SCH ×2 (10:36→22:06)
[2018-05-07] MEDS: POLYETHYLENE GLYCOL 3350 17 GM/Dose PACKET PO SCH (10:37)
[2018-05-07] MEDS: Naproxen 550 mg Tab PO SCH ×2 (10:37→17:57)
[2018-05-07] MEDS: Clotrimazole 1% Cream(30 gm) TOP SCH (10:38)
[2018-05-07] MEDS: Mupirocin 2% Ointment 15 GM TUBE TOP SCH (10:39)
[2018-05-07] MEDS: Vancomycin 1.5 GM in Sodium Chloride 0.9% 500 ML IVPB SCH ×2 (11:20→22:07)
--- NOTE | 2018-05-07 12:00 | CP.PCM.PN ---
<Mary Bennett - Last Filed: 05/07/18 13:43> Subjective - Date & Time of Evaluation Date of Evaluation: 05/07/18 Time of Evaluation: 11:59 - Subjective Subjective: Podiatry progress note for Dr. Schuler/Dr. iHll 47 y/o male patient was seen and evaluated for right fifth digit ulcer. Patient is seen resting comfortably in bed. Patient is AAOx3. Patient denies any pain at this time. Patient denies any overnight acute events. Patient denies N/V/F/C/ SOB. Patient has no other pedal complains at this time Objective - Vital Signs/Intake and Output Vital Signs (last 24 hours): Temp Pulse Resp BP Pulse Ox 98.2 F 86 16 138/71 97 05/07/18 08:16 05/07/18 08:16 05/07/18 08:16 05/07/18 08:16 05/07/18 08:16 Intake and Output: 05/07/18 05/07/18 06:59 18:59 Intake Total 300 Balance 300 - Medications Medications: Current Medications Acetaminophen (Tylenol 325mg Tab) 650 mg PO Q6H PRN PRN Reason: Pain, Mild (1-3) Benztropine Mesylate (Cogentin) 1 mg PO [facility] Last Admin: 05/07/18 10:40 Dose: 1 mg Clotrimazole (Lotrimin 1%) 0 gm TOP BID [facility] Last Admin: 05/07/18 10:38 Dose: Not Given Divalproex Sodium (Depakote Dr(*Bid*)) 500 mg PO [facility] Last Admin: 05/07/18 10:36 Dose: 500 mg Docusate Sodium (Colace) 100 mg PO TID [facility] Last Admin: 05/07/18 10:36 Dose: 100 mg Fluoxetine HCl (Prozac) 40 mg PO DAILY [facility] Last Admin: 05/07/18 10:36 Dose: 40 mg Gabapentin (Neurontin) 600 mg PO QID [facility] PRN Reason: Protocol Last Admin: 05/07/18 10:36 Dose: 600 mg Heparin Sodium (Porcine) (Heparin) 5,000 units SC Q12 [facility] PRN Reason: Protocol Last Admin: 05/07/18 10:37 Dose: 5,000 units Hydrocortisone (Cortizone 1% Cream) 0 gm TOP Q12 [facility] Last Admin: 05/07/18 10:35 Dose: 1 applic Ceftriaxone Sodium (Rocephin 2 Gm Ivpb) 2 gm in 100 mls @ 100 mls/hr IVPB DAILY [facility] PRN Reason: Protocol Stop: 05/29/18 14:57 Last Admin: 05/07/18 10:35 Dose: 100 mls/hr Vancomycin HCl 1.5 gm/ Sodium (Chloride) 500 mls @ 167 mls/hr IVPB Q12H [facility] PRN Reason: Protocol Last Admin: 05/07/18 11:20 Dose: 167 mls/hr Mupirocin (Bactroban Ointment) 10 gm TOP DAILY [facility] Last Admin: 05/07/18 10:39 Dose: 1 gm Naproxen (Anaprox Ds) 550 mg PO BID [facility] Last Admin: 05/07/18 10:37 Dose: 550 mg Oxycodone/Acetaminophen (Percocet 5/325 Mg Tab) 1 tab PO Q6H PRN PRN Reason: Pain, moderate (4-7) Stop: 05/10/18 11:21 Last Admin: 05/07/18 11:22 Dose: 1 tab Pantoprazole Sodium (Protonix Ec Tab) 40 mg PO 0600 [facility] Last Admin: 05/07/18 05:17 Dose: 40 mg Polyethylene Glycol (Miralax) 17 gm PO DAILY [facility] Last Admin: 05/07/18 10:37 Dose: 17 gm Quetiapine Fumarate 600 mg/ (Quetiapine Fumarate 100 mg) 700 mg PO 1700 [facility] Last Admin: 05/06/18 17:55 Dose: 700 mg Tamsulosin HCl (Flomax) 0.4 mg PO DAILY [facility] Last Admin: 05/07/18 10:36 Dose: 0.4 mg - Labs Labs: 05/07/18 06:20 05/07/18 06:20 APTT 30.5 Seconds (25.1-36.5) 04/28/18 07:00 - Constitutional Appears: Well, Non-toxic, No Acute Distress - Extremities Exam Additional comments: Right foot focused lower extremity exam Derm: Superficial Ulcer with hyperkeratotic skin edges noted on the dorsal aspect of the right 5th digit, very minimal erythema on the dorsal aspect of the 5th digit which is localized to the area (decreased from yesterday), no malodor, no active drainage, no purulence noted, no probe to bone Vascular: DP/PT pulses are palpable 2/4, CFT <3 secs x5, TG warm to cool proximal to distal, non pitting edema noted on the dorsum of the foot on the right Neuro: Protective sensation grossly intact Ortho:minimal pain on palpation noted to the right fifth digit - Neurological Exam Neurological Exam: Alert, Awake, Oriented x3 - Psychiatric Exam Psychiatric exam: Normal Affect, Normal Mood Assessment and Plan - Assessment and Plan (Free Text) Assessment: 47 year old male with right 5th digit ulcer and cellulitis Plan: Patient seen and evaluated Discussed plan with attending Dr. Schuler Labs, vitals and charts reviewed; Afebrile, WBC @ 8.9 Site cleaned using saline and dressing applied using bactroban, 4x4, tape MRI of the right foot - suspicious for OM, clinically less likely Cultures taken - Coag negative staph Continue IV abx as per ID - Ceftriaxone, Vancomycin Stable from podiatry standpoint Will continue to monitor patient while in-house; continue local wound care Upon discharge, follow up with attending Dr. Hill/Dr. Schuler at the wound care center <Jonathan Schuler - Last Filed: 05/08/18 09:02> Objective - Vital Signs/Intake and Output Vital Signs (last 24 hours): Temp Pulse Resp BP Pulse Ox 98.0 F 90 20 139/98 H 97 05/08/18 06:00 05/08/18 06:00 05/08/18 06:00 05/08/18 06:00 05/08/18 06:00 Intake and Output: 05/08/18 05/08/18 06:59 18:59 Intake Total 480 Balance 480 - Medications Medications: Current Medications Acetaminophen (Tylenol 325mg Tab) 650 mg PO Q6H PRN PRN Reason: Pain, Mild (1-3) Benztropine Mesylate (Cogentin) 1 mg PO [facility] Last Admin: 05/07/18 22:06 Dose: 1 mg Divalproex Sodium (Depakote Dr(*Bid*)) 500 mg PO [facility] Last Admin: 05/07/18 22:06 Dose: 500 mg Docusate Sodium (Colace) 100 mg PO TID [facility] Last Admin: 05/07/18 17:57 Dose: 100 mg Fluoxetine HCl (Prozac) 40 mg PO DAILY [facility] Last Admin: 05/07/18 10:36 Dose: 40 mg Gabapentin (Neurontin) 600 mg PO QID [facility] PRN Reason: Protocol Last Admin: 05/07/18 22:06 Dose: 600 mg Heparin Sodium (Porcine) (Heparin) 5,000 units SC Q12 [facility] PRN Reason: Protocol Last Admin: 05/07/18 22:07 Dose: 5,000 units Hydrocortisone (Cortizone 1% Cream) 0 gm TOP Q12 [facility] Last Admin: 05/07/18 22:08 Dose: 1 applic Ceftriaxone Sodium (Rocephin 2 Gm Ivpb) 2 gm in 100 mls @ 100 mls/hr IVPB DAILY [facility] PRN Reason: Protocol Stop: 05/29/18 14:57 Last Admin: 05/07/18 10:35 Dose: 100 mls/hr Vancomycin HCl 1.5 gm/ Sodium (Chloride) 500 mls @ 167 mls/hr IVPB Q12H [facility] PRN Reason: Protocol Last Admin: 05/07/18 22:07 Dose: 167 mls/hr Mupirocin (Bactroban Ointment) 10 gm TOP DAILY [facility] Last Admin: 05/07/18 10:39 Dose: 1 gm Naproxen (Anaprox Ds) 550 mg PO BID [facility] Last Admin: 05/07/18 17:57 Dose: 550 mg Oxycodone/Acetaminophen (Percocet 5/325 Mg Tab) 1 tab PO Q6H PRN PRN Reason: Pain, moderate (4-7) Stop: 05/10/18 11:21 Last Admin: 05/08/18 06:22 Dose: 1 tab Pantoprazole Sodium (Protonix Ec Tab) 40 mg PO 0600 [facility] Last Admin: 05/08/18 06:21 Dose: 40 mg Polyethylene Glycol (Miralax) 17 gm PO DAILY [facility] Last Admin: 05/07/18 10:37 Dose: 17 gm Quetiapine Fumarate 600 mg/ (Quetiapine Fumarate 100 mg) 700 mg PO 1700 [facility] Last Admin: 05/07/18 17:56 Dose: 700 mg Tamsulosin HCl (Flomax) 0.4 mg PO DAILY [facility] Last Admin: 05/07/18 10:36 Dose: 0.4 mg - Labs Labs: 05/07/18 06:20 05/07/18 06:20 APTT 30.5 Seconds (25.1-36.5) 04/28/18 07:00 Attending/Attestation - Attestation I have personally seen and examined this patient.: Yes I have fully participated in the care of the patient.: Yes I have reviewed all pertinent clinical information, including history, physical exam and plan: Yes
[2018-05-07] MEDS ORDERED: QUEtiapine 50 mg XR Tab PO ONE (17:51)
[2018-05-07] MEDS: QUETIAPINE PO SCH (17:56)
--- NOTE | 2018-05-08 01:34 | PN ---
DATE: 05/07/2018 SUBJECTIVE: The patient was seen earlier this morning in room 373, bed 1, in no acute distress, nontoxic. PHYSICAL EXAMINATION: VITAL SIGNS: Temperature is 98, blood pressure is 130/70, respiratory rate 18. HEENT: Unremarkable. NECK: Supple. LUNGS: Decreased breath sounds. HEART: Normal S1 and S2. ABDOMEN: Soft. LABORATORY DATA: Reveals a white count of 8.9, hemoglobin of 12. BUN of 12, creatinine of 0.7. Urinalysis is noted. Microbiology is reviewed. Stool culture have coag-negative Staph. MEDICATIONS: Patient is on vancomycin and ceftriaxone. ASSESSMENT AND PLAN: A 47-year-old male with a right foot cellulitis in the fifth toe, osteomyelitis and schizoaffective disorder, bipolar, anxiety, depression. On vancomycin and ceftriaxone. We will recommend 4 to 6 weeks of antibiotics with a weekly vancomycin trough level, CBC, SMA-18, sed rate, C-reactive protein, today is day #10 and vancomycin trough not corrected . Maynor Lopez MD
[2018-05-08] MEDS: Pantoprazole 40 mg EC Tab PO SCH (06:21)
[2018-05-08] MEDS: Oxycodone/Acetaminophen 5/325 mg Tab PO PRN (06:22)
[2018-05-08 08:03] VITALS: BP 139/98; PULSE 90; RESP 20; TEMP 98; O2SAT 97
--- NOTE | 2018-05-08 08:49 | CP.PCM.PN ---
<Laura Mitchell - Last Filed: 05/08/18 11:36> Subjective - Date & Time of Evaluation Date of Evaluation: 05/08/18 Time of Evaluation: 08:48 - Subjective Subjective: Internal Medicine Progress Note - Hospitalist Service Patient seen and examined at bedside. Per nursing no acute events overnight. Patient is doing well, states that the facial rash has improved. Ambulating and tolerating diet. Offers no complaints at this time. Denies headaches, dizziness , cp, palpitations, sob, abdominal pain, urinary symptoms, changes in bowel habits. Objective - Vital Signs/Intake and Output Vital Signs (last 24 hours): Temp Pulse Resp BP Pulse Ox 98.0 F 90 20 139/98 H 97 05/08/18 06:00 05/08/18 06:00 05/08/18 06:00 05/08/18 06:00 05/08/18 06:00 Intake and Output: 05/08/18 05/08/18 06:59 18:59 Intake Total 480 Balance 480 - Medications Medications: Current Medications Acetaminophen (Tylenol 325mg Tab) 650 mg PO Q6H PRN PRN Reason: Pain, Mild (1-3) Benztropine Mesylate (Cogentin) 1 mg PO [facility] Last Admin: 05/07/18 22:06 Dose: 1 mg Divalproex Sodium (Depakote Dr(*Bid*)) 500 mg PO [facility] Last Admin: 05/07/18 22:06 Dose: 500 mg Docusate Sodium (Colace) 100 mg PO TID [facility] Last Admin: 05/07/18 17:57 Dose: 100 mg Fluoxetine HCl (Prozac) 40 mg PO DAILY [facility] Last Admin: 05/07/18 10:36 Dose: 40 mg Gabapentin (Neurontin) 600 mg PO QID [facility] PRN Reason: Protocol Last Admin: 05/07/18 22:06 Dose: 600 mg Heparin Sodium (Porcine) (Heparin) 5,000 units SC Q12 [facility] PRN Reason: Protocol Last Admin: 05/07/18 22:07 Dose: 5,000 units Hydrocortisone (Cortizone 1% Cream) 0 gm TOP Q12 [facility] Last Admin: 05/07/18 22:08 Dose: 1 applic Ceftriaxone Sodium (Rocephin 2 Gm Ivpb) 2 gm in 100 mls @ 100 mls/hr IVPB DAILY [facility] PRN Reason: Protocol Stop: 05/29/18 14:57 Last Admin: 05/07/18 10:35 Dose: 100 mls/hr Vancomycin HCl 1.5 gm/ Sodium (Chloride) 500 mls @ 167 mls/hr IVPB Q12H [facility] PRN Reason: Protocol Last Admin: 05/07/18 22:07 Dose: 167 mls/hr Mupirocin (Bactroban Ointment) 10 gm TOP DAILY [facility] Last Admin: 05/07/18 10:39 Dose: 1 gm Naproxen (Anaprox Ds) 550 mg PO BID [facility] Last Admin: 05/07/18 17:57 Dose: 550 mg Oxycodone/Acetaminophen (Percocet 5/325 Mg Tab) 1 tab PO Q6H PRN PRN Reason: Pain, moderate (4-7) Stop: 05/10/18 11:21 Last Admin: 05/08/18 06:22 Dose: 1 tab Pantoprazole Sodium (Protonix Ec Tab) 40 mg PO 0600 [facility] Last Admin: 05/08/18 06:21 Dose: 40 mg Polyethylene Glycol (Miralax) 17 gm PO DAILY [facility] Last Admin: 05/07/18 10:37 Dose: 17 gm Quetiapine Fumarate 600 mg/ (Quetiapine Fumarate 100 mg) 700 mg PO 1700 [facility] Last Admin: 05/07/18 17:56 Dose: 700 mg Tamsulosin HCl (Flomax) 0.4 mg PO DAILY [facility] Last Admin: 05/07/18 10:36 Dose: 0.4 mg - Labs Labs: 05/07/18 06:20 05/07/18 06:20 APTT 30.5 Seconds (25.1-36.5) 04/28/18 07:00 - Constitutional Appears: Well, No Acute Distress - Head Exam Head Exam: ATRAUMATIC, NORMAL INSPECTION, NORMOCEPHALIC - Eye Exam Eye Exam: EOMI, Normal appearance - ENT Exam ENT Exam: Mucous Membranes Moist - Neck Exam Neck Exam: Full ROM - Respiratory Exam Respiratory Exam: Clear to Ausculation Bilateral, NORMAL BREATHING PATTERN. absent: Rales, Rhonchi, Wheezes - Cardiovascular Exam Cardiovascular Exam: REGULAR RHYTHM, +S1, +S2 - GI/Abdominal Exam GI & Abdominal Exam: Soft, Normal Bowel Sounds. absent: Guarding, Rigid, Tenderness - Extremities Exam Extremities Exam: Full ROM Additional comments: Right foot dressing intact - Back Exam Back Exam: NORMAL INSPECTION - Neurological Exam Neurological Exam: Alert, Awake, Normal Gait, Oriented x3 - Psychiatric Exam Psychiatric exam: Normal Affect, Normal Mood - Skin Skin Exam: Dry, Normal Color, Warm Assessment and Plan - Assessment and Plan (Free Text) Assessment: A/P: Patient is a 47 yo M with PMH bipolar disorder, schizoaffective disorder, polysubstance abuse, and right leg compartment syndrome s/p fasciotomy, presents for right leg cellulitis 2/2 trauma, also found to have tachycardia: Right 5th phalangeal Osteomyelitis/Right Lower extremity Cellulitis: -Stable, afebrile, no leukocytosis -CRP elevated, ESR elevated -X ray foot: soft tissue swelling without acute articular or osseous abnormality. No osteomyelitis -MRI foot: soft tissue swelling of dorsum and 5th digit, edema is identified within the fused mid and distal 5th phalanges suspcious of osteomyelitis, mild soft tissue swelling of the 1st and 2nd digits also suspicious of osteomyelitis -Antibiotics: Vancomycin 1.5gm Q12H, Rocephin 2gm daily (when clear for discharge, can D/C with IV Daptomycin) -Weekly Vanco trough, no need for daily labs at this time -Wound culture 05/01 shows light growth of coag neg staph; repeat wound culture showing no growth -Lower extremity US: normal ELPIDIO/PVR -Pain control: Percocet 5 mg q6h PRN, Naproxen 550mg PO BID -Colace 100mg PO TID and Miralax 17gm daily for constipation -ID on consult, help appreciated -Podiatry on consult, help appreciated -Physical Therapy: recommends home -PICC line inserted in right arm for usp IV antibiotics use Tachycardia (resolved) -Currently asymptomatic -Echocardiogram showed mild concentric left ventricular hypertrophy, EF 45%, trace MR and TR Face rash -Clotrimazole to be applied daily -Hydrocortisone cream Hx of BPH: -Continue flomax Hx of Mood disorder, schizoaffective disorder -Continue Seroquel and Fluoxetine -Continue Depakote and Cogentin -Psych on consult, help appreciated Hx of Neuropathy: -Continue with Neurontin 600mg QID Insomnia -Ambien PRN History of substance abuse -UTOX on admission negative -Cessation advised DVT/GI prophylaxis: -Heparin 5000 Q12 [facility] -Protonix 40mg PO daily DISPO: Patient will follow up with PMD, Dr Ruiz upon discharge. Discussed case with Podiatry, surgery unlikely at this time. Patient requires usp IV antibiotics. Case management following, awaiting to hear back from [facility]. Plan discussed with Dr Kaylie Mitchell DO PGY-1 <Aravind Lott - Last Filed: 05/08/18 14:06> Objective - Vital Signs/Intake and Output Vital Signs (last 24 hours): Temp Pulse Resp BP Pulse Ox 98.0 F 90 20 139/98 H 97 05/08/18 06:00 05/08/18 06:00 05/08/18 06:00 05/08/18 06:00 05/08/18 06:00 Intake and Output: 05/08/18 05/08/18 06:59 18:59 Intake Total 480 Balance 480 - Medications Medications: Current Medications Acetaminophen (Tylenol 325mg Tab) 650 mg PO Q6H PRN PRN Reason: Pain, Mild (1-3) Benztropine Mesylate (Cogentin) 1 mg PO [facility] Last Admin: 05/08/18 09:08 Dose: 1 mg Divalproex Sodium (Depakote Dr(*Bid*)) 500 mg PO [facility] Last Admin: 05/08/18 09:07 Dose: 500 mg Docusate Sodium (Colace) 100 mg PO TID [facility] Last Admin: 05/08/18 12:59 Dose: 100 mg Fluoxetine HCl (Prozac) 40 mg PO DAILY [facility] Last Admin: 05/08/18 09:07 Dose: 40 mg Gabapentin (Neurontin) 600 mg PO QID [facility] PRN Reason: Protocol Last Admin: 05/08/18 12:59 Dose: 600 mg Heparin Sodium (Porcine) (Heparin) 5,000 units SC Q12 [facility] PRN Reason: Protocol Last Admin: 05/08/18 09:08 Dose: 5,000 units Hydrocortisone (Cortizone 1% Cream) 0 gm TOP Q12 [facility] Last Admin: 05/08/18 09:10 Dose: 1 applic Ceftriaxone Sodium (Rocephin 2 Gm Ivpb) 2 gm in 100 mls @ 100 mls/hr IVPB DAILY [facility] PRN Reason: Protocol Stop: 05/29/18 14:57 Last Admin: 05/08/18 09:09 Dose: 100 mls/hr Vancomycin HCl 1.5 gm/ Sodium (Chloride) 500 mls @ 167 mls/hr IVPB Q12H [facility] PRN Reason: Protocol Last Admin: 05/08/18 10:49 Dose: 167 mls/hr Mupirocin (Bactroban Ointment) 10 gm TOP DAILY [facility] Last Admin: 05/08/18 09:10 Dose: 1 gm Naproxen (Anaprox Ds) 550 mg PO BID [facility] Last Admin: 05/08/18 09:08 Dose: 550 mg Oxycodone/Acetaminophen (Percocet 5/325 Mg Tab) 1 tab PO Q6H PRN PRN Reason: Pain, moderate (4-7) Stop: 05/10/18 11:21 Last Admin: 05/08/18 06:22 Dose: 1 tab Pantoprazole Sodium (Protonix Ec Tab) 40 mg PO 0600 [facility] Last Admin: 05/08/18 06:21 Dose: 40 mg Polyethylene Glycol (Miralax) 17 gm PO DAILY [facility] Last Admin: 05/08/18 09:08 Dose: 17 gm Quetiapine Fumarate 600 mg/ (Quetiapine Fumarate 100 mg) 700 mg PO 1700 [facility] Last Admin: 05/07/18 17:56 Dose: 700 mg Tamsulosin HCl (Flomax) 0.4 mg PO DAILY [facility] Last Admin: 05/08/18 09:07 Dose: 0.4 mg - Labs Labs: 05/07/18 06:20 05/07/18 06:20 APTT 30.5 Seconds (25.1-36.5) 04/28/18 07:00 Attending/Attestation - Attestation I have personally seen and examined this patient.: Yes I have fully participated in the care of the patient.: Yes I have reviewed all pertinent clinical information, including history, physical exam and plan: Yes Notes (Text): 05/08/18 14:05 Attending note; Patient seen and examined with resident. Patient is a 47 year old male with past medical history of bipolar, schizoaffective disorder, polysubstance abuse, and right leg compartment syndrome s/p fasciotomy presented with right leg cellulitis. MRI was suggestive of osteomyelitis. Right lower extremity cellulitis is resolved. No redness. Continue dressing per podiatry. Currently on IV vancomycin and Rocephin. Needs to complete 4-6 weeks of antibiotics. Follow-up vancomycin level. s/p picc line placement. Case discussed with social services technician for discharge planning. Pending insurance authorization. Upon discharge the patient will follow-up with PMD .
[2018-05-08] MEDS: Divalproex 500 mg DR(BID formulation) PO SCH (09:07)
[2018-05-08] MEDS: POLYETHYLENE GLYCOL 3350 17 GM/Dose PACKET PO SCH (09:08)
[2018-05-08] MEDS: Naproxen 550 mg Tab PO SCH ×2 (09:08→17:39)
[2018-05-08] MEDS: cefTRIAXone 2 GM IN NS 2 GM/100 ML BAG IVPB SCH (09:09)
[2018-05-08] MEDS: Hydrocortisone 1% Cream (30 GM) TOP SCH (09:10)
[2018-05-08] MEDS: Mupirocin 2% Ointment 15 GM TUBE TOP SCH (09:10)
--- NOTE | 2018-05-08 10:08 | CP.PCM.PN ---
<DonaldLilakyungrick - Last Filed: 05/08/18 10:05> Subjective - Date & Time of Evaluation Date of Evaluation: 05/08/18 Time of Evaluation: 10:05 - Subjective Subjective: Podiatry progress note for Dr. Schuler/Dr. Hill 47 y/o male patient was seen and evaluated for right fifth digit ulcer. Patient is seen resting comfortably in bed. Patient is AAOx3. Patient denies any pain at this time. Patient denies any overnight acute events. Patient denies N/V/F/C/ SOB. Patient has no other pedal complains at this time Objective - Vital Signs/Intake and Output Vital Signs (last 24 hours): Temp Pulse Resp BP Pulse Ox 98.0 F 90 20 139/98 H 97 05/08/18 06:00 05/08/18 06:00 05/08/18 06:00 05/08/18 06:00 05/08/18 06:00 Intake and Output: 05/08/18 05/08/18 06:59 18:59 Intake Total 480 Balance 480 - Medications Medications: Current Medications Acetaminophen (Tylenol 325mg Tab) 650 mg PO Q6H PRN PRN Reason: Pain, Mild (1-3) Benztropine Mesylate (Cogentin) 1 mg PO [facility] Last Admin: 05/08/18 09:08 Dose: 1 mg Divalproex Sodium (Depakote Dr(*Bid*)) 500 mg PO [facility] Last Admin: 05/08/18 09:07 Dose: 500 mg Docusate Sodium (Colace) 100 mg PO TID [facility] Last Admin: 05/08/18 09:08 Dose: 100 mg Fluoxetine HCl (Prozac) 40 mg PO DAILY [facility] Last Admin: 05/08/18 09:07 Dose: 40 mg Gabapentin (Neurontin) 600 mg PO QID [facility] PRN Reason: Protocol Last Admin: 05/08/18 09:07 Dose: 600 mg Heparin Sodium (Porcine) (Heparin) 5,000 units SC Q12 [facility] PRN Reason: Protocol Last Admin: 05/08/18 09:08 Dose: 5,000 units Hydrocortisone (Cortizone 1% Cream) 0 gm TOP Q12 [facility] Last Admin: 05/08/18 09:10 Dose: 1 applic Ceftriaxone Sodium (Rocephin 2 Gm Ivpb) 2 gm in 100 mls @ 100 mls/hr IVPB DAILY [facility] PRN Reason: Protocol Stop: 05/29/18 14:57 Last Admin: 05/08/18 09:09 Dose: 100 mls/hr Vancomycin HCl 1.5 gm/ Sodium (Chloride) 500 mls @ 167 mls/hr IVPB Q12H [facility] PRN Reason: Protocol Last Admin: 05/07/18 22:07 Dose: 167 mls/hr Mupirocin (Bactroban Ointment) 10 gm TOP DAILY [facility] Last Admin: 05/08/18 09:10 Dose: 1 gm Naproxen (Anaprox Ds) 550 mg PO BID [facility] Last Admin: 05/08/18 09:08 Dose: 550 mg Oxycodone/Acetaminophen (Percocet 5/325 Mg Tab) 1 tab PO Q6H PRN PRN Reason: Pain, moderate (4-7) Stop: 05/10/18 11:21 Last Admin: 05/08/18 06:22 Dose: 1 tab Pantoprazole Sodium (Protonix Ec Tab) 40 mg PO 0600 [facility] Last Admin: 05/08/18 06:21 Dose: 40 mg Polyethylene Glycol (Miralax) 17 gm PO DAILY [facility] Last Admin: 05/08/18 09:08 Dose: 17 gm Quetiapine Fumarate 600 mg/ (Quetiapine Fumarate 100 mg) 700 mg PO 1700 [facility] Last Admin: 05/07/18 17:56 Dose: 700 mg Tamsulosin HCl (Flomax) 0.4 mg PO DAILY [facility] Last Admin: 05/08/18 09:07 Dose: 0.4 mg - Labs Labs: 05/07/18 06:20 05/07/18 06:20 APTT 30.5 Seconds (25.1-36.5) 04/28/18 07:00 - Constitutional Appears: Well, Non-toxic, No Acute Distress - Extremities Exam Additional comments: Right foot focused lower extremity exam Derm: Superficial Ulcer with hyperkeratotic skin edges noted on the dorsal aspect of the right 5th digit, very minimal erythema on the dorsal aspect of the 5th digit which is localized to the area (decreased), no malodor, no active drainage, no purulence noted, no probe to bone Vascular: DP/PT pulses are palpable 2/4, CFT <3 secs x5, TG warm to cool proximal to distal, non pitting edema noted on the dorsum of the foot on the right Neuro: Protective sensation grossly intact Ortho:minimal pain on palpation noted to the right fifth digit - Neurological Exam Neurological Exam: Alert, Awake, Oriented x3 - Psychiatric Exam Psychiatric exam: Normal Affect, Normal Mood Assessment and Plan - Assessment and Plan (Free Text) Assessment: 47 year old male with right 5th digit ulcer and cellulitis Plan: Patient seen and evaluated with attending Dr. Schuler Labs, vitals and charts reviewed; Afebrile, WBC @ 8.9 as of yesterday Site cleaned using saline and dressing applied using bactroban, 4x4, tape MRI of the right foot - suspicious for OM, clinically less likely Cultures taken - Coag negative staph Continue IV abx as per ID - Ceftriaxone, Vancomycin Stable from podiatry standpoint Will continue to monitor patient while in-house; continue local wound care Upon discharge, follow up with attending Dr. Hill/Dr. Schuler at the wound care center <Jonathan Schuler - Last Filed: 05/08/18 11:30> Objective - Vital Signs/Intake and Output Vital Signs (last 24 hours): Temp Pulse Resp BP Pulse Ox 98.0 F 90 20 139/98 H 97 05/08/18 06:00 05/08/18 06:00 05/08/18 06:00 05/08/18 06:00 05/08/18 06:00 Intake and Output: 05/08/18 05/08/18 06:59 18:59 Intake Total 480 Balance 480 - Medications Medications: Current Medications Acetaminophen (Tylenol 325mg Tab) 650 mg PO Q6H PRN PRN Reason: Pain, Mild (1-3) Benztropine Mesylate (Cogentin) 1 mg PO [facility] Last Admin: 05/08/18 09:08 Dose: 1 mg Divalproex Sodium (Depakote Dr(*Bid*)) 500 mg PO [facility] Last Admin: 05/08/18 09:07 Dose: 500 mg Docusate Sodium (Colace) 100 mg PO TID [facility] Last Admin: 05/08/18 09:08 Dose: 100 mg Fluoxetine HCl (Prozac) 40 mg PO DAILY [facility] Last Admin: 05/08/18 09:07 Dose: 40 mg Gabapentin (Neurontin) 600 mg PO QID [facility] PRN Reason: Protocol Last Admin: 05/08/18 09:07 Dose: 600 mg Heparin Sodium (Porcine) (Heparin) 5,000 units SC Q12 [facility] PRN Reason: Protocol Last Admin: 05/08/18 09:08 Dose: 5,000 units Hydrocortisone (Cortizone 1% Cream) 0 gm TOP Q12 [facility] Last Admin: 05/08/18 09:10 Dose: 1 applic Ceftriaxone Sodium (Rocephin 2 Gm Ivpb) 2 gm in 100 mls @ 100 mls/hr IVPB DAILY [facility] PRN Reason: Protocol Stop: 05/29/18 14:57 Last Admin: 05/08/18 09:09 Dose: 100 mls/hr Vancomycin HCl 1.5 gm/ Sodium (Chloride) 500 mls @ 167 mls/hr IVPB Q12H [facility] PRN Reason: Protocol Last Admin: 05/08/18 10:49 Dose: 167 mls/hr Mupirocin (Bactroban Ointment) 10 gm TOP DAILY [facility] Last Admin: 05/08/18 09:10 Dose: 1 gm Naproxen (Anaprox Ds) 550 mg PO BID [facility] Last Admin: 05/08/18 09:08 Dose: 550 mg Oxycodone/Acetaminophen (Percocet 5/325 Mg Tab) 1 tab PO Q6H PRN PRN Reason: Pain, moderate (4-7) Stop: 05/10/18 11:21 Last Admin: 05/08/18 06:22 Dose: 1 tab Pantoprazole Sodium (Protonix Ec Tab) 40 mg PO 0600 [facility] Last Admin: 05/08/18 06:21 Dose: 40 mg Polyethylene Glycol (Miralax) 17 gm PO DAILY [facility] Last Admin: 05/08/18 09:08 Dose: 17 gm Quetiapine Fumarate 600 mg/ (Quetiapine Fumarate 100 mg) 700 mg PO 1700 [facility] Last Admin: 05/07/18 17:56 Dose: 700 mg Tamsulosin HCl (Flomax) 0.4 mg PO DAILY [facility] Last Admin: 05/08/18 09:07 Dose: 0.4 mg - Labs Labs: 05/07/18 06:20 05/07/18 06:20 APTT 30.5 Seconds (25.1-36.5) 04/28/18 07:00 Attending/Attestation - Attestation I have personally seen and examined this patient.: Yes I have fully participated in the care of the patient.: Yes I have reviewed all pertinent clinical information, including history, physical exam and plan: Yes
[2018-05-08] MEDS: Vancomycin 1.5 GM in Sodium Chloride 0.9% 500 ML IVPB SCH (10:49)
--- NOTE | 2018-05-08 14:27 | CP.PCM.DIS ---
<Laura Mitchell - Last Filed: 05/08/18 15:09> Provider - Provider Date of Admission: 04/27/18 19:11 Attending physician: Aravind Lott MD Primary care physician: Dimitry Ruiz MD Consults: Podiatry: Liz ID: Miriam Time Spent in preparation of Discharge (in minutes): 35 Hospital Course - Lab Results Lab Results: Micro Results 05/02/18 10:04 Toe Gram Stain - Final 05/02/18 10:04 Toe Wound Culture - Final No Growth 05/01/18 16:26 Toe Gram Stain - Final 05/01/18 16:26 Toe Wound Culture - Final Coagulase Neg Staphylococcus 04/28/18 13:00 Nose MRSA Culture (Admit) - Final MRSA NOT DETECTED Most Recent Lab Values WBC 8.9 10^3/ul (4.5-11.0) 05/07/18 06:20 RBC 4.19 10^6/uL (3.5-6.1) 05/07/18 06:20 Hgb 12.6 g/dL (14.0-18.0) L 05/07/18 06:20 Hct 37.5 % (42.0-52.0) L 05/07/18 06:20 MCV 89.5 fl (80.0-105.0) 05/07/18 06:20 MCH 30.1 pg (25.0-35.0) 05/07/18 06:20 MCHC 33.6 g/dl (31.0-37.0) 05/07/18 06:20 RDW 13.5 % (11.5-14.5) 05/07/18 06:20 Plt Count 138 10^3/uL (120.0-450.0) 05/07/18 06:20 MPV 12.1 fl (7.0-11.0) H 05/07/18 06:20 Gran % 61.0 % (50.0-68.0) 05/07/18 06:20 Lymph % (Auto) 28.8 % (22.0-35.0) 05/07/18 06:20 [place] % (Auto) 7.1 % (1.0-6.0) H 05/07/18 06:20 Eos % (Auto) 2.5 % (1.5-5.0) 05/07/18 06:20 Baso % (Auto) 0.6 % (0.0-3.0) 05/07/18 06:20 Gran # 5.41 (1.4-6.5) 05/07/18 06:20 Lymph # (Auto) 2.6 (1.2-3.4) 05/07/18 06:20 [place] # (Auto) 0.6 (0.1-0.6) 05/07/18 06:20 Eos # (Auto) 0.2 (0.0-0.7) 05/07/18 06:20 Baso # (Auto) 0.05 K/mm3 (0.0-2.0) 05/07/18 06:20 ESR 35 mm/hr (0.0-15.0) H 04/27/18 18:00 APTT 30.5 Seconds (25.1-36.5) 04/28/18 07:00 pO2 168 mm/Hg (30-55) H 04/27/18 16:30 VBG pH 7.47 (7.32-7.43) H 04/27/18 16:30 VBG pCO2 35.0 (40-60) L 04/27/18 16:30 VBG HCO3 25.5 mmol/l (21-28) 04/27/18 16:30 VBG Total CO2 26.6 mmol.L (22-28) 04/27/18 16:30 VBG O2 Sat (Calc) 100.0 % (40-65) H 04/27/18 16:30 VBG Base Excess 2.1 mmol/L (0.0-2.0) H 04/27/18 16:30 VBG Potassium 3.6 mmol/L (3.6-5.2) 04/27/18 16:30 Sodium 140.0 mmol/L (132-148) 04/27/18 16:30 Chloride 109.0 mmol/L (98-107) H 04/27/18 16:30 Glucose 141 mg/dl (75-110) H 04/27/18 16:30 Lactate 1.8 mmol/L (0.7-2.1) 04/27/18 16:30 FiO2 21.0 % 04/27/18 16:30 Sodium 142 mmol/L (132-148) 05/07/18 06:20 Potassium 4.0 mmol/L (3.6-5.0) 05/07/18 06:20 Chloride 103 mmol/L (98-107) 05/07/18 06:20 Carbon Dioxide 29 mmol/L (21-33) 05/07/18 06:20 Anion Gap 15 (10-20) 05/07/18 06:20 BUN 12 mg/dL (7-21) 05/07/18 06:20 Creatinine 0.7 mg/dl (0.8-1.5) L 05/07/18 06:20 Est GFR ( Amer) > 60 05/07/18 06:20 Est GFR (Non-Af Amer) > 60 05/07/18 06:20 Random Glucose 119 mg/dL (70-110) H 05/07/18 06:20 Calcium 8.6 mg/dL (8.4-10.5) 05/07/18 06:20 Phosphorus 2.4 mg/dL (2.5-4.5) L 04/27/18 16:30 Magnesium 1.9 mg/dL (1.7-2.2) 04/27/18 16:30 Total Bilirubin 0.2 mg/dL (0.2-1.3) 04/27/18 16:30 AST 23 U/L (17-59) 04/27/18 16:30 ALT 33 U/L (7-56) 04/27/18 16:30 Alkaline Phosphatase 86 U/L (38-126) 04/27/18 16:30 C-React Prot High Sens > 15.00 mg/L (1.00-3.00) H 04/27/18 18:00 Total Protein 6.8 g/dL (5.8-8.3) 04/27/18 16:30 Albumin 3.9 g/dL (3.0-4.8) 04/27/18 16:30 Globulin 2.9 gm/dL 04/27/18 16:30 Albumin/Globulin Ratio 1.3 (1.1-1.8) 04/27/18 16:30 Venous Blood Potassium 3.6 mmol/L (3.6-5.2) 04/27/18 16:30 Urine Color Yellow (YELLOW) 04/27/18 17:05 Urine Appearance Clear (CLEAR) 04/27/18 17:05 Urine pH 7.0 (4.7-8.0) 04/27/18 17:05 Ur Specific [place] <= 1.005 (1.005-1.035) 04/27/18 17:05 Urine Protein Negative mg/dL (<30 mg/dL) 04/27/18 17:05 Urine Glucose (UA) Negative mg/dL (NEGATIVE) 04/27/18 17:05 Urine Ketones Negative mg/dL (NEGATIVE) 04/27/18 17:05 Urine Blood Negative (NEGATIVE) 04/27/18 17:05 Urine Nitrate Negative (NEGATIVE) 04/27/18 17:05 Urine Bilirubin Negative (NEGATIVE) 04/27/18 17:05 Urine Urobilinogen 0.2 E.U./dL (<1 E.U./dL) 04/27/18 17:05 Ur Leukocyte Esterase Negative Jocelyn/uL (NEGATIVE) 04/27/18 17:05 Vancomycin Trough 9.4 ug/mL (5.0-10.0) 05/04/18 08:40 Urine Opiates Screen Negative (NEGATIVE) 04/27/18 17:05 Urine Methadone Screen Negative (NEGATIVE) 04/27/18 17:05 Ur Barbiturates Screen Negative (NEGATIVE) 04/27/18 17:05 Valproic Acid 50 ug/mL (50.0-100.0) 04/30/18 05:45 Ur Phencyclidine Scrn Negative (NEGATIVE) 04/27/18 17:05 Ur Amphetamines Screen Negative (NEGATIVE) 04/27/18 17:05 U Benzodiazepines Scrn Negative (NEGATIVE) 04/27/18 17:05 U Oth Cocaine Metabols Negative (NEGATIVE) 04/27/18 17:05 U Cannabinoids Screen Negative (NEGATIVE) 04/27/18 17:05 Alcohol, Quantitative < 10 mg/dL (0-10) 04/27/18 18:00 - Hospital Course Hospital Course: HPI: This is a 47 yo M with PMH bipolar disorder, schizoaffective disorder, polysubstance abuse, and hx right leg compartment syndrome s/p fasciotomy who presents with complaint of right 5th toe swelling and pain which began overnight. Was discharged against medical advice from Psych unit on 04/25/18. . Patient reports pain at site only. Denies any hx of injection drug use, states last used 2 weeks ago. Denies any hx of cellulitis in legs, denies any hx diabetes or immunocompromised conditions (i.e. HIV). Denies recent trauma to site. Denies systemic sx, including fevers, chills, nausea, generalized weakness/malaise, or fatigue. Of note, on exam in ED, site acutely swollen with erythema extending into distal 1/3rd of foot, 2 other discrete areas of erythema and warmth appreciated on other aspects of the leg, and patient tachycardic to 130's. All other ROS in 12-system review negative. Patient reports compliance with all home medications. Hospital Course: Patient was admitted for lower extremity cellulites. Right foot X-ray: soft tissue swelling without acute articular or osseous abnormality. Podiatry and ID were consulted. Right foot MRI: soft tissue swelling of dorsum and 5th digit, edema is identified within the fused mid and distal 5th phalanges suspicious of osteomyelitis, mild soft tissue swelling of the 1st and 2nd digits also suspicious of osteomyelitis (see full report). ESR and CRP were elevated. ELPIDIO/PVR were within normal limits. Patient was on IV Vancomycin and IV Rocephin. Wound cultures grew coagulase negative staph, light growth. Repeat wound cultures showed no growth. 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 During hospitalization patient was complaining of slurred speech after taking his psych medications. He did not have any focal neurological deficits. Psych was consulted and psych medications were adjusted. During stay patient was tachycardic, echo was performed and showed mild concentric left ventricular hypertrophy, EF 45%, trace MR and TR. Patient had a facial rash that he attributed to stress, Clotrimazole and Hydrocortisone cream were applied with improvement in rash. On day of discharge patient was doing well, pain is controlled. Ambulating and tolerating diet. Patient accepted to [facility]. Per ID, patient to continue IV Vancomycin and IV Rocephin for total 6 weeks. Treatment started on . Patient will need weekly Vanco trough, CBC, CMP, ESR, CRP. Patient to follow up with PMD Dr Ruiz upon discharge. All questions and concerns were addressed. Discharge Medications: IV Vancomycin 1.5gm Q12 hours x 31 days IV Rocephin 2gm daily x 31 days Percocet 5/325mg PO Q6H prn pain Colace 100mg PO TID Naproxen 550mg PO BID Hydrocortisone 1% cream prn Discharge Exam - Additional Findings Additional findings: - Constitutional Appears: Well, No Acute Distress - Head Exam Head Exam: ATRAUMATIC, NORMAL INSPECTION, NORMOCEPHALIC - Eye Exam Eye Exam: EOMI, Normal appearance - ENT Exam ENT Exam: Mucous Membranes Moist - Neck Exam Neck Exam: Full ROM - Respiratory Exam Respiratory Exam: Clear to Ausculation Bilateral, NORMAL BREATHING PATTERN. absent: Rales, Rhonchi, Wheezes - Cardiovascular Exam Cardiovascular Exam: REGULAR RHYTHM, +S1, +S2 - GI/Abdominal Exam GI & Abdominal Exam: Soft, Normal Bowel Sounds. absent: Guarding, Rigid, Tenderness - Extremities Exam Extremities Exam: Full ROM Additional comments: Right foot dressing intact - Back Exam Back Exam: NORMAL INSPECTION - Neurological Exam Neurological Exam: Alert, Awake, Normal Gait, Oriented x3 - Psychiatric Exam Psychiatric exam: Normal Affect, Normal Mood - Skin Skin Exam: Dry, Normal Color, Warm Discharge Plan - Discharge Medications Prescriptions: cefTRIAXone 1 gm [Rocephin 1 gram IVPB] 2 gm IVPB DAILY #31 bag - Follow Up Plan Condition: FAIR Disposition: TRANSF TO SNF Instructions: Cellulitis (Skin Infection), Adult (DC) Additional Instructions: 1. Patient is clear for discharge to [facility] 2. Patient to complete IV Vancomycin and Rocephin for total 6 weeks (started ) 3. Please draw vanco trough tomorrow 05/09/18; then monitor CBC, CMP, ESR, CRP, vanco trough weekly 4. Upon discharge, follow up with Dr. Hill at wound care center 5. Please follow up with PMD, Dr Ruiz within 1 week Referrals: Brenda Hill DPM [Staff Provider] - Dimitry Ruiz MD [Primary Care Provider] - <Aravind Lott - Last Filed: 05/09/18 15:30> Provider - Provider Date of Admission: 04/27/18 19:11 Attending physician: Aravind Lott MD Primary care physician: Dimitry Ruiz MD Hospital Course - Lab Results Lab Results: Micro Results 05/02/18 10:04 Toe Gram Stain - Final 05/02/18 10:04 Toe Wound Culture - Final No Growth 05/01/18 16:26 Toe Gram Stain - Final 05/01/18 16:26 Toe Wound Culture - Final Coagulase Neg Staphylococcus 04/28/18 13:00 Nose MRSA Culture (Admit) - Final MRSA NOT DETECTED Most Recent Lab Values WBC 8.9 10^3/ul (4.5-11.0) 05/07/18 06:20 RBC 4.19 10^6/uL (3.5-6.1) 05/07/18 06:20 Hgb 12.6 g/dL (14.0-18.0) L 05/07/18 06:20 Hct 37.5 % (42.0-52.0) L 05/07/18 06:20 MCV 89.5 fl (80.0-105.0) 05/07/18 06:20 MCH 30.1 pg (25.0-35.0) 05/07/18 06:20 MCHC 33.6 g/dl (31.0-37.0) 05/07/18 06:20 RDW 13.5 % (11.5-14.5) 05/07/18 06:20 Plt Count 138 10^3/uL (120.0-450.0) 05/07/18 06:20 MPV 12.1 fl (7.0-11.0) H 05/07/18 06:20 Gran % 61.0 % (50.0-68.0) 05/07/18 06:20 Lymph % (Auto) 28.8 % (22.0-35.0) 05/07/18 06:20 [place] % (Auto) 7.1 % (1.0-6.0) H 05/07/18 06:20 Eos % (Auto) 2.5 % (1.5-5.0) 05/07/18 06:20 Baso % (Auto) 0.6 % (0.0-3.0) 05/07/18 06:20 Gran # 5.41 (1.4-6.5) 05/07/18 06:20 Lymph # (Auto) 2.6 (1.2-3.4) 05/07/18 06:20 [place] # (Auto) 0.6 (0.1-0.6) 05/07/18 06:20 Eos # (Auto) 0.2 (0.0-0.7) 05/07/18 06:20 Baso # (Auto) 0.05 K/mm3 (0.0-2.0) 05/07/18 06:20 ESR 35 mm/hr (0.0-15.0) H 04/27/18 18:00 APTT 30.5 Seconds (25.1-36.5) 04/28/18 07:00 pO2 168 mm/Hg (30-55) H 04/27/18 16:30 VBG pH 7.47 (7.32-7.43) H 04/27/18 16:30 VBG pCO2 35.0 (40-60) L 04/27/18 16:30 VBG HCO3 25.5 mmol/l (21-28) 04/27/18 16:30 VBG Total CO2 26.6 mmol.L (22-28) 04/27/18 16:30 VBG O2 Sat (Calc) 100.0 % (40-65) H 04/27/18 16:30 VBG Base Excess 2.1 mmol/L (0.0-2.0) H 04/27/18 16:30 VBG Potassium 3.6 mmol/L (3.6-5.2) 04/27/18 16:30 Sodium 140.0 mmol/L (132-148) 04/27/18 16:30 Chloride 109.0 mmol/L (98-107) H 04/27/18 16:30 Glucose 141 mg/dl (75-110) H 04/27/18 16:30 Lactate 1.8 mmol/L (0.7-2.1) 04/27/18 16:30 FiO2 21.0 % 04/27/18 16:30 Sodium 142 mmol/L (132-148) 05/07/18 06:20 Potassium 4.0 mmol/L (3.6-5.0) 05/07/18 06:20 Chloride 103 mmol/L (98-107) 05/07/18 06:20 Carbon Dioxide 29 mmol/L (21-33) 05/07/18 06:20 Anion Gap 15 (10-20) 05/07/18 06:20 BUN 12 mg/dL (7-21) 05/07/18 06:20 Creatinine 0.7 mg/dl (0.8-1.5) L 05/07/18 06:20 Est GFR ( Amer) > 60 05/07/18 06:20 Est GFR (Non-Af Amer) > 60 05/07/18 06:20 Random Glucose 119 mg/dL (70-110) H 05/07/18 06:20 Calcium 8.6 mg/dL (8.4-10.5) 05/07/18 06:20 Phosphorus 2.4 mg/dL (2.5-4.5) L 04/27/18 16:30 Magnesium 1.9 mg/dL (1.7-2.2) 04/27/18 16:30 Total Bilirubin 0.2 mg/dL (0.2-1.3) 04/27/18 16:30 AST 23 U/L (17-59) 04/27/18 16:30 ALT 33 U/L (7-56) 04/27/18 16:30 Alkaline Phosphatase 86 U/L (38-126) 04/27/18 16:30 C-React Prot High Sens > 15.00 mg/L (1.00-3.00) H 04/27/18 18:00 Total Protein 6.8 g/dL (5.8-8.3) 04/27/18 16:30 Albumin 3.9 g/dL (3.0-4.8) 04/27/18 16:30 Globulin 2.9 gm/dL 04/27/18 16:30 Albumin/Globulin Ratio 1.3 (1.1-1.8) 04/27/18 16:30 Venous Blood Potassium 3.6 mmol/L (3.6-5.2) 04/27/18 16:30 Urine Color Yellow (YELLOW) 04/27/18 17:05 Urine Appearance Clear (CLEAR) 04/27/18 17:05 Urine pH 7.0 (4.7-8.0) 04/27/18 17:05 Ur Specific [place] <= 1.005 (1.005-1.035) 04/27/18 17:05 Urine Protein Negative mg/dL (<30 mg/dL) 04/27/18 17:05 Urine Glucose (UA) Negative mg/dL (NEGATIVE) 04/27/18 17:05 Urine Ketones Negative mg/dL (NEGATIVE) 04/27/18 17:05 Urine Blood Negative (NEGATIVE) 04/27/18 17:05 Urine Nitrate Negative (NEGATIVE) 04/27/18 17:05 Urine Bilirubin Negative (NEGATIVE) 04/27/18 17:05 Urine Urobilinogen 0.2 E.U./dL (<1 E.U./dL) 04/27/18 17:05 Ur Leukocyte Esterase Negative Jocelyn/uL (NEGATIVE) 04/27/18 17:05 Vancomycin Trough 9.4 ug/mL (5.0-10.0) 05/04/18 08:40 Urine Opiates Screen Negative (NEGATIVE) 04/27/18 17:05 Urine Methadone Screen Negative (NEGATIVE) 04/27/18 17:05 Ur Barbiturates Screen Negative (NEGATIVE) 04/27/18 17:05 Valproic Acid 50 ug/mL (50.0-100.0) 04/30/18 05:45 Ur Phencyclidine Scrn Negative (NEGATIVE) 04/27/18 17:05 Ur Amphetamines Screen Negative (NEGATIVE) 04/27/18 17:05 U Benzodiazepines Scrn Negative (NEGATIVE) 04/27/18 17:05 U Oth Cocaine Metabols Negative (NEGATIVE) 04/27/18 17:05 U Cannabinoids Screen Negative (NEGATIVE) 04/27/18 17:05 Alcohol, Quantitative < 10 mg/dL (0-10) 04/27/18 18:00 Attending/Attestation - Attestation I have personally seen and examined this patient.: Yes I have fully participated in the care of the patient.: Yes I have reviewed all pertinent clinical information, including history, physical exam and plan: Yes Notes (Text): 05/09/18 15:29 Attending note; Patient seen and examined with resident. Patient is a 47 year old male with past medical history of bipolar, schizoaffective disorder, polysubstance abuse, and right leg compartment syndrome s/p fasciotomy presented with right leg cellulitis. MRI was suggestive of osteomyelitis. Right lower extremity cellulitis is resolved. No redness. Continue dressing per podiatry. Currently on IV vancomycin and Rocephin. Needs to complete 4-6 weeks of antibiotics. Follow-up vancomycin level. s/p picc line placement. Transfer to rehabilitation today. Upon discharge the patient will follow-up with PMD . 05/09/18 15:30
[2018-05-08] MEDS ORDERED: QUEtiapine 50 mg XR Tab PO ONE (17:37)
[2018-05-08] MEDS: QUETIAPINE PO SCH (17:40)
== END 2018-05-08 19:00 | DRG 238 ==
LOC: ED 15:54 → ERH 19:11 → 2RNO 21:51 → 3RSO 04-29 23:26
PROVIDERS: ADMIT Internal Medicine; ATTEND Internal Medicine
PROC: 02HV33Z Insertion of Infusion Device into Superior Vena Cava, Percutaneous Approach (ICD-10-PCS; principal; 2018-05-03)
PROC: B548ZZA Ultrasonography of Superior Vena Cava, Guidance (ICD-10-PCS; 2018-05-03)
DX: M86.8X7 Other osteomyelitis, ankle and foot (principal); L03.115 Cellulitis of right lower limb; F25.0 Schizoaffective disorder, bipolar type; L97.519 Non-pressure chronic ulcer of other part of right foot with unspecified severity; R23.0 Cyanosis; F17.210 Nicotine dependence, cigarettes, uncomplicated; F41.9 Anxiety disorder, unspecified; G47.00 Insomnia, unspecified; I51.7 Cardiomegaly; K59.00 Constipation, unspecified; N40.0 Benign prostatic hyperplasia without lower urinary tract symptoms; Z91.041 Radiographic dye allergy status; R21 Rash and other nonspecific skin eruption

== ENCOUNTER 2018-06-16 11:04 | Emergency (ER) | payer MEDICAID ==
[2018-06-16 11:04] VITALS: BMI 30.7
[2018-06-16 11:19] VITALS: RESP 18
--- NOTE | 2018-06-16 11:37 | ED PDOC ---
Arrival/HPI - General Chief Complaint: Trauma Time Seen by Provider: 06/16/18 11:17 Historian: Patient - History of Present Illness Narrative History of Present Illness (Text): 06/16/18 11:18 A 47 year old male, whose past medical history includes bipolar disorder, schizoaffective disorder, polysubstance abuse, and hx right leg compartment syndrome s/p fasciotomy, presents to the emergency department complaining of shakiness. Patient reports he fell in the bathroom at home this morning and states he was shaky, believing he may have had a seizure. There were no witnesses. Patient was discharged from psychiatric unit 5 weeks ago for depression. States experiencing depression at this time. Patient denies any suicidal/homicidal ideation, or any other complaints at this time. Also, patient mentions he smokes 1 pack/daily and stopped EtOH/substance abuse couple months ago. No PMD Past Medical History - Provider Review Nursing Documentation Reviewed: Yes - Past History Past History: No Previous - Infectious Disease Hx of Infectious Diseases: None - Tetanus Immunization Tetanus Immunization: Unknown - Past Medical History Past Medical History: No Previous - Cardiac Hx Pacemaker: No - Pulmonary Hx Respiratory Disorders: No - Neurological Hx Neurological Disorder: No - HEENT Hx HEENT Disorder: No - Renal Hx Renal Disorder: No - Endocrine/Metabolic Hx Endocrine Disorders: No - Hematological/Oncological Hx Cancer: No - Integumentary Hx Dermatological Disorder: Yes (right leg swelling/ cellulitis) - Musculoskeletal/Rheumatological Hx Musculoskeletal Disorders: Yes Hx Falls: Yes Hx Fractures: Yes Other/Comment: Brace to right leg, Hx. fasciectomy. - Gastrointestinal Hx Gastrointestinal Disorders: No - Genitourinary/Gynecological Hx Genitourinary Disorders: No - Psychiatric Hx Psychophysiologic Disorder: Yes Hx Anxiety: Yes Hx Bipolar Disorder: Yes Hx Depression: Yes Hx Substance Use: Yes (extasis used 04/19/18) Other/Comment: alcohol user, substance abuse user (quit 2wks ago) - Past Surgical History Past Surgical History: Non-Contributing - Surgical History Hx Mastectomy: No - Anesthesia Hx Anesthesia: Yes Hx Anesthesia Reactions: No Hx Malignant Hyperthermia: No - Suicidal Assessment Feels Threatened In Home Enviroment: No Family/Social History - Physician Review Nursing Documentation Reviewed: Yes Family/Social History: No Known Family HX Smoking Status: Heavy Smoker > 10 Cigarettes Daily Hx Alcohol Use: Yes (occasionally) Hx Substance Use: Yes (extasis used 04/19/18) Substance used: HEROIN, COCAINE, OXY Hx Substance Use Treatment: No Allergies/Home Meds Allergies/Adverse Reactions: Allergies ct dye Allergy (Uncoded 04/15/18 10:22) ITCHING PER PATIENT Home Medications: Home Meds Medication Instructions Recorded Confirmed Hydroxyzine Pamoate [Vistaril] 50 mg PO PRN 06/16/18 06/16/18 QUEtiapine [Seroquel XR] 700 mg PO 1700 06/16/18 06/16/18 Risperidone [Risperidone Odt] 0.5 mg PO BID 06/16/18 06/16/18 Review of Systems - Physician Review All systems were reviewed & negative as marked: Yes - Review of Systems Constitutional: absent: Fevers, Night Sweats Respiratory: absent: SOB Cardiovascular: absent: Chest Pain, Palpitations Gastrointestinal: absent: Abdominal Pain, Diarrhea, Nausea, Vomiting Neurological: Seizure (possible seizure according to patinet), Other (shakiness) . absent: Headache, Dizziness Physical Exam Vital Signs Reviewed: Yes Vital Signs Temp Pulse Resp BP Pulse Ox 06/16/18 14:30 98.2 F 96 H 18 139/80 96 06/16/18 11:47 98.7 F 06/16/18 11:19 98.4 F 106 H 18 128/88 95 Temperature: Afebrile Blood Pressure: Normal Pulse: Regular Respiratory Rate: Normal Appearance: Positive for: Well-Appearing, Non-Toxic, Comfortable, Other ( patient is tremulous) Pain Distress: None Mental Status: Positive for: Alert and Oriented X 3 - Systems Exam Head: Present: Atraumatic, Normocephalic Pupils: Present: PERRL Extroacular Muscles: Present: EOMI Conjunctiva: Present: Normal Respiratory/Chest: Present: Clear to Auscultation, Good Air Exchange. No: Respiratory Distress, Accessory Muscle Use Cardiovascular: Present: Regular Rate and Rhythm, Normal S1, S2. No: Murmurs Abdomen: No: Tenderness, Distention, Peritoneal Signs Upper Extremity: Present: Normal Inspection. No: Cyanosis, Edema Lower Extremity: Present: Other (right lower leg severe atrophy.) Neurological: Present: GCS=15, CN II-XII Intact, Speech Normal, Other (tremulous ) Skin: Present: Warm, Dry, Normal Color. No: Rashes Psychiatric: Present: Alert, Oriented x 3, Normal Insight, Normal Concentration Medical Decision Making ED Course and Treatment: 06/16/18 11:22 Impression: 47 year old male with shakiness. Physical exam shows patient is tremulous; right lower leg has a severe atrophy. Plan: -- EKG -- Chest X-ray -- Head CT -- Labs -- Urinalysis -- Reassess and disposition Prior Visits: Notes and results from previous visits were reviewed. Patient was last seen in the emergency department on 04/27/2018 for right 5th toe swelling and pain. Patient was admitted. Progress Notes: 06/16/18 13:30 Sister arrived who witnessed the event. She describes the patient standing up over a laundry basket and shaking violently both his upper and lower extremities. He was awake and alert through the incident asking what is wrong with him. She is requesting x-rays of his atrophied right ankle. The family is here: mother, sister and aunt and they are requesting consultation with Dr. Odom. Patient was recently discharged from the psychiatric floor. He is requesting medication to help calm him down. Crisis has been called. 06/16/18 13:46 EKG shows normal sinus rhythm rate approximately [address] or T-wave changes 06/16/18 15:50 Patient is waiting for crisis evaluation. 06/16/18 17:31 Seen and evaluated by crisis who will discharge home. - Lab Interpretations Lab Results: 06/16/18 12:30 06/16/18 12:30 Lab Results 06/16/18 14:35: Ammonia 17 06/16/18 13:30: Urine Opiates Screen Negative, Urine Methadone Screen Negative, Ur Barbiturates Screen Negative, Ur Phencyclidine Scrn Negative, Ur Amphetamines Screen Negative, U Benzodiazepines Scrn Negative, U Oth Cocaine Metabols Negative, U Cannabinoids Screen Negative 06/16/18 13:30: Urine Color Yellow, Urine Appearance Clear, Urine pH 6.5, Ur Specific [place] <= 1.005, Urine Protein Negative, Urine Glucose (UA) Negative, Urine Ketones Negative, Urine Blood Negative, Urine Nitrate Negative, Urine Bilirubin Negative, Urine Urobilinogen 0.2, Ur Leukocyte Esterase Negative 06/16/18 12:30: Salicylates < 1 L, Acetaminophen < 10.0 L 06/16/18 12:30: TSH 3rd Generation 1.22, Alcohol, Quantitative < 10 06/16/18 12:30: Sodium 143, Potassium 4.7, Chloride 105, Carbon Dioxide 22, Anion Gap 20, BUN 14, Creatinine 0.8, Est GFR ( Amer) > 60, Est GFR (Non- Af Amer) > 60, Random Glucose 114 H, Calcium 9.5, Magnesium 2.0, Total Bilirubin 0.5, AST 36, ALT 46, Alkaline Phosphatase 105, Lactate Dehydrogenase 543, Total Creatine Kinase 154, Troponin I < 0.01, Total Protein 8.2, Albumin 4.7, Globulin 3.5, Albumin/Globulin Ratio 1.3 06/16/18 12:30: WBC 8.3, RBC 4.93, Hgb 14.6 D, Hct 42.1, MCV 85.4 D, MCH 29.6 , MCHC 34.7, RDW 12.4, Plt Count 192, MPV 10.1, Gran % 71.9 H, Lymph % (Auto) 19.8 L, [place] % (Auto) 6.4 H, Eos % (Auto) 1.7, Baso % (Auto) 0.2, Gran # 5.95, Lymph # (Auto) 1.6, [place] # (Auto) 0.5, Eos # (Auto) 0.1, Baso # (Auto) 0.02 - RAD Interpretation Radiology Orders: 06/16/18 11:22 HEAD W/O CONTRAST [CT] Stat 06/16/18 11:23 CHEST PORTABLE [RAD] Stat 06/16/18 13:29 ANKLE RIGHT 3 VIEWS ROUTINE [RAD] Stat Right ankle as read by the radiologist shows no fracture or dislocation. Chest one view as read by the radiologist shows no acute findings. CT scan of the head as read by the radiologist shows no acute findings. R D Engineer: Radiologist - Scribe Statement The provider has reviewed the documentation as recorded by the Genaro Dickens Provider Scribe Attestation: All medical record entries made by the Scribe were at my direction and personally dictated by me. I have reviewed the chart and agree that the record accurately reflects my personal performance of the history, physical exam, medical decision making, and the department course for this patient. I have also personally directed, reviewed, and agree with the discharge instructions and disposition. Disposition/Present on Arrival - Present on Arrival Any Indicators Present on Arrival: No History of DVT/PE: No History of Uncontrolled Diabetes: No Urinary Catheter: No History of Decub. Ulcer: No History Surgical Site Infection Following: None - Disposition Have Diagnosis and Disposition been Completed?: Yes Diagnosis: Mood disorder, Depression Disposition: HOME/ ROUTINE Disposition Time: 17:39 Patient Plan: Discharge Condition: GOOD Discharge Instructions (ExitCare): Depression Forms: [facility] (Romansh)
--- NOTE | 2018-06-16 12:21 | RAD ---
Date of service: 06/16/2018 HISTORY: seizure COMPARISON: 04/14/2018 FINDINGS: LUNGS: No active pulmonary disease. PLEURA: No significant pleural effusion identified, no pneumothorax apparent. CARDIOVASCULAR: Normal. OSSEOUS STRUCTURES: No significant abnormalities. VISUALIZED UPPER ABDOMEN: Normal. OTHER FINDINGS: None. IMPRESSION: No active disease.
[2018-06-16 12:58] LABS: BASO # 0.02 K/mm3 (0.0-2.0); BASO % 0.2 % (0.0-3.0); EOS # 0.1 (0.0-0.7); EOS % 1.7 % (1.5-5.0); GRAN # 5.95 (1.4-6.5); GRAN % 71.9 % (50.0-68.0); HEMOGLOBIN 14.6 g/dL (14.0-18.0); LYMPH # 1.6 (1.2-3.4); LYMPH % 19.8 % (22.0-35.0); MEAN CELL VOLUME 85.4 fl (80.0-105.0); MEAN CORPUSCULAR HEMOGLOBIN 29.6 pg (25.0-35.0); MEAN CORPUSCULAR HGB CONC 34.7 g/dl (31.0-37.0); MEAN PLATELET VOLUME 10.1 fl (7.0-11.0); MONO # 0.5 (0.1-0.6); MONO % 6.4 % (1.0-6.0); RBC 4.93 10^6/uL (3.5-6.1); RED CELL DISTRIBUTION WIDTH 12.4 % (11.5-14.5); WHITE BLOOD COUNT 8.3 10^3/ul (4.5-11.0)
--- NOTE | 2018-06-16 13:07 | CT ---
Date of service: 06/16/2018 PROCEDURE: CT HEAD WITHOUT CONTRAST. HISTORY: seizure COMPARISON: None available. TECHNIQUE: Axial computed tomography images were obtained through the head/brain without intravenous contrast. Radiation dose: Total exam DLP = 890 mGy-cm. This CT exam was performed using one or more of the following dose reduction techniques: Automated exposure control, adjustment of the mA and/or kV according to patient size, and/or use of iterative reconstruction technique. FINDINGS: HEMORRHAGE: No intracranial hemorrhage. BRAIN: No mass effect or edema. No atrophy or chronic microvascular ischemic changes. VENTRICLES: Unremarkable. No hydrocephalus. CALVARIUM: Unremarkable. PARANASAL SINUSES: Unremarkable as visualized. No significant inflammatory changes. MASTOID AIR CELLS: Unremarkable as visualized. No inflammatory changes. OTHER FINDINGS: None. IMPRESSION: No acute intracranial findings
[2018-06-16 13:11] LABS: ALB/GLOB RATIO 1.3 (1.1-1.8); ALBUMIN 4.7 g/dL (3.0-4.8); ALT/SGPT 46 U/L (7-56); AST/SGOT 36 U/L (17-59); BLOOD UREA NITROGEN 14 mg/dL (7-21); CALCIUM 9.5 mg/dL (8.4-10.5); GFR AFRICAN-AMERICAN > 60; GFR NON-AFRICAN AMERICAN > 60
[2018-06-16 13:12] LABS: ACETAMINOPHEN < 10.0 ug/ml (10.0-20.0); SALICYLATE < 1 mg/dL (2.0-20.0)
[2018-06-16 13:23] LABS: TROPONIN I < 0.01 ng/mL
[2018-06-16 13:39] LABS: PH,URINE 6.5 (4.7-8.0); URINE BILIRUBIN NEGATIVE (NEGATIVE); URINE BLOOD NEGATIVE (NEGATIVE); URINE GLUCOSE (UA) NEGATIVE (NEGATIVE); URINE LEUKOCYTE ESTERASE NEGATIVE Leu/uL (NEGATIVE); URINE PROTEIN NEGATIVE mg/dL (<30 mg/dL); URINE UROBILINOGEN 0.2 E.U./dL (<1 E.U./dL)
[2018-06-16 13:40] LABS: URINE APPEARANCE CLEAR (CLEAR); URINE COLOR YELLOW (YELLOW)
[2018-06-16 14:00] LABS: BENZODIAZEPINES, UR NEGATIVE (NEGATIVE)
[2018-06-16 14:09] LABS: BARBITURATES, UR NEGATIVE (NEGATIVE); PHENCYCLIDINE, UR NEGATIVE (NEGATIVE)
[2018-06-16 14:18] LABS: OPIATES, UR NEGATIVE (NEGATIVE)
--- NOTE | 2018-06-16 14:23 | RAD ---
Date of service: 06/16/2018 PROCEDURE: Right Ankle Radiographs. HISTORY: trauma COMPARISON: None FINDINGS: BONES: Normal. No fracture. JOINTS: Normal. No osteoarthritis. Ankle mortise maintained. Talar dome intact SOFT TISSUES: Normal. OTHER FINDINGS: None. IMPRESSION: Normal right ankle radiographs.
[2018-06-16 17:52] VITALS: O2SAT 98
[2018-06-16 18:01] VITALS: BP 123/79; PULSE 77; TEMP 98.6
--- NOTE | 2018-06-17 06:47 | CARD ---
APPROVED REPORT Date of service: 06/16/2018 EKG Measurement Heart [id number] <Conclusion> Poor data quality, interpretation may be adversely affected Sinus tachycardia Otherwise normal ECG
== END 2018-06-16 17:55 | disposition home or self-care (01) ==
LOC: ED 11:04
DX: F32.9 Major depressive disorder, single episode, unspecified (principal); F39 Unspecified mood [affective] disorder; F25.9 Schizoaffective disorder, unspecified; F17.210 Nicotine dependence, cigarettes, uncomplicated

== ENCOUNTER 2018-06-22 22:13 | Observation (INO) | payer MEDICAID ==
[2018-06-22 22:14] VITALS: BMI 30.7
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
[2018-06-22 23:45] LABS: HEMOGLOBIN 14.9 g/dL (14.0-18.0); MEAN CELL VOLUME 83.5 fl (80.0-105.0); MEAN CORPUSCULAR HEMOGLOBIN 29.3 pg (25.0-35.0); MEAN CORPUSCULAR HGB CONC 35.1 g/dl (31.0-37.0); MEAN PLATELET VOLUME 9.8 fl (7.0-11.0); RBC 5.08 10^6/uL (3.5-6.1); RED CELL DISTRIBUTION WIDTH 12.1 % (11.5-14.5); WHITE BLOOD COUNT 13.9 10^3/ul (4.5-11.0)
[2018-06-23] LABS: ACETAMINOPHEN < 10.0 ug/ml (10.0-20.0); SALICYLATE < 1 mg/dL (2.0-20.0)
[2018-06-23 00:07] LABS: ALB/GLOB RATIO 1.4 (1.1-1.8); ALBUMIN 4.6 g/dL (3.0-4.8); ALT/SGPT 37 U/L (7-56); AST/SGOT 40 U/L (17-59); BLOOD UREA NITROGEN 15 mg/dL (7-21); CALCIUM 9.7 mg/dL (8.4-10.5); GFR AFRICAN-AMERICAN > 60; GFR NON-AFRICAN AMERICAN > 60
[2018-06-23 00:10] LABS: TROPONIN I < 0.01 ng/mL
[2018-06-23 01:41] LABS: VENOUS BLOOD GAS BASE EXCESS 3.3 mmol/L (0.0-2.0); VENOUS BLOOD GAS PO2 207 mm/Hg (30-55); VENOUS BLOOD PH 7.44 (7.32-7.43)
[2018-06-23 02:00] LABS: BARBITURATES, UR NEGATIVE (NEGATIVE); BENZODIAZEPINES, UR NEGATIVE (NEGATIVE)
[2018-06-23 02:06] LABS: OPIATES, UR NEGATIVE (NEGATIVE); PHENCYCLIDINE, UR NEGATIVE (NEGATIVE)
[2018-06-23 06:02] LABS: URINE BILIRUBIN NEGATIVE (NEGATIVE); URINE BLOOD NEGATIVE (NEGATIVE); URINE GLUCOSE (UA) NEGATIVE (NEGATIVE); URINE LEUKOCYTE ESTERASE NEGATIVE Leu/uL (NEGATIVE); URINE PROTEIN TRACE mg/dL (<30 mg/dL); URINE UROBILINOGEN 0.2 E.U./dL (<1 E.U./dL)
[2018-06-23 06:07] LABS: URINE APPEARANCE CLEAR (CLEAR); URINE COLOR YELLOW (YELLOW)
[2018-06-23 06:35] LABS: URINE EPITHELIAL CELLS 0 - 2 /hpf (0-5); URINE RBC 0 - 2 /hpf (0-2); URINE WBC 0 - 2 /hpf (0-6)
--- NOTE | 2018-06-23 07:10 | CP.PCM.HP ---
History of Present Illness - History of Present Illness History of Present Illness: Serge Bowman D.O. PGY-1, HISTORY & PHYSICAL NOTE FOR HOSPITALIST TEAM CC: Altered mental status, shaking 47M with pmhx of bipolar disorder, schizoaffective disorder, polysubstance abuse , multiple psychiatric admissions, R LE compartment syndrome s/p fasciotomy, osteomyelitis presented to ED after being bib EMS for altered mental status and confusion. Pt recently admitted for osteomyelitis of RLE on 04/27/18 and treated with IV abx. 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 During that hospitalization , pt complained of slurred speech after taking his psych meds, at which time psychiatry had adjusted his medications. Pt was discharged to [facility] to continue IV abx for a total of 6 weeks. While at rehab facility, pt was followed by psychiatry to adjust psychiatric medications. Medication changes included seroquel dose decrease and initiation of cogentin, depakote and prozac as per Dr. Theodore's note. As per sister present at bedside providing most of history, the psychiatric medications were increased while at the rehab facility. She attributes these changes in dosages to a change in pt's mental status, which include shaking, confusion and disorientation. She also states that pt had been inappropriately continuing previous medications given to him by PMD and previous psychiatric admissions which he was no longer supposed to be taking. Sister states that he had been taking large amounts of hydroxyzine that he was no longer prescribed and had been taking his grandmothers medications. Upon interview, pt was labile and tangential with his thought processes and still complained of mild tremors. He also endorsed dysuria and polyuria. He was AxOx 3 and conversant. He denies fevers, chills, nausea, vomiting, headache, dizziness, chest pain, shortness of breath, constipation, diarrhea. PMD: Dr. Ruiz Surgical history: denies Allergies: Contrast dye Family history: cancer on mother's side and mental disease on father's side Social history: smokes 1/2 ppd for >20 years, denies alcohol or drug consumption Present on Admission - Present on Admission Any Indicators Present on Admission: No Review of Systems - Review of Systems All systems: reviewed and no additional remarkable complaints except (as per HPI ) Past Patient History - Infectious Disease Hx of Infectious Diseases: None - Tetanus Immunizations Tetanus Immunization: Unknown - Past Medical History & Family History Past Medical History?: Yes - Past Social History Smoking Status: Heavy Smoker > 10 Cigarettes Daily - CARDIAC Hx Pacemaker: No - PULMONARY Hx Respiratory Disorders: No - NEUROLOGICAL Hx Neurological Disorder: No - HEENT Hx HEENT Problems: No - RENAL Hx Chronic Kidney Disease: No - ENDOCRINE/METABOLIC Hx Endocrine Disorders: No - HEMATOLOGICAL/ONCOLOGICAL Hx Cancer: No - INTEGUMENTARY Hx Dermatological Problems: Yes (right leg swelling/ cellulitis) - MUSCULOSKELETAL/RHEUMATOLOGICAL Hx Musculoskeletal Disorders: Yes Hx Falls: Yes Hx Fractures: Yes Other/Comment: Brace to right leg, Hx. fasciectomy. - GASTROINTESTINAL Hx Gastrointestinal Disorders: No - GENITOURINARY/GYNECOLOGICAL Hx Genitourinary Disorders: No - PSYCHIATRIC Hx Psychophysiologic Disorder: Yes Hx Anxiety: Yes Hx Bipolar Disorder: Yes Hx Depression: Yes Hx Substance Use: Yes (extasis used 04/19/18) Other/Comment: alcohol user, substance abuse user (quit 2wks ago) - SURGICAL HISTORY Hx Mastectomy: No - ANESTHESIA Hx Anesthesia: Yes Hx Anesthesia Reactions: No Hx Malignant Hyperthermia: No Meds Home Medications: Home Medication List Medication Instructions Recorded Confirmed Type Acetaminophen [Tylenol 325mg tab] 650 mg PO Q6H PRN tab 06/25/18 Rx Aspirin [Aspirin Chewable] 81 mg PO DAILY chew 06/25/18 Rx Haloperidol [Haldol] 5 mg PO Q6 PRN tab 06/25/18 Rx Ibuprofen [Motrin Tab] 400 mg PO Q6H PRN tab 06/25/18 Rx Mupirocin 2% Ointment [Bactroban 0 gm TOP BID tube 06/25/18 Rx Ointment] QUEtiapine [Seroquel XR] [address] 06/25/18 Rx Allergies/Adverse Reactions: Allergies Allergy/AdvReac Type Severity Reaction Status Date / Time Iodinated Contrast- Oral and Allergy ITCHING Verified 06/25/18 23:22 IV Dye Physical Exam - Constitutional Appears: Well, Non-toxic, No Acute Distress - Head Exam Head Exam: ATRAUMATIC, NORMAL INSPECTION - Eye Exam Eye Exam: EOMI, Normal appearance - ENT Exam ENT Exam: Mucous Membranes Moist, Normal Exam - Neck Exam Neck exam: Positive for: Normal Inspection. Negative for: Meningismus - Respiratory Exam Respiratory Exam: Clear to Auscultation Bilateral, NORMAL BREATHING PATTERN - Cardiovascular Exam Cardiovascular Exam: REGULAR RHYTHM, +S1, +S2 - GI/Abdominal Exam GI & Abdominal Exam: Hypoactive Bowel Sounds, Soft - Extremities Exam Extremities exam: Positive for: normal inspection. Negative for: calf tenderness Additional comments: RLE atrophic - Neurological Exam Neurological exam: Alert, Oriented x3 - Psychiatric Exam Psychiatric exam: Normal Affect, Normal Mood - Skin Skin Exam: Dry, Intact, Warm Results - Vital Signs Recent Vital Signs: Last Vital Signs Temp 98.8 F 06/23/18 06:45 Pulse 97 H 06/23/18 06:45 Resp 18 06/23/18 06:45 BP 137/81 06/23/18 06:45 Pulse Ox 97 06/23/18 06:45 - Labs Result Diagrams: 06/25/18 06:45 06/22/18 23:34 Assessment & Plan - Assessment and Plan (Free Text) Assessment: 47M with pmhx of bipolar disorder, schizoaffective disorder, polysubstance abuse , multiple psychiatric admissions, R LE compartment syndrome s/p fasciotomy admitted for AMS. Pt recently discharged 05/08/18 after being diagnosed and treated for osteomyelitis of RLE. Pt was discharged to [facility] where he was followed by psychiatry and medication changes were made (see Dr. Theodore note 05/04/18). Pt admitted today for altered mental status and leukocytosis. Plan: Altered Mental Status - Likely secondary to psychiatric medication noncompliance vs leukocytosis - Start empiric abx - F/u Psychiatry recs - Consult neurology: Dr. Fan - Aspiration precautions - High fall risk - Maintain HOB 30degrees - Seizure precautions Leukocytosis - Pt afebrile, vitals stable - Start rocephin/ceftriaxone for empiric coverage - ID Consult: Dr. Lopez - f/u foot xray - f/u urine culture - f/u procalcitonin, esr Hx of Mood disorder, schizoaffective disorder, bipolar disorder - Consult psychiatry: Dr. Theodore for medication reconciliation - Continue meds per psych recs History of substance abuse - UDS negative - Cessation advised DVT/GI prophylaxis: Lovenox/Protonix Case seen and discussed with attending physician, Dr. Chowdhury
[2018-06-23] MEDS ORDERED: Vancomycin 1gm in NS 250ml 1 GM/250 ML BAG IVPB SCH (10:00)
[2018-06-23] MEDS ORDERED: cefTRIAXone 1 gm 1 GM/100 ML BAG IVPB SCH (10:00)
[2018-06-23] MEDS: Enoxaparin 40 mg Syringe SC SCH (10:14)
--- NOTE | 2018-06-23 10:41 | CT ---
Date of service: 06/22/2018 PROCEDURE: CT HEAD WITHOUT CONTRAST. HISTORY: AMS COMPARISON: Comparison made with prior CT scan brain dated 06/16/2018 TECHNIQUE: Axial computed tomography images were obtained through the head/brain without intravenous contrast. Radiation dose: Total exam DLP = 1040.36mGy-cm. This CT exam was performed using one or more of the following dose reduction techniques: Automated exposure control, adjustment of the mA and/or kV according to patient size, and/or use of iterative reconstruction technique. FINDINGS: HEMORRHAGE: No acute parenchymal, subarachnoid or extra-axial hemorrhage. BRAIN: Suspect minimal chronic periventricular white matter ischemic changes. Mild generalized volume loss VENTRICLES: No obstructive hydrocephalus. CALVARIUM: Unremarkable. PARANASAL SINUSES: Unremarkable as visualized. No significant inflammatory changes. MASTOID AIR CELLS: Unremarkable as visualized. No inflammatory changes. OTHER FINDINGS: None. IMPRESSION: No acute intracranial hemorrhage. Suspect minimal chronic periventricular white matter ischemic changes. Mild generalized volume loss
--- NOTE | 2018-06-23 12:32 | RAD ---
Date of service: 06/22/2018 HISTORY: AMS. COMPARISON: Comparison chest dated 03/29 FINDINGS: LUNGS: Poor inspiration with low lung volumes, crowded bronchovascular markings and mild bibasilar atelectasis. PLEURA: No significant pleural effusion identified, no pneumothorax apparent. CARDIOVASCULAR: Normal. OSSEOUS STRUCTURES: No significant abnormalities. VISUALIZED UPPER ABDOMEN: Normal. OTHER FINDINGS: None. IMPRESSION: Poor inspiration with low lung volumes, crowded bronchovascular markings and mild bibasilar atelectasis.
--- NOTE | 2018-06-23 13:15 | RAD ---
Date of service: 06/23/2018 PROCEDURE: Three views of the right foot performed through sock artifact which obscures fine soft tissue and bone detail. HISTORY: Rule out osteomyelitis COMPARISON: None. FINDINGS: BONES: No evidence of acute displaced fracture nor dislocation. The osseous structures intact so far as can be seen. No definitive cortical destructive changes however given overlying sock related artifact, the possibility of early osteomyelitis not excluded. Consider followup MRI of the foot. JOINTS: Mild multi articular degenerative osteoarthritis SOFT TISSUES: Normal. OTHER FINDINGS: None. IMPRESSION: Limited study due to overlying clothing/sock related artifact which obscures fine soft tissue and bone detail. No evidence of acute displaced fracture nor dislocation. No obvious cortical destructive changes however the evaluation for early osteomyelitis limited. Recommend followup MRI if early osteomyelitis suspected clinically. Multi articular degenerative osteoarthritis.
--- NOTE | 2018-06-23 15:30 | CARD ---
APPROVED REPORT Date of service: 06/22/2018 EKG Measurement Heart [id number] <Conclusion> arm lead reversal, Sinus tachycardia Low voltage in the limb leads Right axis deviation Pulmonary disease pattern Abnormal ECG
--- NOTE | 2018-06-23 16:48 | CP.PCM.CON ---
History of Present Illness - History of Present Illness History of Present Illness: 47 year old male with PMH of Right foot cellulitis with right 5th toe osteomyelitis, schizoaffective disorder, bipolar disorder, anxiety and depression, history of right leg fasciotomy, polysubstance abuse was brought in to [facility] [place] because of confusion. He was apparently been taking his psych meds which were adjusted but he was still taking the same doses prior to the adjustment. He had completed his 4-6 weeks of IV antibiotics for right foot osteomyelitis in a rehab facility. The patient is currently awake and alert and oriented, complaining of mild swelling of his right foot, denies fever or chills, no nausea or vomiting, no chest pain, no SOB, no headache or dizziness, no abdominal pain, no diarrhea, no dysuria, no cough or colds. He denies animal contacts, denies soaking his feet in water. Infectious Diseases consult is requested to further evaluate and manage. Review of Systems - Review of Systems All systems: reviewed and no additional remarkable complaints except (as per HPI ) Past Patient History - Infectious Disease Hx of Infectious Diseases: None - Tetanus Immunizations Tetanus Immunization: Unknown - Past Medical History & Family History Past Medical History?: Yes - Past Social History Smoking Status: Heavy Smoker > 10 Cigarettes Daily - CARDIAC Hx Pacemaker: No - PULMONARY Hx Respiratory Disorders: No - NEUROLOGICAL Hx Neurological Disorder: No - HEENT Hx HEENT Problems: No - RENAL Hx Chronic Kidney Disease: No - ENDOCRINE/METABOLIC Hx Endocrine Disorders: No - HEMATOLOGICAL/ONCOLOGICAL Hx Cancer: No - INTEGUMENTARY Hx Dermatological Problems: Yes (right leg swelling/ cellulitis) - MUSCULOSKELETAL/RHEUMATOLOGICAL Hx Musculoskeletal Disorders: Yes Hx Falls: Yes Hx Fractures: Yes Other/Comment: Brace to right leg, Hx. fasciectomy. - GASTROINTESTINAL Hx Gastrointestinal Disorders: No - GENITOURINARY/GYNECOLOGICAL Hx Genitourinary Disorders: No - PSYCHIATRIC Hx Psychophysiologic Disorder: Yes Hx Anxiety: Yes Hx Bipolar Disorder: Yes Hx Depression: Yes Hx Substance Use: Yes (extasis used 04/19/18) Other/Comment: alcohol user, substance abuse user (quit 2wks ago) - SURGICAL HISTORY Hx Mastectomy: No - ANESTHESIA Hx Anesthesia: Yes Hx Anesthesia Reactions: No Hx Malignant Hyperthermia: No Meds Allergies/Adverse Reactions: Allergies Allergy/AdvReac Type Severity Reaction Status Date / Time Iodinated Contrast- Oral and Allergy ITCHING Verified 06/22/18 22:20 IV Dye - Medications Medications: Current Medications Enoxaparin Sodium (Lovenox) 40 mg SC DAILY [facility] PRN Reason: Protocol Pantoprazole Sodium (Protonix Ec Tab) 40 mg PO 0600 [facility] Physical Exam - Constitutional Appears: Chronically Ill - Head Exam Head Exam: NORMAL INSPECTION - ENT Exam ENT Exam: Mucous Membranes Moist - Neck Exam Neck exam: Negative for: Lymphadenopathy, Meningismus - Respiratory Exam Respiratory Exam: Decreased Breath Sounds - Cardiovascular Exam Cardiovascular Exam: +S1, +S2 - GI/Abdominal Exam GI & Abdominal Exam: Soft. absent: Tenderness - Extremities Exam Additional comments: right foot with mild swelling but no tenderness, no open wounds; atrophied calf muscle on the right Results - Vital Signs Recent Vital Signs: Last Vital Signs Temp 98.8 F 06/23/18 06:45 Pulse 97 H 06/23/18 06:45 Resp 18 06/23/18 06:45 BP 137/81 06/23/18 06:45 Pulse Ox 97 06/23/18 06:45 - Labs Result Diagrams: 06/22/18 23:34 06/22/18 23:34 Assessment & Plan - Assessment and Plan (Free Text) Plan: Assessment history of right foot cellulitis with right 1st, 2nd and 5th toe osteomyelitis, S/P treatment with IV antibiotics schizoaffective disorder bipolar disorder anxiety and depression history of right leg fasciotomy Plan will monitor off antibiotics, check foot xray, check ESR, CRP and will recommend Podiatry consult explained to patient that he needs follow up with Podiatry will monitor clinically
--- NOTE | 2018-06-23 17:44 | CP.PCM.CON ---
History of Present Illness - History of Present Illness History of Present Illness: Neurology Consultation Note: Mr. Pina is a 47-year-old man with a past medical history that is significant for bipolar disorder, schizoaffective disorder, polysubstance abuse , multiple psychiatric admissions, right leg compartment syndrome requiring fasciotomy with subsequent osteomyelitis requiring IV antibiotics through PICC line that was placed during previous admission of 04/27/18. There were some issues with his psychiatric medications during which he was apparently taking high doses of hydroxyzine, seroquel, and cogentin. He is also on Depakote and Gabapentin. Apparently, during previous hospitalizations, he was becoming confused and having episodes of shaking after the medications. Currently, the patient is conversant and does not have any complaints. Labs showed elevated WBC, but he has been afebrile. Vital signs are otherwise normal. CT scan of the head did not show any significant findings. Review of Systems - Review of Systems All systems: reviewed and no additional remarkable complaints except Past Patient History - Infectious Disease Hx of Infectious Diseases: None - Tetanus Immunizations Tetanus Immunization: Unknown - Past Medical History & Family History Past Medical History?: Yes - Past Social History Smoking Status: Heavy Smoker > 10 Cigarettes Daily - CARDIAC Hx Pacemaker: No - PULMONARY Hx Respiratory Disorders: No - NEUROLOGICAL Hx Neurological Disorder: No - HEENT Hx HEENT Problems: No - RENAL Hx Chronic Kidney Disease: No - ENDOCRINE/METABOLIC Hx Endocrine Disorders: No - HEMATOLOGICAL/ONCOLOGICAL Hx Cancer: No - INTEGUMENTARY Hx Dermatological Problems: Yes (right leg swelling/ cellulitis) - MUSCULOSKELETAL/RHEUMATOLOGICAL Hx Musculoskeletal Disorders: Yes Hx Falls: Yes Hx Fractures: Yes Other/Comment: Brace to right leg, Hx. fasciectomy. - GASTROINTESTINAL Hx Gastrointestinal Disorders: No - GENITOURINARY/GYNECOLOGICAL Hx Genitourinary Disorders: No - PSYCHIATRIC Hx Psychophysiologic Disorder: Yes Hx Anxiety: Yes Hx Bipolar Disorder: Yes Hx Depression: Yes Hx Substance Use: Yes (extasis used 04/19/18) Other/Comment: alcohol user, substance abuse user (quit 2wks ago) - SURGICAL HISTORY Hx Mastectomy: No - ANESTHESIA Hx Anesthesia: Yes Hx Anesthesia Reactions: No Hx Malignant Hyperthermia: No Meds Allergies/Adverse Reactions: Allergies Allergy/AdvReac Type Severity Reaction Status Date / Time Iodinated Contrast- Oral and Allergy ITCHING Verified 06/22/18 22:20 IV Dye - Medications Medications: Current Medications Acetaminophen (Tylenol 325mg Tab) 650 mg PO Q4H PRN PRN Reason: Pain, Mild (1-3) Benztropine Mesylate (Cogentin) 1 mg PO [facility] Divalproex Sodium (Depakote Dr(*Bid*)) 500 mg PO [facility] Enoxaparin Sodium (Lovenox) 40 mg SC DAILY [facility] PRN Reason: Protocol Last Admin: 06/23/18 10:14 Dose: 40 mg Fluoxetine HCl (Prozac) 40 mg PO DAILY [facility] Last Admin: 06/23/18 13:15 Dose: 40 mg Gabapentin (Neurontin) 600 mg PO QID [facility] PRN Reason: Protocol Last Admin: 06/23/18 17:25 Dose: 600 mg Hydroxyzine Pamoate (Vistaril) 25 mg PO BID PRN; Protocol PRN Reason: Anxiety Last Admin: 06/23/18 16:28 Dose: 25 mg Ibuprofen (Motrin Tab) 400 mg PO Q6H PRN PRN Reason: Pain, moderate (4-7) Pantoprazole Sodium (Protonix Ec Tab) 40 mg PO 0600 [facility] Risperidone (Risperdal Tab) 0.5 mg PO DAILY [facility] Last Admin: 06/23/18 13:15 Dose: 0.5 mg Physical Exam - Neurological Exam Neurological exam: Alert, CN II-XII Intact, Normal Gait, Oriented x3, Reflexes Normal Results - Vital Signs Recent Vital Signs: Last Vital Signs Temp 98.7 F 06/23/18 16:28 Pulse 88 06/23/18 16:28 Resp 20 06/23/18 16:28 BP 129/74 06/23/18 16:28 Pulse Ox 94 L 06/23/18 16:28 - Labs Result Diagrams: 06/22/18 23:34 06/22/18 23:34 Labs: Laboratory Results - last 24 hr 06/23/18 08:00 C-Reactive Protein 32.00 H Assessment & Plan (1) Altered mental status Assessment and Plan: This is essentially resolved and could be multifactorial: sepsis, osteomyelitis , toxic-metabolic encephalopathy, polypharmacy, etc. It does not appear to be an underlying neurological disorder. I recommend continuing Depakote and Neurontin to prevent seizures in the setting of the current antipsychotic medications that can lower the seizure threshold. Consider an EEG and an MRI if symptoms return and persist. Thank you. Status: Acute Priority: Medium
[2018-06-23] MEDS: Divalproex 500 mg DR(BID formulation) PO SCH (21:16)
[2018-06-24] MEDS: Pantoprazole 40 mg EC Tab PO SCH (05:24)
[2018-06-24 07:23] LABS: HEMOGLOBIN 14.9 g/dL (14.0-18.0); MEAN CELL VOLUME 84.9 fl (80.0-105.0); MEAN CORPUSCULAR HEMOGLOBIN 28.5 pg (25.0-35.0); MEAN CORPUSCULAR HGB CONC 33.6 g/dl (31.0-37.0); MEAN PLATELET VOLUME 10.1 fl (7.0-11.0); RBC 5.23 10^6/uL (3.5-6.1); RED CELL DISTRIBUTION WIDTH 12.1 % (11.5-14.5); WHITE BLOOD COUNT 8.1 10^3/ul (4.5-11.0)
--- NOTE | 2018-06-24 08:53 | CP.PCM.PN ---
<Abraham Cazares - Last Filed: 06/24/18 15:50> Subjective - Date & Time of Evaluation Date of Evaluation: 06/24/18 (n) Time of Evaluation: 08:53 - Subjective Subjective: Patient seen and examined by bedside. He laying in bed, appears anxious, irritable and not able to answer questions appropriately. Speech not understood. As per nurse, patient got agitated during the night and was given Giodon 10 mg to calm him down after Ativan failure. Patient denied chest pain, SOB, headache, palpitation, fever. Objective - Vital Signs/Intake and Output Vital Signs (last 24 hours): Temp Pulse Resp BP Pulse Ox 98.7 F 80 20 146/91 H 96 06/23/18 16:28 06/24/18 07:54 06/24/18 07:54 06/24/18 07:54 06/24/18 07:54 - Medications Medications: Current Medications Acetaminophen (Tylenol 325mg Tab) 650 mg PO Q4H PRN PRN Reason: Pain, Mild (1-3) Benztropine Mesylate (Cogentin) 1 mg PO [facility] Last Admin: 06/23/18 21:16 Dose: Not Given Divalproex Sodium (Depakote Dr(*Bid*)) 500 mg PO [facility] Last Admin: 06/23/18 21:16 Dose: Not Given Enoxaparin Sodium (Lovenox) 40 mg SC DAILY [facility] PRN Reason: Protocol Last Admin: 06/23/18 10:14 Dose: 40 mg Fluoxetine HCl (Prozac) 40 mg PO DAILY [facility] Last Admin: 06/23/18 13:15 Dose: 40 mg Gabapentin (Neurontin) 600 mg PO QID [facility] PRN Reason: Protocol Last Admin: 06/23/18 21:16 Dose: Not Given Hydroxyzine Pamoate (Vistaril) 25 mg PO BID PRN; Protocol PRN Reason: Anxiety Last Admin: 06/23/18 16:28 Dose: 25 mg Ibuprofen (Motrin Tab) 400 mg PO Q6H PRN PRN Reason: Pain, moderate (4-7) Lorazepam (Ativan) 1 mg IVP Q6H PRN; Protocol PRN Reason: Anxiety Last Admin: 06/24/18 08:06 Dose: 1 mg Pantoprazole Sodium (Protonix Ec Tab) 40 mg PO 0600 [facility] Last Admin: 06/24/18 05:24 Dose: Not Given Risperidone (Risperdal Tab) 0.5 mg PO DAILY [facility] Last Admin: 06/23/18 13:15 Dose: 0.5 mg - Labs Labs: 06/24/18 06:30 - Constitutional Appears: Agitated, Confused - Head Exam Head Exam: ATRAUMATIC, NORMAL INSPECTION, NORMOCEPHALIC - Eye Exam Eye Exam: EOMI, Normal appearance, PERRL Pupil Exam: PERRL - ENT Exam ENT Exam: Mucous Membranes Dry, Normal Oropharynx - Neck Exam Neck Exam: Full ROM, Normal Inspection. absent: Lymphadenopathy - Respiratory Exam Respiratory Exam: Clear to Ausculation Bilateral, NORMAL BREATHING PATTERN - Cardiovascular Exam Cardiovascular Exam: REGULAR RHYTHM, +S1, +S2. absent: Murmur - GI/Abdominal Exam GI & Abdominal Exam: Soft, Normal Bowel Sounds. absent: Tenderness - Extremities Exam Extremities Exam: absent: Joint Swelling, Pedal Edema, Tenderness Additional comments: Right lower leg scar, ppear clean and no signs of infection. Mild right foot erythema. - Back Exam Back Exam: NORMAL INSPECTION - Neurological Exam Neurological Exam: Oriented x3 - Psychiatric Exam Psychiatric exam: Agitated, Anxious - Skin Skin Exam: Dry, Warm Assessment and Plan - Assessment and Plan (Free Text) Assessment: 47 year old male with PMHx of bipolar disorder, schizoaffective disorder, polysubstance abuse, multiple psychiatric admissions, R LE compartment syndrome s/p fasciotomy, osteomyelitis. Patient admitted for AMS after changes done to his psych medication in [facility] where he resides. Plan: Altered mental status: -Likely due to polypharmacy -As per neurology consulat, Dr Fan: continuing Depakote and Neurontin to prevent seizures in the setting of the current antipsychotic medications that can lower the seizure threshold. -Consider EEG and MRI if symptoms return and persist -EKG (06/22): sinus tachy @102, right axis deviation. pulmonary diease pattern. QTc 460 -Haldol 5 mg for agitation Right lower extremity wound: -WBCs: 8.1 (06/24) was 13.9 (06/22) Rocephin discontinued - CRP 32 (06/23) -Procalcitonin 0.05 -Wound appears dry, appears non-infected -Right foot X-rays, no evidence of OM -As per Podiatry consult: no intervention needed, no surgical intervention at this time. Stable from podiatry standpoint -continue local wound care -follow up with attending Dr. Hill/Dr. Schuler at the wound care center after d/c Heart healthy diet Aspiration precaution Seizure precaution High fall risk protocol PT eval/therapy DVT ppx Lovenox 40 mg daily 1:1 <Bijal Bennett R - Last Filed: 06/25/18 07:55> Objective - Vital Signs/Intake and Output Vital Signs (last 24 hours): Temp Pulse Resp BP Pulse Ox 97.4 F L 98 H 20 140/86 98 06/24/18 16:48 06/24/18 16:48 06/24/18 16:48 06/24/18 16:48 06/24/18 16:48 Intake and Output: 06/25/18 06/25/18 06:59 18:59 Intake Total 480 Balance 480 - Medications Medications: Current Medications Acetaminophen (Tylenol 325mg Tab) 650 mg PO Q4H PRN PRN Reason: Pain, Mild (1-3) Last Admin: 06/25/18 07:03 Dose: 650 mg Benztropine Mesylate (Cogentin) 0.5 mg PO [facility] Last Admin: 06/24/18 22:40 Dose: 0.5 mg Divalproex Sodium (Depakote Dr(*Bid*)) 500 mg PO [facility] Last Admin: 06/24/18 22:41 Dose: 500 mg Enoxaparin Sodium (Lovenox) 40 mg SC DAILY [facility] PRN Reason: Protocol Last Admin: 06/24/18 09:07 Dose: 40 mg Gabapentin (Neurontin) 600 mg PO QID [facility] PRN Reason: Protocol Last Admin: 06/24/18 22:41 Dose: 600 mg Haloperidol (Haldol) 5 mg PO Q6 PRN; Protocol PRN Reason: Agitation Last Admin: 06/24/18 15:27 Dose: 5 mg Ibuprofen (Motrin Tab) 400 mg PO Q6H PRN PRN Reason: Pain, moderate (4-7) Lorazepam (Ativan) 1 mg IVP Q6H PRN; Protocol PRN Reason: Anxiety Last Admin: 06/25/18 07:04 Dose: 1 mg Pantoprazole Sodium (Protonix Ec Tab) 40 mg PO 0600 [facility] Last Admin: 06/25/18 06:00 Dose: Not Given Quetiapine Fumarate (Seroquel Xr) 300 mg PO QPM [facility] PRN Reason: Protocol Last Admin: 06/24/18 18:13 Dose: 300 mg - Labs Labs: 06/25/18 06:45 Attending/Attestation - Attestation I have personally seen and examined this patient.: Yes I have fully participated in the care of the patient.: Yes I have reviewed all pertinent clinical information, including history, physical exam and plan: Yes Notes (Text): Patient seen and examined by me at 10:55AM with resident 06/24/18. Case including HPI, physical exam, and assessment and plan discussed with resident. Agree with above with following additions/corrections. Patient is a 47-year-old male with past medical history significant for bipolar disorder, schizoaffective disorder, polysubstance abuse, multiple psychiatric admissions, right lower extremity compartments syndrome status post fasciotomy, and osteomyelitis that presented to the emergency room with altered mental status and shaking. At my time of exam patient is AAO 3. He states that he is feeling okay. States he has constant pain in his right lower extremity and relates that at this 8 out of 10. He states the pain is burning in sensation. He is able to ambulate. No associated fevers or chills. No abdominal pain, nausea, or vomiting. No chest pain or shortness of breath. No headaches or dizziness. No diarrhea or constipation. No dysuria. Physical exam: Gen: Awake and alert sitting up in chair in no acute distress HEENT: Normocephalic, atraumatic. Extraocular muscles intact, pupils equal reactive. No scleral icterus. Oropharynx is pink and moist. No pharyngeal erythema or exudate appreciated. Neck is supple. Cardiovascular: Normal rhythm. Normal S1, S2. No murmurs, rubs, or gallops appreciated Pulmonary: Normal respiratory effort. No rhonchi, rales or wheezing appreciated. Gastrointestinal: Soft, nontender, nondistended, positive bowel sounds all 4 quadrants, no guarding. Musculoskeletal: Normal range of motion all extremities, no calf tenderness. No CVA tenderness. Central nervous system: AAO x 3. Dermatologic: Skin warm and dry, right lower extremity with well-healed scar, right foot with dime-sized small healing wound on lateral foot Assessment and plan: Patient is a 47-year-old male with past medical history significant for bipolar disorder, schizoaffective disorder, polysubstance abuse , multiple psychiatric admissions, right lower extremity compartments syndrome status post fasciotomy, and osteomyelitis that presented to the emergency room with altered mental status and shaking. 1. Altered mental status. Intermittent. Likely secondary to polypharmacy with psychiatric meds as well as underlying psychiatric conditions. Neurology consulted, recommendations appreciated. Psychiatry consulted, recommendations appreciated. Per neurology continue Depakote and gabapentin. Continue Cogentin and Seroquel. Continue with Haldol and Ativan when necessary. Continue with one- to-one. Follow-up with psychiatry for admission to psychiatric floor. CT head per radiology showed no acute intracranial hemorrhage, suspect minimal chronic periventricular white matter ischemic changes. We'll place on baby aspirin for now 2. History of bipolar disorder, schizoaffective disorder. Psychiatrist following , recommendations appreciated. Continue Cogentin and Seroquel. Continue Haldol and Ativan as needed. Patient will need admission to psychiatric floor pending acceptance by psychiatric team. 3. Right foot wound. ID following, recommendations appreciated. Podiatry following, recommendations appreciated. Wound is not infected and there is no antibiotic intervention indicated. Right foot x-ray per radiologist showed limited study due to overlying clothing/sock related artifact which obscures fine soft tissue and bone detail, no evidence of acute displaced fracture nor dislocation, no obvious cortical destructive changes. Continue local wound care 4. Leukocytosis. Likely reactive. Resolved. Continue to monitor. 5. GI/DVT prophylaxis. Protonix and Lovenox Case was discussed in detail with the patient regarding current diagnosis and treatment plan.
[2018-06-24] MEDS: Divalproex 500 mg DR(BID formulation) PO SCH ×2 (09:06→22:41)
[2018-06-24] MEDS: Enoxaparin 40 mg Syringe SC SCH (09:07)
--- NOTE | 2018-06-24 11:34 | CARD ---
APPROVED REPORT Date of service: 06/24/2018 EKG Measurement Heart [id number] <Conclusion> Normal sinus rhythm Normal ECG
--- NOTE | 2018-06-24 11:42 | CP.PCM.CON ---
<Mary Bennett - Last Filed: 06/24/18 12:22> History of Present Illness - History of Present Illness History of Present Illness: Podiatry Consult note: Dr. Schuler 47 year old male, very well known to the service with PMHx of bipolar disorder, schizoaffective disorder, polysubstance abuse, multiple psychiatric admissions, R LE compartment syndrome s/p fasciotomy, osteomyelitis was evaluated for right foot wound. Patient was admitted to the hospital after being brought by EMS for altered mental status and confusion. Patient does not respond to the questions asked properly at the time of the visit. Patient was recently discharged from the hospital after completing manager mobile IV abx. Patient denies of any pain to his bilateral LE. Patient appears in no acute distress at the time of the visit. Denies of recent F/N/V/C/SOB/CP/headache. Denies of any pedal complains at this time. PMHx: bipolar disorder, schizoaffective disorder, polysubstance abuse, multiple psychiatric admissions, R LE compartment syndrome s/p fasciotomy, osteomyelitis PSHx: Denies Allergies: Iodinated contrast SHx: smokes 1/2 ppd for >20 years, denies alcohol or drug consumption Review of Systems - Constitutional Constitutional: As Per HPI Past Patient History - Infectious Disease Hx of Infectious Diseases: None - Tetanus Immunizations Tetanus Immunization: Unknown - Past Medical History & Family History Past Medical History?: Yes - Past Social History Smoking Status: Heavy Smoker > 10 Cigarettes Daily - CARDIAC Hx Pacemaker: No - PULMONARY Hx Respiratory Disorders: No - NEUROLOGICAL Hx Neurological Disorder: No - HEENT Hx HEENT Problems: No - RENAL Hx Chronic Kidney Disease: No - ENDOCRINE/METABOLIC Hx Endocrine Disorders: No - HEMATOLOGICAL/ONCOLOGICAL Hx Cancer: No - INTEGUMENTARY Hx Dermatological Problems: Yes (right leg swelling/ cellulitis) - MUSCULOSKELETAL/RHEUMATOLOGICAL Hx Musculoskeletal Disorders: Yes Hx Falls: Yes Hx Fractures: Yes Other/Comment: Brace to right leg, Hx. fasciectomy. - GASTROINTESTINAL Hx Gastrointestinal Disorders: No - GENITOURINARY/GYNECOLOGICAL Hx Genitourinary Disorders: No - PSYCHIATRIC Hx Psychophysiologic Disorder: Yes Hx Anxiety: Yes Hx Bipolar Disorder: Yes Hx Depression: Yes Hx Substance Use: Yes (extasis used 04/19/18) Other/Comment: alcohol user, substance abuse user (quit 2wks ago) - SURGICAL HISTORY Hx Mastectomy: No - ANESTHESIA Hx Anesthesia: Yes Hx Anesthesia Reactions: No Hx Malignant Hyperthermia: No Meds Allergies/Adverse Reactions: Allergies Allergy/AdvReac Type Severity Reaction Status Date / Time Iodinated Contrast- Oral and Allergy ITCHING Verified 06/22/18 22:20 IV Dye - Medications Medications: Current Medications Acetaminophen (Tylenol 325mg Tab) 650 mg PO Q4H PRN PRN Reason: Pain, Mild (1-3) Benztropine Mesylate (Cogentin) 1 mg PO [facility] Last Admin: 06/24/18 09:06 Dose: 1 mg Divalproex Sodium (Depakote Dr(*Bid*)) 500 mg PO [facility] Last Admin: 06/24/18 09:06 Dose: 500 mg Enoxaparin Sodium (Lovenox) 40 mg SC DAILY [facility] PRN Reason: Protocol Last Admin: 06/24/18 09:07 Dose: 40 mg Fluoxetine HCl (Prozac) 40 mg PO DAILY [facility] Last Admin: 06/24/18 09:08 Dose: 40 mg Gabapentin (Neurontin) 600 mg PO QID [facility] PRN Reason: Protocol Last Admin: 06/24/18 09:07 Dose: 600 mg Hydroxyzine Pamoate (Vistaril) 25 mg PO BID PRN; Protocol PRN Reason: Anxiety Last Admin: 06/23/18 16:28 Dose: 25 mg Ibuprofen (Motrin Tab) 400 mg PO Q6H PRN PRN Reason: Pain, moderate (4-7) Lorazepam (Ativan) 1 mg IVP Q6H PRN; Protocol PRN Reason: Anxiety Last Admin: 06/24/18 08:06 Dose: 1 mg Pantoprazole Sodium (Protonix Ec Tab) 40 mg PO 0600 [facility] Last Admin: 06/24/18 05:24 Dose: Not Given Risperidone (Risperdal Tab) 0.5 mg PO DAILY [facility] Last Admin: 06/24/18 09:08 Dose: 0.5 mg Physical Exam - Constitutional Appears: Well, Non-toxic, No Acute Distress - Extremities Exam Additional comments: Right foot focused lower extremity exam Vascular: DP/PT pulses are palpable 2/4, CFT <3 secs x5, Temp gradient warm to cool proximal to distal, no pitting or non-pitting edema noted Derm: Superficial Ulcer with thin skin edges noted on the dorsal aspect of the right 5th metatarsal head, wound base is mainly grannular with no fibrosis or active drainage, no tunneling or undermining, no malodor, no purulence noted, no probe to bone, no clinical suspicion of active infectious process at this time Neuro: Protective sensation grossly intact Ortho: no pain on palpation at the ulcer, no pain on ROM of the 5th digit - Neurological Exam Neurological exam: Alert, Oriented x3 - Psychiatric Exam Psychiatric exam: Normal Affect, Normal Mood Results - Vital Signs Recent Vital Signs: Last Vital Signs Temp 98.7 F 06/23/18 16:28 Pulse 80 06/24/18 07:54 Resp 20 06/24/18 07:54 BP 146/91 H 06/24/18 07:54 Pulse Ox 96 06/24/18 07:54 - Labs Result Diagrams: 06/24/18 06:30 06/22/18 23:34 Labs: Laboratory Results - last 24 hr 06/23/18 06/24/18 08:00 06:30 WBC 8.1 D RBC 5.23 Hgb 14.9 Hct 44.4 MCV 84.9 MCH 28.5 MCHC 33.6 RDW 12.1 Plt Count 150 MPV 10.1 C-Reactive Protein 32.00 H Assessment & Plan - Assessment and Plan (Free Text) Assessment: 47 year old male with right dorso-lateral foot wound; clinically non-infected ( Najera 1) Plan: Patient seen and evaluated with attending Dr. Schuler Labs, vitals and charts reviewed; Afebrile, absent leukocytosis Site cleaned using saline and dressing applied using optifoam Right foot X-rays - no evidence of OM Wound appears clinical non-infected at this time - no intervention needed at this time Podiatry plans no surgical intervention at this time Stable from podiatry standpoint Will continue to monitor patient while in-house; continue local wound care Upon discharge, follow up with attending Dr. Hill/Dr. Schuler at the wound care center - Date & Time Date: 06/24/18 Time: 12:31 <Jonathan Schuler - Last Filed: 06/24/18 12:39> Meds - Medications Medications: Current Medications Acetaminophen (Tylenol 325mg Tab) 650 mg PO Q4H PRN PRN Reason: Pain, Mild (1-3) Benztropine Mesylate (Cogentin) 1 mg PO [facility] Last Admin: 06/24/18 09:06 Dose: 1 mg Divalproex Sodium (Depakote Dr(*Bid*)) 500 mg PO [facility] Last Admin: 06/24/18 09:06 Dose: 500 mg Enoxaparin Sodium (Lovenox) 40 mg SC DAILY [facility] PRN Reason: Protocol Last Admin: 06/24/18 09:07 Dose: 40 mg Fluoxetine HCl (Prozac) 40 mg PO DAILY [facility] Last Admin: 06/24/18 09:08 Dose: 40 mg Gabapentin (Neurontin) 600 mg PO QID [facility] PRN Reason: Protocol Last Admin: 06/24/18 09:07 Dose: 600 mg Hydroxyzine Pamoate (Vistaril) 25 mg PO BID PRN; Protocol PRN Reason: Anxiety Last Admin: 06/23/18 16:28 Dose: 25 mg Ibuprofen (Motrin Tab) 400 mg PO Q6H PRN PRN Reason: Pain, moderate (4-7) Lorazepam (Ativan) 1 mg IVP Q6H PRN; Protocol PRN Reason: Anxiety Last Admin: 06/24/18 08:06 Dose: 1 mg Pantoprazole Sodium (Protonix Ec Tab) 40 mg PO 0600 [facility] Last Admin: 06/24/18 05:24 Dose: Not Given Risperidone (Risperdal Tab) 0.5 mg PO DAILY [facility] Last Admin: 06/24/18 09:08 Dose: 0.5 mg Results - Vital Signs Recent Vital Signs: Last Vital Signs Temp 98.7 F 06/23/18 16:28 Pulse 80 06/24/18 07:54 Resp 20 06/24/18 07:54 BP 146/91 H 06/24/18 07:54 Pulse Ox 96 06/24/18 07:54 - Labs Result Diagrams: 06/24/18 06:30 06/22/18 23:34 Labs: Laboratory Results - last 24 hr 06/24/18 06:30 WBC 8.1 D RBC 5.23 Hgb 14.9 Hct 44.4 MCV 84.9 MCH 28.5 MCHC 33.6 RDW 12.1 Plt Count 150 MPV 10.1 Attending/Attestation - Attestation I have personally seen and examined this patient.: Yes I have fully participated in the care of the patient.: Yes I have reviewed all pertinent clinical information: Yes
[2018-06-24] MEDS ORDERED: QUEtiapine 300 mg XR Tab PO SCH (18:00)
[2018-06-25] MEDS: Pantoprazole 40 mg EC Tab PO SCH (06:00)
[2018-06-25 07:31] LABS: MEAN CELL VOLUME 84.3 fl (80.0-105.0); MEAN CORPUSCULAR HEMOGLOBIN 28.6 pg (25.0-35.0); MEAN CORPUSCULAR HGB CONC 33.9 g/dl (31.0-37.0); MEAN PLATELET VOLUME 9.9 fl (7.0-11.0); RBC 4.9 10^6/uL (3.5-6.1); RED CELL DISTRIBUTION WIDTH 12.2 % (11.5-14.5); WHITE BLOOD COUNT 6.7 10^3/ul (4.5-11.0)
--- NOTE | 2018-06-25 08:12 | CON ---
Copied To: Jyotsna Theodore MD Attending MD: Jyotsna Theodore MD DATE: 06/24/2018 HISTORY OF PRESENT ILLNESS: The patient is a 47-year-old white male with long history of mental illness, likely bipolar disorder with psychotic features versus schizoaffective disorder, history of polysubstance abuse and dependence, which has been severe in the past, history of involuntary commitment to [facility] as well as noncompliant to medications, who was brought to the ER due to increased confusion and mental status changes. The patient was medically hospitalized due to elevated white count, which has since decreased; however, notably , he continues to be confused and unpredictable, illogical and impulsive. Psychiatry is following up with the patient to help with mental status and behavioral control. I am familiar with the patient from my prior consultation with him on 05/04/2018, which I checked over the consultation for Dr. Gillette after we were consulted for his slurred speech at that time. At that time, the patient's medications were tapered to Cogentin 1 mg a.m. and at bedtime, Depakote 500 mg a.m. and at bedtime, Prozac 40 mg, Seroquel XR 700 mg every p.m. and with thereafter, the patient was discharged to mental health rehab for approximately 6 weeks to continue IV antibiotics for the right foot osteomyelitis. Apparently, during the course of his rehab, he was seen by another psychiatrist, who had increased his medications again and apparently the patient became more confused and unpredictable and with scattered thought process and review of records indicate that sister reported that the patient had been taking a large amounts of hydroxyzine, which she was not supposed to be taking as well as continued the psych medications that was discontinued in the past. and it is possible that this the patient is not exactly at his baseline. I met him at bedside and he was confused. His thought process is . It is difficult for him to maintain focused. He is unpredictable and in high risk of . The patient does have a history of aggressive behavior in the past and requires medication management while he was being medically stabilized. Of note, all I have noted with the patient during my interview this morning and are grossly intact. He denies any issues with hallucinations. He is clearly poorly oriented and with some effort, he is able to indicate that it is 06/2018, that he is in [facility], though first possibly says it is March and possibly says it is 2008. The patient is a poor historian. He is not consistent with his responses and it is very difficult to maintain a meaningful conversation with him. He is actually in the past, so all of these factors have to be taken to consideration. His insight and judgement are poor. He requires one-to-one. Vital signs are reviewed as well as recent laboratory work, which shows an improvement in white blood cell count. Regarding his medications, the patient is on Cogentin 1 mg a.m. and at bedtime, Depakote 500 mg a.m. and at bedtime, Prozac 40 mg daily, 25 mg p.o. b.i.d. and 0.5 mg daily and Ativan 1 mg IV every 6 p.r.n. IMPRESSION: Schizoaffective disorder by history. Rule out substance abuse mood disorder, substance abuse psychiatry disorder, due to elevated mood, rule out schizoaffective myrtle as well as his multiple medical issues. RECOMMENDATIONS: At this time, the patient does require psychiatric medications for stabilization. We will continue with Depakote 500 mg p.o. b.i.d. We will also check his Depakote level since he does not when he was admitted. We will discontinue Prozac as the patient does appear to be a little bit elevated. Ativan p.r.n. will be continued. Risperdal will be discontinued in favor of Seroquel 100 mg a.m. and at bedtime for myrtle and disorganization and impulse control. Psychiatry will continue to follow up with the patient and the next visit will be on 06/25/2018. Jyotsna Theodore MD
[2018-06-25 08:31] VITALS: BP 112/74; PULSE 74; RESP 19; TEMP 98; O2SAT 95
[2018-06-25] MEDS: Divalproex 500 mg DR(BID formulation) PO SCH (09:46)
[2018-06-25] MEDS: Enoxaparin 40 mg Syringe SC SCH (09:46)
[2018-06-25] MEDS ORDERED: QUEtiapine 300 mg XR Tab PO SCH ×2 (13:52→14:15)
[2018-06-25] MEDS ORDERED: QUEtiapine 200 mg XR Tab PO SCH (14:00)
--- NOTE | 2018-06-25 14:05 | CP.PCM.PN ---
<Mary Bennett - Last Filed: 06/25/18 14:02> Subjective - Date & Time of Evaluation Date of Evaluation: 06/25/18 Time of Evaluation: 14:02 - Subjective Subjective: Podiatry Progress note: Dr. Schuler 47 year old male was seen and evaluated at bedside for right foot wound. Patient is alert and awake, appears in NAD. Patient is altered mental status. No acute events overnight. No other pedal complains at this time. Objective - Vital Signs/Intake and Output Vital Signs (last 24 hours): Temp Pulse Resp BP Pulse Ox 98 F 74 19 112/74 95 06/25/18 08:30 06/25/18 08:30 06/25/18 08:30 06/25/18 08:30 06/25/18 08:30 Intake and Output: 06/25/18 06/25/18 06:59 18:59 Intake Total 480 Balance 480 - Medications Medications: Current Medications Acetaminophen (Tylenol 325mg Tab) 650 mg PO Q6H PRN PRN Reason: Pain, Mild (1-3) Last Admin: 06/25/18 13:20 Dose: 650 mg Aspirin (Aspirin Chewable) 81 mg PO DAILY [facility] Last Admin: 06/25/18 09:46 Dose: 81 mg Benztropine Mesylate (Cogentin) 0.5 mg [facility] Last Admin: 06/25/18 09:46 Dose: 0.5 mg Divalproex Sodium (Depakote Dr(*Bid*)) 500 mg [facility] Last Admin: 06/25/18 09:46 Dose: 500 mg Enoxaparin Sodium (Lovenox) 40 mg SC DAILY [facility] PRN Reason: Protocol Last Admin: 06/25/18 09:46 Dose: 40 mg Gabapentin (Neurontin) 600 mg PO QID [facility] PRN Reason: Protocol Last Admin: 06/25/18 13:19 Dose: 600 mg Haloperidol (Haldol) 5 mg PO Q6 PRN; Protocol PRN Reason: Agitation Last Admin: 06/24/18 15:27 Dose: 5 mg Ibuprofen (Motrin Tab) 400 mg PO Q6H PRN PRN Reason: Pain, moderate (4-7) Lorazepam (Ativan) 1 mg IVP Q6H PRN; Protocol PRN Reason: Anxiety Last Admin: 06/25/18 13:20 Dose: 1 mg Pantoprazole Sodium (Protonix Ec Tab) 40 mg PO 0600 [facility] Last Admin: 06/25/18 06:00 Dose: Not Given Quetiapine Fumarate (Seroquel Xr) 500 mg PO QPM [facility] PRN Reason: Protocol - Labs Labs: 06/25/18 06:45 - Constitutional Appears: Well, Non-toxic, No Acute Distress - Extremities Exam Additional comments: Right foot focused lower extremity exam Vasc: DP/PT pulses are palpable 2/4, CFT <3 secs x5, Temp gradient warm to cool proximal to distal, no pitting or non-pitting edema noted Derm: Superficial Ulcer with thin skin edges noted on the dorsal aspect of the right 5th metatarsal head, wound base is mainly grannular with no fibrosis or active drainage, no tunneling or undermining, no malodor, no purulence noted, no probe to bone, no clinical suspicion of active infectious process at this time Neuro: Protective sensation grossly intact Ortho: no pain on palpation at the ulcer, no pain on ROM of the 5th digit - Neurological Exam Neurological Exam: Alert, Awake, Oriented x3 - Psychiatric Exam Psychiatric exam: Normal Affect, Normal Mood Assessment and Plan - Assessment and Plan (Free Text) Assessment: 47 year old male with right dorso-lateral foot wound; clinically non-infected ( Najera 1) Plan: Patient seen and evaluated Discussed with attending Dr. Schuler Labs, vitals and charts reviewed; Afebrile, absent leukocytosis Site cleaned using saline and dressing applied using 4x4 and tape Right foot X-rays - no evidence of OM Wound appears clinical non-infected at this time - no intervention needed at this time Podiatry plans no surgical intervention at this time Stable from podiatry standpoint Will continue to monitor patient while in-house; continue local wound care Upon discharge, follow up with attending Dr. Hill/Dr. Schuler at the wound care center <Jonathan Schuler - Last Filed: 06/25/18 14:36> Objective - Vital Signs/Intake and Output Vital Signs (last 24 hours): Temp Pulse Resp BP Pulse Ox 98 F 74 19 112/74 95 06/25/18 08:30 06/25/18 08:30 06/25/18 08:30 06/25/18 08:30 06/25/18 08:30 Intake and Output: 06/25/18 06/25/18 06:59 18:59 Intake Total 480 Balance 480 - Medications Medications: Current Medications Acetaminophen (Tylenol 325mg Tab) 650 mg PO Q6H PRN PRN Reason: Pain, Mild (1-3) Last Admin: 06/25/18 13:20 Dose: 650 mg Aspirin (Aspirin Chewable) 81 mg PO DAILY [facility] Last Admin: 06/25/18 09:46 Dose: 81 mg Benztropine Mesylate (Cogentin) 0.5 mg [facility] Last Admin: 06/25/18 09:46 Dose: 0.5 mg Divalproex Sodium (Depakote Dr(*Bid*)) 500 mg [facility] Last Admin: 06/25/18 09:46 Dose: 500 mg Enoxaparin Sodium (Lovenox) 40 mg SC DAILY [facility] PRN Reason: Protocol Last Admin: 06/25/18 09:46 Dose: 40 mg Gabapentin (Neurontin) 600 mg PO QID [facility] PRN Reason: Protocol Last Admin: 06/25/18 13:19 Dose: 600 mg Haloperidol (Haldol) 5 mg PO Q6 PRN; Protocol PRN Reason: Agitation Last Admin: 06/24/18 15:27 Dose: 5 mg Ibuprofen (Motrin Tab) 400 mg PO Q6H PRN PRN Reason: Pain, moderate (4-7) Lorazepam (Ativan) 1 mg IVP Q6H PRN; Protocol PRN Reason: Anxiety Last Admin: 06/25/18 13:20 Dose: 1 mg Mupirocin (Bactroban Ointment) 0 gm TOP BID [facility] Pantoprazole Sodium (Protonix Ec Tab) 40 mg PO 0600 [facility] Last Admin: 06/25/18 06:00 Dose: Not Given Quetiapine Fumarate (Seroquel Xr) 200 mg PO DAILY [facility] Quetiapine Fumarate (Seroquel Xr) 300 mg PO DAILY [facility] - Labs Labs: 06/25/18 06:45 Attending/Attestation - Attestation I have personally seen and examined this patient.: Yes I have fully participated in the care of the patient.: Yes I have reviewed all pertinent clinical information, including history, physical exam and plan: Yes
--- NOTE | 2018-06-25 14:51 | CP.PCM.PN ---
<SageAbraham - Last Filed: 06/25/18 16:20> Subjective - Date & Time of Evaluation Date of Evaluation: 06/25/18 Time of Evaluation: 20:00 - Subjective Subjective: PGY1 Medicine note for Dr. Bennett Patient seen and examined at bedside. Patient laying comfortably in bed, denied chest pain, shortness of breath, headache, suicidal/homicidal ideation. Per nurse, no acute events overnight; no agitation or irritability noted. Patient slept throughout the night. Objective - Vital Signs/Intake and Output Vital Signs (last 24 hours): Temp Pulse Resp BP Pulse Ox 98 F 74 19 112/74 95 06/25/18 08:30 06/25/18 08:30 06/25/18 08:30 06/25/18 08:30 06/25/18 08:30 - Medications Medications: Current Medications Acetaminophen (Tylenol 325mg Tab) 650 mg PO Q6H PRN PRN Reason: Pain, Mild (1-3) Last Admin: 06/25/18 13:20 Dose: 650 mg Aspirin (Aspirin Chewable) 81 mg PO DAILY [facility] Last Admin: 06/25/18 09:46 Dose: 81 mg Benztropine Mesylate (Cogentin) 0.5 mg PO [facility] Last Admin: 06/25/18 09:46 Dose: 0.5 mg Divalproex Sodium (Depakote Dr(*Bid*)) 500 mg PO [facility] Last Admin: 06/25/18 09:46 Dose: 500 mg Enoxaparin Sodium (Lovenox) 40 mg SC DAILY [facility] PRN Reason: Protocol Last Admin: 06/25/18 09:46 Dose: 40 mg Gabapentin (Neurontin) 600 mg PO QID [facility] PRN Reason: Protocol Last Admin: 06/25/18 13:19 Dose: 600 mg Haloperidol (Haldol) 5 mg PO Q6 PRN; Protocol PRN Reason: Agitation Last Admin: 06/24/18 15:27 Dose: 5 mg Ibuprofen (Motrin Tab) 400 mg PO Q6H PRN PRN Reason: Pain, moderate (4-7) Lorazepam (Ativan) 1 mg IVP Q6H PRN; Protocol PRN Reason: Anxiety Last Admin: 06/25/18 13:20 Dose: 1 mg Mupirocin (Bactroban Ointment) 0 gm TOP BID [facility] Pantoprazole Sodium (Protonix Ec Tab) 40 mg PO 0600 [facility] Last Admin: 06/25/18 06:00 Dose: Not Given Quetiapine Fumarate (Seroquel Xr) 200 mg PO DAILY [facility] Quetiapine Fumarate (Seroquel Xr) 300 mg PO DAILY [facility] - Constitutional Appears: Well, No Acute Distress - Head Exam Head Exam: ATRAUMATIC, NORMAL INSPECTION, NORMOCEPHALIC - Eye Exam Eye Exam: EOMI, Normal appearance, PERRL Pupil Exam: NORMAL ACCOMODATION, PERRL - ENT Exam ENT Exam: Mucous Membranes Moist, Normal Exam - Neck Exam Neck Exam: Full ROM, Normal Inspection. absent: Lymphadenopathy - Respiratory Exam Respiratory Exam: Clear to Ausculation Bilateral, NORMAL BREATHING PATTERN - Cardiovascular Exam Cardiovascular Exam: REGULAR RHYTHM, +S1, +S2. absent: Murmur - GI/Abdominal Exam GI & Abdominal Exam: Soft, Normal Bowel Sounds. absent: Tenderness - Extremities Exam Extremities Exam: Full ROM, Normal Capillary Refill, Normal Inspection. absent : Joint Swelling, Pedal Edema Additional comments: Right lower leg scar, it is clean, dry. no signs of infection, no erythema. - Back Exam Back Exam: NORMAL INSPECTION - Neurological Exam Neurological Exam: Awake, CN II-XII Intact, Oriented x3 - Psychiatric Exam Psychiatric exam: Depressed, Flat Affect. absent: Homicidal Ideation, Suicidal Ideation Additional comments: patient is anxious about his hospital stay and want to be discharged home. - Skin Skin Exam: Dry, Normal Color, Rash, Warm Additional comments: mild erythema around nose and mouth Assessment and Plan - Assessment and Plan (Free Text) Assessment: 47 y/o male with pmhx of bipolar disorder, schizoaffective disorder, polysubstance abuse, multiple psychiatric admissions, R LE compartment syndrome s/p fasciotomy, osteomyelitis presented to ED after being bib [facility] for altered mental status and confusion. CT head shows no intracranial hemorrhage. Plan: Altered Mental Status - Likely secondary to polypharmacy - Patient still have episodes of agitation during the night that require giving him Ativan/Geodon - Psychiatry consulted to adjust his meds; Tani Zacarias - Neurology consulted Dr. Fan: no underlying neurological disorder continuing Depakote and Neurontin to prevent seizures in the setting of the current antipsychotic medications that can lower the seizure threshold. consider an EEG and an MRI if symptoms return and persist - Seizure precautions - Aspiration precautions - Continue 1:1 observation - Pain management Tylenol mild pain, Motrin moderate pain prn - Ativan 1 mg prn for agitation Hx of schizoaffective disorder, bipolar disorder - Psych meds adjusted by psych team - Consult psychiatry Dr. Theodore to admit the patient in psych unit as he is medically clear. - Continue meds per psych Hx of right lower leg cellulitis/compartment syndrome s/p fasciotomy -Right leg is atrophied s/p fasciotomy. no signs of infection. -Right leg blister on the dorsal aspect of the foot -Right foot x-ray shows no fracture -Podiatry consulted: no need for right foot MRI, there is no signs of infection , clean wound -Podiatry and ID recommend monitor off abx and follow up with podiatry outpatient DVT ppx Lovenox GI ppx Protonix High fall risk Discussed with Dr. Donald Cazares PGY1 <Bijal Bennett R - Last Filed: 06/26/18 08:41> Objective - Vital Signs/Intake and Output Vital Signs (last 24 hours): Temp Pulse Resp BP Pulse Ox 98 F 74 19 112/74 95 06/25/18 08:30 06/25/18 08:30 06/25/18 08:30 06/25/18 08:30 06/25/18 08:30 Attending/Attestation - Attestation I have personally seen and examined this patient.: Yes I have fully participated in the care of the patient.: Yes I have reviewed all pertinent clinical information, including history, physical exam and plan: Yes Notes (Text): Patient seen and examined by me at 10:30AM with resident 06/25/18. Case including HPI, physical exam, and assessment and plan discussed with resident. Agree with above with following additions/corrections. Patient states that he is feeling ok today. Incoherent with thoughts. He is denying and leg pain in his right leg today. He is stating he is going home and he mohter needs to be provided with percocet for him. Patient's sister and mother at bedside. Patient is ambulating without difficulty. No fevers or chills. No abdominal pain, nausea, or vomiting. No chest pain or shortness of breath. No headaches or dizziness. No diarrhea or constipation. No dysuria. Patient's sister states that patient was on too many medications at home. Per mom, patient was taking approximately "30 pills everyday for one week." Per family, patient has a history of drug abuse. Physical exam: Gen: Awake and alert sitting up in chair in no acute distress HEENT: Normocephalic, atraumatic. Extraocular muscles intact, pupils equal reactive. No scleral icterus. Oropharynx is pink and moist. No pharyngeal erythema or exudate appreciated. Neck is supple. Cardiovascular: Normal rhythm. Normal S1, S2. No murmurs, rubs, or gallops appreciated Pulmonary: Normal respiratory effort. No rhonchi, rales or wheezing appreciated. Gastrointestinal: Soft, nontender, nondistended, positive bowel sounds all 4 quadrants, no guarding. Musculoskeletal: Normal range of motion all extremities, no calf tenderness. No CVA tenderness. Central nervous system: AAO x 3. Dermatologic: Skin warm and dry, right lower extremity with well-healed scar, right foot with dime-sized small healing wound on lateral foot Assessment and plan: Patient is a 47-year-old male with past medical history significant for bipolar disorder, schizoaffective disorder, polysubstance abuse , multiple psychiatric admissions, right lower extremity compartments syndrome status post fasciotomy, and osteomyelitis that presented to the emergency room with altered mental status and shaking. 1. Altered mental status. Intermittent. Likely secondary to polypharmacy with psychiatric meds as well as underlying psychiatric conditions. Neurology consulted, recommendations appreciated. Psychiatry consulted, recommendations appreciated. Per neurology continue Depakote and gabapentin. Continue Cogentin and Seroquel. Continue with Haldol and Ativan when necessary. Continue with one- to-one. Pending admission to psychiatry unit. CT head per radiology showed no acute intracranial hemorrhage, suspect minimal chronic periventricular white matter ischemic changes. Continue ASA. 2. History of bipolar disorder, schizoaffective disorder. Psychiatrist following , recommendations appreciated. Continue Cogentin and Seroquel. Continue Haldol and Ativan as needed. Pending admission to psychiatric unit. 3. Right foot wound. ID following, recommendations appreciated. Podiatry following, recommendations appreciated. Wound is not infected and there is no antibiotic intervention indicated. Right foot x-ray per radiologist showed limited study due to overlying clothing/sock related artifact which obscures fine soft tissue and bone detail, no evidence of acute displaced fracture nor dislocation, no obvious cortical destructive changes. Continue local wound care 4. Leukocytosis. Likely reactive. Resolved. Continue to monitor. 5. GI/DVT prophylaxis. Protonix and Lovenox Case was discussed in detail with the patient, patient's sister, and patient's mother at bedside regarding current diagnosis and treatment plan.
--- NOTE | 2018-06-25 14:56 | CP.PCM.PN ---
Subjective - Date & Time of Evaluation Date of Evaluation: 06/24/18 Time of Evaluation: 09:35 - Subjective Subjective: No fevers, not in distress, no increase in right foot pain. Objective - Vital Signs/Intake and Output Vital Signs (last 24 hours): Temp Pulse Resp BP Pulse Ox 98.7 F 88 20 129/74 94 L 06/23/18 16:28 06/23/18 16:28 06/23/18 16:28 06/23/18 16:28 06/23/18 16:28 - Medications Medications: Current Medications Acetaminophen (Tylenol 325mg Tab) 650 mg PO Q4H PRN PRN Reason: Pain, Mild (1-3) Benztropine Mesylate (Cogentin) 1 mg PO [facility] Divalproex Sodium (Depakote Dr(*Bid*)) 500 mg PO [facility] Enoxaparin Sodium (Lovenox) 40 mg SC DAILY [facility] PRN Reason: Protocol Last Admin: 06/23/18 10:14 Dose: 40 mg Fluoxetine HCl (Prozac) 40 mg PO DAILY [facility] Last Admin: 06/23/18 13:15 Dose: 40 mg Gabapentin (Neurontin) 600 mg PO QID [facility] PRN Reason: Protocol Last Admin: 06/23/18 13:27 Dose: 600 mg Hydroxyzine Pamoate (Vistaril) 25 mg PO BID PRN; Protocol PRN Reason: Anxiety Last Admin: 06/23/18 16:28 Dose: 25 mg Ceftriaxone Sodium (Rocephin 1 Gram Ivpb) 1 gm in 100 mls @ 100 mls/hr IVPB DAILY [facility] PRN Reason: Protocol Last Admin: 06/23/18 10:13 Dose: 100 mls/hr Vancomycin HCl (Vancomycin 1gm) 1 gm in 250 mls @ 167 mls/hr IVPB DAILY [facility] PRN Reason: Protocol Last Admin: 06/23/18 10:13 Dose: 167 mls/hr Ibuprofen (Motrin Tab) 400 mg PO Q6H PRN PRN Reason: Pain, moderate (4-7) Pantoprazole Sodium (Protonix Ec Tab) 40 mg PO 0600 [facility] Risperidone (Risperdal Tab) 0.5 mg PO DAILY [facility] Last Admin: 06/23/18 13:15 Dose: 0.5 mg - Constitutional Appears: Non-toxic, Chronically Ill - Respiratory Exam Respiratory Exam: Decreased Breath Sounds - Cardiovascular Exam Cardiovascular Exam: +S1, +S2 - GI/Abdominal Exam GI & Abdominal Exam: Soft. absent: Tenderness Assessment and Plan - Assessment and Plan (Free Text) Plan: Assessment history of right foot cellulitis with right 1st, 2nd and 5th toe osteomyelitis, S/P treatment with IV antibiotics schizoaffective disorder bipolar disorder anxiety and depression history of right leg fasciotomy Plan will continue to monitor off antibiotics, foot xray does not show infiltrates - reviewed Podiatry evaluation and also recommend to monitor off antibiotics explained to patient that he needs follow up with Podiatry as an outpatient
[2018-06-25] MEDS ORDERED: Mupirocin 2% Ointment 15 GM TUBE TOP SCH ×2 (18:00)
--- NOTE | 2018-06-26 08:15 | CON ---
Copied To: Jyotsna Theodore MD Attending MD: Jyotsna Theodore MD DATE: 06/25/2018 HISTORY OF PRESENT ILLNESS: The patient is a 47-year-old white male with a history of mental illness, likely bipolar disorder with psychotic features versus schizoaffective disorder; history of polysubstance abuse and dependence, severe in the past; history of involuntary commitment to [facility]; noncompliant to medications; who is being by Psychiatry on the medical floor due to increased confusion and mental status changes, likely secondary to delirium in the background of polypharmacy, although I cannot rule out recent psychiatric decompensation. I am familiar with the patient from my prior consultation with him on 05/04/2018, as well as my followup with him yesterday which was largely unsuccessful due to his very disorganized and confused mental status. The patient shows some improvements in focus and impulse control this morning, although he still is confused, not provide the correct month or location initially he has been restless on the unit and does require multiple p.r.n. as it is difficult to redirect him. He might initially be agreeable, but this is only temporary and he starts to try to get out of bed or wander in the hallway. The patient is calm during my meeting with him and he is generally cooperative and but most of his interactions are inappropriate and his responses can be irrelevant and inconsistent at times. At this time, he is still considered a very unreliable historian as we truly feel that he remains delirious and requires medical attention at this time. He does appear to have been compliant with his current medications, psychiatric medications on the unit. Of note, I met with his sister in the hallway who also appears as his POA. indicating that psychiatric medications were increased at the patient's subacute rehab despite her protest and she feels that this increase in medications directly contributed to his decline in his mental status as she saw that he was doing very well after he was discharged from [facility] in April. The patient felt that he was on a very good combination of psychiatric medications at the time of discharge. The patient was apparently home for about two weeks and during this time, his mental status and impulsivity including organization and focus continued to decline. Family including mother and sister informed me that during the course of these two weeks, mother's Xanax supply of 23 tablets became missing and they are quite sure that he took it. This was earlier in the beginning of the two weeks and then they are quite certain that he has been taking medications that he is not supposed to be taking as medications have been discontinued in the past, possibly hydroxyzine as he feels that this medication has been very beneficial from his anxiety. Regardless, it is unclear what medications the patient was taking, but his mentation is certainly showing the effects of it as he is not at seen at baseline and this appears to be a type of confusion that is more organic than secondary to psychiatric decompensation. His insight and judgement are considered to be poor. He does not have capacity to sign out. Vital signs were reviewed as well as recent laboratory work. Of note, Depakote level was 30 on June 24, 2018. His medications were reviewed and the patient is taking Cogentin 0.5 a.m. and at bedtime, Depakote 500 a.m. and at bedtime, Neurontin 600 mg p.o. four times a day, Haldol 5 mg every 6 hours p.r.n., Ativan 1 mg IV every 6 hours p.r.n., Seroquel XR 300 mg every evening. IMPRESSION: Delirium likely secondary to polypharmacy as well as history of schizoaffective versus bipolar disorder by history. RECOMMENDATIONS: I will be increasing Seroquel XR to 500 mg every evening dose of 700 mg p.o. every evening and the patient's mother indicates that his discharge medications from April 2018 medical admission was very beneficial for him. I will also continue Depakote 500 mg a.m. and at bedtime as he is also on this medication. I will with anticholinergics can contribute to confusion. I will continue to follow up with the patient on a daily basis, monitor his mental status and continue to make one-to-one as he is unpredictable due to his confusion. Jyotsna Theodore MD
--- NOTE | 2018-06-27 12:29 | CP.PCM.DIS ---
Provider - Provider Date of Admission: 06/23/18 05:08 Attending physician: Bijal Bennett DO Consults: ZAC Pineda Podiatry Neurology [facility] Time Spent in preparation of Discharge (in minutes): 45 Hospital Course - Lab Results Lab Results: Micro Results 06/23/18 08:30 Blood-Venous Blood Culture - Preliminary NO GROWTH AFTER 4 DAYS 06/23/18 08:00 Blood-Venous Blood Culture - Preliminary NO GROWTH AFTER 4 DAYS Most Recent Lab Values WBC 6.7 10^3/ul (4.5-11.0) 06/25/18 06:45 RBC 4.90 10^6/uL (3.5-6.1) 06/25/18 06:45 Hgb 14.0 g/dL (14.0-18.0) 06/25/18 06:45 Hct 41.3 % (42.0-52.0) L 06/25/18 06:45 MCV 84.3 fl (80.0-105.0) 06/25/18 06:45 MCH 28.6 pg (25.0-35.0) 06/25/18 06:45 MCHC 33.9 g/dl (31.0-37.0) 06/25/18 06:45 RDW 12.2 % (11.5-14.5) 06/25/18 06:45 Plt Count 152 10^3/uL (120.0-450.0) 06/25/18 06:45 MPV 9.9 fl (7.0-11.0) 06/25/18 06:45 pO2 207 mm/Hg (30-55) H 06/23/18 01:26 VBG pH 7.44 (7.32-7.43) H 06/23/18 01:26 VBG pCO2 41.0 (40-60) 06/23/18 01:26 VBG HCO3 27.8 mmol/l (21-28) 06/23/18 01:26 VBG Total CO2 29.1 mmol.L (22-28) H 06/23/18 01:26 VBG O2 Sat (Calc) 100.6 % (40-65) H 06/23/18 01:26 VBG Base Excess 3.3 mmol/L (0.0-2.0) H 06/23/18 01:26 VBG Potassium 4.0 mmol/L (3.6-5.2) 06/23/18 01:26 Sodium 137.0 mmol/L (132-148) 06/23/18 01:26 Chloride 103.0 mmol/L (98-107) 06/23/18 01:26 Glucose 107 mg/dl (75-110) 06/23/18 01:26 Lactate 1.8 mmol/L (0.7-2.1) 06/23/18 01:26 FiO2 21.0 % 06/23/18 01:26 Sodium 140 mmol/L (132-148) 06/22/18 23:34 Potassium 4.1 mmol/L (3.6-5.0) 06/22/18 23:34 Chloride 100 mmol/L (98-107) 06/22/18 23:34 Carbon Dioxide 27 mmol/L (21-33) 06/22/18 23:34 Anion Gap 18 (10-20) 06/22/18 23:34 BUN 15 mg/dL (7-21) 06/22/18 23:34 Creatinine 0.9 mg/dl (0.8-1.5) 06/22/18 23:34 Est GFR ( Amer) > 60 06/22/18 23:34 Est GFR (Non-Af Amer) > 60 06/22/18 23:34 POC Glucose (mg/dL) 93 mg/dL (65-110) 06/22/18 23:36 Random Glucose 95 mg/dL (70-110) 06/22/18 23:34 Calcium 9.7 mg/dL (8.4-10.5) 06/22/18 23:34 Total Bilirubin 0.4 mg/dL (0.2-1.3) 06/22/18 23:34 AST 40 U/L (17-59) 06/22/18 23:34 ALT 37 U/L (7-56) 06/22/18 23:34 Alkaline Phosphatase 91 U/L (38-126) 06/22/18 23:34 Lactate Dehydrogenase 438 U/L (333-699) 06/22/18 23:34 Total Creatine Kinase 159 U/L (35-230) 06/22/18 23:34 Troponin I < 0.01 ng/mL 08/11/18 23:34 C-Reactive Protein 32.00 mg/L (0.0-9.9) H 06/23/18 08:00 Total Protein 7.8 g/dL (5.8-8.3) 06/22/18 23:34 Albumin 4.6 g/dL (3.0-4.8) 06/22/18 23:34 Globulin 3.2 gm/dL 06/22/18 23:34 Albumin/Globulin Ratio 1.4 (1.1-1.8) 06/22/18 23:34 Procalcitonin 0.05 NG/ML (0.19-0.49) L 06/23/18 05:00 Venous Blood Potassium 4.0 mmol/L (3.6-5.2) 06/23/18 01:26 Urine Color Yellow (YELLOW) 06/23/18 01:26 Urine Appearance Clear (CLEAR) 06/23/18 01:26 Urine pH 6.0 (4.7-8.0) 06/23/18 01:26 Ur Specific [place] >= 1.030 (1.005-1.035) 06/23/18 01:26 Urine Protein Trace mg/dL (<30 mg/dL) H 06/23/18 01:26 Urine Glucose (UA) Negative mg/dL (NEGATIVE) 06/23/18 01:26 Urine Ketones Trace mg/dL (NEGATIVE) H 06/23/18 01:26 Urine Blood Negative (NEGATIVE) 06/23/18 01:26 Urine Nitrate Negative (NEGATIVE) 06/23/18 01:26 Urine Bilirubin Negative (NEGATIVE) 06/23/18 01:26 Urine Urobilinogen 0.2 E.U./dL (<1 E.U./dL) 06/23/18 01:26 Ur Leukocyte Esterase Negative Jocelyn/uL (NEGATIVE) 06/23/18 01:26 Urine RBC 0 - 2 /hpf (0-2) 06/23/18 01:26 Urine WBC 0 - 2 /hpf (0-6) 06/23/18 01:26 Ur Epithelial Cells 0 - 2 /hpf (0-5) 06/23/18 01:26 Salicylates < 1 mg/dL (2.0-20.0) L 06/22/18 23:34 Urine Opiates Screen Negative (NEGATIVE) 06/23/18 01:26 Urine Methadone Screen Negative (NEGATIVE) 06/23/18 01:26 Acetaminophen < 10.0 ug/ml (10.0-20.0) L 06/22/18 23:34 Ur Barbiturates Screen Negative (NEGATIVE) 06/23/18 01:26 Valproic Acid 30 ug/mL (50.0-100.0) L 06/24/18 13:00 Ur Phencyclidine Scrn Negative (NEGATIVE) 06/23/18 01:26 Ur Amphetamines Screen Negative (NEGATIVE) 06/23/18 01:26 U Benzodiazepines Scrn Negative (NEGATIVE) 06/23/18 01:26 U Oth Cocaine Metabols Negative (NEGATIVE) 06/23/18 01:26 U Cannabinoids Screen Negative (NEGATIVE) 06/23/18 01:26 Alcohol, Quantitative < 10 mg/dL (0-10) 06/22/18 23:34 - Hospital Course Hospital Course: On Admission: 47 y/o male with past medical history of bipolar disorder, schizoaffective disorder, polysubstance abuse, multiple psychiatric admissions, R LE compartment syndrome s/p fasciotomy, osteomyelitis presented to ED on 06/23/2018 after being brought in by EMS for altered mental status and leukocytosis. Hospital course: Patient was admitted with altered mental status likely secondary to polypharmacy with psychiatric medications. Patient was found to have delusions and hallucinations, no active suicidal/homicidal thoughts. The patient was seen by psychiatry and his psych meds got adjusted accordingly. Patient had history of seizure disorder, neurology was consulted and recommended to continue on Keppra and gabapentin to reduce the possibility of having a seizure while on psych medications. Patient had a history of polysubstance abuse. Urine drug screen was negative on admission. Education on cessation was provided. Patient was also found to have a right foot wound, topical antibiotics were started. Podiatry and ID were consulted. There were no signs of infection. Right foot xray done without evidence of infiltrates. Podiatry evaluated the patient with no further recommendations for work up and advised the patient to follow up outpatient. ID evaluated patient with recommendations to monitor off antibiotics and follow up outpatient with podiatry and continue wound dressing. Continue Mupirocin 2% ointment application to affected area. Patient had elevated TG of 567 and CH of 232. Started him on Fenofibrate 145 mg. Patient was counseled for daily healthy diet and exercise to better control his elevated lipid panel. Follow up lipid panel to be done in 3 months. Patient continued to have hallucinations, deletions, and delirium while being in medical jefferson. Patient was deemed medically optimized for transfer to the psychiatric floor with voluntary admission. Patients sister who is the POA agreed and patient was admitted to psychiatric floor. Discharge Exam - Head Exam Head Exam: ATRAUMATIC, NORMAL INSPECTION, NORMOCEPHALIC - Eye Exam Eye Exam: EOMI, Normal appearance, PERRL. absent: Conjunctival injection, Scleral icterus Pupil Exam: NORMAL ACCOMODATION - ENT Exam ENT Exam: Mucous Membranes Moist - Neck Exam Neck exam: Full Rom - Respiratory Exam Respiratory Exam: NORMAL BREATHING PATTERN, UNREMARKABLE. absent: Accessory Muscle Use, Rales, Rhonchi, Wheezes - Cardiovascular Exam Cardiovascular Exam: REGULAR RHYTHM, +S1, +S2 - GI/Abdominal Exam GI & Abdominal Exam: Normal Bowel Sounds, Soft. absent: Firm, Guarding, Rigid, Tenderness - Rectal Exam Rectal Exam: Deferred - Back Exam Back exam: NORMAL INSPECTION. absent: CVA tenderness (L), CVA tenderness (R), tenderness - Psychiatric Exam Psychiatric exam: Anxious, Depressed, Flat Affect - Skin Skin Exam: Dry, Intact, Normal Color, Warm Additional comments: skin blister on right dorsal foot, clean, no pus, no odor Discharge Plan - Follow Up Plan Condition: STABLE Disposition: DISCHARGE TO PSYCH HOSPITAL Instructions: Altered Mental Status (DC), Narcotic Overdose (DC), Polysubstance Abuse (DC), Altered Mental Status (GEN) Additional Instructions: Patient is medically cleared for transfer to voluntary psychiatric unit.
== END 2018-06-25 18:43 ==
LOC: ED 22:13 → ERH 06-23 05:08 → 2RSO 06-23 07:22 → 3RNO 06-23 15:29 → INTOOBSV 06-25 14:12 → OBSVTOIN 06-25 14:12
PROVIDERS: ADMIT Internal Medicine; ATTEND Hospitalist
DX: F19.10 Other psychoactive substance abuse, uncomplicated (principal); R41.82 Altered mental status, unspecified; F25.9 Schizoaffective disorder, unspecified; F31.9 Bipolar disorder, unspecified; M86.8X7 Other osteomyelitis, ankle and foot; D72.829 Elevated white blood cell count, unspecified; F41.9 Anxiety disorder, unspecified; F17.210 Nicotine dependence, cigarettes, uncomplicated; Z79.899 Other long term (current) drug therapy; Z91.041 Radiographic dye allergy status; Z91.14 Patient's other noncompliance with medication regimen; Z79.2 Long term (current) use of antibiotics
CPT/HCPCS: 36415; 70450; 71045; 73630; 80053; 80164; 80320; 80324; 80329; 80345; 80346; 80349; 80353; 80358; 80361; 81001; 82550; 82803; 82948; 83615; 83992; 84145; 84484; 85027; 86140; 87040; 87086; 90791; 93005; 97116; 97161; 99285; G0378; G8978; G8979; G8980; J0696; J1650; J2060; J3486; Q0177

== ENCOUNTER 2018-06-25 18:47 | Inpatient (IN) | payer MEDICAID ==
[2018-06-25] MEDS ORDERED: Magnesium Hydroxide Susp 30 ml UD PO PRN (21:12)
[2018-06-25] MEDS ORDERED: Alum-Mag Hydrox-Simethicone Susp (30 mL) PO PRN (21:12)
[2018-06-25] MEDS: Divalproex 500 mg DR(BID formulation) PO SCH (22:29)
--- NOTE | 2018-06-26 00:17 | PCM.BM ---
<Lio Bonner - Last Filed: 06/26/18 00:14> Treatment Plan Problems - Problems identified on initial assessmt ALTERED THOUGHT PROCESS Date Initiated: 06/25/18 Time Initiated: 20:00 Assessment reference: NA Status: Active Priority: 1 AGGRESSION/AGITATED BEHAVIOR Date Initiated: 06/25/18 Time Initiated: 20:00 Assessment reference: NA Status: Active Priority: 2 INEFFECTIVE COPING Date Initiated: 06/25/18 Time Initiated: 20:00 Treatment assets and liabiliti Patient Assests: cooperative, insightful, motivated, self-reliant, ADL independent, physically healthy, good support system, negotiates basic needs, cognitively intact Patient Liabilities: physical pain, dietary restrictions, substance abuse, medical problems, imparied memory - Milieu Protocol Maintain good personal hygiene: every other day Encourage regular showers, every shift Remind patient to perform daily oral care, every shift Assist patient to perform ADL's Maintain personal safety: every shift Educate patient to report safety concerns to staff, every shift Monitor environment for contraband/sharps Medication safety: Monitor for expected outcome, potential side effects: every shift, Assess barriers to learning: every shift, Assess readiness for medication education: every shift Family Contact Family involvement: Family/SO is involved Family contact: Patient agrees to contact Discharge/Continuing Care - Education Needs Education Needs: Patient Medication, Patient Diagnosis/Disease Process, Patient Coping Skills, Patient Anger Management skills, Patient Activities of Daily Living, Patient Pain, Patient Nutrition, Patient Uses of Medical Equipment, Patient Health Practices/Safety, Patient Personal Hygiene/Grooming - Discharge Discharge Criteria: Tolerates medication w/o severe side effects, Free of paranoid thoughts, Free of agitation, Normal sleep pattern, Ability to care for self <Jyotsna Theodore - Last Filed: 06/26/18 11:43> - Diagnosis (1) Altered mental status Status: Acute Interventions: 06/26/18 11:44 group, milieu and supportive tx * Haldol 5 mg + Ativan 2 mg po or IM prn: agitation * Seroquel XR 300 mg qPM for history of lability, poor impulse control and disorganization. Titrate to prior effective dose of 700 mg. * cogentin 0.5 mg [facility] for EPS prophylaxis * Hold on Prozac and minimizing anticholinergics as much as possible as patient may have been taking excessive amounts of vistaril NON [employer] [employer] * Continue depakote 500 mg [facility] for mood and impulse control (2) Mood disorder Status: Acute Interventions: group, milieu and supportive tx * Haldol 5 mg + Ativan 2 mg po or IM prn: agitation * Seroquel XR 300 mg qPM for history of lability, poor impulse control and disorganization. Titrate to prior effective dose of 700 mg. * cogentin 0.5 mg [facility] for EPS prophylaxis * Hold on Prozac and minimizing anticholinergics as much as possible as patient may have been taking excessive amounts of vistaril NON [facility] [employer] [facility] [employer] * Continue depakote 500 mg [facility] for mood and impulse control 06/26/18 11:44 (3) Polysubstance abuse Status: Chronic Interventions: group, milieu and supportive tx * Haldol 5 mg + Ativan 2 mg po or IM prn: agitation * Seroquel XR 300 mg qPM for history of lability, poor impulse control and disorganization. Titrate to prior effective dose of 700 mg. * cogentin 0.5 mg [facility] for EPS prophylaxis * Hold on Prozac and minimizing anticholinergics as much as possible as patient may have been taking excessive amounts of vistaril NON [facility] [facility] [employer] * Continue depakote 500 mg [facility] for mood and impulse control 06/26/18 11:44 <Keturah Moraes - Last Filed: 06/27/18 11:12>
[2018-06-26 07:32] LABS: GLUCOSE,FASTING 95 mg/dL (65-110); HDL CHOLESTEROL 30 mg/dL (29-60)
[2018-06-26 07:42] LABS: LDL CHOLESTEROL 123 mg/dL (0-129)
[2018-06-26] MEDS ORDERED: QUEtiapine 300 mg XR Tab PO SCH ×2 (08:00→18:00)
[2018-06-26] MEDS: Mupirocin 2% Ointment 15 GM TUBE TOP SCH ×2 (08:21→17:05)
[2018-06-26] MEDS: Pantoprazole 20 mg EC Tab PO SCH (08:21)
[2018-06-26] MEDS: Divalproex 500 mg DR(BID formulation) PO SCH ×2 (09:22→21:54)
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
[2018-06-27] MEDS: Pantoprazole 20 mg EC Tab PO SCH (06:50)
[2018-06-27] MEDS: Divalproex 500 mg DR(BID formulation) PO SCH ×2 (09:21→21:25)
--- NOTE | 2018-06-27 10:20 | CP.PCM.DIS ---
Provider - Provider Date of Admission: 06/25/18 18:47 Attending physician: Jyotsna Theodore MD Time Spent in preparation of Discharge (in minutes): 45 Hospital Course - Lab Results Lab Results: Most Recent Lab Values Fasting Glucose 95 mg/dL (65-110) 06/26/18 07:00 Triglycerides 567 mg/dL (35-160) H 06/26/18 07:00 Cholesterol 232 mg/dL (130-200) H 06/26/18 07:00 LDL Cholesterol Direct 123 mg/dL (0-129) 06/26/18 07:00 HDL Cholesterol 30 mg/dL (29-60) 06/26/18 07:00 TSH 3rd Generation 1.26 mIU/mL (0.46-4.68) 06/26/18 07:00 RPR Nonreactive (NONREACTIVE) 06/26/18 07:00 - Hospital Course Hospital Course: 47 y/o male with pmhx of bipolar disorder, schizoaffective disorder, polysubstance abuse, multiple psychiatric admissions, R LE compartment syndrome s/p fasciotomy, osteomyelitis presented to ED on 06/23/2018 after being bib EMS for altered mental status and confusion likely due to polypharmacy with psychiatric medications. Hospital course: Delirium was likely secondary to polysubstance abuse and polypharmacy. Delirium has been mproving since admission. Patient had history of schizoaffective disorder that was managed in the medical jefferson as per psychiatry. Patient had a history of polysubstance abuse. Urine drug screen was negative on admission. Education on cessation Right foot cellulitis (right 1st, 2nd, 5th toe) , right foot xray done without evidence of infiltrates. Podiatry evaluated the patient during inpatient hospital stay with no further recommendations for work up, follow up outpatient. ID evaluated patient with recommendations to monitor off antibiotics and follow up outpatient with Podiatry and continue wound dressing. Continue Mupirocin 2% ointment application to affected area. Patient had elevated TG of 567 and CH of 232. Started him on Fenofibrate 145 mg. Patient was counseled for daily healthy diet and exercise to better control his elevated lipid panel. - -Patient admitted to psychiatric floor, continue to follow psych recs. Patient is medically stable, will sign off on patient. Please re-consult as needed. - Date & Time of H&P Date of H&P: 06/25/18 Time of H&P: 14:10 Discharge Exam - Head Exam Head Exam: ATRAUMATIC, NORMAL INSPECTION, NORMOCEPHALIC - Eye Exam Eye Exam: EOMI, Normal appearance, PERRL Pupil Exam: NORMAL ACCOMODATION, PERRL - ENT Exam ENT Exam: Normal Exam, Normal Oropharynx - Neck Exam Neck exam: Full Rom, Normal Inspection - Respiratory Exam Respiratory Exam: Clear to PA & Lateral, NORMAL BREATHING PATTERN - Cardiovascular Exam Cardiovascular Exam: REGULAR RHYTHM, +S1, +S2 - GI/Abdominal Exam GI & Abdominal Exam: Normal Bowel Sounds, Unremarkable. absent: Mass, Rebound, Rigid - Rectal Exam Rectal Exam: Deferred - Extremities Exam Extremities exam: normal capillary refill, pedal pulses present Additional comments: right lower leg atrophy s/p fasciotomy. surgical scar is dry, no erythema or signs of infection. - Back Exam Back exam: FULL ROM. absent: CVA tenderness (L), CVA tenderness (R) - Neurological Exam Neurological exam: Alert, CN II-XII Intact - Psychiatric Exam Psychiatric exam: Anxious, Depressed, Flat Affect - Skin Skin Exam: Dry, Intact, Normal Color, Warm Discharge Plan - Follow Up Plan Condition: GOOD Disposition: DISCHARGE TO PSYCH HOSPITAL Instructions: Delirium (Confusion), Schizoaffective Disorder (DC), Polysubstance Abuse (DC), Bipolar Disorder (DC), Altered Mental Status (GEN)
[2018-06-27] MEDS ORDERED: QUEtiapine 300 mg XR Tab PO SCH (11:09)
[2018-06-27] MEDS: Mupirocin 2% Ointment 15 GM TUBE TOP SCH ×2 (11:19→17:27)
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
[2018-06-27] MEDS ORDERED: QUEtiapine 300 mg XR Tab PO ONE (17:26)
[2018-06-27] MEDS ORDERED: QUETIAPINE PO SCH (18:00)
[2018-06-28] MEDS: Pantoprazole 20 mg EC Tab PO SCH (06:44)
[2018-06-28] MEDS: Mupirocin 2% Ointment 15 GM TUBE TOP SCH ×2 (08:01→16:28)
[2018-06-28] MEDS: Divalproex 500 mg DR(BID formulation) PO SCH ×2 (09:52→22:59)
--- NOTE | 2018-06-28 09:58 | CP.PCM.CON ---
<Reji Mckinney - Last Filed: 06/28/18 12:43> History of Present Illness - History of Present Illness History of Present Illness: Reji Mckinney PGY2 Neurology Consult Note for Dr. Amaral Mr. Pina is a 48-year-old man with a past medical history that is significant for bipolar disorder, schizoaffective disorder, polysubstance abuse , multiple psychiatric admissions, right leg compartment syndrome requiring fasciotomy with subsequent osteomyelitis requiring IV antibiotics through PICC line that was placed during previous admission of 04/27/18. There were some issues with his psychiatric medications during which he was apparently taking high doses of hydroxyzine, seroquel, and cogentin. He is also on Depakote and high doses of Gabapentin. Apparently, during previous hospitalizations, he was becoming confused and having episodes of shaking after the medications. Currently, the patient is conversant and does not have any complaints. Vital signs are otherwise normal. CT head on 06/22/18 did not show any significant findings. 12-pt ROS was reviewed and is otherwise unremarkable. PMD: Dr. Ruiz PMH: as above PSH: fasciotomy RLE Meds: reviewed, as per MAR Allergies: Contrast dye SHx: smokes 1/2 ppd for >20 years, denies alcohol or drug consumption FHx: cancer on mother's side and mental disease on father's side Review of Systems - Review of Systems All systems: reviewed and no additional remarkable complaints except (as per HPI ) Past Patient History - Infectious Disease Hx of Infectious Diseases: None - Tetanus Immunizations Tetanus Immunization: Unknown - Past Medical History & Family History Past Medical History?: Yes - Past Social History Smoking Status: Heavy Smoker > 10 Cigarettes Daily Alcohol: None Drugs: Denies - CARDIAC Hx Cardiac Disorders: No Hx Hypertension: No - PULMONARY Hx Respiratory Disorders: No - NEUROLOGICAL HX Cerebrovascular Accident: No - HEENT Hx HEENT Problems: No - RENAL Hx Chronic Kidney Disease: No - ENDOCRINE/METABOLIC Hx Endocrine Disorders: No - HEMATOLOGICAL/ONCOLOGICAL Hx Cancer: No - INTEGUMENTARY Hx Dermatological Problems: Yes (right leg swelling/ cellulitis) - MUSCULOSKELETAL/RHEUMATOLOGICAL Hx Musculoskeletal Disorders: Yes Hx Falls: Yes Hx Fractures: Yes Other/Comment: Brace to right leg, Hx. fasciectomy. - GASTROINTESTINAL Hx Gastrointestinal Disorders: No - GENITOURINARY/GYNECOLOGICAL Hx Genitourinary Disorders: No - PSYCHIATRIC Hx Psychophysiologic Disorder: Yes Hx Anxiety: Yes Hx Bipolar Disorder: Yes Hx Depression: Yes Hx Substance Use: Yes - SURGICAL HISTORY Hx Surgeries: No Hx Mastectomy: No - ANESTHESIA Hx Anesthesia: Yes Hx Anesthesia Reactions: No Hx Malignant Hyperthermia: No Meds Allergies/Adverse Reactions: Allergies Allergy/AdvReac Type Severity Reaction Status Date / Time Iodinated Contrast- Oral and Allergy ITCHING Verified 06/25/18 23:22 IV Dye - Medications Medications: Current Medications Acetaminophen (Tylenol 325mg Tab) 650 mg PO Q4H PRN PRN Reason: Pain, Mild (1-3) Al Hydrox/Mg Hydrox/Simethicone (Maalox Plus 30 Ml) 30 ml PO DAILY PRN PRN Reason: Upset Stomach Aspirin (Aspirin Chewable) 81 mg PO DAILY [facility] Last Admin: 06/28/18 08:01 Dose: 81 mg Benztropine Mesylate (Cogentin) 0.5 mg PO [facility] Last Admin: 06/28/18 09:51 Dose: 0.5 mg Divalproex Sodium (Depakote Dr(*Bid*)) 500 mg PO [facility] Last Admin: 06/28/18 09:52 Dose: 500 mg Fenofibrate (Tricor) 145 mg PO DAILY [facility] Stop: 07/02/18 23:59 Last Admin: 06/28/18 08:00 Dose: 145 mg Fluoxetine HCl (Prozac) 10 mg PO DAILY [facility] Last Admin: 06/28/18 08:01 Dose: 10 mg Gabapentin (Neurontin) 600 mg PO QID [facility] PRN Reason: Protocol Last Admin: 06/28/18 07:59 Dose: 600 mg Haloperidol (Haldol) 5 mg PO Q6 PRN; Protocol PRN Reason: Agitation Last Admin: 06/28/18 08:01 Dose: 5 mg Haloperidol Lactate (Haldol) 5 mg IM Q6H PRN; Protocol PRN Reason: Agitation Last Admin: 06/27/18 19:01 Dose: 5 mg Ibuprofen (Motrin Tab) 400 mg PO Q6H PRN PRN Reason: Pain, moderate (4-7) Lorazepam (Ativan) 1 mg IM Q6H PRN; Protocol PRN Reason: Anxiety Last Admin: 06/27/18 19:02 Dose: 1 mg Lorazepam (Ativan) 1 mg PO Q6H PRN; Protocol PRN Reason: Agitation Last Admin: 06/28/18 08:00 Dose: 1 mg Magnesium Hydroxide (Milk Of Magnesia) 30 ml PO DAILY PRN PRN Reason: Constipation Mupirocin (Bactroban Ointment) 1 gm TOP BID [facility] Last Admin: 06/28/18 08:01 Dose: 1 applic Pantoprazole Sodium (Protonix Ec Tab) 20 mg PO 0600 [facility] Last Admin: 06/28/18 06:44 Dose: 20 mg Quetiapine Fumarate (Seroquel) 100 mg PO HS PRN; Protocol PRN Reason: Agitation Last Admin: 06/27/18 21:25 Dose: 100 mg Quetiapine Fumarate 300 mg/ (Quetiapine Fumarate 200 mg) 500 mg PO QPM [facility] Last Admin: 06/27/18 17:28 Dose: 500 mg Physical Exam - Additional Findings Additional findings: - Constitutional Appears: Well, Non-toxic, No Acute Distress - Head Exam Head Exam: ATRAUMATIC, NORMAL INSPECTION - Eye Exam Eye Exam: EOMI, Normal appearance - ENT Exam ENT Exam: Mucous Membranes Moist, Normal Exam - Neck Exam Neck exam: Positive for: Normal Inspection. Negative for: Meningismus - Respiratory Exam Respiratory Exam: Clear to Auscultation Bilateral, NORMAL BREATHING PATTERN - Cardiovascular Exam Cardiovascular Exam: REGULAR RHYTHM, +S1, +S2 - GI/Abdominal Exam GI & Abdominal Exam: Hypoactive Bowel Sounds, Soft - Extremities Exam Extremities exam: Positive for: normal inspection. Negative for: calf tenderness Additional comments: RLE atrophied s/p fasciotomy - Neurological Exam Neurological exam: Alert, Oriented x3 - Psychiatric Exam Psychiatric exam: Normal Affect, Normal Mood - Skin Skin Exam: Dry, Intact, Warm Results - Vital Signs Recent Vital Signs: Last Vital Signs Temp 97.9 F 06/28/18 06:54 Pulse 74 06/28/18 06:54 Resp 20 06/28/18 06:54 BP 112/82 06/28/18 06:54 Pulse Ox Assessment & Plan - Assessment and Plan (Free Text) Assessment: 48 year old male with a significant psych hx who presents to Psych unit from medicine floors. Neurology consulted for confusion. Patient is currently alert and oriented x3 and is not confused. Essentially this has resolved and could be multifactorial, with polypharmacy being top differential. Plan: - consider decreasing neurontin dose as it is not an effective antiepileptic durg and has a variety of side effects - recommend continuing Depakote to prevent seizures in the setting of the current antipsychotic medications that can lower the seizure threshold. - consider an EEG and an MRI if symptoms return and persist. - further recs per Dr. Amaral will sign off at this time. please reconsult if needed. Case was reviewed and discussed with attending, Dr. Christo Mckinney PGY2 <Thania Amaral - Last Filed: 07/02/18 12:53> Meds - Medications Medications: Current Medications Acetaminophen (Tylenol 325mg Tab) 650 mg PO Q4H PRN PRN Reason: Pain, Mild (1-3) Al Hydrox/Mg Hydrox/Simethicone (Maalox Plus 30 Ml) 30 ml PO DAILY PRN PRN Reason: Upset Stomach Aspirin (Aspirin Chewable) 81 mg PO DAILY [facility] Last Admin: 07/02/18 09:01 Dose: 81 mg Benztropine Mesylate (Cogentin) 0.5 mg PO [facility] Last Admin: 07/02/18 09:02 Dose: 0.5 mg Divalproex Sodium (Depakote Dr(*Bid*)) 750 mg PO HS [facility] Last Admin: 07/01/18 22:38 Dose: 750 mg Divalproex Sodium (Depakote Dr(*Bid*)) 500 mg PO QAM [facility] Last Admin: 07/02/18 09:02 Dose: 500 mg Fenofibrate (Tricor) 145 mg PO DAILY [facility] Stop: 07/02/18 23:59 Last Admin: 07/02/18 09:02 Dose: 145 mg Fluoxetine HCl (Prozac) 40 mg PO DAILY [facility] Gabapentin (Neurontin) 400 mg PO QID [facility] PRN Reason: Protocol Last Admin: 07/02/18 09:02 Dose: 400 mg Haloperidol (Haldol) 5 mg PO Q6 PRN; Protocol PRN Reason: Agitation Last Admin: 07/01/18 07:09 Dose: 5 mg Haloperidol Lactate (Haldol) 5 mg IM Q6H PRN; Protocol PRN Reason: Agitation Last Admin: 06/30/18 09:08 Dose: 5 mg Ibuprofen (Motrin Tab) 400 mg PO Q6H PRN PRN Reason: Pain, moderate (4-7) Last Admin: 06/28/18 16:33 Dose: 400 mg Lorazepam (Ativan) 1 mg IM Q6H PRN; Protocol PRN Reason: Anxiety Last Admin: 06/29/18 18:35 Dose: 1 mg Lorazepam (Ativan) 1 mg PO Q6H PRN; Protocol PRN Reason: Agitation Last Admin: 07/02/18 11:33 Dose: 1 mg Magnesium Hydroxide (Milk Of Magnesia) 30 ml PO DAILY PRN PRN Reason: Constipation Mupirocin (Bactroban Ointment) 1 gm TOP BID [facility] Last Admin: 07/02/18 09:03 Dose: 1 applic Pantoprazole Sodium (Protonix Ec Tab) 20 mg PO 0600 [facility] Last Admin: 07/02/18 06:17 Dose: 20 mg Quetiapine Fumarate (Seroquel Xr) 100 mg PO QPM [facility] Last Admin: 07/01/18 17:42 Dose: 100 mg Quetiapine Fumarate (Seroquel Xr) 600 mg PO QPM [facility] Last Admin: 07/01/18 17:42 Dose: 600 mg Results - Vital Signs Recent Vital Signs: Last Vital Signs Temp 98.7 F 07/02/18 07:14 Pulse 85 07/02/18 07:14 Resp 20 07/02/18 07:14 BP 128/74 07/02/18 07:14 Pulse Ox Assessment & Plan - Assessment and Plan (Free Text) Plan: Attestation: I examined the patient myself and found the neurological exam to be unchanged. Agree with the assessment and the plan that i assisted in formulating. Thank you Dr. amaral
[2018-06-28] MEDS ORDERED: QUEtiapine 300 mg XR Tab PO SCH (09:59)
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
[2018-06-29] MEDS: Pantoprazole 20 mg EC Tab PO SCH (06:56)
[2018-06-29] MEDS: Mupirocin 2% Ointment 15 GM TUBE TOP SCH ×2 (08:49→17:20)
[2018-06-29] MEDS: Divalproex 500 mg DR(BID formulation) PO SCH ×2 (09:06→21:27)
[2018-06-29] MEDS ORDERED: QUEtiapine 300 mg XR Tab PO SCH (09:31)
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
[2018-06-29] MEDS ORDERED: FLUoxetine Elix 20 MG/5 ML PO SCH (09:45)
[2018-06-29] MEDS: QUEtiapine 300 mg XR Tab PO SCH (17:31)
[2018-06-29] MEDS: QUEtiapine 50 mg XR Tab PO SCH (17:32)
[2018-06-30] MEDS: Pantoprazole 20 mg EC Tab PO SCH (06:52)
[2018-06-30] MEDS: Mupirocin 2% Ointment 15 GM TUBE TOP SCH ×2 (08:12→16:04)
[2018-06-30] MEDS: Divalproex 500 mg DR(BID formulation) PO SCH ×3 (09:04→23:15)
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
[2018-06-30] MEDS: QUEtiapine 300 mg XR Tab PO SCH (17:29)
[2018-06-30] MEDS: QUEtiapine 50 mg XR Tab PO SCH (17:29)
[2018-07-01] MEDS: Pantoprazole 20 mg EC Tab PO SCH (05:40)
[2018-07-01 06:57] VITALS: RESP 20
[2018-07-01] MEDS: Mupirocin 2% Ointment 15 GM TUBE TOP SCH ×2 (09:29→17:40)
[2018-07-01] MEDS: Divalproex 500 mg DR(BID formulation) PO SCH ×2 (10:44→22:38)
--- NOTE | 2018-07-01 13:08 | PCM.PYCHPN ---
Psychiatric Progress Note - Psychiatric Progress Note Patient seen today, length of contact: 30 min Patient Chief Complaint: "I am feeling better" Problems Identified/Issues Discussed: Suicide/ homicide prevention, past psychiatric h/o, current psychiatric symptoms , medical problems, risk/benefits and alternatives of medications, medications compliance, coping strategies, substance abuse h/o, relapse prevention, importance of follow up with psychiatrist and therapist, discharge plan. Medical Problems: see HPI Diagnostic Results: Lab Results 06/28/18 10:30: Valproic Acid 57 06/26/18 07:00: TSH 3rd Generation 1.26 06/26/18 07:00: Fasting Glucose 95, Triglycerides 567 H, Cholesterol 232 H, LDL Cholesterol Direct 123, HDL Cholesterol 30 06/26/18 07:00: RPR Nonreactive Vital Signs Temp Pulse Pulse Resp BP 07/01/18 06:56 97.2 F L 100 H 20 126/92 H 06/30/18 16:00 101 H 130/76 06/30/18 07:00 98.3 F 96 H 16 138/79 06/29/18 15:00 89 20 125/74 06/29/18 07:00 97.9 F 86 20 126/91 H 06/29/18 06:59 97.9 F 86 20 126/91 H 06/28/18 16:25 89 127/91 H 06/28/18 06:54 97.9 F 74 20 112/82 06/27/18 16:00 81 138/89 06/27/18 07:15 97.9 F 79 20 121/86 06/26/18 16:00 93 H 130/78 06/26/18 07:13 97.8 F 82 20 126/85 06/25/18 22:00 60 20 06/25/18 19:13 97.7 F 96 H 20 131/74 DSM 5 Symptoms Update: Shortly pt is a 47yo male with history of bipolar vs schizoaffective disorder, polysubstance abuse and dependence, h/o noncompliance with the medications and follow up appointments, multiple prior psychiatric admissions including involuntary commitment to [facility], (most recently discharged from [facility] psychiatric inpatient unit 04/25/18) was transferred from the medical floor for treatment of confusion, disorganization and agitation. This movie writer reviewed the notes, discussed with treatment team, meds reviewed, pt was seen at the treatment team meeting room. pt is very familiar to this movie writer/unit from multiple psychiatric admissions, most recent was in April 2018. pt presented relatively well, at times presented with difficulties to concentrate and stay focused, keep asking to repeat the question. pt said he feels better, denied being depressed, denied thoughts of harming self or others. pt said that he did not use any drugs since the last admission. pt said that he does not hear voices or seeing things. as per staff it is the first day when pt presented well, before pt was very confused, dewayne Ricardo was called at the time of admission. as per 's evaluation pt was still in delirium stage, had sundowning syndrome, but it seems to be decreasing in severity. Specifically, his symptoms of restlessness, confusion, lability, agitation and paranoia are slowly getting better every day consistent with resolving delirium. Patient still remains too disorganized for discharge. His I/J is still poor regarding need for outpatient treatment for his substance use. Appreciate SW note on 06/28/18 indicating efforts to encourage patient to engage in outpatient treatment after discharge, which patient continues to refuse. so far pt tolerates meds well, no side effects observed or reported, AIMS 0, no EPS. Diagnostic Results: Schizoaffective Disorder by history Improving Delirium (r/o anticholinergic delirium) Polysubstance Abuse and dependency SIPD and SIMD Medication Change: No (depakote and prozac increased yesterday) Medical Record Reviewed: Yes Consults ordered or reviewed: pt was transferred from the Med/surg floor Mental Status Examination - Cognitive Function Orientation: Person, Place, Situation, Time Memory: Intact (but pt has episodes of confusions) Attention: Poor Concentration: Poor Association: WNL Fund of Knowledge: WNL - Mood Mood: Depressed (improving), Anxious (improving) - Affect Affect: Constricted (but more reactive) - Speech Speech: Appropriate - Formal Thought Process Formal Thought Process: Loosening of associations - Suicidal Ideation Suicidal Ideation: No - Homicidal Ideation Homicidal Ideation: No Goal/Treatment Plan - Goal/Treatment Plan Need for Continued Stay: Remain at risks for inpatient hospitalization, Severe depression anxiety, Discharge may exacerbated symptoms, Severe functional impairment Progress Toward Problem(s) and Goals/Treatment Plan: group, milieu and supportive tx Haldol 5 mg + Ativan 2 mg po or IM prn: agitation Seroquel XR increased to 700 mg qPM for history of lability, poor impulse control and disorganization. cogentin 0.5 mg AMHS for EPS prophylaxis Prozac to 30 mg po daily with the plant to titrate to effective dose of 40 mg po daily. depakote 500 mg AM and 750 HS was increased on 06/30/18 for mood and impulse control SW consultation for discharge plan and social issues Family involvement, discussed with pt's POA 06/27/18 Follow up on labs Will monitor closely Pt was educated about risk/benefits and alternatives of medications, coping strategies (safety plan, suicide prevention), relapse prevention, importance of follow up with psychiatrist and therapist, stay away from drugs/alcohol/smoking Estimated Date of D/C: 07/03/18
[2018-07-01 15:37] VITALS: PULSE 85
[2018-07-01] MEDS: QUEtiapine 50 mg XR Tab PO SCH (17:42)
[2018-07-01] MEDS: QUEtiapine 300 mg XR Tab PO SCH (17:42)
[2018-07-02] MEDS: Pantoprazole 20 mg EC Tab PO SCH (06:17)
[2018-07-02 07:14] VITALS: BP 128/74; TEMP 98.7
[2018-07-02] MEDS: Divalproex 500 mg DR(BID formulation) PO SCH (09:02)
[2018-07-02] MEDS: Mupirocin 2% Ointment 15 GM TUBE TOP SCH (09:03)
== END 2018-07-02 16:36 | disposition home or self-care (01) | DRG 430 ==
LOC: PSYC 18:47
PROVIDERS: ADMIT Psychologist; ATTEND Psychologist
DX: F25.9 Schizoaffective disorder, unspecified (principal); F19.24 Other psychoactive substance dependence with psychoactive substance-induced mood disorder; F31.9 Bipolar disorder, unspecified; F05 Delirium due to known physiological condition; E78.5 Hyperlipidemia, unspecified; E78.1 Pure hyperglyceridemia; F17.210 Nicotine dependence, cigarettes, uncomplicated; Z91.14 Patient's other noncompliance with medication regimen; Z91.5 Personal history of self-harm